=== PATIENT | female | born 1955 | race Caucasian/White ===

== ENCOUNTER 2023-02-12 10:58 | Outpatient (REF) | payer OTHER, SELFPAY ==
[2023-02-12 11:20] LABS: MANUAL DIFF FLAG NO
[2023-02-12 12:58] LABS: Basophils Percent Auto 0.7 % (0-2); Eosinophils Absolute Auto 0.4 X10*3/uL (0.0-0.4); Eosinophils Percent Auto 6.9 % (0-4); Hematocrit 36.2 % (37.0-47.0); Hemoglobin 11.6 g/dl (12.0-16.0); Imm Gran Abs Auto 0.02 X10*3/uL (0.00-0.03); Imm Gran Pct Auto 0.3 % (0.0-0.4); Lymphocytes Absolute Auto 1.9 X10*3/uL (1.2-4.9); Lymphocytes Percent Auto 31.1 % (20-40); Mean Corpuscular Hemoglobin 28.8 pg (27.0-33.0); Mean Corpuscular Volume 89.8 fL (80.0-98.0); Mean Platelet Volume 9.5 fL (9.4-12.3); Monocytes Absolute Auto 0.3 X10*3/uL (0.1-1.2); Monocytes Percent Auto 5.2 % (2-11); Neutrophils Absolute Auto 3.3 x10*3/uL (2.0-8.3); Neutrophils Percent Auto 55.8 % (45-73); Platelet Count 269 X10*3/uL (160-400); Red Blood Count 4.03 X10*6/uL (4.20-5.50); White Blood Count 5.9 X10*3/uL (4.8-10.8)
[2023-02-12 14:25] LABS: Alanine Aminotransferase 31 U/L (0-31); Albumin Level 4.2 g/dL (3.5-5.0); Alkaline Phosphatase 81 U/L (39-117); Anion Gap 17 (12-20); Aspartate Amino Transferase 31 U/L (5-31); Bilirubin Total 0.7 mg/dL (0.0-1.0); Blood Urea Nitrogen 32 mg/dL (9-16); Calcium 10.2 mg/dL (8.4-10.2); Carbon Dioxide 17 mmol/L (22-29); Chloride 111 mmol/L (96-108); Cholesterol 144 mg/dL; Estimated Glomerular Filt Rate 28; Glucose Fasting 138 mg/dL (60-99); HDL Cholesterol 39 mg/dL; LDL Cholesterol Calculated 79 mg/dl; Potassium 5.6 mmol/L (3.3-5.1); Sodium 139 mmol/L (135-145); Total Protein 7.5 g/dL (6.5-8.0); Triglycerides 130 mg/dL
[2023-02-12 14:34] LABS: Creatinine Urine 214.85 mg/dL; Microalbum/Creatinine Ratio Ur 45.1 ug/mg cr
[2023-02-12 14:40] LABS: TSH reflex Free T4 2.16 uIU/mL (0.32-4.0); Vitamin D 25-OH Total 72.1 ng/mL (>30)
[2023-02-12 14:53] LABS: Folate 16.1 ng/mL (> or = 4.0); Vitamin B12 1229 pg/mL (200-900)
== END 2023-02-12 10:59 | disposition home or self-care (01) ==
LOC: HO.LAB 10:58
PROVIDERS: Visit Provider Nurse Practitioner Family
DX: E03.9 Hypothyroidism, unspecified (principal); E78.5 Hyperlipidemia, unspecified; Z76.89 Persons encountering health services in other specified circumstances; I12.9 Hypertensive chronic kidney disease with stage 1 through stage 4 chronic kidney disease, or unspecified chronic kidney disease; E11.22 Type 2 diabetes mellitus with diabetic chronic kidney disease; N18.9 Chronic kidney disease, unspecified; E87.5 Hyperkalemia; M19.90 Unspecified osteoarthritis, unspecified site; F03.90 Unspecified dementia, unspecified severity, without behavioral disturbance, psychotic disturbance, mood disturbance, and anxiety
CPT/HCPCS: 36415; 80053; 80061; 82043; 82306; 82607; 82746; 84443; 85025

== ENCOUNTER 2023-02-13 13:55 | Outpatient (AMB) | payer OTHER, SELFPAY ==
--- NOTE | 2023-02-13 14:03 | MHC.PC.OV ---
Vital Signs 02/13/23 14:04 Height 5 ft 6.5 in Weight 192 lb BMI 30.5 BP 118/76 Blood Pressure Location Lt brachial Position Sitting Pulse 73 Pulse Source Pulse Oximeter Temp Source Skin Pulse Oximetry (%) 99 Oxygen Delivery Method Room Air Intake Visit Reasons: PE with labs Neurosurgical Nurse Required: No Allergies amoxicillin Allergy (Intermediate, Verified 02/13/23 14:23) Vomiting Medication List - Last Reconciled 02/13/23 by ELVIA Anaya amlodipine 5 mg PO DAILY atorvastatin 20 mg PO DAILY cholecalciferol (vitamin D3) 50 mcg PO DAILY coenzyme Q10 (CoQ-10) 200 mg PO DAILY duloxetine 60 mg PO DAILY lamotrigine 50 mg PO BID levothyroxine 50 mcg PO DAILY lisinopril 20 mg PO DAILY lorazepam 1 mg PO BEDTIME PRN metformin 500 mg PO BID methylphenidate HCl 20 mg PO BID omega-3 fatty acids 1,000 mg PO DAILY zolpidem mg PO Tobacco use date assessed: 12/13/22 Fall risk assessment: No Falls in past year Last assessed Fall Risk: 02/13/23 Dental Screening Dental Screen Date: 02/13/23 Did you have a dental visit in the last 12 months?: No Did you have a dental problem in the last 6 months where you did not have access to dental care?: No HPI PE with labs HPI Details Patient is a 68-year-old female who presents today for physical exam. Medical history significant for depression, anxiety, insomnia, ADHD, hypertension, diabetes, hyperlipidemia, hypothyroidism, arthritis in back.? Mental health conditions and medications are followed by Psychiatry Dr. Warner.? Today we discussed patient's need for tetanus vaccine. We also discussed patient's need for mammogram and bone density screening. Patient reports normal colonoscopy in 2019 which was done at [facility], will request records. Patient reports pneumonia vaccine after age 65. Recent blood work results reviewed with the patient. Potassium elevated at 5.6 02/12/2023, will treat with 1 dose lokelma today and repeat blood work tomorrow. Patient reports that about 1 month ago she was taking ibuprofen for couple weeks for back pain. Her kidney functions are elevated as well and will refer to Nephrology. Will avoid nephrotoxic medications. Patient denies shortness of breath or chest pain. She reports ongoing intermittent bilateral hip pain, she reports sensation like her hips are locking up, will obtain x-rays. ?Up-to-date with eye exam. [facility] Medical History (Updated 02/13/23 @ 14:40 by ELVIA Anaya) Encounter to establish care Surgical History (Updated 02/13/23 @ 17:36 by ELVIA Anaya) History of cholecystectomy History of colonoscopy History of gastric bypass History of placement of ear tubes Family History Other Mental health disorder Substance use disorder Social History Housing: House Alcohol intake: current Alcohol intake frequency: holidays/special occasions only Patient Tobacco Use Status: Former Tobacco user e-Cigarette/Vaping Use: Never Used Second Hand Smoke Exposure: No service: No Current occupational status: retired Cognitive needs: No Hearing needs: No Vision needs: Yes (glasses) Questionnaire PHQ-9 Over the last 2 weeks, how often have you been bothered by any of the following problems? 1. Little interest or pleasure in doing things: several days 2. Feeling down, depressed, or hopeless: several days (pt is receiving treatment for depression/anxiety ) 3. Trouble falling or staying asleep, or sleeping too much: not at all 4. Feeling tired or having little energy: not at all 5. Poor appetite or overeating: not at all 6. Feeling bad about yourself - or that you are a failure or have let yourself or your family down: not at all 7. Trouble concentrating on things, such as reading the newspaper or watching television: not at all 8. Moving or speaking so slowly that other people could have noticed. Or the opposite - being so fidgety or restless that you have been moving around a lot more than usual: not at all 9. Thoughts that you would be better off or of hurting yourself in some way: not at all Total score: 2 Depression Screening Interpretation: Negative 52913 - PHQ-9 Billing: Yes Source: Developed by Drs. Ko Babcock, Anny Javed, Larry Santizo and colleagues, with an educational ralph from [employer]. Thrive Questionnaire Date Thrive assessed: 12/13/22 AUDIT C Alcohol Use Questionnaire (AUDIT-C) 1. How often do you have a drink containing alcohol?: Never Total Score: 0 Score Reviewed/Action Taken: No KIMBERLEY-7 AMB Questionnaire KIMBERLEY-7 Date KIMBERLEY - 7 assessed: 02/13/23 (pt is receiving treatment for depression/anxiety ) Feeling nervous, anxious, or on edge: 1 = Several days Not being able to stop or control worryin = Several days Worrying too much about different things: 0 = Not at all Trouble relaxin = Not at all Being so restless that it is hard to sit still: 0 = Not at all Becoming easily annoyed or irritable: 0 = Not at all Feeling afraid as if something awful might happen: 0 = Not at all Total KIMBERLEY-7 score (0-4 normal; 5-9 mild; 10-14 moderate; 15-21 severe): 2 Source: Developed by Drs. Ko Babcock, Anny Javed, Larry Santizo and colleagues, with an educational ralph from [employer]. KIMBERLEY-7 Assessment Billing KIMBERLEY-7 Assessment Tool: KIMBERLEY-7 Assessment 88369 Review of Systems Const Denies body aches, Denies chills, Denies fever(s) and Denies headache(s) Eyes Denies change in vision ENT Denies dizziness, Denies otalgia, Denies headache(s), Denies nasal discharge, Denies sinus pain and Denies sore throat Card Denies chest pain, Denies edema, Denies lightheadedness and Denies dyspnea Resp Denies cough, Denies dyspnea and Denies wheezing GI Denies constipation, Denies diarrhea, Denies nausea and Denies vomiting Denies dysuria Musc Reports as per HPI, Denies myalgias and Reports arthralgias Skin/Breast Denies lesions and Denies rash Neuro Denies dizziness and Denies headache(s) Aller/Immun Denies wheezing Physical exam (Primary Care) Vital Signs: Last Vital Signs Pulse 73 02/13/23 14:04 BP 118/76 02/13/23 14:04 Pulse Ox 99 02/13/23 14:04 Oxygen Delivery Method Room Air 02/13/23 14:04 BMI result Body Mass Index 30.5 Tobacco/Smoking Status: Tobacco use Status Tobacco use date assessed 12/13/22 02/13/23 14:04 Patient Tobacco Use Status Former Tobacco user 02/13/23 14:04 e-Cigarette/Vaping Use Never Used 02/13/23 14:04 PHQ-9: PHQ-9 Score PHQ-9: Total score 2 02/13/23 14:34 Depression Screening Interpretation: Negative Thrive Assessment: Date of Thrive Assessment Date Thrive assessed 12/13/22 02/13/23 14:04 Const General: cooperative and no acute distress Orientation/consciousness: patient oriented x3 HENMT Head: Yes normocephalic and Yes atraumatic Ears: TM's normal bilaterally Face and sinus: Yes sinuses nontender Mouth: oropharynx normal and moist mucous membranes Throat: Yes posterior oropharynx normal Eyes General: appearance normal, both eyes and all related structures Pupils: Equal, round and reactive pupils present EOM: EOMs intact bilaterally Neck Neck: Yes normal visual inspection, Yes full ROM and Yes no lymphadenopathy Thyroid: Thyroid normal Resp Effort & Inspection: normal respiratory effort and able to speak in complete sentences Auscultation: clear to auscultation bilaterally, no crackles, no rales, no rhonchi and no wheezes Cardio Rate: regular rate Rhythm: regular rhythm Heart sounds: S1 normal heart sound present, S2 normal heart sound present and no murmurs GI Palpation (GI): Soft to palpation, not firm, nontender, no guarding, not rigid and no hepatosplenomegaly Auscultation: normal bowel sounds General: No CVA tenderness Back/Spine/Pelvis Back: No CVA tenderness Skin General skin exam: no rashes or lesions noted Neuro General: patient oriented x3 Cranial nerves: Yes Equal, round and reactive pupils present Gait exam (Neuro): Normal gait present Extrem General: Yes full ROM and No edema Immunizations tetanus-diphtheria toxoids-Td Performing Provider: ELVIA Anaya Administered by: STEPHANIE Padilla on 02/13/23 14:34 Dose Route Admin Location Lot Number Expiration Date NDC Ne[employer] Sign [employer]er 0.5 mL IM Left Deltoid [id number] 12/08/23 [address]-2 [employer] VIS Given Date VIS Provided VIS Publication Date 02/13/23 Single Vaccine 21 Eligibility Eligibility Date Funding Source Not VFC Eligible 02/13/23 [facility] Assessment and Plan Assessment & Plan (1) Hypothyroidism: Code(s): E03.9 - Hypothyroidism, unspecified Plan: Levothyroxine 50 mcg daily (2) Hyperlipidemia: Code(s): E78.5 - Hyperlipidemia, unspecified Plan: Atorvastatin 20 mg daily Low-cholesterol diet and weight loss (3) Diabetes mellitus: Code(s): E11.9 - Type 2 diabetes mellitus without complications Plan: A1c 6.6 12/2022 Continue metformin 500 mg b.i.d. Low-carbohydrate diet (4) Hypertension: Code(s): I10 - Essential (primary) hypertension Plan: Goal BP equal or less than 140/90 Continue amlodipine, decrease lisinopril to 10 mg daily due to hyperkalemia Low-sodium diet and weight loss (5) Depression: Code(s): F32.A - Depression, unspecified Qualifiers: Depression Type: other depression Qualified Code(s): F32.89 - Other specified depressive episodes Plan: Continue to follow-up with psychiatry Dr. Warner who manages and prescribes mental health medications (6) Bilateral hip pain: Code(s): M25.551 - Pain in right hip; M25.552 - Pain in left hip Plan: Will obtain bilateral hip x-ray Patient can try [id number] Tylenol 650 mg every 6 hours as needed for pain (7) CKD (chronic kidney disease) stage 4, GFR 15-29 ml/min: Code(s): N18.4 - Chronic kidney disease, stage 4 (severe) Plan: Creatinine 1.77, GFR 28, microalbumin 97 02/12/2023 Avoid nephrotoxic medications Increase fluid consumption Nephrology referral for an evaluation and treatment (8) Hyperkalemia: Code(s): E87.5 - Hyperkalemia Plan: Potassium 5.6 02/12/2023 Will treat with 1 dose Lokelma today and recheck blood work tomorrow (9) Screening for breast cancer: Code(s): Z12.39 - Encounter for other screening for malignant neoplasm of breast (10) Post-menopausal: Code(s): Z78.0 - Asymptomatic menopausal state (11) Adult general medical exam: Code(s): Z00.00 - Encounter for general adult medical examination without abnormal findings Plan Follow-up in 3 months or sooner as needed Orders: Orders XR DEXA axial skeleton Today Z78.0 - Asymptomatic menopausal state MM tomosynthesis screening BI Today Z12.31 - Encounter for screening mammogram for malignant neoplasm of breast, Z12.39 - Encounter for other screening for malignant neoplasm of breast Basic Metabolic Panel 02/14/23 E87.5 - Hyperkalemia XR hips BILL min 3V Today M25.551 - Pain in right hip, M25.552 - Pain in left hip Td State Immunization Today Z23 - Encounter for immunization Referrals Nephrology Referral N18.4 - Chronic kidney disease, stage 4 (severe) Medications: New lisinopril 10 mg PO DAILY 90 tabs 0RF I10 - Essential (primary) hypertension sodium zirconium cyclosilicate (Lokelma) 10 grams PO ONCE 1 ea 0RF E87.5 - Hyperkalemia Discontinued lisinopril Discontinued Reason: Doctor's Order 20 mg PO DAILY 90 tabs 0RF I10 - Essential (primary) hypertension Coding Level of Care Code Est Pt Prev Care >65y(08058) Diagnoses Hypothyroidism E03.9 Hyperlipidemia E78.5 Diabetes mellitus E11.9 Hypertension I10 Depression F32.89 Depression Type: other depression Bilateral hip pain M25.551; M25.552 CKD (chronic kidney disease) stage 4, GFR 15-29 ml/min N18.4 Hyperkalemia E87.5 Screening for breast cancer Z12.39 Post-menopausal Z78.0 Adult general medical exam Z00.00 Additional Codes KIMBERLEY-7 Assessment Billing - KIMBERLEY-7 Assessment Tool: KIMBERLEY-7 Assessment 89803 ([id number])
[2023-02-13 14:04] VITALS: BP 118/76; PULSE 73; O2SAT 99; BMI 30.5
== END 2023-02-13 14:54 | disposition home or self-care (01) ==
PROVIDERS: PCP Nurse Practitioner Family; Visit Provider Nurse Practitioner Family
DX: Z00.00 Encounter for general adult medical examination without abnormal findings (principal); E11.22 Type 2 diabetes mellitus with diabetic chronic kidney disease; N18.4 Chronic kidney disease, stage 4 (severe); E03.9 Hypothyroidism, unspecified; I12.9 Hypertensive chronic kidney disease with stage 1 through stage 4 chronic kidney disease, or unspecified chronic kidney disease; E78.5 Hyperlipidemia, unspecified; F32.89 Other specified depressive episodes; M25.551 Pain in right hip; M25.552 Pain in left hip; E87.5 Hyperkalemia; Z12.39 Encounter for other screening for malignant neoplasm of breast; Z78.0 Asymptomatic menopausal state
CPT/HCPCS: 90471; 90714; 99397

== ENCOUNTER 2023-02-14 11:54 | Outpatient (REF) | payer OTHER, SELFPAY ==
--- NOTE | ~2023-02-14 | XR_ITS ---
EXAMINATION: XR BILATERAL HIPS WITH AP PELVIS CLINICAL INFORMATION: Pain in right hip. COMPARISON: None available. TECHNIQUE: AP view of the pelvis and 2 views of each hip were obtained. FINDINGS: There is normal symmetry of bilateral hip joint space without bony erosive changes. There is minimal periarticular spurring. There are bony hypertrophic changes along the anterior and inferior iliac spine likely old injury. The SI joints are symmetrical and normal AP and frog-leg views both hips reveal no fracture, dislocation, lytic or sclerotic process. XR/XR hips BILL min 3V IMPRESSION: 1. Mild periarticular spurring bilateral hip joints. No visible acute fracture, dislocation or subluxation seen. 2. Bony hypertrophic changes along the anterior superior and inferior iliac spine likely old injury.
[2023-02-14 13:10] LABS: Anion Gap 12 (12-20); Blood Urea Nitrogen 23 mg/dL (9-16); Carbon Dioxide 21 mmol/L (22-29); Chloride 112 mmol/L (96-108); Estimated Glomerular Filt Rate 39; Glucose Random 125 mg/dL (60-115); Potassium 5.2 mmol/L (3.3-5.1); Sodium 140 mmol/L (135-145)
== END 2023-02-14 11:55 | disposition home or self-care (01) ==
LOC: HO.LAB 11:54
PROVIDERS: Visit Provider Nurse Practitioner Family
DX: M25.551 Pain in right hip (principal); M25.552 Pain in left hip; E87.5 Hyperkalemia
CPT/HCPCS: 36415; 73522; 80048

== ENCOUNTER 2023-03-18 14:07 | Outpatient (REF) | payer MEDICARE, SELFPAY ==
--- NOTE | ~2023-03-18 | MM_ITS ---
EXAMINATION: MM SCREENING DIGITAL BREAST TOMOSYNTHESIS, BILATERAL CLINICAL INFORMATION: Screening. Asymptomatic. COMPARISON: Mammography: This study is compared with prior exams dating back to 2016. TECHNIQUE: Digital breast tomosynthesis is performed in both the craniocaudal and mediolateral oblique views along with computer-aided detection (CAD). Synthesized 2D images are generated from the tomosynthesis. FINDINGS: There are scattered areas of fibroglandular density (ACR BI-RADS breast composition Category b). There are no significant masses, abnormal calcifications, or other abnormalities. MM/MM tomosynthesis screening BI IMPRESSION: No mammographic evidence of malignancy. ASSESSMENT: BI-RADS BI-RADS 1 - Negative RECOMMENDATION: Routine annual mammography screening. 1 year F/U This examination should not preclude the clinical evaluation of a suspicious palpable abnormality. This patient's information was entered into a reminder system with a target due date for their next mammogram.
--- NOTE | ~2023-03-18 | MM_ITS ---
EXAMINATION: BONE DENSITOMETRY CLINICAL INDICATION: Menopause. COMPARISON: This is the patient's baseline examination. TECHNIQUE: Using a Live Mobile DXA System (software version: 13.1) manufactured by [employer], dual-energy x-ray absorptiometry was performed of the lumbar spine and left hip. The images are of good technical quality. Summary results are attached. FINDINGS: LEFT FEMUR, NECK: BMD 0.748 g/cm2, Z-score -1.0, T-score -2.1, osteopenia. LEFT FEMUR, TOTAL: BMD 0.887 g/cm2, Z-score -0.2, T-score -1.0, normal. AP SPINE L1-L2 (excluding L3 and L4): The data of L1-L4 has been changed to exclude the L3 and L4 vertebral bodies, because degenerative sclerosis at these levels may cause overestimation of lumbar spine density. BMD 1.239 g/cm2, Z-score 1.3, T-score 0.6, normal. IDENTIFIED RISK FACTORS: Menopause, renal, secondary osteoporosis. HISTORY OF FRACTURE: None listed. MEDICATIONS: Vitamin D. MM/XR DEXA axial skeleton IMPRESSION: 1. DIAGNOSIS: Osteopenia based on the lowest T-score value of -2.1 in the femoral neck applying World Health Organization criteria. 2. 10-YEAR FRACTURE RISK PREDICTION, FRAX: Major osteoporotic fracture (clinical spine, forearm, hip or shoulder) 11.5%. Hip fracture 2.3%. 3. Treatment Recommendations: NOF guidelines recommend consideration for treatment in postmenopausal women and men age 50 and older presenting with the following: -A hip or vertebral (clinical or morphometric) fracture. -T-score less than or equal to -2.5 at the femoral neck or spine after appropriate evaluation to exclude secondary causes. -Low bone mass at the hip or spine and a 10-year fracture probability by FRAX of greater than or equal to 3% for hip fracture or greater than or equal to 20% for major osteoporotic fracture based on the [place] adapted WHO algorithm. 4. Other Recommendations: All treatment decisions require clinical judgment and consideration of individual patient factors, including patient preferences, comorbidities, previous drug use, risk factors not captured in the FRAX model (e.g. frailty, falls, vitamin D deficiency, increased bone turnover, interval significant decline in bone density) and possible under or overestimation of fracture risk by FRAX. Additional medical evaluation for secondary cause of low bone mineral density may be appropriate. FUTURE SCAN RECOMMENDATION: People with diagnosed cases of osteoporosis or at high risk for fracture should have regular bone mineral density tests. For patients eligible for Medicare, routine testing is allowed once every 2 years. The testing frequency can be increased to one year for patients who have rapidly progressing disease, those who are receiving or discontinuing medical therapy to restore bone mass, or have additional risk factors.
== END 2023-03-18 14:08 | disposition home or self-care (01) ==
LOC: HO.MAMMO 14:07
PROVIDERS: PCP Nurse Practitioner Family; Visit Provider Nurse Practitioner Family
DX: Z12.31 Encounter for screening mammogram for malignant neoplasm of breast (principal); Z13.820 Encounter for screening for osteoporosis; Z78.0 Asymptomatic menopausal state
CPT/HCPCS: 77063; 77067; 77080

== ENCOUNTER → 2023-03-18 14:30 | Outpatient (BNV) | payer MEDICARE, SELFPAY | PROVIDERS: PCP Nurse Practitioner Family; Visit Provider Radiology Diagnostic Radiology | DX: Z12.31 Encounter for screening mammogram for malignant neoplasm of breast (principal) | CPT/HCPCS: 77063; 77067; 77080 ==

== ENCOUNTER 2023-05-21 11:18 | Outpatient (REF) | payer MEDICARE, SELFPAY ==
[2023-05-21 12:42] LABS: Alanine Aminotransferase 26 U/L (0-31); Albumin Level 4.2 g/dL (3.5-5.0); Alkaline Phosphatase 72 U/L (39-117); Anion Gap 15 (12-20); Aspartate Amino Transferase 28 U/L (5-31); Bilirubin Total 0.6 mg/dL (0.0-1.0); Blood Urea Nitrogen 25 mg/dL (9-16); Calcium 9.5 mg/dL (8.4-10.2); Carbon Dioxide 20 mmol/L (22-29); Chloride 109 mmol/L (96-108); Cholesterol 145 mg/dL (<200); Estimated Glomerular Filt Rate 42; Glucose Fasting 119 mg/dL (60-99); HDL Cholesterol 44 mg/dL (>40); LDL Cholesterol Calculated 81 mg/dL (<100); Sodium 139 mmol/L (135-145); Total Protein 7.2 g/dL (6.5-8.0); Triglycerides 100 mg/dL (<150)
[2023-05-21 12:58] LABS: TSH reflex Free T4 0.94 uIU/mL (0.32-4.0)
== END 2023-05-21 11:19 | disposition home or self-care (01) ==
LOC: HO.LAB 11:18
PROVIDERS: PCP Nurse Practitioner Family; Visit Provider Nurse Practitioner Family
DX: E11.9 Type 2 diabetes mellitus without complications (principal); E03.9 Hypothyroidism, unspecified
CPT/HCPCS: 36415; 80053; 80061; 84443

== ENCOUNTER 2023-05-22 11:27 | Outpatient (AMB) | payer OTHER, SELFPAY ==
[2023-05-22 11:30] VITALS: BP 114/66; PULSE 72; O2SAT 99; BMI 29.6
--- NOTE | 2023-05-22 11:30 | A.OFFPC_ITS ---
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 Allergies amoxicillin Allergy (Intermediate, Verified 05/22/23 11:41) Vomiting Medication List - Last Reconciled 05/22/23 by ELVIA Anaya amlodipine 5 mg PO DAILY atorvastatin 20 mg PO DAILY calcium carbonate-vitamin D3 600 mg-10 mcg (400 unit) (Calcium 600 + D(3)) 1 tab PO BID coenzyme Q10 (CoQ-10) 200 mg PO DAILY duloxetine 60 mg PO DAILY lamotrigine 50 mg PO BID levothyroxine 50 mcg PO DAILY lisinopril 10 mg PO DAILY lorazepam 1 mg PO BEDTIME PRN metformin 500 mg PO BID methylphenidate HCl 20 mg PO BID omega-3 fatty acids 1,000 mg PO DAILY sodium zirconium cyclosilicate (Lokelma) 10 grams PO ONCE zolpidem mg PO Tobacco use date assessed: 05/22/23 Fall risk assessment: No Falls in past year Last assessed Fall Risk: 05/22/23 Dental Screening Dental Screen Date: 05/22/23 Did you have a dental visit in the last 12 months?: No Did you have a dental problem in the last 6 months where you did not have access to dental care?: No HPI F/U on DM, HTN, HLD HPI Details Patient is a 68-year-old female who presents today to follow-up on chronic conditions. Medical history significant for depression, anxiety, i nsomnia, ADHD, hypertension, diabetes, hyperlipidemia, hypothyroidism, arthritis in back, CKD - followed by nephrology, bilateral hip pain - would like to see physical therapy.? Mental health conditions and medications are followed by Psychiatry Dr. Warner.? Patient reports that she is compliant with medications and denies side effects. She reports fatigue for long time now, she reports fatigue when waking up in the morning even after sleeping for 10 hours. She also reports chest skin lesion which have been increasing in size for the past some time and would like to see Dermatology for skin check. In addition, patient reports upset stomach after she eats for the past some down she reports diarrhea this morning, not interested in treatment at this time. Patient is to notify office if symptoms are not resolving - interested in diabetes Education. Recent blood work results reviewed with the patient. 02/2023 XR/XR hips BILL min 3V IMPRESSION: 1. Mild periarticular spurring bilatera l hip joints. No visible acute fracture, dislocation or subluxation seen. 2. Bony hypertrophic changes along the anterior superior and inferior iliac spine likely old injury. [facility] Medical History Encounter to establish care Surgical History History of colonoscopy History of placement of ear tubes History of gastric bypass History of cholecystectomy Family History Other Mental health disorder Substance use disorder Social History Housing: House Alcohol intake: current Alcohol intake frequency: holidays/special occasions only Patient Tobacco Use Status: Former Tobacco user e-Cigarette/Vaping Use: Never Used Second Hand Smoke Exposure: No service: No Current occupational status: retired Cognitive needs: No Hearing needs: No Vision needs: Yes (glasses) Questionnaire Thrive Questionnaire Date Thrive assessed: 12/13/22 AUDIT C Alcohol Use Questionnaire (AUDIT-C) 1. How often do you have a drink containing alcohol?: Never Total Score: 0 Score Reviewed/Action Taken: No KIMBERLEY-7 AMB Questionnaire KIMBERLEY-7 Date KIMBERLEY - 7 assessed: 02/13/23 (pt is receiving treatment for depression/anxiety ) Source: Developed by Drs. Ko Babcock, Anny Javed, Larry Santizo and colleagues, with an educational ralph from [employer]. Review of Systems Const Denies body aches, Denies chills, Reports fatigue, Denies fever(s) and Denies headache(s) Eyes Denies change in vision ENT Denies dizziness, Denies otalgia, Denies headache(s), Denies nasal discharge, Denies sinus pain and Denies sore throat Card Denies chest pain, Denies edema, Denies lightheadedness and Denies dyspnea Resp Denies cough, Denies dyspnea and Denies wheezing GI Denies constipation, Reports diarrhea, Denies nausea and Denies vomiting Denies dysuria Musc Denies myalgias and Reports arthralgias Skin/Breast Reports as per HPI and Denies rash Neuro Denies dizziness and Denies headache(s) Endo Reports fatigue Aller/Immun Denies wheezing Physical exam (Primary Care) Vital Signs: Last Vital Signs Pulse 72 05/22/23 11:30 BP 114/66 05/22/23 11:30 Pulse Ox 99 05/22/23 11:30 Oxygen Delivery Method Room Air 05/22/23 11:30 BMI result Body Mass Index 29.6 Tobacco/Smoking Status: Tobacco use Status Tobacco use date assessed 05/22/23 05/22/23 11:33 Patient Tobacco Use Status Former Tobacco user 05/22/23 11:33 e-Cigarette/Vaping Use Never Used 05/22/23 11:33 Thrive Assessment: Date of Thrive Assessment Date Thrive assessed 12/13/22 05/22/23 11:33 Const General: cooperative and no acute distress Orientation/consciousness: patient oriented x3 HENMT Head: Yes normocephalic and Yes atraumatic Mouth: moist mucous membranes Throat: Yes posterior oropharynx normal Eyes General: appearance normal, both eyes and all related structures Neck Neck: Yes normal visual inspection, Yes full ROM and Yes no lymphadenopathy Thyroid: Thyroid normal Resp Effort & Inspection: normal respiratory effort and able to speak in complete sentences Auscultation: clear to auscultation bilaterally, no crackles, no rales, no rhonchi and no wheezes Cardio Rate: regular rate Rhythm: regular rhythm Heart sounds: S1 normal heart sound present, S2 normal heart sound present and no murmurs GI Palpation (GI): Soft to palpation, not firm, nontender, no guarding, not rigid and no hepatosplenomegaly Auscultation: normal bowel sounds Skin Other: Anterior chest with flat brown lesion about 7mm in diameter Neuro General: patient oriented x3 Gait exam (Neuro): Normal gait present Extrem General: Yes full ROM and No edema Results AMB Hemoglobin A1c AMB Hemoglobin A1c 5.9 % Last Edit by STEPHANIE Padilla on 05/22/23 11:48 Results Reviewed Results Reviewed: Laboratory Last Values Hgb A1c (Clinic) 5.9 % (4.0-6.0) 05/22/23 11:36 Assessment and Plan Assessment & Plan (1) Hypothyroidism: Code(s): E03.9 - Hypothyroidism, unspecified Plan: Stable with Levothyroxine 50 mcg daily (2) Hyperlipidemia: Code(s): E78.5 - Hyperlipidemia, unspecified Plan: LDL 81 05/2023 Atorvastatin 20 mg daily Low-cholesterol diet and weight loss (3) Diabetes mellitus: Code(s): E11.9 - Type 2 diabetes mellitus without complications Plan: A1c 5.9 today Continue metformin 500 mg b.i.d. Low-carbohydrate diet Patient reports diabetic eye exam 10/2022 which was normal with Dr. Turcios (4) Hypertension: Code(s): I10 - Essential (primary) hypertension Plan: Goal BP equal or less than 140/90 Continue amlodipine and lisinopril Low-sodium diet and weight loss (5) Depression: Code(s): F32.A - Depression, unspecified Qualifiers: Depression Type: other depression Qualified Code(s): F32.89 - Other specified depressive episodes Plan: Continue to follow-up with psychiatry Dr. Warner who manages and prescribes mental health medications (6) Bilateral hip pain: Code(s): M25.551 - Pain in right hip; M25.552 - Pain in left hip Plan: Physical therapy referral Patient can try [id number] Tylenol 650 mg every 6 hours as needed for pain (7) CKD (chronic kidney disease) stage 4, GFR 15-29 ml/min: Code(s): N18.4 - Chronic kidney disease, stage 4 (severe) Plan: Avoid nephrotoxic medications Increase fluid consumption Continue to follow-up with nephrology (8) Skin lesion: Code(s): L98.9 - Disorder of the skin and subcutaneous tissue, unspecified Plan: Dermatology referral for skin check (9) Hypersomnia: Code(s): G47.10 - Hypersomnia, unspecified Plan: Home sleep study ordered to rule out nocturnal hypoxemia/sleep apnea Plan Follow-up in 3 months or sooner as needed Orders: Orders TSH reflex Free T4 3 Months E03.9 - Hypothyroidism, unspecified Hemoglobin A1c 3 Months E11.9 - Type 2 diabetes mellitus without complications RT home sleep study Today G47.10 - Hypersomnia, unspecified PT Evaluation and Treatment Today M25.551 - Pain in right hip, M25.552 - Pain in left hip AMB Hemoglobin A1c Today E11.9 - Type 2 diabetes mellitus without complications Lipid Panel 3 Months E78.5 - Hyperlipidemia, unspecified Comprehensive [place]. Panel Fast 3 Months E11.9 - Type 2 diabetes mellitus without complications Referrals Dermatology Referral L98.9 - Disorder of the skin and subcutaneous tissue, unspecified Diabetes Education Referral E11.9 - Type 2 diabetes mellitus without complications Medications: Discontinued sodium zirconium cyclosilicate (Lokelma) Discontinued Reason: Doctor's Order 10 grams PO ONCE 1 ea 0RF E87.5 - Hyperkalemia Coding Level of Care Code Est Pt Level 4 (71260) Diagnoses Hypothyroidism E03.9 Hyperlipidemia E78.5 Diabetes mellitus E11.9 Hypertension I10 Other depression F32.89 Depression Type: other depression Bilateral hip pain M25.551; M25.552 CKD (chronic kidney disease) stage 4, GFR 15-29 ml/min N18.4 Skin lesion L98.9 Hypersomnia G47.10
== END 2023-05-22 12:05 | disposition home or self-care (01) ==
PROVIDERS: PCP Nurse Practitioner Family; Visit Provider Nurse Practitioner Family
DX: E11.22 Type 2 diabetes mellitus with diabetic chronic kidney disease (principal); N18.4 Chronic kidney disease, stage 4 (severe); E03.9 Hypothyroidism, unspecified; E78.5 Hyperlipidemia, unspecified; I12.9 Hypertensive chronic kidney disease with stage 1 through stage 4 chronic kidney disease, or unspecified chronic kidney disease; F32.89 Other specified depressive episodes; M25.551 Pain in right hip; M25.552 Pain in left hip; L98.9 Disorder of the skin and subcutaneous tissue, unspecified; G47.10 Hypersomnia, unspecified
CPT/HCPCS: 83036; 99214

== ENCOUNTER 2023-07-10 11:02 | Outpatient (AMB) | payer MEDICARE, SELFPAY ==
--- NOTE | 2023-07-10 11:05 | A.OFFVIS_ITS ---
Intake VS Expanded 07/10/23 11:06 07/10/23 11:28 Height 5 ft 6 in 5 ft 6 in Weight 186 lb 11.704 oz 187 lb BMI 30.1 30.2 Intake Visit Reasons: dm Allergies amoxicillin Allergy (Intermediate, Verified 05/22/23 11:41) Vomiting HPI Nutrition Presentation Details Pt presents for MNT for T2DM with CKD stage 4. Pt was referred by Sp, PCP. [id number].Jeor Equation Height 5 ft 6 in Weight 187 lb Resting Metabolic Rate 1389.72 Calculated Activity Level Mild Activity Calories Needed to Maintain Weight 1910.87 Diagnosis Nutrition problem #1 food nutri know defi As related to (etiology) #1 diagnosis As evidenced by (sign/symptom) #1 no prior educ - nutri rec Most Recent Diabetes Results: Microalb/Creat Ratio 45.1 ug/mg cr 02/12/23 Cholesterol 145 mg/dL (<200) 05/21/23 HDL Cholesterol 44 mg/dL (>40) 05/21/23 Triglycerides 100 mg/dL (<150) 05/21/23 Creatinine 1.26 mg/dL (0.5-1.4) 05/21/23 Blood Urea Nitrogen 25 mg/dL (9-16) H 05/21/23 Sodium 139 mmol/L (135-145) 05/21/23 Potassium 5.0 mmol/L (3.3-5.1) 05/21/23 Chloride 109 mmol/L (96-108) H 05/21/23 Carbon Dioxide 20 mmol/L (22-29) L 05/21/23 Calcium 9.5 mg/dL (8.4-10.2) 05/21/23 AST 28 U/L (5-31) 05/21/23 ALT 26 U/L (0-31) 05/21/23 Total Protein 7.2 g/dL (6.5-8.0) 05/21/23 Albumin 4.2 g/dL (3.5-5.0) 05/21/23 [facility] Medical History Encounter to establish care Surgical History History of colonoscopy History of placement of ear tubes History of gastric bypass History of cholecystectomy Family History Other Mental health disorder Substance use disorder Social History Housing: House Alcohol intake: current Alcohol intake frequency: holidays/special occasions only Patient Tobacco Use Status: Former Tobacco user e-Cigarette/Vaping Use: Never Used Second Hand Smoke Exposure: No service: No Current occupational status: retired Cognitive needs: No Hearing needs: No Vision needs: Yes (glasses) Assessment & Plan Assessment & Plan (1) Diabetes mellitus: Code(s): E11.9 - Type 2 diabetes mellitus without complications Plan: wt: 85 kg Est kcal needs as per MSJ: 1900 (40% carb, 30% protein/fat) Est fluid needs as per 25-30 ml/d: 2125- 2550 Est prot per day as per 0.8-1 g/kg bw: 68-85 Recommend fiber intake : 8-10 g per day and gradually increase to 25-28 g per day for women and 35-38 g for men or as tolerated Recommend sodium intake per day : less than 2000 mg Educated patient on: ( R = reviewed V = verbalizes understanding N/R = needs review N/A = not applicable * Food sources of carbohydrate, adequate serving sizes and its role in various health conditions: R * Differences between complex carbohydrates a simple carbohydrates, role of fiber in diet: R * Heart/Kidney healthy protein sources of foods : R * Differences between types of fats and role in diet (mono on saturated fat fa tty acids, saturated fatty acids, trans fats): R, basic * Food sources of sodium in salt and healthy modifications for heart health in kidney health: R basic * Healthy plate method concept: R * Physical activity: Benefits a precaution: R * Dietary prevention of Hyperglycemia: R Patient Instructions: Follow healthy plate method Choose low sodium food options: fruit in place of pastries , low sugar cereals/crackers Keep physically active as able choose low sugar beverages (water, lemonade, juices diluted with water ) Coding Level of Care Code Nutr Indiv Intake (94123) Diagnoses Diabetes mellitus E11.9 Time Spent (min) 30
[2023-07-10 11:06] VITALS: BMI 30.1
[2023-07-21 12:30] VITALS: BMI 30.2
== END 2023-07-10 11:42 | disposition home or self-care (01) ==
PROVIDERS: PCP Nurse Practitioner Family; Visit Provider Dietitian, Registered
DX: E11.9 Type 2 diabetes mellitus without complications (principal)

== ENCOUNTER → 2023-07-10 11:02 | Outpatient (BNVA) | payer MEDICARE, SELFPAY | PROVIDERS: PCP Nurse Practitioner Family; Visit Provider Dietitian, Registered | DX: E11.9 Type 2 diabetes mellitus without complications (principal) | CPT/HCPCS: 97802 ==

== ENCOUNTER 2023-11-06 15:02 | Outpatient (AMB) | payer MEDICARE, SELFPAY ==
[2023-11-06 15:16] VITALS: BP 100/54; PULSE 94; BMI 28.1
--- NOTE | 2023-11-06 15:16 | A.OFFPC_ITS ---
Vital Signs 11/06/23 15:16 11/06/23 15:49 Height 5 ft 6 in Weight 174 lb BMI 28.1 BP 100/54 L 102/50 L Blood Pressure Location Lt brachial Position Sitting Pulse 94 Pulse Source Pulse Oximeter Intake Visit Reasons: Kidney Mass, Mass General 11/13 Oracle Consultant Required: No Accompanied by: Self / Same As Patient Allergies amoxicillin Allergy (Intermediate, Verified 11/06/23 15:40) Vomiting Medication List - Last Reconciled 11/06/23 by Pato Adkins PA-C amlodipine 5 mg PO DAILY atorvastatin 20 mg PO DAILY calcium carbonate-vitamin D3 600 mg-10 mcg (400 unit) (Calcium 600 + D(3)) 1 tab PO BID coenzyme Q10 (CoQ-10) 200 mg PO DAILY duloxetine 60 mg PO DAILY lamotrigine 50 mg PO BID levothyroxine 50 mcg PO DAILY lisinopril 10 mg PO DAILY lorazepam 1 mg PO BEDTIME PRN metformin 500 mg PO BID methylphenidate HCl 20 mg PO BID omega-3 fatty acids 1,000 mg PO DAILY zolpidem mg PO Tobacco use date assessed: 11/06/23 Fall risk assessment: 1 Fall in past year Last assessed Fall Risk: 11/06/23 Dental Screening Dental Screen Date: 11/06/23 Did you have a dental visit in the last 12 months?: No Did you have a dental problem in the last 6 months where you did not have access to dental care?: No Was dental information given to patient?: Yes HPI Kidney Mass, Mass General 11/13 HPI Details Patient is a 68 year female here today for preop visit. THIS IS THE 1ST TIME I AM MEETING THIS 68-YEAR-OLD FEMALE with a past history significant for hypertension, hyperlipidemia, CKD stage 4, hypothyroidism, DMII. Recently found to have a large renal mass concerning for renal carcinoma. She is due for total nephrectomy .. Patient does not any past medical history of CVA, Congestive heart failure or NH. Reviewed most recent labs and EKG done at [facility] which were all within an acceptable range. Today's blood pressure on low side. She denies any acute dizziness, syncopal episodes,. She reports she has lost weight over the last few months which could be contributing. PLAN: She will hold her amlodipine dose for now. .. Type 2 diabetes: Has been well controlled with current dose of metformin. Most recent fasting blood sugar 115. [facility] Medical History Encounter to establish care Surgical History History of colonoscopy History of placement of ear tubes History of gastric bypass History of cholecystectomy Family History Other Mental health disorder Substance use disorder Social History Housing: House Alcohol intake: current Alcohol intake frequency: holidays/special occasions only Patient Tobacco Use Status: Former Tobacco user e-Cigarette/Vaping Use: Never Used Second Hand Smoke Exposure: No service: No Current occupational status: retired Cognitive needs: No Hearing needs: No Vision needs: Yes (glasses) Questionnaire PHQ-9 Over the last 2 weeks, how often have you been bothered by any of the following problems? 1. Little interest or pleasure in doing things: nearly every day 2. Feeling down, depressed, or hopeless: nearly every day 3. Trouble falling or staying asleep, or sleeping too much: nearly every day 4. Feeling tired or having little energy: nearly every day 5. Poor appetite or overeating: not at all 6. Feeling bad about yourself - or that you are a failure or have let yourself or your family down: several days 7. Trouble concentrating on things, such as reading the newspaper or watching television: more than half the days 8. Moving or speaking so slowly that other people could have noticed. Or the opposite - being so fidgety or restless that you have been moving around a lot more than usual: several days 9. Thoughts that you would be better off or of hurting yourself in some way: not at all Total score: 16 Depression Screening Interpretation: Positive Depression Screening Follow-up: Existing condition and In treatment Depression Screening Done: Yes 87144 - PHQ-9 Billing: Yes Source: Developed by Drs. Ko Babcock, Anny Javed, Larry Santizo and colleagues, with an educational ralph from [employer]. Thrive Questionnaire Date Thrive assessed: 11/06/23 I am a: Patient What is your living situation today?: I have a steady place to live Within the past 12 months, did the food you bought not last and you didn't have the money to get more?: Never true Within the past 12 months, did you worry whether your food would run out before you got money to buy more?: Never true Do you have trouble paying for medicines?: No Do you have trouble getting transportation to medical appointments?: No Do you have trouble paying your heating and electricity bill?: No Do you have trouble taking care of your child, family member or friend?: No Do you have trouble with day-to-day activities such as bathing, preparing meals, shopping, managing finances, etc.?: No Are you currently unemployed and looking for a job?: No Are you interested in more education?: No Please select the resources that you would like help with: None Currently or been in a relationship where the following occur: no concerns reported THRIVE Score: 0 KIMBERLEY-7 AMB Questionnaire KIMBERLEY-7 Date KIMBERLEY - 7 assessed: 02/13/23 (pt is receiving treatment for depression/anxiety ) Source: Developed by Drs. Ko Babcock, Anny Javed, Larry loredo nd colleagues, with an educational ralph from [employer]. Review of Systems Const Denies headache(s) Eyes Denies loss of vision ENT Denies vertigo, Denies dizziness, Denies headache(s) and Denies sore throat Card Denies chest pain, Denies leg edema and Denies lightheadedness Resp Denies cough, Denies hemoptysis and Denies wheezing GI Denies abdominal pain, Denies melena, Denies constipation, Denies diarrhea and Denies vomiting Denies urinary frequency, Denies dysuria and Denies urinary urgency Musc Denies arthralgias, Denies joint swelling, Denies numbness and Denies tingling Neuro Denies Abnormal speech present, Denies behavioral changes, Denies vertigo, Denies dizziness, Denies headache(s), Denies loss of vision, Denies memory loss, Denies numbness and Denies tingling Psych Denies anxiety, Denies behavioral changes, Denies depression, Denies memory loss and Denies panic attacks Ernesto/Lymph Denies easy bleeding and Denies easy bruising Aller/Immun Denies wheezing Physical exam (Primary Care) Vital Signs: Last Vital Signs Pulse 94 11/06/23 15:16 BP 102/50 L 11/06/23 15:49 BMI result Body Mass Index 28.1 Tobacco/Smoking Status: Tobacco use Status Tobacco use date assessed 11/06/23 11/06/23 15:26 Patient Tobacco Use Status Former Tobacco user 11/06/23 15:19 e-Cigarette/Vaping Use Never Used 11/06/23 15:19 PHQ-9: PHQ-9 Score PHQ-9: Total score 16 11/06/23 15:42 Depression Screening Interpretation: Positive Depression Screening Follow-up: Existing condition and In treatment Thrive Assessment: Date of Thrive Assessment Date Thrive assessed 11/06/23 11/06/23 15:26 Currently or been in a relationship where the following occur: no concerns reported Const General: healthy appearing, no acute distress, alert and awake Nutritional Appearance: well nourished Orientation/consciousness: oriented to person, oriented to place and oriented to time HENMT Ears: TM's normal bilaterally General nose exam: Normal nasal mucous membranes and turbinates present Eyes Conjunctivae: conjunctivae normal Sclerae: sclerae normal Pupils: Equal, round and reactive pupils present Neck Neck: Yes no lymphadenopathy and Yes no JVD Thyroid: Thyroid normal Carotids: no bruits Resp Effort & Inspection: normal respiratory effort and not tachypneic Auscultation: no crackles, no rales, no rhonchi and no wheezes Cardio Rate: regular rate Rhythm: regular rhythm Heart sounds: no murmurs and normal S1 and S2 GI Palpation (GI): Soft to palpation, nontender, no hepatomegaly and no splenomegaly Auscultation: normal bowel sounds Skin General skin exam: no rashes or lesions noted and dry skin Neuro General: oriented to person, oriented to place and oriented to time Cranial nerves: Yes Equal, round and reactive pupils present Speech: No Abnormal speech present Gait exam (Neuro): Normal gait present Motor exam (neuro): no tremor noted Extrem Right upper extremity: full ROM Left upper extremity: full ROM Right lower extremity: full ROM; no edema Left lower extremity: full ROM; no edema Psych Mental Status: mental status grossly normal Speech and movement: Normal speech and movement present Affect: normal affect Attitude: cooperative Thought process: Normal thought process present Assessment and Plan Assessment & Plan (1) Pre-op evaluation: Code(s): Z01.818 - Encounter for other preprocedural examination Plan: Patient is low CV risk for needed procedure. Most recent labs within normal range. Most recent EKG without any significant abnormality. Patient medically clear for needed total nephrectomy. (2) Right renal mass: Code(s): N28.89 - Other specified disorders of kidney and ureter Plan: As above (3) CKD (chronic kidney disease) stage 4, GFR 15-29 ml/min: Code(s): N18.4 - Chronic kidney disease, stage 4 (severe) Plan: Patient continues to follow Nephrology. (4) Hyperlipidemia: Code(s): E78.5 - Hyperlipidemia, unspecified Qualifiers: Hyperlipidemia type: mixed hyperlipidemia Qualified Code(s): E78.2 - Mixed hyperlipidemia Plan: Patient continues on statin therapy without side effect. Lipid panels have been stable. (5) Diabetes mellitus: Code(s): E11.9 - Type 2 diabetes mellitus without complications Qualifiers: Diabetes mellitus complication status: with hyperglycemia Diabetes mellitus retirement insulin use: without retirement use Diabetes mellitus type: type 2 Qualified Code(s): E11.65 - Type 2 diabetes mellitus with hyperglycemia Plan: Patient's type 2 diabetes well controlled with current dose of metformin 500 b.i.d.. Most recent fasting blood sugar 115. Goal A1c is to be below 7.0. (6) Hypertension: Code(s): I10 - Essential (primary) hypertension Qualifiers: Hypertension type: primary hypertension Qualified Code(s): I10 - Essential (primary) hypertension Plan: Patient's blood pressure on the low side today in office. Fortunately she is asymptomatic without any recent episodes of dizziness or syncopal episodes.. Will have her hold her amlodipine and continue monitoring blood pressure at home. Advised to increase fluids especially with electrolytes. (7) Hypothyroidism: Code(s): E03.9 - Hypothyroidism, unspecified Qualifiers: Hypothyroidism type: acquired Qualified Code(s): E03.9 - Hypothyroidism, unspecified Plan: Patient continues on levothyroxine 50 mcg. TSH have been chemically euthyroid. (8) Coronary artery calcification: Code(s): I25.10 - Atherosclerotic heart disease of knik coronary artery without angina pectoris; I25.84 - Coronary atherosclerosis due to calcified coronary lesion Plan: Was noted to have coronary artery calcification on most recent chest imaging. She otherwise denies any exertional shortness of breath or chest pains. (9) Hypotension: Code(s): I95.9 - Hypotension, unspecified Qualifiers: Hypotension type: hypotension due to drug Qualified Code(s): I95.2 - Hypotension due to drugs Plan: noted low blood pressures today in office . Will hold amlodipine and continue monitoring blood pressure at home with goal blood pressure to be above 100/60 in below 140/90. She will continue her current dose of lisinopril Orders: Orders Comprehensive [place]. Panel Fast Today I10 - Essential (primary) hypertension Complete Blood Count no Diff Today E11.65 - Type 2 diabetes mellitus with hyperglycemia Lipid Panel Today E78.2 - Mixed hyperlipidemia Hemoglobin A1c Today E11.65 - Type 2 diabetes mellitus with hyperglycemia Microalbumin, Random (w Creat) Today I10 - Essential (primary) hypertension Medications: New triamcinolone acetonide 0.5% 1 appl topical DAILY 30 days 15 grams 0RF L30.9 - Dermatitis, unspecified Coding Level of Care Code Est Pt Level 4 (00472) Diagnoses Pre-op evaluation Z01.818 Right renal mass N28.89 CKD (chronic kidney disease) stage 4, GFR 15-29 ml/min N18.4 Mixed hyperlipidemia E78.2 Hyperlipidemia type: mixed hyperlipidemia Type 2 diabetes mellitus with hyperglycemia, without long-term current use of insulin E11.65 Diabetes mellitus complication status: with hyperglycemia 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
[2023-11-06 15:49] VITALS: BP 102/50
== END 2023-11-06 15:59 | disposition home or self-care (01) ==
PROVIDERS: PCP Nurse Practitioner Family; Visit Provider Physician Assistant
DX: I12.9 Hypertensive chronic kidney disease with stage 1 through stage 4 chronic kidney disease, or unspecified chronic kidney disease (principal); N18.4 Chronic kidney disease, stage 4 (severe); E11.65 Type 2 diabetes mellitus with hyperglycemia; Z01.818 Encounter for other preprocedural examination; N28.89 Other specified disorders of kidney and ureter; E78.2 Mixed hyperlipidemia; E03.9 Hypothyroidism, unspecified; I25.10 Atherosclerotic heart disease of native coronary artery without angina pectoris; I25.84 Coronary atherosclerosis due to calcified coronary lesion; I95.2 Hypotension due to drugs
CPT/HCPCS: 99214

== ENCOUNTER 2024-02-23 11:34 | Outpatient (AMB) | payer MEDICARE, SELFPAY ==
--- NOTE | 2024-02-23 11:41 | A.OFFPC_ITS ---
Vital Signs 02/23/24 11:46 Height 5 ft 6 in Weight 155 lb 8 oz BMI 25.1 BP 126/68 Blood Pressure Location Lt brachial Position Sitting Pulse 94 Pulse Source Pulse Oximeter Pulse Oximetry (%) 98 Oxygen Delivery Method Room Air Intake Visit Reasons: Annual PE/ JONATHAN Carver S - see comments Intake Note: Patient is here today for a physical. Pricing Intern Required: No Accompanied by: Spouse Allergies amoxicillin Allergy (Intermediate, Verified 02/23/24 12:04) Vomiting Medication List - Last Reconciled 02/23/24 by Pato Adkins PA-C calcium carbonate-vitamin D3 600 mg-10 mcg (400 unit) (Calcium 600 + D(3)) 1 tab PO BID coenzyme Q10 (CoQ-10) 200 mg PO DAILY dextroamphetamine-amphetamine 20 mg 1.5 tabs PO BID duloxetine 60 mg PO DAILY lamotrigine 50 mg PO BID levothyroxine 50 mcg PO DAILY lisinopril 10 mg PO DAILY lorazepam 1 mg PO BEDTIME PRN metformin 500 mg PO BID omega-3 fatty acids 1,000 mg PO DAILY zolpidem mg PO Tobacco use date assessed: 11/06/23 Fall risk assessment: No Falls in past year Last assessed Fall Risk: 02/23/24 Dental Screening Dental Screen Date: 11/06/23 HPI Annual PE/ JONATHAN Carver S - see comments HPI Details Patient is a 69 year female here today for an annual physical.. THIS IS THE 2nd TIME I AM MEETING THIS 69-YEAR-OLD FEMALE with a past history significant for hypertension, hyperlipidemia, CKD stage 4, hypothyroidism, DMII. Recently found to have a large renal mass concerning for renal carcinoma. She is due for total nephrectomy. She is due for immunotherapy .. Chronic kidney disease: Patient is status post total nephrectomy, continues follow-up with Nephrology/Oncology. Most recent creatinine at 2.1. Hypertension: Blood pressure today in office acceptable. She is now off of amlodipine. She continues on lisinopril 10 mg with decent affect. .. Type 2 diabetes: Has been well controlled with current dose of metformin. Most recent A1c of 5.8 done in January 2024. Of note has lost significant amount of weight. PLAN: Will reduce her metformin dose to 500 daily. Colon cancer screening: Colonoscopy done in 2020 at [facility]. Normal results, repeat 10 years Mammogram: Done in March of 2023 Vaccines: Up-to-date with COVID vaccine, flu vaccine, shingles, tetanus, Need PCV PFSH Medical History Encounter to establish care Surgical History History of colonoscopy History of placement of ear tubes History of gastric bypass History of cholecystectomy Family History (Updated 02/23/24 @ 12:04 by Pato Adkins PA-C) Father Melanoma Brother Skin cancer Other Mental health disorder Substance use disorder Social History Housing: House Alcohol intake: current Alcohol intake frequency: holidays/special occasions only Patient Tobacco Use Status: Former Tobacco user e-Cigarette/Vaping Use: Never Used Second Hand Smoke Exposure: No service: No Current occupational status: retired Cognitive needs: No Hearing needs: No Vision needs: Yes (glasses) Questionnaire Thrive Questionnaire Date Thrive assessed: 11/06/23 KIMBERLEY-7 AMB Questionnaire KIMBERLEY-7 Date KIMBERLEY - 7 assessed: 02/13/23 (pt is receiving treatment for depression/anxiety ) Source: Developed by Drs. Ko Babcock, Anny Javed, Larry Santizo and colleagues, with an educational ralph from [employer]. Review of Systems Const Denies body aches, Denies chills, Denies excessive sweating, Denies fatigue, Denies fever(s) and Denies headache(s) Eyes Denies blurry vision ENT Denies dysphagia, Denies vertigo, Denies dizziness, Denies headache(s), Denies hearing loss and Denies tinnitus Card Denies chest pain, Denies chest pain with activity, Denies syncope, Denies irregular heart rhythm and Denies dyspnea Resp Denies chest congestion, Denies cough, Denies hemoptysis, Denies dyspnea and Denies wheezing GI Denies abdominal pain, Denies melena, Denies hematochezia, Denies coffee ground emesis, Denies dysphagia, Denies diarrhea, Denies nausea and Denies vomiting Denies urinary frequency, Denies dysuria, Denies urinary hesitancy and Denies urinary urgency Musc Denies arthralgias, Denies limited range of motion, Denies muscle cramps and Denies muscle weakness Skin/Breast Denies rash and Denies skin ulcer Neuro Denies Abnormal speech present, Denies confusion, Denies vertigo, Denies dizziness, Denies syncope, Denies headache(s), Denies memory loss and Denies seizure-like activity Psych Denies anxiety, Denies confusion, Denies depression, Denies memory loss, Denies panic attacks and Denies paranoia Endo Denies excessive sweating, Denies fatigue, Denies flushing, Denies polydipsia and Denies polyuria Aller/Immun Denies wheezing Physical exam (Primary Care) Vital Signs: Last Vital Signs Pulse 94 02/23/24 11:46 BP 126/68 02/23/24 11:46 Pulse Ox 98 02/23/24 11:46 Oxygen Delivery Method Room Air 02/23/24 11:46 BMI result Body Mass Index 25.1 Tobacco/Smoking Status: Tobacco use Status Tobacco use date assessed 11/06/23 02/23/24 11:42 Patient Tobacco Use Status Former Tobacco user 02/23/24 11:42 e-Cigarette/Vaping Use Never Used 02/23/24 11:42 Thrive Assessment: Date of Thrive Assessment Date Thrive assessed 11/06/23 02/23/24 11:42 Const General: cooperative, comfortable, no acute distress, alert and awake; No confusion Orientation/consciousness: oriented to person, oriented to place, patient oriented x3 and No confusion HENMT Head: Yes normocephalic Ears: external ears normal and TM's normal bilaterally Face and sinus: No sinus tenderness Mouth: Normal oral and palatal mucosa present and tongue normal Teeth and gingiva: dentition normal and gingiva normal Throat: Yes posterior oropharynx normal, Yes tonsils normal and Yes uvula midline Eyes Conjunctivae: conjunctivae normal Sclerae: sclerae normal Pupils: Equal, round and reactive pupils present EOM: EOMs intact bilaterally Direct Ophthalmoscopy: No no photophobia Neck Neck: Yes no lymphadenopathy, No tender and Yes no JVD Thyroid: Thyroid normal Carotids: no bruits Chest Chest palpation & inspection: no tenderness Resp Effort & Inspection: normal respiratory effort, no audible wheezes, not labored and no stridor Auscultation: no crackles, no rales, no rhonchi and no wheezes Cardio Jugular venous distension: no JVD Rate: regular rate, not bradycardic and not tachycardic Rhythm: regular rhythm Bruits: no carotid bruits Peripheral pulses: Peripheral pulses 2+ throughout GI Inspection: Yes normal to inspection, No abdominal wall ecchymosis and No visible herniation Palpation (GI): Soft to palpation, nontender, no guarding, not rigid and No hepatosplenomegaly present Auscultation: normoactive bowel sounds General: Yes no CVA tenderness Back/Spine/Pelvis Back: no CVA tenderness and No back tenderness Cervical Spine: cervical ROM normal Thoracic/Lumbar Spine: thoracic and lumbar spine normal to inspection, straight leg raise negative bilaterally, No thoraco-lumbar ROM limited and No lumbar spinal tenderness Skin Lesions: no lesions Rashes: no rashes Wounds: no wounds Neuro General: oriented to person, oriented to place, patient oriented x3, CN's II-XI intact bilaterally and No confusion Cranial nerves: Yes Equal, round and reactive pupils present and Yes Normal accommodation reflex present Cognition (Neuro): normal cognition Speech: No Abnormal speech present Gait exam (Neuro): Normal gait present Motor exam (neuro): 5/5 motor strength present throughout Extrem Right upper extremity: full ROM; no cyanosis Left upper extremity: full ROM; no cyanosis Right lower extremity: no edema Left lower extremity: no edema Psych Appearance: grossly normal Mental Status: mental status grossly normal Affect: normal affect Attitude: cooperative Thought process: Normal thought process present Immunizations pneumoc 20-jonn conj-dip cr(PF) 0.5 mL IM syringe Performing Provider: Pato Adkins PA-C Performing Location: [facility] Administered by: STEPHANIE Bolanos on 02/23/24 12:19 Dose Route Admin Location Dispensed Lot Number Expiration Date [employer]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 Continues follow-up with Nephrology and Oncology. She reports she is due for immunotherapy. (3) CKD (chronic kidney disease) stage 4, GFR 15-29 ml/min: Code(s): N18.4 - Chronic kidney disease, stage 4 (severe) Plan: Patient continues to follow Nephrology. Most recent creatinine 2.1. (4) Hyperlipidemia: Code(s): E78.5 - Hyperlipidemia, unspecified Qualifiers: Hyperlipidemia type: mixed hyperlipidemia Qualified Code(s): E78.2 - Mixed hyperlipidemia Plan: Has not been taking statin therapy due to renal dysfunction. Will recheck fasting lipid panel to assure appropriate total cholesterol and LDL. Goal LDL to be below 100. 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 most recent A1c of 5.8. Will reduce her dose of metformin down to 500 daily. Goal A1c is to be below 7.0. (6) Hypertension: Code(s): I10 - Essential (primary) hypertension Qualifiers: Hypertension type: primary hypertension Qualified Code(s): I10 - Essential (primary) hypertension Plan: Patient's blood pressure acceptable today in office. She will continue lisinopril. Advised to continue monitoring blood pressure at home with goal blood pressure to a PE below 140/90 and above 100/60 (7) Hypothyroidism: Code(s): E03.9 - Hypothyroidism, unspecified Qualifiers: Hypothyroidism type: acquired Qualified Code(s): E03.9 - Hypothyroidism, unspecified Plan: Patient continues on levothyroxine 50 mcg. TSH have been chemically euthyroid. Orders: Orders Pneumococcal 20 Immunization Today Z23 - Encounter for immunization Medications: Changed From levothyroxine 50 mcg PO DAILY E03.9 - Hypothyroidism, unspecified To levothyroxine 50 mcg PO DAILY 90 tabs 1RF 90 days E03.9 - Hypothyroidism, unspecified From metformin 500 mg PO BID 180 tabs 0RF E11.9 - Type 2 diabetes mellitus without complications To metformin 500 mg PO DAILY 90 tabs 1RF 90 days E11.9 - Type 2 diabetes mellitus without complications Patient Instructions: Goal: Blood pressure be below 140/90 Barriers: Adherence to physical activity and healthy eating habits Coding Level of Care Code Est Pt Prev Care >65y(43191) Diagnoses Annual physical exam Z00.00 Right renal mass N28.89 CKD (chronic kidney disease) stage 4, GFR 15-29 ml/min N18.4 Mixed hyperlipidemia E78.2 Hyperlipidemia type: mixed hyperlipidemia Type 2 diabetes mellitus with hyperglycemia, without long-term current use of insulin E11.65 Diabetes mellitus complication status: with hyperglycemia Diabetes mellitus assisted insulin use: without parts counterman use Diabetes mellitus type: type 2 Primary hypertension I10 Hypertension type: primary hypertension Acquired hypothyroidism E03.9 Hypothyroidism type: acquired
[2024-02-23 11:46] VITALS: BP 126/68; PULSE 94; O2SAT 98; BMI 25.1
== END 2024-02-23 12:24 | disposition home or self-care (01) ==
PROVIDERS: PCP Nurse Practitioner Family; Visit Provider Physician Assistant
DX: Z00.00 Encounter for general adult medical examination without abnormal findings (principal); N28.89 Other specified disorders of kidney and ureter; I12.9 Hypertensive chronic kidney disease with stage 1 through stage 4 chronic kidney disease, or unspecified chronic kidney disease; N18.4 Chronic kidney disease, stage 4 (severe); E78.2 Mixed hyperlipidemia; E11.65 Type 2 diabetes mellitus with hyperglycemia; E03.9 Hypothyroidism, unspecified; Z23 Encounter for immunization
CPT/HCPCS: 90471; 90677; 99397

== ENCOUNTER 2024-08-12 15:11 | Outpatient (AMB) | payer MEDICARE, SELFPAY ==
--- NOTE | 2024-08-12 15:16 | A.OFFPC_ITS ---
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: No Accompanied by: Spouse Allergies amoxicillin Allergy (Intermediate, Verified 08/12/24 15:33) Vomiting Medication List - Last Reconciled 08/12/24 by Pato Adkins PA-C calcium carbonate-vitamin D3 600 mg-10 mcg (400 unit) (Calcium 600 + D(3)) 1 tab PO BID coenzyme Q10 (CoQ-10) 200 mg PO DAILY dextroamphetamine-amphetamine 20 mg 1.5 tabs PO BID duloxetine 60 mg PO DAILY lamotrigine 50 mg PO BID levothyroxine 50 mcg PO DAILY 90 days lisinopril 10 mg PO DAILY lorazepam 1 mg PO BEDTIME PRN metformin 500 mg PO DAILY 90 days omega-3 fatty acids 1,000 mg PO DAILY zolpidem mg PO Tobacco use date assessed: 11/06/23 Dental Screening Dental Screen Date: 11/06/23 HPI 4 month f/ u HPI Details Patient is a 69 year female here today for a followup. PAtient has a past history significant for hypertension, hyperlipidemia, CKD stage 4, hypothyroidism, DMII. Concern--> she reports she has been having some difficulty with her balance. She has not had any falls though does at times feel like she is going to follow. She has not been using any cane or walker. She had an issue with her lower back and has done physical therapy which has significantly reduced her lower back and hip pain. .. Chronic kidney disease/renal mass: Patient is status post total nephrectomy, continues follow-up with Nephrology/Oncology. She has been under the care of Dr. Mcwilliams for her kidney-related issues. Her recent laboratory results indicate stable kidney function with a creatinine level of 2.1, though she reports dietary challenges over the holidays Does seem to have and anemia of chronic disease with Hgb at10.7. Hypertension: Blood pressure today in office acceptable. She is now off of amlodipine. She continues on lisinopril 10 mg with decent affect. .. Type 2 diabetes: Recent blood glucose levels read at 150 mg/dL, typically kept near 110 mg/dL when stable. Her hemoglobin A1c was estimated at 5.8 in January 2024, suggesting a stable management of her diabetes at that time .. Hypothyroid: She was diagnosed with hypothyroidism, and current labs show an elevated TSH level of 5, with prior adjustments made to her levothyroxine dosage. [facility] Medical History Right renal mass Osteopenia Post-menopausal Encounter to establish care Surgical History History of colonoscopy History of placement of ear tubes History of gastric bypass History of cholecystectomy Family History Father Melanoma Brother Skin cancer Other Mental health disorder Substance use disorder Social History Housing: House Alcohol intake: current Alcohol intake frequency: holidays/special occasions only Patient Tobacco Use Status: Former Tobacco user e-Cigarette/Vaping Use: Never Used Second Hand Smoke Exposure: No service: No Current occupational status: retired Cognitive needs: No Hearing needs: No Vision needs: Yes (glasses) Questionnaire PHQ-9 Over the last 2 weeks, how often have you been bothered by any of the following problems? 1. Little interest or pleasure in doing things: nearly every day 2. Feeling down, depressed, or hopeless: nearly every day 3. Trouble falling or staying asleep, or sleeping too much: nearly every day 4. Feeling tired or having little energy: nearly every day 5. Poor appetite or overeating: not at all 6. Feeling bad about yourself - or that you are a failure or have let yourself or your family down: several days 7. Trouble concentrating on things, such as reading the newspaper or watching television: more than half the days 8. Moving or speaking so slowly that other people could have noticed. Or the opposite - being so fidgety or restless that you have been moving around a lot more than usual: several days 9. Thoughts that you would be better off or of hurting yourself in some way: not at all Total score: 16 Depression Screening Interpretation: Positive Depression Screening Follow-up: Existing condition and In treatment Depression Screening Done: Yes 59026 - PHQ-9 Billing: Yes Source: Developed by Drs. Ko Babcock, Anny Javed, Larry Santizo and colleagues, with an educational ralph from [employer]. Thrive Questionnaire Date Thrive assessed: 08/12/24 I am a: Patient What is your living situation today?: I have a steady place to live Within the past 12 months, did the food you bought not last and you didn't have the money to get more?: Never true Within the past 12 months, did you worry whether your food would run out before you got money to buy more?: Never true Do you have trouble paying for medicines?: No Do you have trouble getting transportation to medical appointments?: No Do you have trouble paying your heating and electricity bill?: No Do you have trouble taking care of your child, family member or friend?: No Do you have trouble with day-to-day activities such as bathing, preparing meals, shopping, managing finances, etc.?: No Are you currently unemployed and looking for a job?: No Are you interested in more education?: No Please select the resources that you would like help with: None Currently or been in a relationship where the following occur: No concerns reported THRIVE Score: 0 AUDIT C Alcohol Use Questionnaire (AUDIT-C) 1. How often do you have a drink containing alcohol?: Never 3. How often do you have six or more drinks on one occasion?: Never Total Score: 0 Score Reviewed/Action Taken: No KIMBERLEY-7 AMB Questionnaire KIMBERLEY-7 Date KIMBERLEY - 7 assessed: 08/12/24 (pt is receiving treatment for depression/anxiety ) Feeling nervous, anxious, or on edge: 0 = Not at all Not being able to stop or control worryin = Not at all Worrying too much about different things: 0 = Not at all Trouble relaxin = Not at all Being so restless that it is hard to sit still: 0 = Not at all Becoming easily annoyed or irritable: 0 = Not at all Feeling afraid as if something awful might happen: 0 = Not at all Total KIMBERLEY-7 score (0-4 normal; 5-9 mild; 10-14 moderate; 15-21 severe): 0 Source: Developed by Anny Ordonez. Tello, Larry Santizo and colleagues, with an educational ralph from [employer]. KIMBERLEY-7 Assessment Billing KIMBERLEY-7 Assessment Tool: KIMBERLEY-7 Assessment 36665 Review of Systems Const Denies headache(s) Eyes Denies loss of vision ENT Denies vertigo, Denies dizziness, Denies headache(s) and Denies sore throat Card Denies chest pain, Denies leg edema and Denies lightheadedness Resp Denies cough, Denies hemoptysis and Denies wheezing GI Denies abdominal pain, Denies melena, Denies constipation, Denies diarrhea and Denies vomiting Denies urinary frequency, Denies dysuria and Denies urinary urgency Musc Denies arthralgias, Denies joint swelling, Denies numbness and Denies tingling Neuro Denies Abnormal speech present, Denies behavioral changes, Denies vertigo, Denies dizziness, Denies headache(s), Denies loss of vision, Denies memory loss, Denies numbness and Denies tingling Psych Denies anxiety, Denies behavioral changes, Denies depression, Denies memory loss and Denies panic attacks Ernesto/Lymph Denies easy bleeding and Denies easy bruising Aller/Immun Denies wheezing Physical exam (Primary Care) Vital Signs: Last Vital Signs Temp 97.7 F 08/12/24 15:25 Pulse 68 08/12/24 15:25 BP 142/70 H 08/12/24 15:25 Pulse Ox 98 08/12/24 15:25 BMI result Body Mass Index 23.8 Tobacco/Smoking Status: Tobacco use Status Tobacco use date assessed 11/06/23 08/12/24 15:16 Patient Tobacco Use Status Former Tobacco user 08/12/24 15:16 e-Cigarette/Vaping Use Never Used 08/12/24 15:16 PHQ-9: PHQ-9 Score PHQ-9: Total score 16 08/12/24 15:33 Depression Screening Interpretation: Positive Depression Screening Follow-up: Existing condition and In treatment Thrive Assessment: Date of Thrive Assessment Date Thrive assessed 08/12/24 08/12/24 15:33 Currently or been in a relationship where the following occur: No concerns reported Const General: healthy appearing, no acute distress, alert and awake Nutritional Appearance: well nourished Orientation/consciousness: oriented to person, oriented to place and oriented to time HENCT Ears: TM's normal bilaterally General nose exam: Normal nasal mucous membranes and turbinates present Eyes Conjunctivae: conjunctivae normal Sclerae: sclerae normal Pupils: Equal, round and reactive pupils present Neck Neck: Yes no lymphadenopathy and Yes no JVD Thyroid: Thyroid normal Carotids: no bruits Resp Effort & Inspection: normal respiratory effort and not tachypneic Auscultation: no crackles, no rales, no rhonchi and no wheezes Cardio Rate: regular rate Rhythm: regular rhythm Heart sounds: no murmurs and normal S1 and S2 GI Palpation (GI): Soft to palpation, nontender, no hepatomegaly and no splenomegaly Auscultation: normal bowel sounds Skin General skin exam: no rashes or lesions noted and dry skin Neuro General: oriented to person, oriented to place and oriented to time Cranial nerves: Yes Equal, round and reactive pupils present Speech: No Abnormal speech present Gait exam (Neuro): Normal gait present Motor exam (neuro): no tremor noted Extrem Right upper extremity: full ROM Left upper extremity: full ROM Right lower extremity: full ROM; no edema Left lower extremity: full ROM; no edema Psych Mental Status: mental status grossly normal Speech and movement: Normal speech and movement present Affect: normal affect Attitude: cooperative Thought process: Normal thought process present Coding Level of Care Code Est Pt Level 4 (10927) Diagnoses CKD (chronic kidney disease) stage 4, GFR 15-29 ml/min N18.4 Type 2 diabetes mellitus with hyperglycemia, without long-term current use of insulin E11.65 Diabetes mellitus complication status: with hyperglycemia Diabetes mellitus usp insulin use: without usp use Diabetes mellitus type: type 2 Mixed hyperlipidemia E78.2 Hyperlipidemia type: mixed hyperlipidemia Acquired hypothyroidism E03.9 Hypothyroidism type: acquired Impairment of balance R26.89 Additional Codes KIMBERLEY-7 Assessment Billing - KIMBERLEY-7 Assessment Tool: KIMBERLEY-7 Assessment 61317 ([id number]) PHQ-9 - 08209 - PHQ-9 Billing: Yes ([id number]) Assessment & Plan Assessment & Plan (1) CKD (chronic kidney disease) stage 4, GFR 15-29 ml/min: Code(s): N18.4 - Chronic kidney disease, stage 4 (severe) Category: Medical Plan: Patient's kidney function fairly stable. Followed by oncologist at [facility]. She is under going immunotherapy treatment due to her renal carcinoma status post radical nephrectomy. (2) Diabetes mellitus: Code(s): E11.9 - Type 2 diabetes mellitus without complications Category: Medical Qualifiers: Diabetes mellitus complication status: with hyperglycemia Diabetes mellitus usp insulin use: without usp use Diabetes mellitus type: type 2 Qualified Code(s): E11.65 - Type 2 diabetes mellitus with hyperglycemia Plan: Patient's type 2 diabetes well controlled with current dose of metformin. Goal A1c is to remain below 7.0 (3) Hyperlipidemia: Code(s): E78.5 - Hyperlipidemia, unspecified Category: Medical Qualifiers: Hyperlipidemia type: mixed hyperlipidemia Qualified Code(s): E78.2 - Mixed hyperlipidemia Plan: Most recent labs showing good control of her total cholesterol and LDL. Will continue to work on lifestyle and dietary modifications with goal LDL to remain below 100 (4) Hypothyroidism: Code(s): E03.9 - Hypothyroidism, unspecified Category: Medical Qualifiers: Hypothyroidism type: acquired Qualified Code(s): E03.9 - Hypothyroidism, unspecified Plan: Most recent TSH slightly elevated at 5.. Will increase her levothyroxine to 75 mcg The patient agreed with increasing her levothyroxine dose and additional monitoring of her kidney function during immunotherapy treatment. (5) Impairment of balance: Code(s): R26.89 - Other abnormalities of gait and mobility Category: Medical Plan: Patient does report having some impaired balance over the last several months. Has done physical therapy for lower back pain which has been helpful. She would likely benefit from particular balance training with physical therapy to help her balance. We did discuss perhaps using a cane for 3rd point of contact to help her balance as well. Orders: Orders Microalbumin, Random (w Creat) 08/12/24 I10 - Essential (primary) hypertension Lipid Panel 08/12/24 E78.2 - Mixed hyperlipidemia PT Evaluation and Treatment 08/12/24 R26.89 - Other abnormalities of gait and mobility AMB Hemoglobin A1c 08/12/24 E11.65 - Type 2 diabetes mellitus with hyperglycemia TSH reflex Free T4 08/12/24 E03.9 - Hypothyroidism, unspecified Medications: New levothyroxine 75 mcg PO DAILY 90 tabs 1RF 90 days E03.9 - Hypothyroidism, unspecified Refilled metformin 500 mg PO DAILY 90 tabs 1RF 90 days E11.9 - Type 2 diabetes mellitus without complications Discontinued levothyroxine Discontinued Reason: Doctor's Order 50 mcg PO DAILY 90 days 90 tabs 1RF E03.9 - Hypothyroidism, unspecified lisinopril Discontinued Reason: Doctor's Order 10 mg PO DAILY 90 tabs 0RF I10 - Essential (primary) hypertension
[2024-08-12 15:25] VITALS: BP 142/70; PULSE 68; TEMP 36.5; O2SAT 98; BMI 23.8
== END 2024-08-12 15:59 | disposition home or self-care (01) ==
PROVIDERS: PCP Physician Assistant; Visit Provider Physician Assistant
DX: N18.4 Chronic kidney disease, stage 4 (severe) (principal); E11.65 Type 2 diabetes mellitus with hyperglycemia; E78.2 Mixed hyperlipidemia; E03.9 Hypothyroidism, unspecified; R26.89 Other abnormalities of gait and mobility

== ENCOUNTER → 2024-08-12 15:11 | Outpatient (BNVA) | payer MEDICARE, SELFPAY | PROVIDERS: PCP Physician Assistant; Visit Provider Physician Assistant | DX: N18.4 Chronic kidney disease, stage 4 (severe) (principal); E11.65 Type 2 diabetes mellitus with hyperglycemia; E78.2 Mixed hyperlipidemia; E03.9 Hypothyroidism, unspecified; R26.89 Other abnormalities of gait and mobility | CPT/HCPCS: 96127; 99212 ==

== ENCOUNTER 2025-02-24 11:36 | Outpatient (AMB) | payer MEDICARE, SELFPAY ==
--- NOTE | 2025-02-24 12:00 | A.OFFPC_ITS ---
Vital Signs 02/24/25 12:03 Height 5 ft 6 in BP 140/76 H Blood Pressure Location Lt brachial Pulse 62 Pulse Source Pulse Oximeter Temp 97.1 F Temp Source Temporal Artery Scan Pulse Oximetry (%) 99 Oxygen Delivery Method Room Air Intake Visit Reasons: Annual Exam Leather Worker Required: No Accompanied by: Spouse Allergies amoxicillin Allergy (Intermediate, Verified 02/26/25 17:59) Vomiting Medication List - Last Reconciled 02/24/25 by Pato Adkins PA-C calcium carbonate-vitamin D3 600 mg-10 mcg (400 unit) (Calcium 600 + D(3)) 1 tab PO BID coenzyme Q10 (CoQ-10) 200 mg PO DAILY dextroamphetamine-amphetamine 20 mg 1.5 tabs PO BID duloxetine 60 mg PO DAILY lamotrigine 50 mg PO BID levothyroxine 75 mcg PO DAILY 90 days lorazepam 1 mg PO BEDTIME PRN metformin 500 mg PO DAILY 90 days omega-3 fatty acids 1,000 mg PO DAILY zolpidem mg PO Tobacco use date assessed: 11/06/23 Fall risk assessment: 1 Fall in past year Last assessed Fall Risk: 02/24/25 Dental Screening Dental Screen Date: 02/24/25 Did you have a dental visit in the last 12 months?: No Did you have a dental problem in the last 6 months where you did not have access to dental care?: No Was dental information given to patient?: No HPI Annual Exam HPI Details Patient is a 69 year female here today for annual physical. PAtient has a past history significant for hypertension, hyperlipidemia, CKD stage 4, hypothyroidism, DMII. Concern--> she reports she has been having some difficulty with her balance. She has not had any falls though does at times feel like she is going to follow. She has not been using any cane or walker. She had an issue with her lower back and has done physical therapy which has significantly reduced her lower back and hip pain. .. Chronic kidney disease stage III/renal mass: Patient is status post total nephrectomy, continues follow-up with Nephrology/Oncology. She has been under the care of Dr. Mcwilliams for her kidney-related issues. Her recent laboratory results indicate stable kidney function with a creatinine level of 2.1, though she reports dietary challenges over the holidays Does seem to have and anemia of chronic disease with Hgb at10.7. Hypertension: Blood pressure today in office acceptable. She is now off of amlodipine. She continues on lisinopril 10 mg with decent affect. .. Type 2 diabetes: Recent blood glucose levels read at 150 mg/dL, typically kept near 110 mg/dL when stable. Her hemoglobin A1c was estimated at 5.8 in January 2024, suggesting a stable management of her diabetes at that time .. Hypothyroid: She was diagnosed with hypothyroidism, and current labs show an elevated TSH level of 5, with prior adjustments made to her levothyroxine d [place]. Colon cancer screening: Colonoscopy done in 2020 at [facility]. Normal results, repeat 10 years Mammogram: Done in March of 2023 Vaccines: Up-to-date with COVID vaccine, flu vaccine, shingles, tetanus, Need PCV PFSH Medical History Right renal mass Osteopenia Post-menopausal Encounter to establish care Surgical History History of colonoscopy History of placement of ear tubes History of gastric bypass History of cholecystectomy Family History Father Melanoma Brother Skin cancer Other Mental health disorder Substance use disorder Social History Household Members: Spouse Housing: House Do you presently have visiting nurse or other home services: No Alcohol intake: current Alcohol intake frequency: holidays/special occasions only Comment: counts correct Patient Tobacco Use Status: Former Tobacco user e-Cigarette/Vaping Use: Never Used Second Hand Smoke Exposure: No service: No Current occupational status: retired Cognitive needs: No Hearing needs: No Vision needs: Yes (glasses) Questionnaire Thrive Questionnaire Date Thrive assessed: 02/24/25 I am a: Patient What is your living situation today?: I have a steady place to live Within the past 12 months, did the food you bought not last and you didn't have the money to get more?: Never true Within the past 12 months, did you worry whether your food would run out before you got money to buy more?: Never true Do you have trouble paying for medicines?: No Do you have trouble getting transportation to medical appointments?: No Do you have trouble paying your heating and electricity bill?: No Do you have trouble taking care of your child, family member or friend?: No Do you have trouble with day-to-day activities such as bathing, preparing meals, shopping, managing finances, etc.?: No Are you currently unemployed and looking for a job?: No Are you interested in more education?: Yes Please select the resources that you would like help with: Education Currently or been in a relationship where the following occur: No concerns reported THRIVE Score: 0 AUDIT C Alcohol Use Questionnaire (AUDIT-C) 1. How often do you have a drink containing alcohol?: Monthly or less 2. How many drinks containing alcohol do you have on a typical day when you are drinking?: 1 or 2 3. How often do you have six or more drinks on one occasion?: Never Total Score: 1 KIMBERLEY-7 AMB Questionnaire KIMBERLEY-7 Date KIMBERLEY - 7 assessed: 02/24/25 (pt is receiving treatment for depression/anxiety ) Feeling nervous, anxious, or on edge: 3 = Nearly every day Not being able to stop or control worryin = Several days Worrying too much about different things: 1 = Several days Trouble relaxin = Several days Being so restless that it is hard to sit still: 1 = Several days Becoming easily annoyed or irritable: 1 = Several days Feeling afraid as if something awful might happen: 1 = Several days Total KIMBERLEY-7 score (0-4 normal; 5-9 mild; 10-14 moderate; 15-21 severe): 9 Source: Developed by Drs. Ko Babcock, Anny Javed, Larry Santizo and colleagues, with an educational ralph from [employer]. KIMBERLEY-7 Assessment Billing KIMBERLEY-7 Assessment Tool: KIMBERLEY-7 Assessment 73726 Review of Systems Const Denies body aches, Denies chills, Denies excessive sweating, Denies fatigue, Denies fever(s) and Denies headache(s) Eyes Denies blurry vision ENT Denies dysphagia, Denies vertigo, Denies dizziness, Denies headache(s), Denies hearing loss and Denies tinnitus Card Denies chest pain, Denies chest pain with activity, Denies syncope, Denies irregular heart rhythm and Denies dyspnea Resp Denies chest congestion, Denies cough, Denies hemoptysis, Denies dyspnea and Denies wheezing GI Denies abdominal pain, Denies melena, Denies hematochezia, Denies coffee ground emesis, Denies dysphagia, Denies diarrhea, Denies nausea and Denies vomiting Denies urinary frequency, Denies dysuria, Denies urinary hesitancy and Denies urinary urgency Musc Denies arthralgias, Denies limited range of motion, Denies muscle cramps and Denies muscle weakness Skin/Breast Denies rash and Denies skin ulcer Neuro Denies Abnormal speech present, Denies confusion, Denies vertigo, Denies dizziness, Denies syncope, Denies headache(s), Denies memory loss and Denies seizure-like activity Psych Denies anxiety, Denies confusion, Denies depression, Denies memory loss, Denies panic attacks and Denies paranoia Endo Denies excessive sweating, Denies fatigue, Denies flushing, Denies polydipsia and Denies polyuria Aller/Immun Denies wheezing Physical exam (Primary Care) Vital Signs: Last Vital Signs Temp 97.1 F 02/24/25 12:03 Pulse 62 02/24/25 12:03 BP 140/76 H 02/24/25 12:03 Pulse Ox 99 02/24/25 12:03 Oxygen Delivery Method Room Air 02/24/25 12:03 Tobacco/Smoking Status: Tobacco use Status Tobacco use date assessed 11/06/23 02/24/25 12:06 Patient Tobacco Use Status Former Tobacco user 02/24/25 12:06 e-Cigarette/Vaping Use Never Used 02/24/25 12:06 Thrive Assessment: Date of Thrive Assessment Date Thrive assessed 02/24/25 02/24/25 12:06 Currently or been in a relationship where the following occur: No concerns reported Const General: cooperative, comfortable, no acute distress, alert and awake; No confusion Orientation/consciousness: oriented to person, oriented to place, patient oriented x3 and No confusion HENMT Head: Yes normocephalic Ears: external ears normal and TM's normal bilaterally Face and sinus: No sinus tenderness Mouth: Normal oral and palatal mucosa present and tongue normal Teeth and gingiva: dentition normal and gingiva normal Throat: Yes posterior oropharynx normal, Yes tonsils normal and Yes uvula midline Eyes Conjunctivae: conjunctivae normal Sclerae: sclerae normal Pupils: Equal, round and reactive pupils present EOM: EOMs intact bilaterally Direct Ophthalmoscopy: No no photophobia Neck Neck: Yes no lymphadenopathy, No tender and Yes no JVD Thyroid: Thyroid normal Carotids: no bruits Chest Chest palpation & inspection: no tenderness Resp Effort & Inspection: normal respiratory effort, no audible wheezes, not labored and no stridor Auscultation: no crackles, no rales, no rhonchi and no wheezes Cardio Jugular venous distension: no JVD Rate: regular rate, not bradycardic and not tachycardic Rhythm: regular rhythm Bruits: no carotid bruits Peripheral pulses: Peripheral pulses 2+ throughout GI Inspection: Yes normal to inspection, No abdominal wall ecchymosis and No visible herniation Palpation (GI): Soft to palpation, nontender, no guarding, not rigid and No hepatosplenomegaly present Auscultation: normoactive bowel sounds General: Yes no CVA tenderness Back/Spine/Pelvis Back: no CVA tenderness and No back tenderness Cervical Spine: cervical ROM normal Thoracic/Lumbar Spine: thoracic and lumbar spine normal to inspection, straight leg raise negative bilaterally, No thoraco-lumbar ROM limited and No lumbar spinal tenderness Skin Lesions: no lesions Rashes: no rashes Wounds: no wounds Neuro General: oriented to person, oriented to place, patient oriented x3, CN's II-XI intact bilaterally and No confusion Cranial nerves: Yes Equal, round and reactive pupils present and Yes Normal accommodation reflex present Cognition (Neuro): normal cognition Speech: No Abnormal speech present Gait exam (Neuro): Normal gait present Motor exam (neuro): 5/5 motor strength present throughout Extrem Right upper extremity: full ROM; no cyanosis Left upper extremity: full ROM; no cyanosis Right lower extremity: no edema Left lower extremity: no edema Psych Appearance: grossly normal Mental Status: mental status grossly normal Affect: normal affect Attitude: cooperative Thought process: Normal thought process present Coding Level of Care Code Est Pt Prev Care >65y(47244) Diagnoses Annual physical exam Z00.00 CKD (chronic kidney disease) stage 4, GFR 15-29 ml/min N18.4 Type 2 diabetes mellitus with hyperglycemia, without long-term current use of in sulin E11.65 Diabetes mellitus complication status: with hyperglycemia Diabetes mellitus terminal block assembler insulin use: without terminal block assembler use Diabetes mellitus type: type 2 Mixed hyperlipidemia E78.2 Hyperlipidemia type: mixed hyperlipidemia Acquired hypothyroidism E03.9 Hypothyroidism type: acquired Impairment of balance R26.89 Encounter for screening mammogram for malignant neoplasm of breast Z12.31 Breast cancer screening modality: mammogram Chronic idiopathic constipation K59.04 Constipation type: chronic idiopathic constipation Additional Codes KIMBERLEY-7 Assessment Billing - KIMBERLEY-7 Assessment Tool: KIMBERLEY-7 Assessment 47047 ([id number]) Assessment & Plan Assessment & Plan (1) Annual physical exam: Code(s): Z00.00 - Encounter for general adult medical examination without abnormal findings Category: Medical Plan: as per HPI (2) CKD (chronic kidney disease) stage 4, GFR 15-29 ml/min: Code(s): N18.4 - Chronic kidney disease, stage 4 (severe) Category: Medical Plan: Patient's kidney function fairly stable. Followed by oncologist at [facility]. She is under going immunotherapy treatment due to her renal carcinoma status post radical nephrectomy. (3) Diabetes mellitus: Code(s): E11.9 - Type 2 diabetes mellitus without complications Category: Medical Qualifiers: Diabetes mellitus complication status: with hyperglycemia Diabetes mellitus alf insulin use: without alf use Diabetes mellitus type: type 2 Qualified Code(s): E11.65 - Type 2 diabetes mellitus with hyperglycemia Plan: Patient's type 2 diabetes well controlled with current dose of metformin. Goal A1c is to remain below 7.0 (4) Hyperlipidemia: Code(s): E78.5 - Hyperlipidemia, unspecified Category: Medical Qualifiers: Hyperlipidemia type: mixed hyperlipidemia Qualified Code(s): E78.2 - Mixed hyperlipidemia Plan: Most recent labs showing good control of her total cholesterol and LDL. Will continue to work on lifestyle and dietary modifications with goal LDL to remain below 100 (5) Hypothyroidism: Code(s): E03.9 - Hypothyroidism, unspecified Category: Medical Qualifiers: Hypothyroidism type: acquired Qualified Code(s): E03.9 - Hypothyroidism, unspecified Plan: Most recent TSH slightly elevated at 5.. Will increase her levothyroxine to 75 mcg The patient agreed with increasing her levothyroxine dose and additional monitoring of her kidney function during immunotherapy treatment. (6) Impairment of balance: Code(s): R26.89 - Other abnormalities of gait and mobility Category: Medical Plan: Patient does report having some impaired balance over the last several months. Has done physical therapy for lower back pain which has been helpful. She would likely benefit from particular balance training with physical therapy to help her balance. We did discuss perhaps using a cane for 3rd point of contact to help her balance as well. (7) Breast cancer screening: Code(s): Z12.39 - Encounter for other screening for malignant neoplasm of breast Category: Medical Qualifiers: Breast cancer screening modality: mammogram Qualified Code(s): Z12.31 - Encounter for screening mammogram for malignant neoplasm of breast Plan: Is in need of a mammogram (8) Constipation: Code(s): K59.00 - Constipation, unspecified Category: Medical Qualifiers: Constipation type: chronic idiopathic constipation Qualified Code(s): K59.04 - Chronic idiopathic constipation Plan: The patient experiences constipation, requiring daily stool softeners. A stool bulking agent, such as Metamucil, was recommended to improve bowel regularity. Orders: Orders MM screening mammo BI 02/24/25 Z12.31 - Encounter for screening mammogram for malignant neoplasm of breast PT Evaluation and Treatment 02/24/25 R26.89 - Other abnormalities of gait and mobility Hemoglobin A1c 02/24/25 E11.65 - Type 2 diabetes mellitus with hyperglycemia Comprehensive [place]. Panel Fast 02/24/25 E11.65 - Type 2 diabetes mellitus with hyperglycemia Complete Blood Count no Diff 02/24/25 E11.65 - Type 2 diabetes mellitus with hyperglycemia Lipid Panel 02/24/25 E78.2 - Mixed hyperlipidemia Medications: Refilled metformin 500 mg PO DAILY 90 tabs 1RF 90 days E11.9 - Type 2 diabetes mellitus without complications levothyroxine 75 mcg PO DAILY 90 tabs 1RF 90 days E03.9 - Hypothyroidism, unspecified
[2025-02-24 12:03] VITALS: BP 140/76; PULSE 62; TEMP 36.2; O2SAT 99
--- OUTSIDE RECORDS SUMMARY | 2025-02-24 12:30 | XMS_ITS | Clinical Summary ---
Author Organization [facility], Address [address] [place] [address] Phone Care Team Providers Care Manager Consumer Name Role Phone Pato Adkins Primary Care Provider [phone] Allergies Active Allergy Reactions Criticality Noted Date Comments Amoxicillin 03/28/2023 Medications atorvastatin (LIPITOR) 20 MG tablet Take 1 tablet by mouth 3 Active methylphenidate (RITALIN) 20 MG tablet Take 30 mg by mouth in the morning and 30 mg before bedtime. 2 Active Cholecalciferol (Vitamin D3) 50 MCG (1999) tablet Take by mouth Active co-enzyme Q-10 30 MG capsule Take 200 mg by mouth 1 (one) time each day Active DULoxetine (CYMBALTA) [address] capsule Take 60 mg by mouth 1 (one) time each day Do not crush or chew. Active lamoTRIgine ER 50 MG tablet sustained-release 24 hour Take 50 mcg by mouth in the morning and 50 mcg before bedtime. Active levothyroxine sodium (TIROSINT) 50 MCG capsule Take 1.05 mcg by mouth 1 (one) time each day Active LORazepam (ATIVAN) 1 MG tablet Take 2 mg by mouth every night Active metFORMIN (GLUCOPHAGE) 500 MG tablet Take 500 mg by mouth in the morning and 500 mg in the evening. Take with meals. Active omega-3 acid ethyl esters (LOVAZA) 1 g capsule Take 2 g by mouth 1 (one) time each day Active zolpidem CR (AMBIEN CR) 6.25 MG CR tablet Take 5 mg by mouth at night if needed for sleep Do not crush, chew, or split. Active lisinopril-hydroC HLOROthiazide (PRINZIDE,ZESTORE TIC) 10-12.5 MG per tabletIndications :Chronic kidney disease stage 3B (HCC),Essential (primary) hypertension Take 1 tablet by mouth 1 (one) time each day 30 tablet 11 4 Active amLODIPine (NORVASC) 5 MG tablet Take 5 mg by mouth 1 (one) time each day Active ALPRAZolam (XANAX) 1 MG tablet TAKE 1 TO 2 TABLETS BY MOUTH 30 MINUTES BEFORE PROCEDURE 4 Active Calcium Carb-Cholecalcife rol 600-10 MG-MCG tablet Take 1 tablet by mouth in the morning and 1 tablet in the evening. Active amLODIPine (NORVASC) 5 MG tablet Take 1 tablet (5 mg total) by mouth every night 30 tablet 3 5 Active Active Problems Problem Noted Date Diagnosed Date Chronic kidney disease, stage 4 (severe) 024 History of nephrectomy 12/10/2023 Acute hyperkalemia 11/20/2023 Overview (06/17/2024): Last Assessment & Plan: Came to the ED for decreased urine output from [place]. Lab work showed hyperkalemia, note that patient had elevated potassium postop (did not receive any potassium lowering medications). Calcium gluconate administered in the ER, along with insulin and albuterol for severe hyperkalemia Patient with hospital and continued on [facility] Nephrology consulted As potassium 5.4 today held [facility] and ordered repeat BMP for this afternoon. Diet changed to low potassium, diuretic lisinopril discontinued Retention of urine 11/20/2023 Overview (06/17/2024): Last Assessment & Plan: Nephrectomy for RCC 11/13 and [facility]. Patient had a voiding trial postop but failed and Collins catheter replaced. Patient on way to [place] for voiding trial yesterday when she was called and told it was canceled. Due to decreased urine output and sensation that the Collins was falling as well as dark urine sent to the ED. Collins catheter repositioned with improvement Plan discontinue Collins catheter today for voiding trial. 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 03/28/2023 Depressive disorder 03/28/2023 03/28/2023 Hiatal hernia 03/28/2023 03/28/2023 Hypercholesterolemia 03/28/2023 03/28/2023 Diabetes mellitus 03/28/2023 03/28/2023 Hyperglycemia due to type 2 diabetes mellitus 03/28/2023 Essential (primary) hypertension 03/28/2023 03/28/2023 Hypothyroidism 03/28/2023 03/28/2023 Insomnia 03/28/2023 03/28/2023 Irritable bowel syndrome 03/28/2023 023 Encounters Date Type Department Care Team Description 12/15/2024 2:00 PM EDT Office Visit [facility], - An[address] Liang [address] [place] [address] Jt Lam MD Essential (primary) hypertension (Primary Dx); Chronic kidney disease, stage 4 (severe) (HCC); History of nephrectomy from Last 3 Months Immunizations Immunization Administration Dates Next Due Influenza Split High Dose Pr eservative Free IM 05/31/2024,06/05/2018 Influenza Vaccine, Quadrival ent, Adjuvanted 05/23/2023 Influenza, Unspecified 06/25/2019,2016,07/17/2016,07/14,07/17/2012 Pneumococcal Conjugate 13-Valent 03/31/2018 Pneumococcal Polysaccharide 06/25/2019 Shingrix 05/12/2021 Td 02/13/2023 Td, Unspecified 03/11/2005 Tdap 08/14/2015 Family History Medical History Relation Comments Cancer Father Hypertension Mother Relation Status Comments Father Mother Social History Tobacco Use Types Packs/Day Years Used Date Smoking Tobacco: Former Cigarettes Smokeless Tobacco: Never Tobacco Cessation:Counseling Given: Not Answered Alcohol Use Standard Drinks/Week Comments Not Currently 0 (1 standard drink = 0.6 oz pur e alcohol) Comments Unknown Sex and Gender Information Value Date Recorded Sex Assigned at Not on file Legal Sex Female 12:43 PM EDT Gender Identity Not on file Sexual Orientation Not on file Last Filed Vital Signs Vital Sign Reading Time Taken Comments Blood Pressure 120/70 10/06/2023 3:47 PM EST Pulse 76 10/06/2023 3:47 PM EST Temperature - - Respiratory Rate - - Oxygen Saturation 99% 07/22/2023 3:24 PM EST Inhaled Oxygen Concentration - - Weight 82.1 kg (181 lb) 10/06/2023 3:47 PM EST Height 170.2 cm (5' 7 ) 07/22/2023 3:24 PM EST Body Mass Index 28.35 07/22/2023 3:24 PM EST Plan of Treatment Upcoming Encounters Date Type Department Care Team (Late st Contact Info) Description 04/25/2025 1:45 PM EDT Office Visit [facility] [address] Liang [address] [phone] Jt Lam MD [address] [place] [address] [place] [phone] Health Maintenance Due Date Last Done Comments Breast Cancer Screening 1955 Colorectal Cancer Screening: Annual FOBT 2002 Colorectal Cancer Screening: Colonoscopy 2002 Colorectal Cancer Screening: Sigmoidoscopy 2002 Diabetes: Hemoglobin A1C 02/24/2023 Diabetes: Ophthalmology Exam 02/24/2023 Diabetes: Pedal Pulse Checked 02/24/2023 Diabetes: Sensory Foot Exam 02/24/2023 Diabetes: Visual Foot Exam 02/24/2023 Influenza Vaccine (#1) 2025 , 05/23/2023, 06/25/2019, Additional history exists Pneumococcal Vaccine: 50+ Years Completed 06/25/2019, 03/31/2018 Hepatitis B Vaccine Aged Out No longe r eligible based on patient's age to complete this topic Insurance [facility] Medicare [facility] Medicare Care Teams Manager Consumer Relationship Specialty Start Date End Date Pato Adkins PA [address] [place] [address], [address] [place], [place] [id number] PCP - General Physician [employer] 11/25/23
--- OUTSIDE RECORDS SUMMARY | 2025-02-24 12:30 | XMS_ITS | Encounter Summary ---
Author Organization [facility] Address [address] [address] [facility] ([place], [place]) [address] [place] [phone] Phone Care Team Providers Care Fire Fighter Name Role Phone Pato Adkins Primary Care Provider + Emerson Mcwilliams MD Unavailable [phone] Angy Spicer CNP Unavailable Encounter Details Date Type Department Care Team (Late st Contact Info) Description 11/20/2023 Transcribe Orders Virtual Department [address] [place] [address] Pato Adkins PA [address] [place], [place] [phone] Right shoulder pain, unspecified chronicity (Primary Dx) Social History Tobacco Use Types Packs/Day Years Used Date Smoking Tobacco: Former Cigarettes 0.5 30 0 08/13/1972 - 01/21/2002 Smokeless Tobacco: Never Comments:Mild for first 10yr s Alcohol Use Standard Drinks/Week Comments Not Currently 0 (1 standard drink = 0.6 oz pur e alcohol) Maybe 2 drinks a year Education Answer Date Recorded Are you interested in more education? Not on meryl e 11/29/2022 Are you concerned about learning? Not on file 11/29/2022 No 11/29/2022 No 11/29/2022 Digital Access Answer Date Recorded No 12/30/2022 No 12/30/2022 Reliable internet access at home? Not on file 12/30/2022 Device with a working camera? Not on file Intimate Partner Violence Answer Date R ecorded Are you denied basic needs s uch as food, clothing, or medical care? No 11/20/2023 In the past 12 months have y ou been in a relationship with a person who hurts, threatens, or tries to control you? No 11/20/2023 Are you denied basic needs s uch as food, clothing, or medical care? No 11/20/2023 In the past 12 months have y ou been in a relationship with a person who hurts, threatens, or tries to control you? No 11/20/2023 Comments No Sex and Gender Information Value Date Recorded Sex Assigned at Female 09/09/2023 10:56 PM EST Legal Sex Female 9:58 PM EDT Gender Identity Female 09/09/2023 10:56 PM EST Sexual Orientation Straight 09/09/2023 10 :56 PM EST documented as of this encounter Functional Status * Calculated C-SSRS Risk Score (Lifetime/Recent) Answer Date of Assessment Author No Risk Indicated 11/20/2023 4:24 PM EDT Norma Tristan RN * [place] Suicide Severity Rating Scale (Screener/Recent Self-Report) Question Answer Date of Assessment Author 1. Wish to be (Past 1 Month) No 11/20/2023 4:24 PM EDT Norma Tristan RN 2. Non-Specific Active Suici ilene Thoughts (Past 1 Month) No 11/20/2023 4:24 PM EDT Ari Tristan RN 6. Suicidal Behavior (Lifetime) No 4:24 PM EDT Norma Tristan RN documented as of this encounter Plan of Treatment Upcoming Encounters Date Type Department Care Team (Late st Contact Info) Description 12/15/2024 Procedure Pass [address] [address] 12/15/2024 Procedure Pass [address] [address] 03/09/2025 11:15 AM EDT Appointment [facility] [address] [place] [address] Mariella Child NP [address] [place] [address] [email or web address] 03/17/2025 3:40 PM EDT Office Visit [facility] [address] [place] [address] Emerson Mcwilliams MD [address] [place] [address] [email or web address] 08/03/2025 10:00 AM EST Office Visit [address] [address] Susan Knapp MD [address] [place] [address], [address] [place] [address] [email or web address] documented as of this encounter Results * XR SHOULDER 2 VIEWS (RIGHT) (11/20/2023 2:51 PM EDT) Anatomical Region Laterality Modality Shoulder Right Computed Radiogr aphy 11/22/2023 11:2 8 PM EDT Impressions 11/22/2023 11:30 PM EDT Severe acromioclavicular joint osteoarthritis. Mild glenohumeral arthritis. Partially visualized cervical spine degenerative change. Narrative 11/22/2023 11:30 PM EDT XR SHOULDER 2 OR MORE VIEWS (RIGHT) REQUESTED INDICATION: Outside Radiology Order; right shoulder pain COMPARISON: None FINDINGS: BONE: Bones demineralized. No acute fracture or dislocation. GLENOHUMERAL JOINT: Mild joint space narrowing. ACROMIOCLAVICULAR JOINT: Severe joint space narrowing with exuberant bony proliferative change. OTHER: Partially visualized cervical spine degenerative change. Procedure Note Erin Nguyen MD - 11/22/2023 XR SHOULDER 2 OR MORE VIEWS (RIGHT) REQUESTED INDICATION: Outside Radiology Order; right shoulder pain COMPARISON: None FINDINGS: BONE: Bones demineralized. No acute fracture or dislocation. GLENOHUMERAL JOINT: Mild joint space narrowing. ACROMIOCLAVICULAR JOINT: Severe joint space narrowing with exuberant bonyproliferative change. OTHER: Partially visualized cervical spine degenerative change. IMPRESSION: Severe acromioclavicular joint osteoarthritis. Mild glenohumeral arthritis. Partially visualized cervical spine degenerative change. Pato CHRISTIANSON IMG XR UPPER EXTREMITY F inal Result documented in this encounter Visit Diagnoses Diagnosis Right shoulder pain, unspecified chronicity- Primary Right shoulder pain, unspecified chronicity documented in this encounter Care Teams Fire Fighter Relationship Specialty Start Date End Date Pato Adkins PA [address] [place] [phone] PCP - General Physician Knit Goods Washer 10/08/23 Emerson Mcwilliams MD [address] [place] [phone] Primary Oncologist Medical Oncology 12/17/23 Angy Spicer CNP [address] [place] [phone] Nurse Practitioner Medical Oncology 03/15/24 documented as of this encounter Additional Source Comments The information contained in this document represents components of the legal health record. It is not the complete legal health record.[facility]
== END 2025-02-24 12:32 | disposition home or self-care (01) ==
LOC: HO.HMCH 11:36
PROVIDERS: PCP Physician Assistant; Visit Provider Physician Assistant
DX: Z00.00 Encounter for general adult medical examination without abnormal findings (principal); N18.4 Chronic kidney disease, stage 4 (severe); E11.65 Type 2 diabetes mellitus with hyperglycemia; E78.2 Mixed hyperlipidemia; E03.9 Hypothyroidism, unspecified; R26.89 Other abnormalities of gait and mobility; Z12.31 Encounter for screening mammogram for malignant neoplasm of breast; K59.04 Chronic idiopathic constipation

== ENCOUNTER → 2025-02-24 11:36 | Outpatient (BNVA) | payer MEDICARE, SELFPAY | PROVIDERS: PCP Physician Assistant; Visit Provider Physician Assistant | DX: Z00.00 Encounter for general adult medical examination without abnormal findings (principal); N18.4 Chronic kidney disease, stage 4 (severe); E11.65 Type 2 diabetes mellitus with hyperglycemia; E78.2 Mixed hyperlipidemia; E03.9 Hypothyroidism, unspecified; R26.89 Other abnormalities of gait and mobility; K59.04 Chronic idiopathic constipation | CPT/HCPCS: 96127; 99397 ==

== ENCOUNTER 2025-02-26 17:43 | Inpatient (IN) | payer MEDICARE, SELFPAY ==
--- NOTE | ~2025-02-26 | XR_ITS ---
CLINICAL HISTORY: Fall, left hip pain rule out fracture 5 view, pelvis and left hip Comparison: X-ray of the pelvis and both hips from 02/14/2023 Findings: New deformity of the imaged left femur is nonspecific and concerning for nondisplaced impacted fracture of the left femoral neck. 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 Deformities of the pelvis including the iliac wings appear old/chronic. Vascular calcifications noted. Portions of the pelvis obscured including sacrum and SI joints. Superficial opacities present. IMPRESSION: 1. Acute left femoral neck fracture. 2. 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 This document has been electronically signed by: Levi Narayanan MD on 02/26/2025 20:19:31
--- NOTE | ~2025-02-26 | XR_ITS ---
CLINICAL HISTORY: PAIN 1 view chest x-ray Comparison: None provided Findings: Mild atelectasis and/or scarring. Mild emphysematous changes noted. No lobar consolidation. No pneumothorax or pleural effusion. Mild cardiomegaly and tortuosity thoracic aorta accentuated by AP magnification. Degenerative changes include imaged shoulders and AC joints. IMPRESSION: Mild atelectasis without consolidation. This document has been electronically signed by: Levi Narayanan MD on 02/26/2025 20:17:30
--- NOTE | ~2025-02-26 | XR_ITS ---
CLINICAL HISTORY: s p left hip alex --- Additional Notes or Special Instructions: To be done after procedure - Radiographs of the pelvis, single view, 2 images Comparison: CR - XR HIP LT W PEL1V - 02/26/25 19:46 EDT CR/SR - XR HIP 2 OR MORE VIEWS BILATERAL - 02/14/23 12:30 EDT Findings: Interval left total hip arthroplasty. Intact hardware with anatomic alignment. No dislocation. The osseous structures are intact. Moderate degenerative change . Bone mineralization is decreased. Vascular calcifications. Soft tissue swelling and foci of air. Impression: Interval left total hip arthroplasty. Intact hardware. This document has been electronically signed by: Isabell De La Cruz MD on 02/27/2025 14:54:30
[2025-02-26 17:56] VITALS: BP 175/79; BP 180/80; PULSE 68; PULSE 72; RESP 20; TEMP 36.3; O2SAT 98; O2SAT 99; BMI 26.3
[2025-02-26 18:11] VITALS: BP 175/79; PULSE 68; RESP 20; TEMP 36.3; O2SAT 99
--- OUTSIDE RECORDS SUMMARY | 2025-02-26 18:27 | XMS_ITS | Clinical Summary ---
Author Organization [facility], Address [address] [place] [address] Phone Care Team Providers Care Pin Cleaner Name Role Phone Pato Adkins Primary Care Provider Allergies Active Allergy Reactions Criticality Noted Date [...] hyperkalemia Patient with hospital and continued on [facility] Nephrology consulted As potassium 5.[address] [facility] and ordered repeat BMP for this afternoon. Diet changed to low potassium, diuretic lisinopril discontinued Retention of urine 11/20/2023 Overview (06/17/2024): Last Assessment & Plan: Nephrectomy for RCC 11/13 and [facility]. Patient had a voiding trial postop but failed and Collins catheter replaced. Patient on way to [facility] for voiding trial yesterday when she was called and told it was canceled. Due to decreased urine output and sensation that the Collins was falling as well as dark urine sent to the ED. Collins catheter repositioned with improvement Plan discontinue Collins catheter today for voiding trial. (Started on gabapentin at [facility] for postop pain: Patient says pain is [...] Visit [facility] - [address] [place] [address] Jt Lam MD Essential (primary) [...] Visit [facility] [address] [phone] Jt Lam MD [address] [place] [address] [place] [phone] Health Maintenance Due Date Last Done Comments [...] patient's age to complete this topic Insurance [facility] Medicare [facility] Medicare Care Teams Pin Cleaner Relationship Specialty Start Date End Date Pato Adkins PA [address] [place] [address], [address] [place], [place] [phone] PCP - General Physician Press Operator Meat 11/25/23
--- NOTE | 2025-02-26 18:33 | ED.FALL ---
HPI - Fall General Chief Complaint: Fall Stated Complaint: Fall/Head inj Time Seen by Provider: 02/26/25 18:21 Source: patient and family () Mode of arrival: EMS Limitations: no limitations History of Present Illness ED Provider: Dr. Farhan Horton HPI Narrative: 70-year-old female with a history of hypertension, diabetes mellitus, hyperlipidemia, coronary artery calcification, chronic kidney disease, hyperkalemia, hypothyroidism, , osteopenia who presents emergency department for evaluation of left hip pain after fall. Patient states that her shoe caught on a paving stone in her garden causing her to trip and fall. She states she landed on her left hip. She did hit her head but had no loss of consciousness. She currently is complaining of greater than 10/10 pain in her left hip which is worse with movement. She denied headache, nausea, neck pain, numbness or weakness of her upper extremities. 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 She states that she has stage IV kidney disease in her left kidney Related Data Home Medications ?Medication ?Instructions ?Recorded ?Confirmed coenzyme Q10 100 mg capsule 200 mg PO DAILY 12/13/22 02/24/25 (CoQ-10) duloxetine 60 mg capsule,delayed 60 mg PO DAILY 12/13/22 02/24/25 release lamotrigine 25 mg tablet 50 mg PO BID 12/13/22 02/24/25 lorazepam 0.5 mg tablet 1 mg PO BEDTIME PRN 12/13/22 02/24/25 omega-3 fatty acids 1,000 mg 1,000 mg PO DAILY 12/13/22 02/24/25 capsule zolpidem 10 mg tablet mg PO 12/13/22 02/24/25 dextroamphetamine-amphetamine 20 1.5 tab PO BID 02/23/24 02/24/25 mg tablet Previous Rx's ?Medication ?Instructions ?Recorded calcium 600 mg (as 1 tab PO BID #180 tabs 01/06/25 carbonate)-vitamin D3 10 mcg (400 unit) tablet (Calcium 600 + D(3)) levothyroxine 75 mcg tablet 75 mcg PO DAILY 90 days #90 tabs 02/24/25 metformin 500 mg tablet 500 mg PO DAILY 90 days #90 tabs 02/24/25 Allergies Allergy/AdvReac Type Severity Reaction Status Date / Time amoxicillin Allergy Intermediate Vomiting Verified 02/26/25 17:59 Review of Systems Review of Systems: Yes all other systems are reviewed and are negative [facility] Past Medical History Medical History Right renal mass Osteopenia Post-menopausal Encounter to establish care Surgical History History of colonoscopy History of placement of ear tubes History of gastric bypass History of cholecystectomy Family History Family History Father Melanoma Brother Skin cancer Other Mental health disorder Substance use disorder Social History Social History Housing: House Alcohol intake: current Alcohol intake frequency: holidays/special occasions only Patient Tobacco Use Status: Former Tobacco user Smoked in Last 30 Days: No e-Cigarette/Vaping Use: Never Used Second Hand Smoke Exposure: No Use of substances other than those prescribed or required for medical reasons: No Advance Directives: No Advance Directives Information Provided: Yes service: No Current occupational status: retired Cognitive needs: No Hearing needs: No Vision needs: Yes (glasses) Physical Exam Vital Signs: Vital Signs: Last Vital Signs Temp 97.3 F 02/26/25 18:11 Pulse 72 02/26/25 20:00 Resp 14 02/26/25 20:13 BP 141/59 H 02/26/25 20:00 Pulse Ox 99 02/26/25 20:00 O2 Del Method Room Air 02/26/25 20:00 BMI result Body Mass Index 26.3 Vital signs revealed an elevated blood pressure of 175/79 otherwise unremarkable Exam: General: Awake, in moderate to severe distress secondary to her left hip pain Head: Normocephalic, atraumatic EENT: PERRL, Lids normal, sclera normal, conjunctiva normal, nose normal , ears normal, throat without erythema or exudates Neck: Supple, no adenopathy, no C-spine tenderness Lung: breath sounds symmetric, no wheezing, rales or rhonchi Chest: symmetric movement, nontender Heart: regular rate and rhythm, normal S1, S2 no murmurs or rubs Abdomen: soft, non-tender, nondistended, normal bowel sounds Back: no vertebral tenderness, no CVAT Extremities: Left hip is flexed, with minimal movement she has severe pain, her lower extremities are neurovascularly intact Neuro: Awake, alert, oriented, normal speech, cranial nerves intact, strength is symmetric in the upper extremities, the patient is unable to move her left leg secondary to pain but can move her right leg without difficulty Psych: Pleasant, cooperative Medications Administered Discontinued Medications Generic Name Dose Route Start Last Admin Trade Name Kenji PRN Reason Stop Dose Admin Hydromorphone HCl 1 mg 02/26/25 19:19 02/26/25 19:26 Hydromorphone Hcl 1 Mg/Ml Syringe IVPUSH 02/26/25 19:20 1 mg ONCE STA Administration Protocol Hydromorphone HCl 1 mg 02/26/25 20:09 02/26/25 20:13 Hydromorphone Hcl 1 Mg/Ml Syringe IVPUSH 02/26/25 20:10 1 mg ONCE STA Administration Protocol Sodium Chloride 1,000 mls @ 999 mls/hr 02/26/25 18:34 02/26/25 18:58 Ns IV 02/26/25 19:34 999 mls/hr .Q1H1M STA Administration Morphine Sulfate 4 mg 02/26/25 18:34 02/26/25 18:58 Morphine Sulfate 4 Mg/Ml Cartridge IVPUSH 02/26/25 18:35 4 mg ONCE STA Administration Protocol Medical Decision Making Medical Decision Making MDM Narrative: 70-year-old female with a history of hypertension, diabetes mellitus, hyperlipidemia, coronary artery calcification, chronic kidney disease, hyperkalemia, hypothyroidism, , osteopenia who presents emergency department for evaluation of left hip pain after fall. Patient states that her shoe caught on a paving stone in her garden causing her to trip and fall. She states she landed on her left hip. She did hit her head but had no loss of consciousness. She currently is complaining of greater than 10/10 pain in her left hip which is worse with movement. She denied headache, nausea, neck pain, numbness or weakness of her upper extremities. Vital signs revealed an elevated blood pressure otherwise unremarkable. Physical examination did reveal that the patient was in distress secondary to her pain. Patient did have significant pain with minimal movement of her left hip. Lower extremities are neurovascularly intact. 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 She states that she has stage IV kidney disease in her left kidney Differential diagnosis: ?Includes but is not limited to left hip fracture, left hip contusion, pelvic fracture, anemia, electrolyte abnormalities Course: 19:29 I ordered the following tests on this patient: CBC, CMP, lipase, PT/INR, PTT, urinalysis, one-view chest x-ray, hip x-ray with pelvic views, EKG, cardiac monitoring, O2 saturation monitoring, IV insert. Patient's pain was initially treated with morphine 4 mg IV with only minimal improvement of her pain. She was ordered to get Dilaudid 1 mg IV. I also ordered normal saline IV x1 L. 21:35 The patient required a 2nd dose of Dilaudid 1 mg IV for her pain.Hip x-ray revealed acute left femoral neck fracture. Chest x-ray was unremarkable. My independent interpretation patient's laboratory evaluation as follows: WBC normal 6800. Normocytic anemia with an H&H of 92 and 28.8. BUN and creatinine elevated 35 and 2.03. AST and ALT elevated 43 and 56. Admission/Observation Consideration of admission/observation: Escalation of care including admission/observation considered (Yes) Lab Data 02/26/25 19:30 02/26/25 19:30 Labs: Lab Results 02/26/25 Range/Units 19:30 WBC 6.8 (4.8-10.8) X10*3/uL RBC 3.37 L (4.20-5.50) X10*6/uL Hgb 9.2 L D (12.0-16.0) g/dl Hct 28.8 L D (37.0-47.0) % MCV 85.5 (80.0-98.0) fL MCH 27.3 (27.0-33.0) pg MCHC 31.9 (31.0-35.0) g/dl RDW 14.7 (11.0-16.0) % Plt Count 250 (160-400) X10*3/uL MPV 8.8 L (9.4-12.3) fL Immature Gran % (Auto) 0.4 (0.0-0.4) % Neut % (Auto) 62.4 (45-73) % Lymph % (Auto) 23.7 (20-40) % [place] % (Auto) 5.0 (2-11) % Eos % (Auto) 7.9 H (0-4) % Baso % (Auto) 0.6 (0-2) % Lymph # (Auto) 1.6 (1.2-4.9) X10*3/uL [place] # (Auto) 0.3 (0.1-1.2) X10*3/uL Eos # (Auto) 0.5 H (0.0-0.4) X10*3/uL Baso # (Auto) 0.0 (0.0-0.2) X10*3/uL Abs Immat Gran (auto) 0.03 (0.00-0.03) X10*3/uL Absolute Neuts (auto) 4.3 (2.0-8.3) x10*3/uL Absolute Nucleated RBC 0.000 (0.0-0.012) X10*3/uL Nucleated RBC % (auto) 0.0 (0.0-0.2) /100WBC PT 11.0 (10.9-12.4) SEC INR 1.0 (0.9-1.1) APTT 33.1 (26.0-36.8) SEC Sodium 140 (135-145) mmol/L Potassium 5.1 (3.3-5.1) mmol/L Chloride 112 H (96-108) mmol/L Carbon Dioxide 19 L (22-29) mmol/L Anion Gap 14 (12-20) BUN 35 H (9-16) mg/dL Creatinine 2.03 H (0.5-1.4) mg/dL Estim Creat Clear Calc 25.8 Estimated GFR 24 Random Glucose 105 (60-115) mg/dL Calcium 8.7 D (8.4-10.2) mg/dL Total Bilirubin 0.3 (0.0-1.0) mg/dL AST 43 H (5-31) U/L ALT 56 H (0-31) U/L Alkaline Phosphatase 91 (39-117) U/L Total Protein 6.5 (6.5-8.0) g/dL Albumin 3.9 (3.5-5.0) g/dL Lipase 30 (8-78) U/L Independent Interpretation I performed an independent interpretation of an: EKG Interpretation: My independent interpretation patient's 12 EKG done on 02/26/2025 at 20:23 hours is as follows: Normal sinus rhythm rate of 69, normal DE interval, QRS duration QTC interval, no ST segment elevation, no ST segment depression, no significant T-wave abnormalities, no PACs, no PVCs-this is a normal EKG. Radiology Impression Discussion of test interpretation with radiology: I have reviewed the radiologist's reading. Radiologist Impression: 5 view, pelvis and left hip Comparison: X-ray of the pelvis and both hips from 02/14/2023 Findings: New deformity of the imaged left femur is nonspecific and concerning for nondisplaced impacted fracture of the left femoral neck. 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 Deformities of the pelvis including the iliac wings appear old/chronic. Vascular calcifications noted. Portions of the pelvis obscured including sacrum and SI joints. Superficial opacities present. IMPRESSION: 1. Acute left femoral neck fracture. 2. 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 This document has been electronically signed by: Levi Narayanan MD on 02/26/2025 20:19:31 Critical Care Time Critical Care Time Critical Care Time: Yes Total Critical Care Time: 35 Attestation: Critical Care: The patient was critically ill with a high probability of imminent or life threatening deterioration. I spent greater than 30 minutes of discontinuous time evaluating the patient,delivering critical care at the bedside, discussing and evaluating pertinent data with consultants. Critical care time does not include time spent performing separately billable procedures or teaching. Total time spent performing critical care was 35 minutes. Discharge Plan Discharge Clinical Impression: Fall from standing, Closed fracture of neck of left femur Print Language: Cambodian
--- NOTE | 2025-02-26 18:35 | ECG_ITS ---
Test Reason : FALL Blood Pressure : */* mmHG Vent. Rate : 70 BPM Atrial Rate : 70 BPM P-R Int : 174 ms QRS Dur : 72 ms QT Int : 404 ms P-R-T Axes : 68 48 69 degrees QTcB Int : 436 ms Normal sinus rhythm Abnormal ECG No previous ECGs available Referred By: Farhan Horton Electronically Signed By: Aramis Dumont
[2025-02-26 18:58] VITALS: RESP 18
--- NOTE | 2025-02-26 19:32 | ECG_ITS ---
Test Reason : PRE OP Blood Pressure : */* mmHG Vent. Rate : 69 BPM Atrial Rate : 69 BPM P-R Int : 180 ms QRS Dur : 76 ms QT Int : 416 ms P-R-T Axes : 71 47 58 degrees QTcB Int : 445 ms Normal sinus rhythm Normal ECG When compared with ECG of 26-Feb-2025 18:48, No significant change was found Referred By: Farhan Horton Electronically Signed By: Aramis Dumont
[2025-02-26 19:35] LABS: MANUAL DIFF FLAG NO
[2025-02-26 19:37] LABS: Hematocrit 28.8 % (37.0-47.0); Hemoglobin 9.2 g/dl (12.0-16.0); Imm Gran Abs Auto 0.03 X10*3/uL (0.00-0.03); Imm Gran Pct Auto 0.4 % (0.0-0.4); Lymphocytes Absolute Auto 1.6 X10*3/uL (1.2-4.9); Mean Corpuscular HGB Conc 31.9 g/dl (31.0-35.0); Mean Corpuscular Hemoglobin 27.3 pg (27.0-33.0); Mean Corpuscular Volume 85.5 fL (80.0-98.0); NRBC Abs Auto 0.000 X10*3/uL (0.0-0.012); NRBC Pct Auto 0.0 /100WBC (0.0-0.2); Platelet Count 250 X10*3/uL (160-400); Red Blood Count 3.37 X10*6/uL (4.20-5.50); White Blood Count 6.8 X10*3/uL (4.8-10.8)
[2025-02-26 19:58] LABS: Alanine Aminotransferase 56 U/L (0-31); Albumin Level 3.9 g/dL (3.5-5.0); Alkaline Phosphatase 91 U/L (39-117); Anion Gap 14 (12-20); Aspartate Amino Transferase 43 U/L (5-31); Blood Urea Nitrogen 35 mg/dL (9-16); Calcium 8.7 mg/dL (8.4-10.2); Carbon Dioxide 19 mmol/L (22-29); Chloride 112 mmol/L (96-108); Creatinine Clr Calc Pharmacy 25.8; Estimated Glomerular Filt Rate 24; Lipase 30 U/L (8-78); Potassium 5.1 mmol/L (3.3-5.1); Sodium 140 mmol/L (135-145); Total Protein 6.5 g/dL (6.5-8.0)
[2025-02-26 20:00] VITALS: BP 141/59; PULSE 72; RESP 16; O2SAT 99
[2025-02-26 20:06] LABS: INTERNATIONAL NORM RATIO 1.0 (0.9-1.1); Prothrombin Time 11.0 SEC (10.9-12.4)
[2025-02-26 20:09] LABS: Partial Thromboplastin Time 33.1 SEC (26.0-36.8)
[2025-02-26 20:13] VITALS: RESP 14
--- NOTE | 2025-02-26 21:24 | PM.HPOR ---
History of Present Illness History of Present Illness Date of Service: 02/27/25 Chief complaint: Fall Narrative: Kailey Dorado is a 70 year old female with a past medical history significant for hypertension, diabetes mellitus, hyperlipidemia, coronary artery calcification, chronic kidney disease, hyperkalemia, hypothyroidism, osteopenia who presents emergency department for evaluation of left hip pain after fall. Patient states that her shoe caught on a paving stone in her garden causing her to fall landing on the left hip. She felt immediate pain and was unable to ambulate. X-rays obtained in the ED revealed a left hip femoral neck fracture. The patient was admitted to the medicine service with orthopedic consult for further evaluation and treatment. 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 She states that she has stage IV kidney disease in her left kidney. Review of Systems Review of Systems: Yes all other systems are reviewed and are negative PMFSH Past Medical History Medical History Right renal mass Osteopenia Post-menopausal Encounter to establish care Family History Family History Father Melanoma Brother Skin cancer Other Mental health disorder Substance use disorder Surgical History Surgical History History of colonoscopy History of placement of ear tubes History of gastric bypass History of cholecystectomy Social History Social History Housing: House Alcohol intake: current Alcohol intake frequency: holidays/special occasions only Patient Tobacco Use Status: Former Tobacco user Smoked in Last 30 Days: No e-Cigarette/Vaping Use: Never Used Second Hand Smoke Exposure: No Use of substances other than those prescribed or required for medical reasons: No Advance Directives: No Advance Directives Information Provided: Yes Nutrition Risks: No Nutritional Risk service: No Current occupational status: retired Cognitive needs: No Hearing needs: No Vision needs: Yes (glasses) Meds Allergies Allergy/AdvReac Type Severity Reaction Status Date / Time amoxicillin Allergy Intermediate Vomiting Verified 02/26/25 17:59 Active Medications: Current Medications Clindamycin Phosphate (Cleocin) 600 mg in 50 mls @ 100 mls/hr IV PREOP ONE Stop: 02/26/25 21:50 Home Medications ?Medication ?Instructions ?Recorded ?Confirmed ?Last Taken ?Type coenzyme Q10 100 mg capsule 200 mg PO DAILY 12/13/22 02/24/25 Unknown History (CoQ-10) duloxetine 60 mg capsule,delayed 60 mg PO DAILY 12/13/22 02/24/25 Unknown History release lamotrigine 25 mg tablet 50 mg PO BID 12/13/22 02/24/25 Unknown History lorazepam 0.5 mg tablet 1 mg PO BEDTIME PRN 12/13/22 02/24/25 Unknown History omega-3 fatty acids 1,000 mg 1,000 mg PO DAILY 12/13/22 02/24/25 Unknown History capsule zolpidem 10 mg tablet mg PO 12/13/22 02/24/25 Unknown History dextroamphetamine-amphetamine 20 1.5 tab PO BID 02/23/24 02/24/25 Unknown History mg tablet Physical Exam Vital Signs: Vital Signs: Last Vital Signs Temp 97.3 F 02/26/25 18:11 Pulse 72 02/26/25 20:00 Resp 14 02/26/25 20:13 BP 141/59 H 02/26/25 20:00 Pulse Ox 99 02/26/25 20:00 O2 Del Method Room Air 02/26/25 20:00 BMI result Body Mass Index 26.3 Const: General: cooperative, healthy appearing and no acute distress Resp: Effort & Inspection: normal respiratory effort and able to speak in complete sentences Cardio: Rate: regular rate Peripheral pulses: Peripheral pulses 2+ throughout GI: Palpation (GI): Soft to palpation Skin: Lesions: no lesions Rashes: no rashes Extrem: Other: Right lower extremity is shortened and externally rotated. Pain with log roll attempt. Able to dorsi/plantar felx. NVI Results Labs 02/27/25 05:56 02/27/25 05:56 Labs: Abnormal lab results 02/26/25 Range/Units 19:30 RBC 3.37 L (4.20-5.50) X10*6/uL Hgb 9.2 L D (12.0-16.0) g/dl Hct 28.8 L D (37.0-47.0) % MPV 8.8 L (9.4-12.3) fL Eos % (Auto) 7.9 H (0-4) % Eos # (Auto) 0.5 H (0.0-0.4) X10*3/uL Chloride 112 H (96-108) mmol/L Carbon Dioxide 19 L (22-29) mmol/L BUN 35 H (9-16) mg/dL Creatinine 2.03 H (0.5-1.4) mg/dL AST 43 H (5-31) U/L ALT 56 H (0-31) U/L H & H 02/26/25 Range/Units 19:30 Hgb 9.2 L D (12.0-16.0) g/dl Hct 28.8 L D (37.0-47.0) % Coagulation 02/26/25 Range/Units 19:30 INR 1.0 (0.9-1.1) All other labs normal. Assessment and Plan (1) Closed fracture of neck of left femur: Qualifiers: Encounter type: initial encounter Qualified Code(s): S72.002A - Fracture of unspecified part of neck of left femur, initial encounter for closed fracture Status: Acute I discussed the case with Dr. Baron and explained the extent of the injury to the patient and options available which include surgical intervention. I explained the procedure in detail along with the length of recovery and rehab course. I explained the risk, benefits and alternatives. Risk including, but not limited to infection, blood clots, bleeding, non union or malunion and nerve/tissue damage to surrounding areas. I answered all their questions and with their understanding they have consented to move forward with Operative Fixation of the left hip. The patient will be T&S, medicine to see the patient and provide clearance/risk stratification, and the patient will be NPO after midnight. Quality Stroke Does the patient have a stroke diagnosis?: No VTE Prior VTE?: No VTE Risk Level:: Medical - moderate - high VTE Device Contraindication: N/A - Device Ordered VTE Drug Contraindication: N/A - Med Ordered Procedures Date of Service Date of Service: 02/27/25
--- NOTE | 2025-02-26 21:41 | PM.IMHP ---
History of Present Illness Date of Service: 02/26/25 Chief Complaint: fall This has a 70-year-old female with pertinent history of hypothyroidism, mood disorder, mjk-dgqtaqv-mydbsjxhb diabetes mellitus, chronic kidney disease stage 4, osteopenia, RCC status post right nephrectomy who presents to the emergency department for evaluation after a fall. Patient was out in her garden when her shoe was caught on a pavement stone and she tripped and fell on her left side. She did not lose consciousness prior to the fall. No dizziness or lightheadedness prior to the fall. No chest pain or palpitations. No rhythmic jerking movement of extremities. Patient landed on her left hip and has difficulty moving her left lower extremity since the fall. No fever, chills, shortness of breath, abdominal pain, changes in urinary or bowel habits. In the emergency department, imaging with acute left femoral fracture. Orthopedic surgery was consulted who requested admission to medicine team. Review of Systems Constitutional: Constitutional: Reports no additional constitutional complaints Cardiovascular: Cardiovascular: Reports no additional cardiovascular complaints Respiratory: Respiratory: Reports no additional respiratory complaints Gastrointestinal: Gastrointestinal: Reports no additional gastrointestinal complaints Genitourinary: Genitourinary: Reports no additional female genitourinary complaints Musculoskeletal: Musculoskeletal: Reports arthralgias [facility] Medical History Right renal mass Osteopenia Post-menopausal Encounter to establish care Family History Father Melanoma Brother Skin cancer Other Mental health disorder Substance use disorder Surgical History History of colonoscopy History of placement of ear tubes History of gastric bypass History of cholecystectomy Social History Housing: House Alcohol intake: current Alcohol intake frequency: holidays/special occasions only Patient Tobacco Use Status: Former Tobacco user Smoked in Last 30 Days: No e-Cigarette/Vaping Use: Never Used Second Hand Smoke Exposure: No Use of substances other than those prescribed or required for medical reasons: No Advance Directives: No Advance Directives Information Provided: Yes service: No Current occupational status: retired Cognitive needs: No Hearing needs: No Vision needs: Yes (glasses) Meds Allergies Allergy/AdvReac Type Severity Reaction Status Date / Time amoxicillin Allergy Intermediate Vomiting Verified 02/26/25 17:59 Active Medications: Current Medications Clindamycin Phosphate (Cleocin) 600 mg in 50 mls @ 100 mls/hr IV PREOP ONE Stop: 02/26/25 21:50 Home Medications ?Medication ?Instructions ?Recorded ?Confirmed ?Last Taken ?Type coenzyme Q10 100 mg capsule 200 mg PO DAILY 12/13/22 02/24/25 Unknown History (CoQ-10) duloxetine 60 mg capsule,delayed 60 mg PO DAILY 12/13/22 02/24/25 Unknown History release lamotrigine 25 mg tablet 50 mg PO BID 12/13/22 02/24/25 Unknown History lorazepam 0.5 mg tablet 1 mg PO BEDTIME PRN 12/13/22 02/24/25 Unknown History omega-3 fatty acids 1,000 mg 1,000 mg PO DAILY 12/13/22 02/24/25 Unknown History capsule zolpidem 10 mg tablet mg PO 12/13/22 02/24/25 Unknown History dextroamphetamine-amphetamine 20 1.5 tab PO BID 02/23/24 02/24/25 Unknown History mg tablet Physical Exam Vital Signs and Narrative: Vital Signs: Last Vital Signs Temp 97.3 F 02/26/25 18:11 Pulse 72 02/26/25 20:00 Resp 14 02/26/25 20:13 BP 141/59 H 02/26/25 20:00 Pulse Ox 99 02/26/25 20:00 O2 Del Method Room Air 02/26/25 20:00 BMI result Body Mass Index 26.3 Elderly female lying in bed in no distress Neck supple, no JVD Regular rate and rhythm, S1-S2 heard Regular breath sounds bilaterally, no wheezing or crackles appreciated Abdomen soft nontender, no guarding, no rigidity Patient is awake, alert and oriented to self, place, time and person ; no focal motor deficit Psych: Normal mood Limited range of motion of left lower extremity due to fall Results Labs 02/26/25 19:30 02/26/25 19:30 Labs: Laboratory Results - last 24 hr 02/26/25 19:30 MCV 85.5 MCH 27.3 MCHC 31.9 RDW 14.7 Plt Count 250 MPV 8.8 L Immature Gran % (Auto) 0.4 Neut % (Auto) 62.4 Lymph % (Auto) 23.7 [place] % (Auto) 5.0 Eos % (Auto) 7.9 H Baso % (Auto) 0.6 Lymph # (Auto) 1.6 [place] # (Auto) 0.3 Eos # (Auto) 0.5 H Baso # (Auto) 0.0 Abs Immat Gran (auto) 0.03 Absolute Neuts (auto) 4.3 Absolute Nucleated RBC 0.000 Nucleated RBC % (auto) 0.0 PT 11.0 INR 1.0 APTT 33.1 Anion Gap 14 Estim Creat Clear Calc 25.8 Estimated GFR 24 Random Glucose 105 Calcium 8.7 D Total Bilirubin 0.3 AST 43 H ALT 56 H Alkaline Phosphatase 91 Total Creatine Kinase 124 Total Protein 6.5 Albumin 3.9 Lipase 30 Assessment and Plan (1) Closed fracture of neck of left femur: Qualifiers: Encounter type: initial encounter Qualified Code(s): S72.002A - Fracture of unspecified part of neck of left femur, initial encounter for closed fracture Status: Acute Plan This has a 70-year-old female with pertinent history of hypothyroidism, mood disorder, hij-nppnuzq-xhwnnugex diabetes mellitus, chronic kidney disease stage 4, osteopenia, RCC status post right nephrectomy who presents to the emergency department for evaluation after a fall. #. Acute left femoral neck fracture due to mechanical fall: Will admit patient with IV opiates p.r.n. for analgesia. Orthopedic surgery consulted from the ER, appreciate assistance. Will keep patient NPO after midnight #. Preoperative risk: RCRI score 1. Ordered BNP in a.m.. Okay to proceed with surgical intervention with acceptable risk. #. Normocytic anemia: Hemoglobin above transfusion threshold #. Elevated creatinine: SARA on CKD stage 4 versus progression of CKD. Monitor with crystalloid resuscitation #. Hypothyroidism: On Synthroid Med rec pending DVT prophylaxis: Defer Lovenox for possible surgical intervention Full code. Discussed with patient at bedside Admit as inpatient and will require two night minimum hospital stay for possible surgical management of acute femoral neck fracture (as above), which is not possible in a lesser acute setting. Quality Stroke Does the patient have a stroke diagnosis?: No VTE Prior VTE?: No VTE Risk Level:: Medical - moderate - high VTE Device Contraindication: Treatment Not Indicated VTE Drug Contraindication: Treatment Not Indicated
[2025-02-26] MEDS: Lactated Ringers 1,000 ML 80 ML IVCONT (23:06)
[2025-02-26 23:21] VITALS: BP 148/70; PULSE 73; RESP 22; TEMP 36.8; O2SAT 100
[2025-02-26 23:54] LABS: Glucose, Whole Blood 134 mg/dL (60-115)
[2025-02-27] VITALS (32 sets, daily range): BP systolic 123–188; BP diastolic 53–83; PULSE 60–79; RESP 10–18; TEMP 36.2–37.1; O2SAT 94–99
[2025-02-27] MEDS: diazePAM 10 MG/2 ML CARTRIDGE 5 MG IVPUSH (02:18)
[2025-02-27 06:11] LABS: MANUAL DIFF FLAG NO
[2025-02-27 06:13] LABS: Glucose, Whole Blood 109 mg/dL (60-115)
[2025-02-27 06:15] LABS: Hematocrit 27.9 % (37.0-47.0); Hemoglobin 8.7 g/dl (12.0-16.0); Imm Gran Abs Auto 0.01 X10*3/uL (0.00-0.03); Imm Gran Pct Auto 0.2 % (0.0-0.4); Lymphocytes Absolute Auto 1.3 X10*3/uL (1.2-4.9); Mean Corpuscular HGB Conc 31.2 g/dl (31.0-35.0); Mean Corpuscular Hemoglobin 27.3 pg (27.0-33.0); Mean Corpuscular Volume 87.5 fL (80.0-98.0); NRBC Abs Auto 0.000 X10*3/uL (0.0-0.012); NRBC Pct Auto 0.0 /100WBC (0.0-0.2); Platelet Count 210 X10*3/uL (160-400); Red Blood Count 3.19 X10*6/uL (4.20-5.50); White Blood Count 4.4 X10*3/uL (4.8-10.8)
[2025-02-27 06:33] LABS: Anion Gap 13 (12-20); Blood Urea Nitrogen 32 mg/dL (9-16); Calcium 8.4 mg/dL (8.4-10.2); Carbon Dioxide 20 mmol/L (22-29); Chloride 111 mmol/L (96-108); Creatinine Clr Calc Pharmacy 30.8; Estimated Glomerular Filt Rate 30; Potassium 4.9 mmol/L (3.3-5.1); Sodium 139 mmol/L (135-145)
[2025-02-27 06:38] LABS: B Type Natriuretic Peptide 118 pg/mL (<100)
[2025-02-27 08:33] LABS: Appearance Urine Clear; Glucose Urine UA Negative (Negative); PH 6.0 (5.0-9.0); Specific Gravity - Urine 1.015 (1.005-1.025)
--- NOTE | 2025-02-27 11:23 | P.PNIM_ITS ---
Subjective Subjective Date of Service: 02/27/25 Interval History: c/o L hip pain Review of Systems Review of Systems: Yes all other systems are reviewed and are negative Physical Exam 2 Vital Signs: Vital Signs: Last Vital Signs Temp 98.8 F 02/27/25 11:16 Pulse 65 02/27/25 11:16 Resp 18 02/27/25 11:16 BP 167/74 H 02/27/25 11:16 Pulse Ox 97 02/27/25 08:12 O2 Del Method Room Air 02/27/25 08:12 BMI result Body Mass Index 26.3 Gen: in no acute distress HEENT: sclera anicteric, moist mucus membranes Neck: supple Lungs: clear to auscultation bilaterally Heart: regular rate and rhythm, no murmurs Abd: soft, non-tender, non-distended Ext: no edema, RLE shortened/rotated externally Skin: warm/well-perfused Neuro: alert and oriented x3, no focal findings Psych: appropriate affect Objective Data Active Medications Acetaminophen (Acetaminophen 325 Mg Tablet) 650 mg PO Q6H PRN PRN Reason: Pain, Mild 1-3,fever,headache Calcium Carbonate (Calcium Carbonate 750 Mg Tab.Chew) 750 mg PO Q4H PRN PRN Reason: Heartburn Dextrose (Dextrose 50 % 25 Gm/50 Ml Syringe) 25 gm IVPUSH Q15M PRN; Protocol PRN Reason: per Hypoglycemia Standing Ord. Glucose (Glucose Gel 15 Gm Gel..Gram.) 15 gm PO Q15M PRN; Protocol PRN Reason: per Hypoglycemia Standing Ord. Hydromorphone HCl (Hydromorphone Hcl 1 Mg/Ml Syringe) 1 mg IVPUSH Q4H PRN; Protocol PRN Reason: Pain, Severe (Pain Scale 7-10) Last Admin: 02/27/25 09:19 Dose: 1 mg Documented By: SILVA Insulin Human Lispro (Insulin Lispro 100 Unit/Ml 3 Ml Vial) 0 unit SUBCUT Q6H [facility]; Protocol Last Admin: 02/27/25 06:18 Dose: Not Given Documented By: STEPHENIE Non-Admin Reason: No Insulin Coverage Magnesium Hydroxide (Milk Of Magnesia 30 Ml Oral.Susp) 30 ml PO DAILY PRN PRN Reason: Constipation Melatonin (Melatonin 3 Mg Tablet) 6 mg PO BEDTIME PRN PRN Reason: Insomnia Ondansetron HCl (Ondansetron Hcl 4 Mg/2 Ml Vial) 4 mg IVPUSH Q8H PRN PRN Reason: Nausea and Vomiting Sodium Chloride (0.9 % Sodium Chloride Flush 3 Ml Syringe) 3 ml IVFLUSH QSHIFT FELA Last Admin: 02/27/25 07:47 Dose: Not Given Documented By: SILVA Non-Admin Reason: IV Running Labs 02/27/25 05:56 02/27/25 05:56 Labs: Laboratory Results - last 24 hr 02/26/25 02/26/25 02/27/25 19:30 23:51 00:00 MCV 85.5 MCH 27.3 MCHC 31.9 RDW 14.7 Plt Count 250 MPV 8.8 L Immature Gran % (Auto) 0.4 Neut % (Auto) 62.4 Lymph % (Auto) 23.7 [place] % (Auto) 5.0 Eos % (Auto) 7.9 H Baso % (Auto) 0.6 Lymph # (Auto) 1.6 [place] # (Auto) 0.3 Eos # (Auto) 0.5 H Baso # (Auto) 0.0 Abs Immat Gran (auto) 0.03 Absolute Neuts (auto) 4.3 Absolute Nucleated RBC 0.000 Nucleated RBC % (auto) 0.0 PT 11.0 INR 1.0 APTT 33.1 Anion Gap 14 Estim Creat Clear Calc 25.8 Estimated GFR 24 POC Glucose 134 H Random Glucose 105 Calcium 8.7 D Total Bilirubin 0.3 AST 43 H ALT 56 H Alkaline Phosphatase 91 Total Creatine Kinase 124 B-Natriuretic Peptide Total Protein 6.5 Albumin 3.9 Lipase 30 Urine Color Urine Appearance Urine pH Ur Specific [place] Urine Protein Urine Glucose (UA) Urine Ketones Urine Blood Urine Nitrite Ur Leukocyte Esterase Blood Type A Positive Antibody Screen NEGATIVE Crossmatch See Detail 02/27/25 02/27/25 02/27/25 05:56 06:09 08:11 MCV 87.5 MCH 27.3 MCHC 31.2 RDW 14.7 Plt Count 210 MPV 9.1 L Immature Gran % (Auto) 0.2 Neut % (Auto) 56.0 Lymph % (Auto) 30.4 [place] % (Auto) 5.9 Eos % (Auto) 7.0 H Baso % (Auto) 0.5 Lymph # (Auto) 1.3 [place] # (Auto) 0.3 Eos # (Auto) 0.3 Baso # (Auto) 0.0 Abs Immat Gran (auto) 0.01 Absolute Neuts (auto) 2.5 Absolute Nucleated RBC 0.000 Nucleated RBC % (auto) 0.0 PT INR APTT Anion Gap 13 Estim Creat Clear Calc 30.8 Estimated GFR 30 POC Glucose 109 Random Glucose 118 H Calcium 8.4 Total Bilirubin AST ALT Alkaline Phosphatase Total Creatine Kinase B-Natriuretic Peptide 118 H Total Protein Albumin Lipase Urine Color Yellow Urine Appearance Clear Urine pH 6.0 Ur Specific [place] 1.015 Urine Protein Trace Urine Glucose (UA) Negative Urine Ketones Negative Urine Blood Negative Urine Nitrite Negative Ur Leukocyte Esterase Negative Blood Type Antibody Screen Crossmatch Assessment and Plan (1) Closed fracture of neck of left femur: Status: Acute Plan d2 for 70yo F with CKD4/solitary kidney s/p nephrectomy for RCC, hypothyroidism, and DM2 presenting after tripping and sustaining a L femoral neck fracture L femoral neck fracture - Ortho consult, NPO for operative fixation today acute blood loss anemia due to fracture - transfuse 1u PRBCs, recheck H+H tomorrow SARA/CKD4 solitary kidney - IV hydration, recheck BMP tomorrow hypothyroidism - continue LT4 ADHD - Adderall DM2 - nehemias-dose lispro VTE ppx - enoxaparin postop dispo - STR In my clinical judgment, the patient requires continued inpatient hospitalization for the following reasons: operative fixation Total time managing care of this patient today: 35 minutes. Quality Stroke Does the patient have a stroke diagnosis?: No VTE Prior VTE?: No VTE Risk Level:: Medical - moderate - high VTE Device Contraindication: N/A - Device Ordered VTE Drug Contraindication: N/A - Med Ordered
--- NOTE | 2025-02-27 11:29 | PHA.MEDREC ---
Pharmacy Consult ? Medication Reconciliation Pharmacy has completed the medication reconciliation. Spoke to patient to confirm med list. Per patient, she is still taking amlodipine 5 mg daily even though last fill was on 12/31/24 for 30 day supply. Last dose of medications was yesterday 02/26/25 AM.
--- NOTE | 2025-02-27 11:52 | MHC.SHP ---
Pre-Procedural Eval Section A - 24 Hr Update-Section A only Date of Service: 02/27/25 The patient is an INPATIENT: Yes Changes since office visit: No Cold of Flu in the past 2 weeks, No New Medical Problems, No Changes in Medication and No Patient answered all questions The patient has been examined within 24 hours of the surgical procedure. The History & Physical has been completed within 30 days and I have reviewed it.: Yes Section B - Complete if H&P > 30 days Chief Complaint: Fall Allergies: Allergies Allergy/AdvReac Type Severity Reaction Status Date / Time amoxicillin Allergy Intermediate Vomiting Verified 02/26/25 17:59 Plan I have reviewed the history and physical and performed a pertinent physical examination on my patient. No changes have occurred unless specified. Time Spent With Patient Time: Total time managing care of this patient today ____ minutes.
--- NOTE | 2025-02-27 12:19 | PC.NURSE ---
Per Dr. Baron, pt brought to OR by this RN and flight readiness technician. 1 ux blood transfusing throught #20 in RAC. Bedside report given to pre op RN.
--- NOTE | 2025-02-27 13:58 | PM.OP ---
Brief Operative Note Date of Service: 02/27/25 Pre-op diagnosis: Left femoral neck fracture Post-op diagnosis: same Procedure: Left hip alex Implants: [place] AccoladeC #[phone] with + bipolar Surgeon: Crow Baron MD Anesthesia: GETA Was an Fashion Consultant [employer] used for this Procedure?: Yes Fashion Consultant [employer]: Viviana Noyola Estimated blood loss (mL): 200 IV fluids (mL): 750 Pathology: other Condition: stable Disposition: PACU
--- NOTE | 2025-02-27 14:50 | PC.NURSE ---
blood completed on arrival to pacu by anesthesia
--- NOTE | 2025-02-27 15:10 | MHC.CM.PN ---
CM ATTEMPTED TO MEET WITH PT WHO WAS OFF UNIT CM TO RETURN
[2025-02-27 16:54] LABS: Glucose, Whole Blood 139 mg/dL (60-115)
[2025-02-27] MEDS: 0.9 % Sodium Chloride Flush 3 ML SYRINGE IVFLUSH ×2 (16:59→20:02)
[2025-02-27 19:59] LABS: Glucose, Whole Blood 169 mg/dL (60-115)
[2025-02-27] MEDS: oxyCODONE HCl Immed Release 5 MG TABLET PO ×2 (19:59→23:59)
[2025-02-28] VITALS (12 sets, daily range): BP systolic 140–169; BP diastolic 63–79; PULSE 67–79; RESP 17–18; TEMP 35.9–37.6; O2SAT 95–97
[2025-02-28 05:51] LABS: Hematocrit 25.7 % (37.0-47.0); Hemoglobin 8.1 g/dl (12.0-16.0); Mean Corpuscular HGB Conc 31.5 g/dl (31.0-35.0); Mean Corpuscular Hemoglobin 27.7 pg (27.0-33.0); Mean Corpuscular Volume 88.0 fL (80.0-98.0); NRBC Abs Auto 0.000 X10*3/uL (0.0-0.012); NRBC Pct Auto 0.0 /100WBC (0.0-0.2); Platelet Count 224 X10*3/uL (160-400); Red Blood Count 2.92 X10*6/uL (4.20-5.50); White Blood Count 6.7 X10*3/uL (4.8-10.8)
[2025-02-28 06:13] LABS: Anion Gap 12 (12-20); Blood Urea Nitrogen 34 mg/dL (9-16); Calcium 8.0 mg/dL (8.4-10.2); Carbon Dioxide 21 mmol/L (22-29); Chloride 107 mmol/L (96-108); Creatinine Clr Calc Pharmacy 25.8; Estimated Glomerular Filt Rate 24; Potassium 5.9 mmol/L (3.3-5.1); Sodium 134 mmol/L (135-145)
[2025-02-28] MEDS: Amphetamine Mixed Salts 10 MG TABLET 30 MG PO ×2 (06:55→13:50)
[2025-02-28] MEDS: oxyCODONE HCl Immed Release 5 MG TABLET PO (06:55)
[2025-02-28] MEDS: 0.9 % Sodium Chloride Flush 3 ML SYRINGE IVFLUSH (06:55)
--- NOTE | 2025-02-28 07:43 | PM.PNORT ---
Subjective Subjective Date of Service: 02/28/25 Interval history: POD1 s/p left hip alex Patient is resting in bed No overnight events Pain is reportedly not managed No additional complaints Physical Exam Vital Signs: Vital Signs: Last Vital Signs Temp 99.6 F 02/28/25 07:35 Pulse 79 02/28/25 07:35 Resp 17 02/28/25 07:35 BP 156/76 H 02/28/25 07:35 Pulse Ox 96 02/28/25 07:35 O2 Del Method Room Air 02/28/25 07:35 O2 Flow Rate 1 02/28/25 04:00 BMI result Body Mass Index 26.3 Const: General: cooperative, healthy appearing and no acute distress Resp: Effort & Inspection: normal respiratory effort and able to speak in complete sentences Extrem: Other: left hip dressing is c/d/i. Able to dorsi/plantar flex. Calf is supple and nontender. Sensation intact. Pedal pulse intact. Procedures Date of Service Date of Service: 02/28/25 Progress Note: A&P Assessment and plan (1) Status post hemiarthroplasty of left hip: Status: Acute Plan Continue pain mgmnt - med adjustment increases made Begin Lovenox for dvt ppx begin PT/OT for lt hip alex - WBAT Dispo planning-Pending PT eval, pain mgmnt Time Spent With Patient Time: Total time managing care of this patient today ____ minutes. Quality Stroke Does the patient have a stroke diagnosis?: No VTE Prior VTE?: No VTE Risk Level:: Medical - moderate - high VTE Device Contraindication: N/A - Device Ordered VTE Drug Contraindication: N/A - Med Ordered
[2025-02-28 07:59] LABS: Glucose, Whole Blood 150 mg/dL (60-115)
--- NOTE | 2025-02-28 08:11 | HO.POSTANES ---
Post Anesthesia Evaluation Post Anesthesia Evaluation Date of Service: 02/28/25 Vital Signs: Vital Signs Temp Pulse Resp BP Pulse Ox O2 Del Method O2 Flow Rate 02/28/25 07:35 99.6 F 79 17 156/76 H 96 Room Air 02/28/25 04:00 97.8 F 69 18 149/65 H 95 Nasal Cannula 1 02/27/25 23:26 97.8 F 69 18 123/61 97 Room Air Anesthesia: General Mental Status: Awake Pain Control: Satisfactory (see comments below) Nausea/Vomiting: None Hydration: Adequate Anesthesia-Related Issues: No Anes. Related Issues Comments: pain is not under control at post op visit but surgeon has increased pain med doses
[2025-02-28] MEDS: Lactated Ringers 1,000 ML 100 ML IVCONT ×2 (09:53→15:23)
--- NOTE | 2025-02-28 10:26 | MHC.CM.PN ---
Addendum entered by Madeleine Toure 02/28/25 13:19: PT'S FIRST CHOICE, [facility], HAS OFFERED A BED PENDING AUTH, PT ACCEPTS BED OFFER. CM WILL CONTINUE TO FOLLOW. Original Note: [facility] DELIVERED PT LIVES WITH SPOUSE AND IS FUNCTIONALLY INDEP. PT USES CANE PRN WHEN KNEE IS SORE. NO SERVICES. + HCP PCP JELLY TIPTON DP: PT IS ANTICIPATED TO NEED STR, PT HAS NO PREFERENCES, REFERRALS SENT TO CONTRACTED CENTERS, AWAITING BED OFFERS. PT WILL NEED BLS TRANSPORT. CM WILL CONTINUE TO FOLLOW FOR ANY CHANGE TO DC PLAN/NEEDS.
[2025-02-28] MEDS: oxyCODONE HCl Immed Release 5 MG TABLET 10 MG PO ×2 (10:27→14:27)
[2025-02-28 11:48] LABS: Glucose, Whole Blood 199 mg/dL (60-115)
--- NOTE | 2025-02-28 12:11 | P.PNIM_ITS ---
Subjective Subjective Date of Service: 02/28/25 Interval History: L hip pain no N/V Review of Systems Review of Systems: Yes all other systems are reviewed and are negative Physical Exam 2 Vital Signs: Vital Signs: Last Vital Signs Temp 99.6 F 02/28/25 07:35 Pulse 79 02/28/25 07:35 Resp 17 02/28/25 07:35 BP 156/76 H 02/28/25 07:35 Pulse Ox 96 02/28/25 07:35 O2 Del Method Room Air 02/28/25 07:35 O2 Flow Rate 1 02/28/25 04:00 BMI result Body Mass Index 26.3 Gen: in no acute distress HEENT: sclera anicteric, moist mucus membranes Neck: supple Lungs: clear to auscultation bilaterally Heart: regular rate and rhythm, no murmurs Abd: soft, non-tender, non-distended Ext: no edema, L hip incision with dry dressing Skin: warm/well-perfused Neuro: alert and oriented x3, no focal findings Psych: appropriate affect Objective Data Active Medications Acetaminophen (Acetaminophen 325 Mg Tablet) 650 mg PO Q6H PRN PRN Reason: Pain, Mild 1-3,fever,headache Last Admin: 02/28/25 10:27 Dose: 650 mg Documented By: ALAINA Amlodipine Besylate (Amlodipine Besylate 5 Mg Tablet) 5 mg PO DAILY [facility]; Protocol Last Admin: 02/28/25 06:54 Dose: 5 mg Documented By: ALAINA Amphetamine/Dextroamphetamine (Amphetamine Mixed Salts 10 Mg Tablet) 30 mg PO BID@0900,1400 [facility] Last Admin: 02/28/25 06:55 Dose: 30 mg Documented By: ALAINA Calcium Carbonate (Calcium Carbonate 750 Mg Tab.Chew) 750 mg PO Q4H PRN PRN Reason: Heartburn Dextrose (Dextrose 50 % 25 Gm/50 Ml Syringe) 25 gm IVPUSH Q15M PRN; Protocol PRN Reason: per Hypoglycemia Standing Ord. Duloxetine HCl (Duloxetine Hcl 60 Mg Capsule.Dr) 60 mg PO DAILY [facility] Last Admin: 02/28/25 06:55 Dose: 60 mg Documented By: ALAINA Enoxaparin Sodium (Enoxaparin Sodium 30 Mg/0.3 Ml Syringe) 30 mg SUBCUT Q24H [facility] Glucose (Glucose Gel 15 Gm Gel..Gram.) 15 gm PO Q15M PRN; Protocol PRN Reason: per Hypoglycemia Standing Ord. Hydromorphone HCl (Hydromorphone Hcl 0.5 Mg/0.5 Ml Syringe) 0.5 mg IVPUSH Q4H PRN; Protocol PRN Reason: Pain, Severe (Pain Scale 7-10) Last Admin: 02/28/25 08:12 Dose: 0.5 mg Documented By: DIRK Lactated Ringer's (Lr) 1,000 mls @ 100 mls/hr IVCONT .Q10H [facility] Last Admin: 02/28/25 09:53 Dose: 100 mls/hr Documented By: DIRK Insulin Human Lispro (Insulin Lispro 100 Unit/Ml 3 Ml Vial) 0 unit SUBCUT QIDACHS [facility]; Protocol Last Admin: 02/28/25 08:16 Dose: 2 unit Documented By: DIRK Lamotrigine (Lamotrigine 25 Mg Tablet) 50 mg PO BID [facility] Last Admin: 02/28/25 06:55 Dose: 50 mg Documented By: ALAINA Levothyroxine Sodium (Levothyroxine Sodium 75 Mcg Tablet) 75 mcg PO DAILY@0600 [facility] Last Admin: 02/28/25 05:41 Dose: 75 mcg Documented By: KAELYN Lorazepam (Lorazepam 1 Mg Tablet) 1 mg PO BEDTIME PRN PRN Reason: Anxiety Last Admin: 02/27/25 21:40 Dose: 1 mg Documented By: KAELYN Magnesium Hydroxide (Milk Of Magnesia 30 Ml Oral.Susp) 30 ml PO DAILY PRN PRN Reason: Constipation Melatonin (Melatonin 3 Mg Tablet) 6 mg PO BEDTIME PRN PRN Reason: Insomnia Naloxone HCl (Naloxone Hcl 0.4 Mg/Ml Vial) 0.04 mg IVPUSH Q5M PRN PRN Reason: Excessive sedation or RR < 8 Ondansetron HCl (Ondansetron Hcl 4 Mg/2 Ml Vial) 4 mg IVPUSH Q8H PRN PRN Reason: Nausea and Vomiting Oxycodone HCl (Oxycodone Hcl Immed Release 5 Mg Tablet) 10 mg PO Q4H PRN PRN Reason: Pain, Moderate(Pain Scale 4-6) Last Admin: 02/28/25 10:27 Dose: 10 mg Documented By: ALAINA Sodium Chloride (0.9 % Sodium Chloride Flush 3 Ml Syringe) [facility] Last Admin: 02/28/25 06:55 Dose: 3 ml Documented By: ALAINA Labs 02/28/25 05:11 02/28/25 05:11 Labs: Laboratory Results - last 24 hr 02/27/25 02/27/25 02/27/25 00:00 16:50 19:48 MCV MCH MCHC RDW Plt Count MPV Absolute Nucleated RBC Nucleated RBC % (auto) Anion Gap Estim Creat Clear Calc Estimated GFR POC Glucose 139 H 169 H Random Glucose Calcium Crossmatch See Detail 02/28/25 02/28/25 02/28/25 05:11 07:47 11:25 MCV 88.0 MCH 27.7 MCHC 31.5 RDW 14.8 Plt Count 224 MPV 9.2 L Absolute Nucleated RBC 0.000 Nucleated RBC % (auto) 0.0 Anion Gap 12 Estim Creat Clear Calc 25.8 Estimated GFR 24 POC Glucose 150 H 199 H Random Glucose 130 H Calcium 8.0 L Crossmatch Assessment and Plan (1) Closed fracture of neck of left femur: Status: Acute Plan d3 for 70yo F with CKD4/solitary kidney s/p nephrectomy for RCC, hypothyroidism, and DM2 presenting after tripping and sustaining a L femoral neck fracture L femoral neck fracture - s/p L hip hemiarthroplasty 02/26, PT, start enoxaparin acute blood loss anemia due to fracture - transfused 1u pRBCs preop, monitor H+H SARA/CKD4 solitary kidney - IV hydration, recheck BMP tomorrow hypothyroidism - continue LT4 HTN - amlodipine ADHD - Adderall mood disorder - lamotrigine DM2 - nehemias-dose lispro VTE ppx - enoxaparin x30d postop dispo - STR In my clinical judgment, the patient requires continued inpatient hospitalization for the following reasons: postop care, SARA/CKD Total time managing care of this patient today: 35 minutes. Quality Stroke Does the patient have a stroke diagnosis?: No VTE Prior VTE?: No VTE Risk Level:: Medical - moderate - high VTE Device Contraindication: N/A - Device Ordered VTE Drug Contraindication: N/A - Med Ordered
[2025-02-28 14:27] LABS: Anion Gap 10 (12-20); Blood Urea Nitrogen 35 mg/dL (9-16); Calcium 7.9 mg/dL (8.4-10.2); Carbon Dioxide 19 mmol/L (22-29); Chloride 107 mmol/L (96-108); Creatinine Clr Calc Pharmacy 25.5; Estimated Glomerular Filt Rate 24; Potassium 5.0 mmol/L (3.3-5.1); Sodium 131 mmol/L (135-145)
[2025-02-28 14:51] LABS: Glucose, Whole Blood 163 mg/dL (60-115)
--- NOTE | 2025-02-28 14:54 | P.EN_ITS ---
Event Note Date of Service: 02/28/25 Event Note: STEM FRAZER called for near-syncope pt awake but pale, reporting hip pain, just got 10 mg oxycodone, BP 102/54, hip dressing dry, lungs clear, heart RRR IV wide open, BP 152/67 afterwards likely vasovagal response will check H+H, give IV APAP for pain control Time Spent With Patient Time: Total time managing care of this patient today ____ minutes.
--- NOTE | 2025-02-28 15:16 | PC.NURSE ---
1454- Rapid called for syncope while transferring from the chair to bed with PT. Patient was safely transferred back to chair. Patient pale with BP 102/54. IVF bolused per MD verbal order. POC 164. Patient regained awareness quickly. Patient received 10 mg po Oxycodone recently. MD will order CBC and IV Tylenol. Report given to next RN
[2025-02-28 15:30] LABS: Mean Corpuscular HGB Conc 32.8 g/dl (31.0-35.0); Mean Corpuscular Hemoglobin 28.4 pg (27.0-33.0); Mean Corpuscular Volume 86.4 fL (80.0-98.0); NRBC Abs Auto 0.000 X10*3/uL (0.0-0.012); NRBC Pct Auto 0.0 /100WBC (0.0-0.2); Platelet Count 181 X10*3/uL (160-400); Red Blood Count 2.36 X10*6/uL (4.20-5.50); White Blood Count 6.3 X10*3/uL (4.8-10.8)
[2025-02-28 15:37] LABS: Hemoglobin 6.7 g/dl (12.0-16.0)
[2025-02-28 15:38] LABS: Hematocrit 20.4 % (37.0-47.0)
[2025-02-28 16:14] LABS: Glucose, Whole Blood 168 mg/dL (60-115)
[2025-02-28 19:53] LABS: Glucose, Whole Blood 147 mg/dL (60-115)
[2025-03-01] VITALS (8 sets, daily range): BP systolic 138–176; BP diastolic 61–87; PULSE 65–78; RESP 16–18; TEMP 36.6–37.3; O2SAT 93–98
[2025-03-01] MEDS: oxyCODONE HCl Immed Release 5 MG TABLET 10 MG PO ×3 (02:14→16:47)
[2025-03-01 06:14] LABS: Hematocrit 26.9 % (37.0-47.0); Hemoglobin 9.4 g/dl (12.0-16.0); Mean Corpuscular HGB Conc 34.9 g/dl (31.0-35.0); Mean Corpuscular Hemoglobin 29.7 pg (27.0-33.0); Mean Corpuscular Volume 84.9 fL (80.0-98.0); NRBC Abs Auto 0.000 X10*3/uL (0.0-0.012); NRBC Pct Auto 0.0 /100WBC (0.0-0.2); Platelet Count 168 X10*3/uL (160-400); Red Blood Count 3.17 X10*6/uL (4.20-5.50); White Blood Count 6.3 X10*3/uL (4.8-10.8)
[2025-03-01] MEDS: Lactated Ringers 1,000 ML 100 ML IVCONT (06:34)
[2025-03-01 06:41] LABS: Anion Gap 12 (12-20); Blood Urea Nitrogen 32 mg/dL (9-16); Calcium 8.0 mg/dL (8.4-10.2); Carbon Dioxide 21 mmol/L (22-29); Chloride 109 mmol/L (96-108); Creatinine Clr Calc Pharmacy 26.4; Estimated Glomerular Filt Rate 25; Potassium 5.0 mmol/L (3.3-5.1); Sodium 137 mmol/L (135-145)
[2025-03-01 07:31] LABS: Glucose, Whole Blood 130 mg/dL (60-115)
[2025-03-01] MEDS: Amphetamine Mixed Salts 10 MG TABLET 30 MG PO (08:03)
--- NOTE | 2025-03-01 09:53 | HO.PM.IMPN ---
Subjective Subjective Date of Service: 03/01/25 Interval History: failed voiding trial Physical Exam Exam: Exam: General: AO X 3, no acute distress Resp: CTA bilateral, no accessory muscles used CVS: S1,S2,RRR GI: soft, non tender, non distended Neuro: motor grossly intact, alert Psych: appropriate affect, appropriate insight Vital Signs: Vital Signs: Last Vital Signs Temp 98.5 F 03/01/25 07:49 Pulse 71 03/01/25 07:49 Resp 17 03/01/25 07:49 BP 153/87 H 03/01/25 08:56 Pulse Ox 93 03/01/25 07:49 O2 Del Method Room Air 03/01/25 07:49 O2 Flow Rate 1 02/28/25 04:00 BMI result Body Mass Index 26.3 Objective Data Active Medications Acetaminophen (Acetaminophen 325 Mg Tablet) 650 mg PO Q6H PRN PRN Reason: Pain, Mild 1-3,fever,headache Last Admin: 02/28/25 10:27 Dose: 650 mg Documented By: ALAINA Amlodipine Besylate (Amlodipine Besylate 5 Mg Tablet) 5 mg PO DAILY [facility]; Protocol Last Admin: 03/01/25 08:07 Dose: 5 mg Documented By: MICHAEL Amphetamine/Dextroamphetamine (Amphetamine Mixed Salts 10 Mg Tablet) 30 mg PO BID@0900,1400 [facility] Last Admin: 03/01/25 08:03 Dose: 30 mg Documented By: MICHAEL Calcium Carbonate (Calcium Carbonate 750 Mg Tab.Chew) 750 mg PO Q4H PRN PRN Reason: Heartburn Dextrose (Dextrose 50 % 25 Gm/50 Ml Syringe) 25 gm IVPUSH Q15M PRN; Protocol PRN Reason: per Hypoglycemia Standing Ord. Duloxetine HCl (Duloxetine Hcl 60 Mg Capsule.Dr) 60 mg PO DAILY [facility] Last Admin: 03/01/25 08:03 Dose: 60 mg Documented By: MICHAEL Enoxaparin Sodium (Enoxaparin Sodium 30 Mg/0.3 Ml Syringe) 30 mg SUBCUT Q24H [facility] Last Admin: 02/28/25 12:14 Dose: 30 mg Documented By: DIRK Glucose (Glucose Gel 15 Gm Gel..Gram.) 15 gm PO Q15M PRN; Protocol PRN Reason: per Hypoglycemia Standing Ord. Hydromorphone HCl (Hydromorphone Hcl 0.5 Mg/0.5 Ml Syringe) 0.5 mg IVPUSH Q4H PRN; Protocol PRN Reason: Pain, Severe (Pain Scale 7-10) Last Admin: 02/28/25 08:12 Dose: 0.5 mg Documented By: DIRK Lactated Ringer's (Lr) 1,000 mls @ 100 mls/hr IVCONT .Q10H [facility] Last Admin: 03/01/25 06:34 Dose: 100 mls/hr Documented By: KAELYN Insulin Human Lispro (Insulin Lispro 100 Unit/Ml 3 Ml Vial) 0 unit SUBCUT QIDACHS [facility]; Protocol Last Admin: 03/01/25 07:37 Dose: Not Given Documented By: MICHAEL Non-Admin Reason: No Insulin Coverage Lamotrigine (Lamotrigine 25 Mg Tablet) 50 mg PO BID [facility] Last Admin: 03/01/25 08:04 Dose: 50 mg Documented By: MICHAEL Levothyroxine Sodium (Levothyroxine Sodium 75 Mcg Tablet) 75 mcg PO DAILY@0600 [facility] Last Admin: 03/01/25 05:21 Dose: 75 mcg Documented By: KAELYN Lorazepam (Lorazepam 1 Mg Tablet) 1 mg PO BEDTIME PRN PRN Reason: Anxiety Last Admin: 03/01/25 02:58 Dose: 1 mg Documented By: KAELYN Magnesium Hydroxide (Milk Of Magnesia 30 Ml Oral.Susp) 30 ml PO DAILY PRN PRN Reason: Constipation Melatonin (Melatonin 3 Mg Tablet) 6 mg PO BEDTIME PRN PRN Reason: Insomnia Naloxone HCl (Naloxone Hcl 0.4 Mg/Ml Vial) 0.04 mg IVPUSH Q5M PRN PRN Reason: Excessive sedation or RR < 8 Ondansetron HCl (Ondansetron Hcl 4 Mg/2 Ml Vial) 4 mg IVPUSH Q8H PRN PRN Reason: Nausea and Vomiting Oxycodone HCl (Oxycodone Hcl Immed Release 5 Mg Tablet) 10 mg PO Q4H PRN PRN Reason: Pain, Moderate(Pain Scale 4-6) Last Admin: 03/01/25 02:14 Dose: 10 mg Documented By: KAELYN Sodium Chloride (0.9 % Sodium Chloride Flush 3 Ml Syringe) 3 ml IVFLUSH QSHIFT [facility] Last Admin: 03/01/25 08:10 Dose: Not Given Documented By: MICHAEL Non-Admin Reason: IV Running Labs 03/01/25 05:56 03/01/25 05:56 Labs: Laboratory Results - last 24 hr 02/27/25 02/28/25 02/28/25 00:00 11:25 13:20 MCV MCH MCHC RDW Plt Count MPV Absolute Nucleated RBC Nucleated RBC % (auto) Anion Gap 10 L Estim Creat Clear Calc 25.5 Estimated GFR 24 POC Glucose 199 H Random Glucose 204 H Calcium 7.9 L Blood Type A Positive Antibody Screen NEGATIVE Crossmatch See Detail 02/28/25 02/28/25 02/28/25 14:48 15:25 16:11 MCV 86.4 MCH 28.4 MCHC 32.8 RDW 14.9 Plt Count 181 MPV 8.9 L Absolute Nucleated RBC 0.000 Nucleated RBC % (auto) 0.0 Anion Gap Estim Creat Clear Calc Estimated GFR POC Glucose 163 H 168 H Random Glucose Calcium Blood Type Antibody Screen Crossmatch 02/28/25 03/01/25 03/01/25 19:48 05:56 07:19 MCV 84.9 MCH 29.7 MCHC 34.9 RDW 14.3 Plt Count 168 MPV 9.1 L Absolute Nucleated RBC 0.000 Nucleated RBC % (auto) 0.0 Anion Gap 12 Estim Creat Clear Calc 26.4 Estimated GFR 25 POC Glucose 147 H 130 H Random Glucose 131 H Calcium 8.0 L Blood Type Antibody Screen Crossmatch Assessment and Plan (1) Diabetes mellitus: Status: Acute Plan 70F PMH CKD IV, solitary kidney s/p nephrectomy for RCC, hypothryoid, DM, presente with fall, Left femoral neck fracture Left femoral neck fracture due to mechanical fall Status post left hip hemiarthroplasty 02/26/25, continue Lovenox for DVT prophylaxis, plan for short-term rehab Acute blood loss anemia due to fracture Transfused and hemoglobin improved appropriately Acute kidney injury on CKD 4 Creatinine now stable around 2 Urinary retention Failed voiding trial, Collins replaced, repeat voiding trial when more ambulatory Vasovagal Resolved Hypothyroid Levothyroxine Hypertension Amlodipine Hyperkalemia Resolved Mood disorder Lamotrigine ADHD Adderall Diabetes Insulin sliding scale DVT prophylaxis-Lovenox Full Code reason for continued hospitalization: Dispo planning Quality Stroke Does the patient have a stroke diagnosis?: No VTE Prior VTE?: No VTE Risk Level:: Medical - moderate - high VTE Device Contraindication: N/A - Device Ordered VTE Drug Contraindication: N/A - Med Ordered
[2025-03-01 11:09] LABS: Glucose, Whole Blood 186 mg/dL (60-115)
--- NOTE | 2025-03-01 11:12 | P.DS_ITS ---
DS: Providers Provider Date of Service: 03/01/25 Date of admission: 02/26/25 21:03 Date of discharge: 03/01/25 Primary care physician: Pato Adkins PA-C DS: Diagnosis Discharge Diagnosis (1) Diabetes mellitus: Status: Acute DS: Summary Hospital Course Hospital Course: from initial hpi: 70-year-old female with pertinent history of hypothyroidism, mood disorder, [id number] diabetes mellitus, chronic kidney disease stage 4, osteo penia, RCC status post right nephrectomy who presents to the emergency department for evaluation after a fall. Patient was out in her garden when her shoe was caught on a pavement stone and she tripped and fell on her left side. She did not lose consciousness prior to the fall. No dizziness or lightheadedness prior to the fall. No chest pain or palpitations. No rhythmic jerking movement of extremities. Patient landed on her left hip and has difficulty moving her left lower extremity since the fall. No fever, chills, shortness of breath, abdominal pain, changes in urinary or bowel habits. In the emergency department, imaging with acute left femoral fracture. Orthopedic surgery was consulted who requested admission to medicine team. hospital course: Patient was admitted for left femoral neck fracture due to mechanical fall. Underwent left hip hemiarthroplasty on 02/26/2025. Was seen by physical therapy recommended short-term rehab to which patient will be discharged she is expected require less than 30 days. She will continue Lovenox for DVT prophylaxis for 30 days. Course complicated by acute blood loss anemia due to fracture was transfused and hemoglobin improved appropriately. For acute kidney injury on CKD 4 creatinine now stable around 2. Course was complicated by syncopal episode due to vasovagal. Did not recur after. For hypothyroid was continue with levothyroxine. For hypertension was continued on amlodipine. For hyperkalemia received Lokelma and resolved. For mood disorder was continued on lamotrigine. For ADHD continued on Adderall. For diabetes treated with insulin sliding scale. Time Attestation Discharge Coordination Time (in mins): 33 Quality: Safe Use of Opioids Does Pt have an Active Cancer Diagnosis on the Problem List?: No Quality: Stroke Does the patient have a stroke diagnosis?: No Physical Exam Exam: Exam: General: AO X 3, no acute distress Resp: CTA bilateral, no accessory muscles used CVS: S1,S2,RRR GI: soft, non tender, non distended Neuro: motor grossly intact, alert Psych: appropriate affect, appropriate insight Vital Signs: Vital Signs: Last Vital Signs Temp 98.5 F 03/01/25 07:49 Pulse 71 03/01/25 07:49 Resp 17 03/01/25 07:49 BP 153/87 H 03/01/25 08:56 Pulse Ox 93 03/01/25 07:49 O2 Del Method Room Air 03/01/25 07:49 O2 Flow Rate 1 02/28/25 04:00 BMI result Body Mass Index 26.3 DS: Data Data Completed and Pending Pending studies at discharge: Pending at discharge 02/27/25 14:40 Surgical [PTH] Routine Labs on day of discharge: Laboratory Results - last 24 hr 02/27/25 02/28/25 02/28/25 00:00 11:25 13:20 WBC RBC Hgb Hct MCV MCH MCHC RDW Plt Count MPV Absolute Nucleated RBC Nucleated RBC % (auto) Sodium 131 L Potassium 5.0 Chloride 107 Carbon Dioxide 19 L Anion Gap 10 L BUN 35 H Creatinine 2.05 H Estim Creat Clear Calc 25.5 Estimated GFR 24 POC Glucose 199 H Random Glucose 204 H Calcium 7.9 L Blood Type A Positive Antibody Screen NEGATIVE Crossmatch See Detail 02/28/25 02/28/25 02/28/25 14:48 15:25 16:11 WBC 6.3 RBC 2.36 L Hgb 6.7 L* Hct 20.4 L* D MCV 86.4 MCH 28.4 MCHC 32.8 RDW 14.9 Plt Count 181 MPV 8.9 L Absolute Nucleated RBC 0.000 Nucleated RBC % (auto) 0.0 Sodium Potassium Chloride Carbon Dioxide Anion Gap BUN Creatinine Estim Creat Clear Calc Estimated GFR POC Glucose 163 H 168 H Random Glucose Calcium Blood Type Antibody Screen Crossmatch 02/28/25 03/01/25 03/01/25 19:48 05:56 07:19 WBC 6.3 RBC 3.17 L D Hgb 9.4 L D Hct 26.9 L D MCV 84.9 MCH 29.7 MCHC 34.9 RDW 14.3 Plt Count 168 MPV 9.1 L Absolute Nucleated RBC 0.000 Nucleated RBC % (auto) 0.0 Sodium 137 Potassium 5.0 Chloride 109 H Carbon Dioxide 21 L Anion Gap 12 BUN 32 H Creatinine 1.98 H Estim Creat Clear Calc 26.4 Estimated GFR 25 POC Glucose 147 H 130 H Random Glucose 131 H Calcium 8.0 L Blood Type Antibody Screen Crossmatch 03/01/25 11:06 WBC RBC Hgb Hct MCV MCH MCHC RDW Plt Count MPV Absolute Nucleated RBC Nucleated RBC % (auto) Sodium Potassium Chloride Carbon Dioxide Anion Gap BUN Creatinine Estim Creat Clear Calc Estimated GFR POC Glucose 186 H Random Glucose Calcium Blood Type Antibody Screen Crossmatch Discharge Plan Discharge Anticipated Discharge Date/Time: 03/01/25 11:08 Patient Disposition: Xfer SNF Discharge Diagnosis: hip fracture Referrals: Pato Adkins PA-C [Primary Care Provider, Internal Medicine] - 1 Week Corinne Castillo PA-C [Physician Ip Counsel, Orthopedics] - 1 Week Referral Note: 03/16/25 10:00 [facility] [place] [facility] Corinne Castillo PA-C Discharge Medications: New oxycodone 5 mg Tablet 10 mg PO Q4H PRN (Reason: Pain, Moderate(Pain Scale 4-6)) Qty: 10 0RF Rx Instructions: Partial Fill upon patient request. enoxaparin 30 mg/0.3 mL Syringe 30 mg subcut Q24H 30 Days Qty: 9 0RF Continued calcium carbonate-vitamin D3 [Calcium 600 + D(3)] 600 mg-10 mcg (400 unit) tablet 1 tab PO BID Qty: 180 2RF acetaminophen 325 mg Tablet 650 mg PO DAILY PRN (Reason: Pain) amlodipine 5 mg tablet 5 mg PO DAILY lorazepam 0.5 mg tablet 1 mg PO BEDTIME PRN (Reason: Anxiety) Qty: 10 0RF zolpidem 10 mg tablet 10 mg PO BEDTIME Qty: 10 0RF dextroamphetamine-amphetamine 20 mg tablet 1.5 tab PO BID lamotrigine 25 mg tablet 50 mg PO BID duloxetine 60 mg capsule,delayed release(DR/EC) 60 mg PO DAILY coenzyme Q10 [CoQ-10] 100 mg capsule 200 mg PO DAILY omega-3 fatty acids 1,000 mg capsule 1,000 mg PO DAILY metformin 500 mg tablet 500 mg PO DAILY 90 Days Qty: 90 1RF levothyroxine 75 mcg tablet 75 mcg PO DAILY 90 Days Qty: 90 1RF Discharge Orders: Discharge Order (Routine); Ordered 03/01/25 Ordered By: Ralf Rascon Diet: Advance to usual diet Activity on Discharge: As tolerated Stand Alone Forms: Patient Portal Discharge page Print Language: Vietnamese Care Plan Goals: recovery Health Concerns: hip fracture Plan of Treatment: rehab * Physical Therapy forpartial hip arthroplasty: wbat, posterior precautions, gait training, ROM, strength * Limit stair climbing * No showering, no tub bath-keep dressing clean, dry and intact * No driving x6 weeks * Continue lovenox once a day x 6 weeks * [place] up [place] [facility] [place]: Assessment: see above
--- NOTE | 2025-03-01 13:54 | PM.PNORT ---
Subjective Subjective Date of Service: 03/01/25 Interval history: POD12s/p left hip alex Patient is resting in bed No overnight events No additional complaints Physical Exam Vital Signs: Vital Signs: Last Vital Signs Temp 98 F 03/01/25 11:58 Pulse 65 03/01/25 11:58 Resp 17 03/01/25 11:58 BP 157/72 H 03/01/25 11:58 Pulse Ox 98 03/01/25 11:58 O2 Del Method Room Air 03/01/25 11:58 O2 Flow Rate 1 02/28/25 04:00 BMI result Body Mass Index 26.3 Const: General: cooperative, healthy appearing and no acute distress Resp: Effort & Inspection: normal respiratory effort and able to speak in complete sentences Extrem: Other: left hip dressing is c/d/i. Able to dorsi/plantar flex. Calf is supple and nontender. Sensation intact. Pedal pulse intact. Procedures Date of Service Date of Service: 03/01/25 Progress Note: A&P Assessment and plan (1) Status post hemiarthroplasty of left hip: Status: Acute Plan Continue pain mgmnt - med adjustment increases made Begin Lovenox for dvt ppx begin PT/OT for lt hip alex - WBAT Dispo planning-STR- f/u with ortho in 2 weeks Time Spent With Patient Time: Total time managing care of this patient today ____ minutes. Quality Stroke Does the patient have a stroke diagnosis?: No VTE Prior VTE?: No VTE Risk Level:: Medical - moderate - high VTE Device Contraindication: N/A - Device Ordered VTE Drug Contraindication: N/A - Med Ordered
--- NOTE | 2025-03-01 15:33 | MHC.CM.PN ---
IMM 02/28/25 Patient s/p fall femur fx and surgical intervention is discharged today. PT recommendation is STR[facility] accepted the patient. The initiated the insurance authorization process this am. Auth for STR has been received. Patient is DTV by 4:30pm. Transportation is booked for 5pm lease picker. She will transport via [facility]. Nurse 2 Nurse report has been called to the SNF.
[2025-03-01 16:03] LABS: Glucose, Whole Blood 120 mg/dL (60-115)
--- NOTE | 2025-03-03 07:01 | W.PM.OPN ---
Operative Note Operative Note Date of Service: 03/03/25 Narrative: Date of Service: 02/27/25 Pre-op diagnosis: Left femoral neck fracture Post-op diagnosis: same Procedure: Left hip alex Implants: Lorado AccoladeC #[id number] with +4 bipolar Surgeon: Crow Baron MD Anesthesia: GETA Was an Principal Architect used for this Procedure?: Yes Principal Architect: Viviana Noyola Estimated blood loss (mL): 200 IV fluids (mL): 750 Pathology: other Condition: stable Disposition: PACU Patient was brought into the operating room and placed in the right lateral decubitus position. All bony prominences were well padded and the limb was prepped and draped in standard sterile fashion. A time-out was called to identify proper site procedure proper surgeon IV antibiotics. I began by making a curvilinear incision over the posterolateral aspect of the greater trochanter. Dissection was taken down to the tensor fascia which was incised in line with the incision and a Charnley retractor was placed. Cautery was used to maintain hemostasis. The hip was internally rotated and the external rotators were identified. The vessels were cauterized and a full-thickness capsular/external rotator layer was developed starting just proximal to the piriformis. This layer was tagged and a dull Hohmann retractor was placed underneath the neck in the hip was dislocated. A neck cut was made 1 cm proximal to the lesser trochanter and the head and neck were removed and measured 49mm on the back table. The bone quality was poor and there was fracturing and fragmentation of the head and neck down to the level of the calcar. I cleaned up the neck cut and removed all excess bone. I identified the piriformis insertion and used this as a starting point for my cookie cutter. The medius tendon was protected with a Hibs retractor. A Charnley awl was inserted in the canal and a curved curette used to remove the lateral bone. I irrigated copiously. I then sequentially broached in the patient's natural version to a size 4 and placed my trial implants. I used a #4/127 based on my pre-operative template. I removed all instrumentation and copiously irrigated. 2 bags of Simplex on the back table using 3rd gen technique. A centralizer and distal plug were placed and the canal irrigated and then dried. A cement gun was used to fill the canal and then the #4 Accolade C stem was placed maintaining anatomic version. Once the cement was dry and all excess cement was removed I re-trialed with a +0 and a +4 bipolar with a 49. I was satisfied with the +4/49 bipolar. I was satisfied with the stability and tension. My final bipolar components were then placed. I closed the capsular layer with FiberWire and then copiously irrigated. I performed a layered closure with oswald on skin. The patient was placed in sterile dressing extubated brought to recovery room in stable condition there were no known complications.
== END 2025-03-01 05:10 | disposition skilled nursing facility (03) | DRG 522 ==
LOC: HO.ED 18:26 → HO.EDOVER 21:06 → HO.S3 02-27 14:08
PROVIDERS: Family Medicine; Orthopaedic Surgery; Admitting Provider Student in an Organized Health Care Education/Training Program; Emergency Provider Emergency Medicine Emergency Medical Services; PCP Physician Assistant; Visit Provider Internal Medicine
PROC: 0SRS0J9 Replacement of Left Hip Joint, Femoral Surface with Synthetic Substitute, Cemented, Open Approach (ICD-10-PCS; principal; 2025-02-27 12:00)
DX: S72.002A Fracture of unspecified part of neck of left femur, initial encounter for closed fracture (principal); N18.4 Chronic kidney disease, stage 4 (severe); D62 Acute posthemorrhagic anemia; N17.9 Acute kidney failure, unspecified; I12.9 Hypertensive chronic kidney disease with stage 1 through stage 4 chronic kidney disease, or unspecified chronic kidney disease; E03.9 Hypothyroidism, unspecified; E11.22 Type 2 diabetes mellitus with diabetic chronic kidney disease; F90.9 Attention-deficit hyperactivity disorder, unspecified type; R55 Syncope and collapse; D63.1 Anemia in chronic kidney disease; Z98.84 Bariatric surgery status; E87.5 Hyperkalemia; W19.XXXA Unspecified fall, initial encounter; Z87.891 Personal history of nicotine dependence; R33.9 Retention of urine, unspecified; Z90.5 Acquired absence of kidney; Z85.528 Personal history of other malignant neoplasm of kidney; Z79.84 Long term (current) use of oral hypoglycemic drugs; Z79.890 Hormone replacement therapy; Z79.899 Other long term (current) drug therapy
CPT/HCPCS: 36415; 71045; 72170; 73502; 80048; 80053; 81003; 82550; 82947; 83690; 83880; 85025; 85027; 85610; 85730; 86850; 86900; 86901; 86923; 88305; 88311; 93005; 97110; 97162; 97165; 97530; 97535; 99285; C1713; C1776; J0131; J0690; J1100; J1171; J1650; J2003; J2250; J2270; J2405; J2704; J2795; J3010; J3360; J7120; P9016

== ENCOUNTER → 2025-02-26 18:34 | Outpatient (BNV) | payer MEDICARE, SELFPAY | PROVIDERS: Emergency Provider Emergency Medicine Emergency Medical Services; PCP Physician Assistant; Visit Provider Radiology Neuroradiology | DX: S72.002A Fracture of unspecified part of neck of left femur, initial encounter for closed fracture (principal); J98.11 Atelectasis | CPT/HCPCS: 71045; 73502 ==

== ENCOUNTER → 2025-02-26 18:35 | Outpatient (BNV) | payer MEDICARE, SELFPAY | PROVIDERS: Admitting Provider Student in an Organized Health Care Education/Training Program; Emergency Provider Emergency Medicine Emergency Medical Services; PCP Physician Assistant; Visit Provider Internal Medicine Cardiovascular Disease | DX: R94.31 Abnormal electrocardiogram [ECG] [EKG] (principal); W19.XXXA Unspecified fall, initial encounter; Z13.6 Encounter for screening for cardiovascular disorders | CPT/HCPCS: 93010 ==

== ENCOUNTER 2025-02-26 21:03 | Outpatient (BNV) | payer MEDICARE, SELFPAY | END 2025-02-27 13:14 | PROVIDERS: Admitting Provider Student in an Organized Health Care Education/Training Program; Emergency Provider Emergency Medicine Emergency Medical Services; PCP Physician Assistant; Visit Provider Radiology Diagnostic Radiology | DX: M16.12 Unilateral primary osteoarthritis, left hip (principal) | CPT/HCPCS: 72170 ==

== ENCOUNTER → 2025-02-26 21:03 | Outpatient (BNV) | payer MEDICARE, SELFPAY | PROVIDERS: Admitting Provider Student in an Organized Health Care Education/Training Program; Emergency Provider Emergency Medicine Emergency Medical Services; PCP Physician Assistant; Visit Provider Physician Assistant | DX: Z96.642 Presence of left artificial hip joint (principal) | CPT/HCPCS: 27236; 99024; 99222; J2003 ==

== ENCOUNTER → 2025-02-26 21:03 | Outpatient (BNV) | payer MEDICARE, SELFPAY | PROVIDERS: Admitting Provider Student in an Organized Health Care Education/Training Program; Emergency Provider Emergency Medicine Emergency Medical Services; PCP Physician Assistant; Visit Provider Student in an Organized Health Care Education/Training Program | DX: E11.65 Type 2 diabetes mellitus with hyperglycemia (principal) | CPT/HCPCS: 99222; 99232; 99239; 99499 ==

== ENCOUNTER 2025-03-02 | Outpatient (REF) | payer MEDICARE, SELFPAY ==
[2025-03-02 11:15] LABS: MANUAL DIFF FLAG NO
[2025-03-02 11:22] LABS: Hematocrit 26.9 % (37.0-47.0); Hemoglobin 8.7 g/dl (12.0-16.0); Imm Gran Abs Auto 0.03 X10*3/uL (0.00-0.03); Imm Gran Pct Auto 0.5 % (0.0-0.4); Lymphocytes Absolute Auto 1.2 X10*3/uL (1.2-4.9); Mean Corpuscular HGB Conc 32.3 g/dl (31.0-35.0); Mean Corpuscular Hemoglobin 28.8 pg (27.0-33.0); Mean Corpuscular Volume 89.1 fL (80.0-98.0); NRBC Abs Auto 0.000 X10*3/uL (0.0-0.012); NRBC Pct Auto 0.0 /100WBC (0.0-0.2); Platelet Count 203 X10*3/uL (160-400); Red Blood Count 3.02 X10*6/uL (4.20-5.50); White Blood Count 6.4 X10*3/uL (4.8-10.8)
[2025-03-02 11:37] LABS: Anion Gap 11 (12-20); Blood Urea Nitrogen 30 mg/dL (9-16); Calcium 8.3 mg/dL (8.4-10.2); Carbon Dioxide 25 mmol/L (22-29); Chloride 106 mmol/L (96-108); Estimated Glomerular Filt Rate 27; Potassium 4.9 mmol/L (3.3-5.1); Sodium 137 mmol/L (135-145)
--- OUTSIDE RECORDS SUMMARY | 2025-04-06 15:00 | XMS_ITS | Encounter Summary ---
Author Organization [facility], Address [address] [place] [address] Phone Care Team Providers Care Land Checker Name Role Phone Pato Adkins Primary Care Provider [phone] Encounter Details Date Type Department Care Team (Late st Contact Info) Description 02/03/2024 Documentation Only [facility] [address] [place] [address] Bettye Del Castillo [address] [place] [phone] Social History Tobacco Use Types Packs/Day Years Used Date Smoking Tobacco: Former Cigarettes Smokeless Tobacco: Never Alcohol Use Standard Drinks/Week Comments Not Currently 0 (1 standard drink = 0.6 oz pur e alcohol) Comments Unknown Sex and Gender Information Value Date Recorded Sex Assigned at Not on file Legal Sex Female 12:43 PM EDT Gender Identity Not on file Sexual Orientation Not on file documented as of this encounter Plan of Treatment Upcoming Encounters Date Type Department Care Team (Late st Contact Info) Description 04/25/2025 1:45 PM EDT Office Visit [facility] Robyn [address] [place] [phone] Jt Lam MD [address] [place] [address] [place] [address] documented as of this encounter Visit Diagnoses Not on filedocumented in this encounter Care Teams Land Checker Relationship Specialty Start Date End Date Pato Adkins PA [address] [place] [address], [address] [place] [address] PCP - General Physician Director Sanitation Bureau 11/25/23 documented as of this encounter
--- OUTSIDE RECORDS SUMMARY | 2025-04-06 15:00 | XMS_ITS | Encounter Summary ---
Author Organization [facility] [place], Address [address] [place] [address] Phone Care Team Providers Care Synthetic Gem Press Operator Name Role Phone Pato Adkins Primary Care Provider [phone] Encounter Details Date Type Department Care Team (Late st Contact Info) Description 02/03/2024 Documentation Only [facility] [address] [place] [address] Bettye Del Castillo [address] [place] [phone] Social History Tobacco Use Types Packs/Day [...] Visit [facility] Robyn BRANHAM [address] [place] [phone] Jt Lam MD [address] [place] [address] [place] [address] documented as of this encounter Visit Diagnoses Not on filedocumented in this encounter Care Teams Synthetic Gem Press Operator Relationship Specialty Start Date End Date Pato Adkins PA [address] [place] [address], [address] [place] [address] PCP - General Physician Estate Planner 11/25/23 documented as of this encounter
--- OUTSIDE RECORDS SUMMARY | 2025-04-06 15:00 | XMS_ITS | Encounter Summary ---
Author Organization [facility] [place], Address [address] [place] [address] Phone Care Team Providers Care Comb Winder Name Role Phone Pato Adkins Primary Care Provider [phone] Encounter Details Date Type Department Care Team (Late st Contact Info) Description 02/03/2024 Documentation Only [facility] [address] [place] [address] Bettye Del Castillo [address] [place] [phone] Social History Tobacco Use Types Packs/Day [...] Visit [facility] Robyn BRANHAM [address] [place] [phone] Jt Lam MD [address] [place] [address] [place] [address] documented as of this encounter Visit Diagnoses Not on filedocumented in this encounter Care Teams Comb Winder Relationship Specialty Start Date End Date Pato Adkins PA [address] [place] [address], [address] [place] [address] PCP - General Physician Freezer Operator 11/25/23 documented as of this encounter
--- OUTSIDE RECORDS SUMMARY | 2025-04-06 15:00 | XMS_ITS | Encounter Summary ---
Author Organization [facility] [place], Address [address] [place] [address] Phone Care Team Providers Care Commercial Specialist Name Role Phone Pato Adkins Primary Care Provider [phone] Encounter Details Date Type Department Care Team (Late st Contact Info) Description 06/17/2024 Documentation Only [facility] [place] Robyn [address] [place] [address] Bettye Del Castillo [address] [place] [address] Social History Tobacco Use Types Packs/Day [...] Visit [facility] [address] [place] [address] Jt Lam MD [address] [facility] [place] [phone] documented as of this encounter Visit Diagnoses Not on filedocumented in this encounter Care Teams Commercial Specialist Relationship Specialty Start Date End Date Pato Adkins PA [address] [place] [address], [address] [place] [address] PCP - General Physician Train Inspector 11/25/23 documented as of this encounter
--- OUTSIDE RECORDS SUMMARY | 2025-04-06 15:00 | XMS_ITS | Encounter Summary ---
Author Organization [facility] [place], Address [address] [place] [address] Phone Care Team Providers Care Costumed Character Name Role Phone Pato Adkins Primary Care Provider [phone] Encounter Details Date Type Department Care Team (Late st Contact Info) Description 02/03/2024 Documentation Only [facility] [address] [place] [place] [address] Bettye Del Castillo [address] [place] [phone] Social History Tobacco Use Types Packs/Day [...] Visit [facility] Robyn BRANHAM [address] [place] [phone] Jt Lam MD [address] [place] [address] [place] [address] documented as of this encounter Visit Diagnoses Not on filedocumented in this encounter Care Teams Costumed Character Relationship Specialty Start Date End Date Pato Adkins PA [address] [place] [address], [address] [place] [address] PCP - General Physician Supervisor Stave Cutting 11/25/23 documented as of this encounter
--- OUTSIDE RECORDS SUMMARY | 2025-04-06 15:00 | XMS_ITS | Encounter Summary ---
Author Organization [facility] [place], Address [address] [place] [address] Phone Care Team Providers Care Human Services Instructor Name Role Phone Pato Adkins Primary Care Provider [phone] Encounter Details Date Type Department Care Team (Late st Contact Info) Description 01/30/2024 Orders Only [facility] Robyn [address] [place] [address] Jt Lam MD [address] [facility] [place] [address] Chronic kidney disease, stage 4 (severe) (HCC); History of nephrectomy Social History Tobacco Use Types Packs/Day Years [...] Visit [facility] Robyn [address] [place] [address] Jt Lam MD [address] [facility] [place] [address] documented as of this encounter Visit Diagnoses Diagnosis Chronic kidney disease, stage 4 (severe) (HCC) History of nephrectomy documented in this encounter Care Teams Human Services Instructor Relationship Specialty Start Date End Date Pato Adkins PA [address] [place] [address], [address] [place], [place] [phone] PCP - General Physician Salesperson Men'S Hats 11/25/23 documented as of this encounter
--- OUTSIDE RECORDS SUMMARY | 2025-04-06 15:00 | XMS_ITS | Encounter Summary ---
Author Organization [facility] [place], Address [address] [place] [address] Phone Care Team Providers Care Division Leader Name Role Phone Pato Adkins Primary Care Provider [phone] Encounter Details Date Type Department Care Team (Late st Contact Info) Description 02/03/2024 Documentation Only [facility] [address] [place] [address] Bettye Del Castillo [address] [place] [phone] Social History Tobacco Use Types Packs/Day [...] Visit [facility] Robyn BRANHAM [address] [place] [phone] Jt Lam MD [address] [place] [address] [place] [address] documented as of this encounter Visit Diagnoses Not on filedocumented in this encounter Care Teams Division Leader Relationship Specialty Start Date End Date Pato Adkins PA [address] [place] [address], [address] [place] [address] PCP - General Physician Tool And Die Manager 11/25/23 documented as of this encounter
--- OUTSIDE RECORDS SUMMARY | 2025-04-06 15:00 | XMS_ITS | Encounter Summary ---
Author Organization [facility] [place], Address [address] [place] [address] Phone Care Team Providers Care Rn Field Case Manager Name Role Phone Pato Adkins Primary Care Provider [phone] Encounter Details Date Type Department Care Team (Late st Contact Info) Description 02/13/2024 Orders Only [facility] Robyn [address] [place] [address] Jt Lam MD [address] [facility] [place] [address] Chronic kidney disease, stage 4 [...] Visit [facility] Robyn BRAN[address] [place] [address] Jt Lam MD [address] [facility] [place] [address] documented as of this encounter Visit Diagnoses Diagnosis Chronic kidney disease, stage 4 (severe) (HCC) History of nephrectomy documented in this encounter Care Teams Rn Field Case Manager Relationship Specialty Start Date End Date Pato Adkins PA [address] [place] [address], [address] [place], [place] [phone] PCP - General Physician It Professional 11/25/23 documented as of this encounter
--- OUTSIDE RECORDS SUMMARY | 2025-04-06 15:00 | XMS_ITS | Clinical Summary ---
Author Organization [facility], Address [address] [place] [address] Phone Care Team Providers Care Radio Operator Ground Name Role Phone Pato Adkins Primary Care Provider [phone] Allergies Active Allergy Reactions Criticality Noted Date [...] hospital and continued on [facility] Nephrology consulted As potassium 5.4 today held [facility] and ordered repeat BMP for this afternoon. Diet changed to low potassium, diuretic lisinopril discontinued Retention of urine 11/20/2023 Overview (06/17/2024): Last Assessment & Plan: Nephrectomy for RCC 11/13 and [facility] Patient had a voiding trial postop but failed and Collins catheter replaced. Patient on way to [facility] for voiding trial yesterday when she was called and told it was canceled. Due to decreased urine output and sensation that the Collins was falling as well as dark urine sent to the ED. Collins catheter repositioned with improvement Plan discontinue Collins catheter today for voiding trial. (Started on gabapentin at [facility] for postop pain: Patient says pain is [...] 03/28/2023 03/28/2023 Irritable bowel syndrome 03/28/2023 023 Immunizations Immunization Administration Dates Next Due Influenza [...] Visit [facility] [place], - Anjelica Liang [address] [place] [phone] Jt Lam MD [address] [facility] [place] [phone] Health Maintenance Due Date Last Done Comments Breast Cancer Screening 1955 Colorectal Cancer Screening: Annual FOBT 2002 Colorectal Cancer Screening: Colonoscopy 2002 Colorectal Cancer Screening: Sigmoidoscopy 2002 Diabetes: Hemoglobin A1C 02/24/2023 Diabetes: Ophthalmology Exam 02/24/2023 Diabetes: Pedal Pulse Checked 02/24/2023 Diabetes: Sensory Foot Exam 02/24/2023 Diabetes: Visual Foot Exam 02/24/2023 Influenza Vaccine (#1) 2025 4, 05/23/2023, 06/25/2019, Additional history exists Pneumococcal Vaccine: 50+ Years Completed 06/25/2019, 03/31/2018 Hepatitis B Vaccine Aged Out No longe r eligible based on patient's age to complete this topic Insurance [facility] Medicare [facility] Medicare Care Teams Radio Operator Ground Relationship Specialty Start Date End Date Pato Adkins PA [address] [facility], [address] [place] [address] PCP - General Physician Golf Cart Maker 11/25/23
--- OUTSIDE RECORDS SUMMARY | 2025-04-06 15:00 | XMS_ITS | Encounter Summary ---
Author Organization [facility] Address [address] [place] [address] Phone Care Team Providers Care Sandblaster Glass Name Role Phone Pato Adkins Primary Care Provider + Emerson Mcwilliams MD Unavailable [phone] Angy Spiecr CNP Unavailable Encounter Details Date Type Department Care Team (Late st Contact Info) Description 11/14/2023 Procedure Pass [facility] PERIOPERATIVE DEPT [address] [place] [address] Social History Tobacco Use Types Packs/Day Years [...] with a working camera? Not on file Comments Unknown Sex and Gender Information Value Date Recorded Sex Assigned at Female 09/09/2023 10:56 PM EST Legal Sex Female 9:58 PM EDT Gender Identity Female 09/09/2023 10:56 PM EST Sexual Orientation Straight 09/09/2023 10 :56 PM EST documented as of this encounter Functional Status * Calculated C-SSRS Risk Score (Lifetime/Recent) Answer Date of Assessment Author No Risk Indicated 11/15/2023 4:00 PM EDT Sandra Claudio, CALEB * [place] Suicide Severity Rating Scale (Screener/Recent Self-Report) Question Answer Date of Assessment Author 1. Wish to be (Past 1 Month) No 11/15/2023 4:00 PM EDT Sandra Claudio RN 2. Non-Specific Active Suici ilene Thoughts (Past 1 Month) No 11/15/2023 4:00 PM EDT Sandra Claudio, CALEB 6. Suicidal Behavior (Lifetime) No 4:00 PM EDT Sandra Claudio, CALEB documented as of this encounter Plan of Treatment Upcoming Encounters Date Type Department Care Team (Late st Contact Info) Description 04/19/2025 8:00 AM EDT Office Visit [facility] [address] [place] [address] Emerson Mcwilliams MD [address] [place] [address] [email or web address] 08/03/2025 10:00 AM EST Office Visit [facility] Medicine [address] [place] [address] Susan Knapp MD [address] [facility], [address] [place] [address] [email or web address] documented as of this encounter Visit Diagnoses Not on filedocumented in this encounter Care Teams Sandblaster Glass Relationship Specialty Start Date End Date Pato Adkins PA [facility] [place] [address] PCP - General Physician [employer]. Revenue Officer 10/08/23 Emerson Mcwilliams MD [address] [place] [address] [email or web address] Primary Oncologist Medical Oncology 12/17/23 Angy Spicer CNP [address] [place] [address] [email or web address] Nurse Practitioner Medical Oncology 03/15/24 documented as of this encounter Additional Source Comments The information contained in this document represents components of the legal health record. It is not the complete legal health record.[facility]
--- OUTSIDE RECORDS SUMMARY | 2025-04-06 15:00 | XMS_ITS | Encounter Summary ---
Author Organization [facility] Address [address] [facility] [address] [place] [address] Phone Care Team Providers Care Superintendent Drivers Name Role Phone Pato Adkins Primary Care Provider + Emerson Mcwilliams MD Unavailable [phone] Angy Spicer CNP Unavailable Encounter Details Date Type Department Care Team (Latest Contact Info) Description 01/30/2024 Transcribe Orders [facility] Laboratory [address] [place] [address] tJ Lam MD [address] [facility] [address] [place] [address] Stage 3b chronic kidney disease (Primary Dx) Social History Tobacco Use Types [...] PM EST documented as of this encounter Plan of Treatment Upcoming Encounters Date Type Department Care Team (Late st Contact Info) Description 04/19/2025 8:00 AM EDT Office Visit [facility] at [facility] [address] [place] [address] Emerson Mcwilliams MD [address] [place] [address] 08/03/2025 10:00 AM EST Office Visit [facility] Medical [address] [address] Susan Knapp MD [address] [facility], [address] [place] [address] [email or web address] documented as of this encounter Procedures Procedure Name Priority Date/Time Associated Diagnosis Comments TOTAL PROTEIN CREATININE RATIO, RANDOM URINE Routine 01/30/2024 11:49 AM EDT Stage 3b chronic kidney disease RENAL PANEL Routine 01/30/2024 11:49 AM EDT Stage 3b chronic kidney disease IRON AND IRON BINDING CAPACITY Routine 01/30/2024 11:49 AM EDT Stage 3b chronic kidney disease CBC Routine 01/30/2024 11:49 AM EDT Stage 3b chronic kidney disease URIC ACID Routine 01/30/2024 11:49 AM EDT Stage 3b chronic kidney disease PARATHYROID HORMONE (PTH) Routine 01/30/2024 11:49 AM EDT Stage 3b chronic kidney disease HEMOGLOBIN A1C Routine 01/30/2024 11:49 AM EDT Stage 3b chronic kidney disease FERRITIN Routine 01/30/2024 11:49 AM EDT Stage 3b chronic kidney disease documented in this encounter Results * Uric acid (01/30/2024 11:49 AM EDT) URIC ACID 6.0 2.4 - 7.0 mg/dL [facility] Blood 01/30/2024 11:4 9 AM EDT 01/30/2024 11:54 AM EDT us Jt Lam MD LAB BLOOD ORDERABLES Final Resul t [address] [address] * (ABNORMAL) CBC (01/30/2024 11:49 AM EDT) WBC 5.15 4.00 - 11.00 K/uL [facility] RBC 4.02 3.72 - 5.30 M/uL [facility] HGB 11.5 11.4 - 15.9 g/dL [facility] HCT 36.3 34.2 - 46.8 % [facility] PLT 358 140 - 430 K/uL [facility] MCV 90.3 78.0 - 97.0 fL [facility] MCH 28.6 25.0 - 33.0 pg [facility] MCHC 31.7(L) 32.0 - 36.0 g/dL [facility] RDW 14.0 11.0 - 16.0 % [facility] MPV 9.5 8.4 - 12.8 fl [facility] Blood 01/30/2024 11:4 9 AM EDT 01/30/2024 11:54 AM EDT us Jt Lam MD LAB BLOOD ORDERABLES Final Resul t Performing Organization Address City/[facility] [address]/ZIP Co de Phone Number [address] [address] * Ferritin (01/30/2024 11:49 AM EDT) FERRITIN 39 13 - 150 ug/L [facility] Blood 01/30/2024 11:4 9 AM EDT 01/30/2024 11:54 AM EDT us Jt Lam MD LAB BLOOD ORDERABLES Final Resul t Performing Organization Address [facility] [address]/ZIP Co de Phone Number [address] [address] * Iron and iron binding capacity (01/30/2024 11:49 AM EDT) IRON 92 30 - 160 ug/dL [facility] IRON BINDING CAPACITY 332 228 - 428 ug/dL [facility] TRANSFERRIN SATURAT. 28 15 - 50 % [facility] Blood 01/30/2024 11:4 9 AM EDT 01/30/2024 11:54 AM EDT us Jt Lam MD LAB BLOOD ORDERABLES Final Resul t Performing Organization Address City/[facility] [address]/ZIP Co de Phone Number [address] [address] * (ABNORMAL) Parathyroid hormone (PTH) (01/30/2024 11:49 AM EDT) PARATHYROID HORMONE 71(H) 15 - 65 pg/mL [facility] Blood 01/30/2024 11:4 9 AM EDT 01/30/2024 11:54 AM EDT us Jt Lam MD LAB BLOOD ORDERABLES Final Resul t Performing Organization Address City/[facility] [address]/ZIP Co de Phone Number [address] [address] * Hemoglobin A1c (01/30/2024 11:49 AM EDT) HEMOGLOBIN A1C 5.8 4.3 - 5.8 % [facility] Blood 01/30/2024 11:4 9 AM EDT 01/30/2024 11:55 AM EDT us Jt Lam MD LAB BLOOD ORDERABLES Final Resul t Performing Organization Address [facility] [address]/[facility] Co de Phone Number [address] [address] * Total protein creatinine ratio, random urine (01/30/2024 11:49 AM EDT) Pathologist [facility] URINE TOTAL PROTEIN 25.0 mg/dL [facility] URINE CREATININE 138 mg/dL [facility] URINE TP CRE RATIO 0.18 0 - 0.19 [facility] Urine (Urine) 01/30/2024 11: 49 AM EDT 01/30/2024 11:55 AM EDT us Jt Lam MD URINE ORDERABLES Final Result Performing Organization Address City/[facility] [address]/[facility] Co de Phone Number [address] [address] * (ABNORMAL) Renal panel (01/30/2024 11:49 AM EDT) SODIUM 139 133 - 146 mmol/L [facility] POTASSIUM 5.2(H) 3.3 - 5.1 mmol/L [facility] CHLORIDE 106 96 - 108 mmol/L [facility] CO2 19(L) 21 - 35 mmol/L [facility] GLUCOSE 141(H) 70 - 99 mg/dL [facility] BUN 46(H) 6 - 19 mg/dL [facility] CREATININE 2.60(H) 0.5 - 1.5 mg/dL [facility] CALCIUM 9.8 8.4 - 10.3 mg/dL [facility] PHOSPHORUS 4.7(H) 2.7 - 4.5 mg/dL [facility] ALBUMIN 4.4 3.9 - 4.8 g/dL [facility] EGFR 19(L) >59 mL/min/1.7 3m2 [facility] Comment:Estimated glomerular filtration rate calculated using the CKD-EPI refit equation. ANION GAP 19 10 - 20 mmol/L [facility] Blood 01/30/2024 11:4 9 AM EDT 01/30/2024 11:54 AM EDT us Jt Lam MD LAB BLOOD ORDERABLES Final Resul t [address] [address] documented in this encounter Visit Diagnoses Diagnosis Stage 3b chronic kidney disease- Primary documented in this encounter Care Teams Superintendent Drivers Relationship Specialty Start Date End Date Pato Adkins PA [address] [place] [address] PCP - General Physician Marketing Communications Associate 10/08/23 Emerson Mcwilliams MD [address] [place] [address] Primary Oncologist Medical Oncology 12/17/23 Angy Spicer CNP [address] [place] [address] Nurse Practitioner Medical Oncology 03/15/24 documented as of this encounter Additional Source Comments The information contained in this document represents components of the legal health record. It is not the complete legal health record.[facility]
--- OUTSIDE RECORDS SUMMARY | 2025-04-06 15:00 | XMS_ITS | Encounter Summary ---
Author Organization [facility] [place], Address [address] [place] [address] Phone Care Team Providers Care City Dispatch Supervisor Name Role Phone Pato Adkins Primary Care Provider [phone] Encounter Details Date Type Department Care Team (Late st Contact Info) Description 02/03/2024 Documentation Only [facility] [address] [place] [address] Bettye Del Castillo [address] [place] [phone] Social History Tobacco Use Types Packs/Day [...] Visit [facility] Robyn BRANHAM [address] [place] [phone] Jt Lam MD [address] [place] [address] [place] [address] documented as of this encounter Visit Diagnoses Not on filedocumented in this encounter Care Teams City Dispatch Supervisor Relationship Specialty Start Date End Date Pato Adkins PA [address] [place] [address], [address] [place] [address] PCP - General Physician Hall Worker 11/25/23 documented as of this encounter
--- OUTSIDE RECORDS SUMMARY | 2025-04-06 15:01 | XMS_ITS | Encounter Summary ---
Author Organization [facility], Address [address] [place] [address] Phone Care Team Providers Care Golf Ball Cover Treater Name Role Phone Pato Adkins Primary Care Provider [phone] Encounter Details Date Type Department Care Team (Late st Contact Info) Description 08/31/2024 Office Communication [facility] - [address] [place] [phone] Jt Lam MD [address] [facility] [place] [phone] Social History Tobacco Use Types Packs/Day Years [...] on file documented as of this encounter Miscellaneous Notes * Telephone Encounter - Selina Velasquez - 09/17/2024 1:50 PM EST Lab results scanned to chart. * Telephone Encounter - Jt Lam MD - 09/09/2024 1:08 PM EST Sent kayaxalate to her pharmacy to take 30 grams daily X 3 days check labs on Friday hopefully insurance covers kayaxalate powder * Telephone Encounter - Jt Lam MD - 09/09/2024 1:06 PM EST I told her friday * Telephone Encounter - Selina Velasquez - 09/09/2024 1:[address] Lam, Patient stated she is not able to afford the Lokelma medication, it is about $700 for a thirty day supply. Can we try Kayexalate with her. She said the Lokelma is still $700 with coupons from [employer] How long after starting the Kayexalate would you like her to do repeat labs? * Telephone Encounter - Selina Velasquez - 08/31/2024 1:50 PM EST Order faxed to [phone]. documented in this encounter Plan of Treatment Upcoming Encounters Date Type Department Care Team (Late st Contact Info) Description 04/25/2025 1:45 PM EDT Office Visit [facility], [facility] - [address] [facility] [address] [place] [phone] Jt Lam MD [address] [place] [address] [address] [address] [place] [address] documented as of this encounter Visit Diagnoses Not on filedocumented in this encounter Care Teams Golf Ball Cover Treater Relationship Specialty Start Date End Date Pato Adkins PA [address] [place] [address], [address] [place], [place] [phone] PCP - General Physician Lead Worker Of Housekeeping And Laundry 11/25/23 documented as of this encounter
--- OUTSIDE RECORDS SUMMARY | 2025-04-06 15:01 | XMS_ITS | Encounter Summary ---
Author Organization [facility], Address [address] [place] [address] Phone Care Team Providers Care Pattern Fitter Name Role Phone Pato Adkins Primary Care Provider [phone] Encounter Details Date Type Department Care Team (Late st Contact Info) Description 09/09/2024 Documentation Only [facility] [address] [place] [address] Selina Velasquez [address] [place] [phone] Social History Tobacco Use Types Packs/Day [...] Visit [facility] Robyn BRANHAM [address] [place] [phone] Jt Lam MD [address] [place] [address] [place] [address] documented as of this encounter Visit Diagnoses Not on filedocumented in this encounter Care Teams Pattern Fitter Relationship Specialty Start Date End Date Pato Adkins PA [address] [place] [address], [address] [place] [address] PCP - General Physician Hogshead Press Operator 11/25/23 documented as of this encounter
--- OUTSIDE RECORDS SUMMARY | 2025-04-06 15:01 | XMS_ITS | Encounter Summary ---
Author Organization [facility] Address [address] [place] [address] Phone Care Team Providers Care Guest Service Manager Name Role Phone Lacey Shafer MD Primary Care Provider Pato Adkins Primary Care Provider + Emerson Mcwilliams MD Unavailable [phone] Angy Spicer CNP Unavailable Encounter Details Date Type Department Care Team (Late st Contact Info) Description 09/01/2023 Procedure Pass [address] [place] [address] Social History Tobacco Use Types Packs/Day Years Used Date Smoking Tobacco: Never Assessed Education Answer Date Recorded Are you interested [...] Description 04/19/2025 8:00 AM EDT Office Visit [facility] [address] [place] [address] Emerson Mcwilliams MD [address] [place] [address] 08/03/2025 10:00 AM EST Office Visit [facility] [address] [place] [address] Susan Knapp MD [address] [facility] 7 [place] [address] [email or web address] documented as of this encounter Visit Diagnoses Not on filedocumented in this encounter Care Teams Guest Service Manager Relationship Specialty Start Date End Date Lacey Shafer MD [address] [place] [address] PCP - General 05/01/20 10/07/23 Pato Adkins PA [address] [place] [address] PCP - General Physician Cms Expert 10/08/23 Emerson Mcwilliams MD [address] [place] [address] Primary Oncologist Medical Oncology 12/17/23 Angy Spicer CNP [address] [place] [address] Nurse Practitioner Medical Oncology 8/12/24 documented as of this encounter Additional Source Comments The information contained in this document represents components of the legal health record. It is not the complete legal health record.[facility]
--- OUTSIDE RECORDS SUMMARY | 2025-04-06 15:01 | XMS_ITS | Encounter Summary ---
Author Organization [facility], Address [address] [place] [address] Phone Care Team Providers Care Palm And Back Forger Name Role Phone Pato Adkins Primary Care Provider [phone] Encounter Details Date Type Department Care Team (Late st Contact Info) Description 08/31/2024 Documentation Only [facility] [address] [place] [address] Selina Velasquez [address] [place] [phone] Social History Tobacco Use Types Packs/Day [...] Visit [facility] Robyn BRANHAM [address] [place] [phone] Jt Lam MD [address] [place] [address] [place] [address] documented as of this encounter Visit Diagnoses Not on filedocumented in this encounter Care Teams Palm And Back Forger Relationship Specialty Start Date End Date Pato Adkins PA [address] [place] [address], [address] [place] [address] PCP - General Physician Switcher 11/25/23 documented as of this encounter
--- OUTSIDE RECORDS SUMMARY | 2025-04-06 15:01 | XMS_ITS | Encounter Summary ---
Author Organization [facility], Address [address] [place] [address] Phone Care Team Providers Care Sales Representative Graphic Art Name Role Phone Pato Adkins Primary Care Provider [phone] Encounter Details Date Type Department Care Team (Late st Contact Info) Description 01/02/2024 Orders Only [facility] Robyn [address] [place] [address] Jt Lam MD [address] [facility] [place] [address] Chronic kidney disease, stage 4 [...] Visit [facility] [address]yn [address] [place] [address] Jt Lam MD [address] [facility] [place] [address] documented as of this encounter Visit Diagnoses Diagnosis Chronic kidney disease, stage 4 (severe) (HCC) History of nephrectomy documented in this encounter Care Teams Sales Representative Graphic Art Relationship Specialty Start Date End Date Pato Adkins PA [address] [place] [address], [address] [place], [place] [phone] PCP - General Physician Cut Out Press Operator 11/25/23 documented as of this encounter
--- OUTSIDE RECORDS SUMMARY | 2025-04-06 15:01 | XMS_ITS | Encounter Summary ---
Author Organization [facility] Address [address] [place] [address] Phone Care Team Providers Care Family Nurse Name Role Phone Lacey Shafer MD Primary Care Provider Pato Adkins Primary Care Provider + Emerson Mcwilliams MD Unavailable [phone] Angy Spicer CNP Unavailable Encounter Details Date Type Department Care Team (Late st Contact Info) Description 08/28/2023 Procedure Pass [facility], Ct Scan - [address] [phone] Social History Tobacco Use Types Packs/Day Years [...] Description 04/19/2025 8:00 AM EDT Office Visit [facility] [address] [place] [address] Emerson Mcwilliams MD [address] [place] [address] 08/03/2025 10:00 AM EST Office Visit [facility] [address] [place] [address] Susan Knapp MD [address] [facility], [facility] 7 [place] [address] [email or web address] documented as of this encounter Visit Diagnoses Not on filedocumented in this encounter Care Teams Family Nurse Relationship Specialty Start Date End Date Lacey Shafer MD [address] [place] [address] PCP - General 05/01/20 10/07/23 Pato Adkins PA [address] [place] [address] PCP - General Physician Camera Control Operator 10/08/23 Emerson Mcwilliams MD [address] [place] [address] Primary Oncologist Medical Oncology 12/17/23 Angy Spicer CNP [address] [place] [address] [email or web address] Nurse Practitioner Medical Oncology 03/15/24 documented as of this encounter Additional Source Comments The information contained in this document represents components of the legal health record. It is not the complete legal health record.[facility]
--- OUTSIDE RECORDS SUMMARY | 2025-04-06 15:01 | XMS_ITS | Clinical Summary ---
Author Organization [facility] Address [address] [facility] [address] [place] [phone] Phone Care Team Providers Care Aerospace Physiological Technician Name Role Phone Pato Adkins Primary Care Provider + Emerson Mcwilliams MD Unavailable [phone] Angy Spicer CNP Unavailable Allergies Active Allergy Reactions Criticality Noted Date Comments Amoxicillin Nausea and/or Vomiting 03/28/2023 Medications DULoxetine (CYMBALTA) 60 MG capsule Take 60 mg by mouth nightly at bedtime. Active lamoTRIgine (LAMICTAL) 25 MG IMMEDIATE release tablet Take 2 tablets by mouth 2 (two) times a day. 4 Active levothyroxine (SYNTHROID, LEVOTHROID) 50 MCG tablet Take 0.75 mcg by mouth daily. Active metFORMIN (GLUCOPHAGE) 500 MG tablet Take 500 mg by mouth daily. Active zolpidem (AMBIEN) 10 mg tablet Take 10 mg by mouth nightly at bedtime as needed. at bedtime. 4 Active calcium carbonate-vitam in D3 1500 mg (600 mg elemental)-400 units per tablet Take 1 tablet by mouth 2 (two) times a day. 4 Active coenzyme Q10 30 mg capsule Take 200 mg by mouth. Active dextroamphetami ne-amphetamine (ADDERALL) 20 mg Tab tablet Take 1.5 tablets by mouth 2 (two) times a day. 4 Active LORazepam (ATIVAN) 0.5 MG tablet Take 0.5 mg by mouth every 8 (eight) hours as needed. 4 Active omega-3 acid ethyl esters (LOVAZA) 1 gram capsule Take 2 g by mouth daily. Active mv-mn/iron/FA/b iotin/herb 346 (OQKB-OBGW-LHGZ S,FA-HERB CMPLX, ORAL) Take 1 tablet by mouth daily. Active bisacodyl (DULCOLAX) 5 mg EC tablet Take 5 mg by mouth daily. Active clindamycin (CLEOCIN T) 1 % lotion Apply topically 2 (two) times a day. 60 mL 5 Active Active Problems Patient Care Coordination No te Formatting of this note migh t be different from the original. Height 168.2cm no shoes taken by OC 03/16/2024 Problem Noted Date Diagnosed Date senior living (current) use of immunosuppressive bio logic 12/15/2024 Hyperkalemia 11/20/2023 Assessment & Plan (11/21/2023 2:41 PM EDT): Came to the ED for decreased urine output from Collins. Lab work showed hyperkalemia, note that patient had elevated potassium postop (did not receive any potassium lowering medications). Calcium gluconate administered in the ER, along with insulin and albuterol for severe hyperkalemia Patient with hospital and continued on [facility] Nephrology consulted As potassium 5.4 today held [facility] and ordered repeat BMP for this afternoon. Diet changed to low potassium, diuretic lisinopril discontinued Urinary retention 11/20/2023 Assessment & Plan (11/21/2023 2:42 PM EDT): Nephrectomy for RCC 11/13 and [facility]. Patient had a voiding trial postop but failed and Collins catheter replaced. Patient on way to [place] for voiding trial yesterday when she was called and told it was canceled. Due to decreased urine output and sensation that the Collins was falling as well as dark urine sent to the ED. Collins catheter repositioned with improvement Plan discontinue Collins catheter today for voiding trial. (Started on gabapentin at [facility] for postop pain: Patient says pain is mild using Tylenol as needed, does not want opioids.) Acute kidney injury superimposed on chronic kidn ey disease 11/20/2023 Assessment & Plan (11/21/2023 2:32 PM EDT): Creatinine presentation 2.4. Nephrology consulted reviewed their note. They think her creatinine level is probably her new baseline. Received IV fluid in the ER Repeat creatinine levels last night and today 2.2. Acute hyperkalemia 11/20/2023 Renal cancer, right 10/24/2023 Cancer Staging:Clinical:Stage III(cT3a, cN0, cM0) - Signed by Alexia Nayak MD, PhD on 12/09/2023 Assessment & Plan (04/06/2024 7:17 PM EDT): IMPRESSION: This is a 69-year-old woman with history of RCC stage III (T3a N0 M0) renal cell carcinoma status post right nephrectomy November 14, 2023. Started on adjuvant pembrolizumab on 01/30/2024. DISCUSSION: I discussed all impression and further management in this regard. She has been tolerating current therapy without any side effects or complications and will continue as planned. RECOMMENDATIONS: C4 of adjuvant pembrolizumab immunotherapy tomorrow Return for follow-up in 3 weeks -already scheduled Thank you very much for allowing to participate in this patient's care Stage 3b chronic kidney disease 04/01/2023 Attention deficit hyperactiv ity disorder (ADHD), predominantly inattentive type 03/28/2023 Assessment & Plan (11/21/2023 2:43 PM EDT): Adderall ordered Hiatal hernia 03/28/2023 Hypercholesterolemia 03/28/2023 Diabetes mellitus 03/28/2023 Hyperglycemia due to type 2 diabetes mellitus Assessment & Plan (11/21/2023 2:43 PM EDT): Metformin held plan scale insulin ordered Essential (primary) hypertension 03/28/2023 Assessment & Plan (11/21/2023 2:44 PM EDT): Holding diuretic, lisinopril due to hyperkalemia and Hypothyroidism 03/28/2023 Irritable bowel syndrome 03/28/2023 Insomnia 03/28/2023 Resolved Problems Problem Noted Date Diagnosed Date Resolved Date Renal mass 11/16/2023 10/12/2024 Right renal mass 11/14/2023 10/12/2024 Encounters Date Type Department Care Team Description 04/05/2025 Orders Only [facility] at [address] [address] Mariella Child NP Renal cancer, right (Primary Dx); Abnormal chest x-ray with multiple lung nodules 03/30/2025 3:16 PM EDT - 03/30/2025 11:59 PM EDT Hospital Encounter [address] [address] Mariella Child NP Discharge Disposition: Home or Self Care 03/14/[address] [facility] at [address] [address] Steffany Dillard 03/14/[address] [facility] at [address] [address] Steffany Dillard 01/05/2025 9:[address] [facility] at [address] [address] Emerson Mcwilliams MD Romero Losada, Martha Katherine, drawing in machine tender helper cancer, right (Primary Dx) 01/04/2025 3:40 PM EDT Office Visit [facility] at [address] [address] Emerson Mcwilliams MD Renal cancer, right (Primary Dx) 01/04/2025 2:30 PM EDT - 01/04/2025 11:59 PM EDT Hospital Encounter [facility] Laboratory [address] [place] [address] Emerson Mcwilliams MD Discharge Disposition: Home or Self Care 12/15/2024 Procedure [facility], Ct Scan - Main [address] [address] 12/15/2024 Procedure [facility], Ct Scan - [address] [address] from Last 3 Months Immunizations Immunization Administration Dates Next Due Influenza High-Dose Quadriva lent Preservative Free IM 04/10/2022,05/12/2021 Influenza High-Dose Trivalen t Preservative Free IM 05/31/2024,06/05/2018 Influenza Quadrivalent Adjuv anted Preservative Free IM 05/23/2023 Influenza, Unspecified Formulation 06/25,06/25/2019,05/13/2017,05/13,07/17/2016,07/17/2016,07/14/2015 ,07/14/2015,07/17/2012,07/17/2012 Pneumococcal conjugate PCV20 02/23/2024 Pneumococcal conjugate, unsp ecified formulation 03/31/2018 Pneumococcal polysaccharide PPSV23 06/25/2019 RSV Vaccine (bivalent) 08/18/2023 Td (adult),2 Lf Tetanus Toxo id, PF, Adsorbed 02/13/2023 Td, unspecified formulation 03/11/2005 Tdap 08/14/2015 Zoster recombinant 05/12/2021 Social History Tobacco Use Types Packs/Day Years Used Date Smoking Tobacco: Former Cigarettes 0.5 30 0 08/13/1972 - 01/21/2002 Smokeless Tobacco: Never Tobacco Cessation:Counseling Given: Not Answered Comments:Mild for first 10yrs Alcohol Use Standard Drinks/Week Comments Not Currently [...] as food, clothing, or medical care? No 09/08/2024 In the past 12 months have y ou been in a relationship with a person who hurts, threatens, or tries to control you? No 09/08/2024 Are you denied basic needs s uch as food, clothing, or medical care? No 09/08/2024 In the past 12 months have y ou been in a relationship with a person who hurts, threatens, or tries to control you? No 09/08/2024 Comments No Sex and Gender Information Value Date Recorded Sex Assigned at Female 09/09/2023 10:56 PM EST Legal Sex Female 9:58 PM EDT Gender Identity Female 09/09/2023 10:56 PM EST Sexual Orientation Straight 09/09/2023 10 :56 PM EST Last Filed Vital Signs Vital Sign Reading Time Taken Comments Blood Pressure 150/80 01/05/2025 9:39 AM EDT Pulse 73 01/05/2025 9:39 AM EDT Temperature 37.2 C (98.9 F) 01/05/2025 9:39 AM EDT Respiratory Rate 18 01/05/2025 9:39 AM EDT Oxygen Saturation 100% 01/05/2025 9:39 AM EDT Inhaled Oxygen Concentration - - Weight 70.5 kg (155 lb 6.4 oz) 01/04/2025 3:12 P M EDT Height 167.6 cm (5' 5.98 ) 01/04/2025 3:12 PM ED T Body Mass Index 25.09 01/04/2025 3:12 PM EDT Plan of Treatment Upcoming Encounters Date Type Department Care Team (Late st Contact Info) Description 04/19/2025 8:00 AM EDT Office Visit [facility] at [facility] [address] [place] [address] Emerson Mcwilliams MD [address] [place] [address] [email or web address] 08/03/2025 10:00 AM EST Office Visit [facility] [address] [place] [address] Susan Knapp MD [address] [facility], [address] [place] [address] [email or web address] Maintenance Due Date Last Done Comments DEPRESSION SCREENING 1965 HEPATITIS C SCREENING 1971 MAMMOGRAM 1993 COLOGUARD 1998 COLONOSCOPY 1998 COLORECTAL CANCER SCREENING 1998 FIT TEST 1998 FOBT 1998 SIGMOIDOSCOPY 1998 VIRTUAL COLONOSCOPY 1998 OSTEOPOROSIS SCREENING INITIAL (ONE-TIME) 2018 ZOSTER VACCINES (2 of 2) 07/07/2021 05/12/2021 DIABETIC EYE EXAM 10/27/2023 HEMOGLOBIN A1C 07/31/2024 01/30/2024 INFLUENZA VACCINE (#1) 2025 , 05/23/2023, 04/10/2022, Additional history exists COVID-19 VACCINE ( season) 2025 05/31/2024, 05/23/2023, 07/25/2022, Additional history exists BLOOD PRESSURE 07/07/2025 01/05/2025 LIPID PANEL 09/08/2025 09/08/2024 CREATININE LEVEL 01/04/2026 01/04/2025, , 11/22/2024, Additional history exists TSH LEVEL 01/04/2026 01/04/2025, 12/02, 11/22/2024, Additional history exists Adult Td,Tdap Booster 02/13/2033 02/13/2023 , 08/14/2015, 03/11/2005 RSV VACCINE Completed 08/18/2023 PNEUMOCOCCAL VACCINES (50+ years) Completed 02/23/2024, 06/25/2019 SMOKING STATUS SCREENING (Once After 26 Yrs) Completed 01/04/2025 HEPATITIS A VACCINES Aged Out No long er eligible based on patient's age to complete this topic HIB VACCINES Aged Out No longer eligi ble based on patient's age to complete this topic MENINGOCOCCAL VACCINES (ACWY) Aged Out No longer eligible based on patient's age to complete this topic MENINGOCOCCAL VACCINES (B) Aged Out N o longer eligible based on patient's age to complete this topic Medical Devices Not on file Procedures Procedure Name Priority Date/Time Associated Diagnosis Comments CT CHEST WITHOUT CONTRAST Routine 03/30/2025 3:30 PM EDT Renal cancer, right rat exterminator (current) use of immunosuppressive biologic CT ABDOMEN/PELVIS WITHOUT CONTRAST Routine 03/30/2025 3:30 PM EDT Renal cancer, right rat exterminator (current) use of immunosuppressive biologic TSH Routine 01/04/2025 2:47 PM EDT Renal cancer, right COMPREHENSIVE METABOLIC PANEL Routine 01/04/2025 2:47 PM EDT Renal cancer, right CBC AND DIFFERENTIAL Routine 01/04/2025 2:47 PM EDT Renal cancer, right LIPID PANEL Routine 09/08/2024 3:56 PM EST Hyperlipidemia, unspecified hyperlipidemia type Chronic kidney disease, stage IV (severe) HEMOGLOBIN A1C Routine 01/30/2024 11:49 AM EDT Stage 3b chronic kidney disease from Last 3 Months or Most Recently Relevant to Health Maintenance Results * CT CHEST WITHOUT CONTRAST (03/30/2025 3:30 PM EDT) MGB IMG RECOMMENDATION COMMENT pulmonary nodules [facility] Anatomical Region Laterality Modality Chest Computed Tomogra phy 04/04/2025 7:22 PM EDT Impressions 04/05/2025 1:55 PM EDT 1. A 2 mm right upper lobe pulmonary nodule is new from July 2024. This may be a small mucus plug. However, noting the history of kidney cancer, short-term follow-up chest CT is recommended. 2. A new nodular density at the right lower lobe costophrenic sulcus is probably subsegmental atelectasis. However, noting the history of kidney cancer, short- term follow-up chest CT is recommended. RECOMMEND follow-up chest CT in 3-4 months. Narrative 04/05/2025 1:[address] CHEST WITHOUT CONTRAST Referring clinician's provided indication for this examination in [facility]: * Kidney cancer, follow up TECHNIQUE: Multidetector CT of the chest was performed without intravenous contrast using tailored dose modulation. COMPARISON: CT from October [address] from July 2024. FINDINGS: Devices/Tubes/Lines: None. Lungs: A 2 mm right upper lobe pulmonary nodule is new from July 2024. This may be a small mucus plug (4:90). A new 10 mm nodular density at the right lower lobe costophrenic sulcus is probably subsegmental atelectasis (4:250. Pleura: No effusion. No mass. Mediastinum: No new abnormality. Coronary artery calcifications. Small hiatal hernia. Further decrease in size of a low-density nodule adjacent to the distal esophagus and descending thoracic aorta (2:51). Lymph Nodes: No new or enlarging thoracic lymph nodes. Upper Abdomen: Gastric bypass. Small hiatal hernia. Chest Wall: No new abnormality. Bones: No suspicious lesion. No acute abnormality. Procedure Note Dhaval Briscoe MD - 04/05/2025 CT CHEST WITHOUT CONTRAST Referring clinician's provided indication for this examination in [facility]: *Kidney cancer, follow up TECHNIQUE: Multidetector CT of the chest was performed without intravenouscontrast using tailored dose modulation. COMPARISON: CT from October [address] from July 2024. FINDINGS: Devices/Tubes/Lines: None. Lungs: A 2 mm right upper lobe pulmonary nodule is new from July 2024. Thismay be a small mucus plug (4:90). A new 10 mm nodular density at the right lower lobe costophrenic sulcus isprobably subsegmental atelectasis (4:250. Pleura: No effusion. No mass. Mediastinum: No new abnormality. Coronary artery calcifications. Smallhiatal hernia. Further decrease in size of a low-density nodule adjacentto the distal esophagus and descending thoracic aorta (2:51). Lymph Nodes: No new or enlarging thoracic lymph nodes. Upper Abdomen: Gastric bypass. Small hiatal hernia. Chest Wall: No new abnormality. Bones: No suspicious lesion. No acute abnormality. IMPRESSION: 1. A 2 mm right upper lobe pulmonary nodule is new from July 2024.This may be a small mucus plug. However, noting the history of kidneycancer, short-term follow-up chest CT is recommended. 2. A new nodular density at the right lower lobe costophrenic sulcus isprobably subsegmental atelectasis. However, noting the history of kidneycancer, short- term follow-up chest CT is recommended. RECOMMEND follow-up chest CT in 3-4 months. Mariella Child STOPPING BUILDER IMG CT CHEST Final Re sult * CT ABDOMEN/PELVIS WITHOUT CONTRAST (03/30/2025 3:30 PM EDT) Anatomical Region Laterality Modality Abdomen, Pelvis Computed Tomogra phy 04/04/2025 7:09 PM EDT Impressions 04/05/2025 1:55 PM EDT 1. No significant new abnormality. Narrative 04/05/2025 1:[address] ABDOMEN/PELVIS WITHOUT CONTRAST Referring clinician's provided indication for this examination in Epic: * Kidney cancer, follow up TECHNIQUE: Multidetector-row CT of the abdomen and pelvis was performed without intravenous contrast using tailored dose modulation techniques. Images were reconstructed in the axial, coronal, and sagittal planes. COMPARISON: CT abdomen and pelvis from July 2024. ABSENCE OF INTRAVENOUS CONTRAST DECREASES SENSITIVITY FOR DETECTION OF FOCAL LESIONS AND VASCULAR PATHOLOGY. FINDINGS: Lower Chest: CT chest from the same day is reported separately. Liver: Unremarkable. Biliary: Cholecystectomy. Spleen: No splenomegaly. Pancreas: Unremarkable. Adrenal Glands: No nodule. Kidneys/Ureters: Right nephrectomy. No new abnormality in the surgical bed. Left kidney has no new or enlarging contour deforming lesion. No stones. No hydronephrosis. No new perinephric stranding. Bowel: Gastric bypass. Small hiatal hernia. No obstruction. Peritoneum/Retroperitoneum: No masses, pneumoperitoneum, or fluid. Lymph Nodes: No adenopathy. Pelvic Organs/Bladder: No mass. Vessels: Atherosclerotic calcifications. No AAA. Bones/Soft Tissues: Left hip prosthesis. No new focal lesion. Skeletal degenerative findings. Procedure Note Dhaval Briscoe MD - 04/05/2025 CT ABDOMEN/PELVIS WITHOUT CONTRAST Referring clinician's provided indication for this examination in Epic: *Kidney cancer, follow up TECHNIQUE: Multidetector-row CT of the abdomen and pelvis was performedwithout intravenous contrast using tailored dose modulation techniques.Images were reconstructed in the axial, coronal, and sagittal planes. COMPARISON: CT abdomen and pelvis from July 2024. ABSENCE OF INTRAVENOUS CONTRAST DECREASES SENSITIVITY FOR DETECTION OFFOCAL LESIONS AND VASCULAR PATHOLOGY. FINDINGS: Lower Chest: CT chest from the same day is reported separately. Liver: Unremarkable. Biliary: Cholecystectomy. Spleen: No splenomegaly. Pancreas: Unremarkable. Adrenal Glands: No nodule. Kidneys/Ureters: Right nephrectomy. No new abnormality in the surgicalbed. Left kidney has no new or enlarging contour deforming lesion. Nostones. No hydronephrosis. No new perinephric stranding. Bowel: Gastric bypass. Small hiatal hernia. No obstruction. Peritoneum/Retroperitoneum: No masses, pneumoperitoneum, or fluid. Lymph Nodes: No adenopathy. Pelvic Organs/Bladder: No mass. Vessels: Atherosclerotic calcifications. No AAA. Bones/Soft Tissues: Left hip prosthesis. No new focal lesion. Skeletaldegenerative findings. IMPRESSION: 1. No significant new abnormality. Mariella Child NP IMG CT ABD/PELVIS Final Result * (ABNORMAL) Comprehensive metabolic panel (01/04/2025 2:47 PM EDT) SODIUM 138 133 - 146 mmol/L [facility] POTASSIUM 5.3(H) 3.3 - 5.1 mmol/L [facility] CHLORIDE 104 96 - 108 mmol/L [facility] CO2 22 21 - 35 mmol/L [facility] BUN 39(H) 6 - 19 mg/dL [facility] CREATININE 1.80(H) 0.5 - 1.5 mg/dL [facility] GLUCOSE 143(H) 70 - 99 mg/dL [facility] ALBUMIN 4.2 3.9 - 4.8 g/dL [facility] TOTAL PROTEIN 7.6 6.5 - 8.0 g/dL [facility] CALCIUM 9.7 8.4 - 10.3 mg/dL [facility] ALKALINE PHOSPHATASE 115 39 - 117 U/L [facility] TOTAL BILIRUBIN <0.2 0.0 - 1.2 mg/dL [facility] AST 45(H) 0 - 37 U/L [facility] ALT 51(H) 0 - 40 U/L [facility] GLOBULIN 3.4 1 - 4.8 g/dL [facility] EGFR 30(L) >59 mL/min/1.7 3m2 [facility] Comment:Estimated glomerular filtration rate calculated using the CKD-EPI refit equation. ANION GAP 17 10 - 20 mmol/L [facility] Blood 01/04/2025 2:47 PM EDT 01/04/2025 2:56 PM EDT us Emerson Mcwilliams MD LAB BLOOD ORDERABLES Final Res ult [address] [address] * (ABNORMAL) CBC and differential (01/04/2025 2:47 PM EDT) WBC 5.94 4.00 - 11.00 K/uL [facility] RBC 3.85(L) 4.00 - 5.20 M/uL [facility] HGB 10.5(L) 12.0 - 16.0 g/dL [facility] HCT 33.2(L) 36.0 - 46.0 % [facility] PLT 299 150 - 450 K/uL [facility] MCV 86.2 80.0 - 100.0 fL [facility] MCH 27.3 27.0 - 31.0 pg [facility] MCHC 31.6(L) 32.0 - 36.0 g/dL [facility] RDW 15.3(H) 11.5 - 14.5 % [facility] MPV 8.6 8.4 - 12.0 fL [facility] NRBC 0.00 0.00 /100 WBCs [facility] ABSOLUTE NRBC 0.00 0.00 K/uL [facility] DIFF METHOD Auto [facility] NEUTS 49.6 48.0 - 76.0 % [facility] LYMPHS 31.1 18.0 - 41.0 % [facility] MONOS 6.2 4.0 - 11.0 % [facility] EOS 11.8(H) 0.0 - 5.0 % [facility] BASOS 1.0 0.0 - 1.5 % [facility] Granulocytes, immature (%) 0.3 0.0 - 0.9 % [facility] ABSOLUTE NEUTS 2.94 1.92 - 7.60 K/uL [facility] ABSOLUTE LYMPHS 1.85 0.72 - 4.10 K/uL [facility] ABSOLUTE MONOS 0.37 0.16 - 1.10 K/uL [facility] ABSOLUTE EOS 0.70(H) 0.00 - 0.50 K/uL [facility] ABSOLUTE BASOS 0.06 0.00 - 0.15 K/uL [facility] Granulocytes, immature 0.02 0.00 - 0.09 K/uL [facility] Blood 01/04/2025 2:47 PM EDT 01/04/2025 2:56 PM EDT us Emerson Mcwilliams MD LAB BLOOD ORDERABLES Final Res ult [address] [address] * TSH (01/04/2025 2:47 PM EDT) TSH 0.64 0.27 - 4.20 uIU/mL [facility] Blood 01/04/2025 2:47 PM EDT 01/04/2025 2:56 PM EDT us Emerson Mcwilliams MD LAB BLOOD ORDERABLES Final Res ult Performing Organization Address [facility]/ZIP Co de Phone Number [address] [address] * (ABNORMAL) Lipid panel (09/08/2024 3:56 PM EST) HDL 69 mg/dL [facility] Comment: Interpretation <40 mg/dL: Low HDL cholesterol (major risk factor for CHD) Greater than or equal to 60 mg/dL: High HDL cholesterol ( negative risk factor for CHD) HDL - cholesterol is affected by a number of factors, e.g. smoking, excerise, hormones, sex and age. CHOLESTEROL 219 0 - 240 mg/dL [facility] TRIGLYCERIDES 75 30 - 160 mg/dL [facility] LDL 135(H) 50 - 129 mg/dL [facility] Comment: LDL levels in terms of risk for coronary heart disease: <100 mg/dL: Optimal 100-129 mg/dL: Near or above optimal 130-159 mg/dL: Borderline high 160-189 mg/dL: High >190 mg/dL: Very High CARDIAC RISK RATIO 3.2(L) 3.3 - 4.4 C [facility] Blood 09/08/2024 3:56 PM EST 09/08/2024 3:58 PM EST us Pato CHRISTIANSON LAB BLOOD ORDERABLES Fin al Result Performing Organization Address [facility]/ZIP Co de Phone Number [address] [address] * Hemoglobin A1c (01/30/2024 11:49 AM EDT) HEMOGLOBIN A1C 5.8 4.3 - 5.8 % [facility] Blood 01/30/2024 11:4 9 AM EDT 01/30/2024 11:55 AM EDT us Jt Lam MD LAB BLOOD ORDERABLES Final Resul t Performing Organization Address [facility] Co de Phone Number [address] [address] from Last 3 Months or Most Recently Relevant to Health Maintenance Insurance MEDICARE PART A & B Member Subscriber Plan / Payer (Ef fective 2018-Present) Name:Kailey Dorado Member ID:[id number] Relation to Subscriber:Self Name:Kailey Dorado Subscriber ID:[id number] Payer ID:[id number] Group ID:Not on file Type:Medicare Address: [facility] [employer] [address] MEDICARE REPLACEMENT MEDICARE PART A & B MEDICARE REPLACEMENT MEDICARE PART A & B [id number] [place] [address] MEDICARE REPLACEMENT MEDICARE PART A & B [facility] MEDICARE REPLACEMENT MEDICARE PART A & B MEDICARE REPLACEMENT MEDICARE PART A & B [employer] MEDICARE REPLACEMENT Advance Directives For more information, please contact: [phone] (9AM - 5PM [facility], Friday-Friday) Documents on File Type Date Recorded Patient Hvac Project Manager Expl anation Healthcare Proxy 11/24/2023 2:11 PM * Full Code (Latest Code Status on File) Date Activated Date Inactivated Comments 11/20/2023 9:04 PM Question Answer Comments Code Status Confirmed With: Patient Code Status Communicated To: Inpatient Attending * Full Code Date Activated Date Inactivated Comments 11/14/2023 10:32 AM 11/20/2023 9:04 PM Question Answer Comments Code Status Confirmed With: Patient Code Status Communicated To: Inpatient Attending Care Teams Aerospace Physiological Technician Relationship Specialty Start Date End Date Pato Adkins PA [address] [place] [address] PCP - General Physician Learning Support Services Director 10/08/23 Emerson Mcwilliams MD [address] [place] [address] [email or web address] Primary Oncologist Medical Oncology 12/17/23 Angy Spicer CNP [address] [place] [address] [email or web address] Nurse Practitioner Medical Oncology 03/15/24 Additional Source Comments The information contained in this document represents components of the legal health record. It is not the complete legal health record.[facility]
--- OUTSIDE RECORDS SUMMARY | 2025-04-06 15:01 | XMS_ITS | Encounter Summary ---
Author Organization [facility], Address [address] [place] [address] Phone Care Team Providers Care Youth Court Judge Name Role Phone Pato Adkins Primary Care Provider [phone] Encounter Details Date Type Department Care Team (Late st Contact Info) Description 01/16/2024 Orders Only [facility] Robyn BRANHAM [address] [place] [address] Jt Lam MD [address] [facility] [place] [address] Chronic kidney disease, stage 4 [...] Visit [facility] Robyn BRANHAM [address] [place] [address] Jt Lam MD [address] [facility] [place] [address] documented as of this encounter Visit Diagnoses Diagnosis Chronic kidney disease, stage 4 (severe) (HCC) History of nephrectomy documented in this encounter Care Teams Youth Court Judge Relationship Specialty Start Date End Date Pato Adkins PA [address] [place] [address], [address] [place], [place] [phone] PCP - General Physician Sound Engineer 11/25/23 documented as of this encounter
--- OUTSIDE RECORDS SUMMARY | 2025-04-06 15:01 | XMS_ITS | Encounter Summary ---
Author Organization [facility] Address [address] [place] [address] Phone Care Team Providers Care Intranet Specialist Name Role Phone Pato Adkins Primary Care Provider + Emerson Mcwilliams MD Unavailable [phone] Angy Spicer CNP Unavailable Encounter Details Date Type Department Care Team (Late st Contact Info) Description 06/28/2024 Procedure Pass [facility], Ct Scan - [address] [address] Social History Tobacco Use Types Packs/Day Years [...] Description 04/19/2025 8:00 AM EDT Office Visit [facility] at [facility] 30 [place] [address] Emerson Mcwilliams MD 30 [place] [address] 08/03/2025 10:00 AM EST Office Visit [facility] [address] [place] [address] Susan Knapp MD 234 [facility], [address] [place] [address] [email or web address] documented as of this encounter Visit Diagnoses Not on filedocumented in this encounter Care Teams Intranet Specialist Relationship Specialty Start Date End Date Pato Adkins PA [address] [place] [address] PCP - General Physician Coordinator Integrated Marketing 10/08/23 Emerson Mcwilliams MD [address] [place] [address] [email or web address] Primary Oncologist Medical Oncology 12/17/23 Angy Spicer CNP [address] [place] [address] [email or web address] Nurse Practitioner Medical Oncology 03/15/24 documented as of this encounter Additional Source Comments The information contained in this document represents components of the legal health record. It is not the complete legal health record.[facility]
--- OUTSIDE RECORDS SUMMARY | 2025-04-06 15:01 | XMS_ITS | Encounter Summary ---
Author Organization [facility] Address [address] [place] [address] Phone Care Team Providers Care Administrative Operations Coordinator Name Role Phone Lacey Shafer MD Primary Care Provider Pato Adkins Primary Care Provider + Emerson Mcwilliams MD Unavailable [phone] Angy Spicer CNP Unavailable Encounter Details Date Type Department Care Team (Late st Contact Info) Description 09/01/2023 Procedure Pass [address] [place] [address] Social History Tobacco Use Types Packs/Day Years [...] Description 04/19/2025 8:00 AM EDT Office Visit [facility] 30 [place] [address] Emerson Mcwilliams MD 30 [place] [address] 08/03/2025 10:00 AM EST Office Visit [facility] 234 [place] [address] Susan Knapp MD 234 [facility] 7 [place] [address] [email or web address] documented as of this encounter Visit Diagnoses Not on filedocumented in this encounter Care Teams Administrative Operations Coordinator Relationship Specialty Start Date End Date Lacey Shafer MD [address] [place] [address] PCP - General 05/01/20 10/07/23 Pato Adkins PA [address] [place] [address] PCP - General Physician Front Desk Team Member 10/08/23 Emerson Mcwilliams MD [address] [place] [address] Primary Oncologist Medical Oncology 12/17/23 Angy Spicer CNP [address] [place] [address] Nurse Practitioner Medical Oncology 8/12/24 documented as of this encounter Additional Source Comments The information contained in this document represents components of the legal health record. It is not the complete legal health record.[facility]
--- OUTSIDE RECORDS SUMMARY | 2025-04-06 15:01 | XMS_ITS | Encounter Summary ---
Author Organization [facility] [place], Address [address] [place] [address] Phone Care Team Providers Care Clinical Care Coordinator Name Role Phone Pato Adkins Primary Care Provider [phone] Encounter Details Date Type Department Care Team (Late st Contact Info) Description 12/09/2023 Documentation Only [facility] [address] [place] [address] Bettye Del Castillo [address] [place] [phone] Social History Tobacco Use Types Packs/Day [...] Visit [facility] Robyn BRANHAM [address] [place] [phone] Jt Lam MD [address] [place] [address] [place] [address] documented as of this encounter Visit Diagnoses Not on filedocumented in this encounter Care Teams Clinical Care Coordinator Relationship Specialty Start Date End Date Pato Adkins PA [address] [place] [address], [address] [place] [address] PCP - General Physician Warehouse Handler 11/25/23 documented as of this encounter
--- OUTSIDE RECORDS SUMMARY | 2025-04-06 15:01 | XMS_ITS | Encounter Summary ---
Author Organization [facility] Address [address] [facility] [address] [place] [address] Phone Care Team Providers Care Supervisor Securities Vault Name Role Phone Pato Adkins Primary Care Provider + Emerson Mcwilliams MD Unavailable [phone] Angy Spicer CNP Unavailable Encounter Details Date Type Department Care Team (Late st Contact Info) Description 11/20/2023 Transcribe Orders Virtual Department 30 [place] [address] Pato Adkins PA [address] [place], [place] [phone] Right shoulder pain, unspecified chronicity (Primary Dx) [...] 4:24 PM EDT Norma Tristan RN * [place] Suicide Severity Rating Scale (Screener/Recent Self-Report) Question [...] Description 04/19/2025 8:00 AM EDT Office Visit [facility] 30 [place] [address] Emerson Mcwilliams MD 30 [place] [address] 08/03/2025 10:00 AM EST Office Visit [facility] 234 [place] [address] Susan Knapp MD 234 [facility], [address] [place] [address] [email or web address] documented as of this encounter Results [...] chronicity documented in this encounter Care Teams Supervisor Securities Vault Relationship Specialty Start Date End Date Pato Adkins PA [address] [place] [address] PCP - General Physician Classroom Monitor 10/08/23 Emerson Mcwilliams MD [address] [place] [address] Primary Oncologist Medical Oncology 12/17/23 Angy Spicer CNP [address] [place] [address] Nurse Practitioner Medical Oncology 03/15/24 documented as of this encounter Additional Source Comments The information contained in this document represents components of the legal health record. It is not the complete legal health record.[facility]
--- OUTSIDE RECORDS SUMMARY | 2025-04-06 15:01 | XMS_ITS | Encounter Summary ---
Author Organization [facility], Address [address] [place] [address] Phone Care Team Providers Care Plastics Fabricator Or Welder Name Role Phone Pato Adkins Primary Care Provider [phone] Encounter Details Date Type Department Care Team (Late st Contact Info) Description 11/27/2023 Documentation Only [facility] Robyn BRANHAM [address] [place] [address] Bettye Del Castillo [address] [place] [address] Social History Tobacco Use Types [...] Visit [facility] [address] [place] [address] Jt Lam MD [address] [facility] [place] [phone] documented as of this encounter Visit Diagnoses Not on filedocumented in this encounter Care Teams Plastics Fabricator Or Welder Relationship Specialty Start Date End Date Pato Adkins PA [address] [place] [address], [address] [place] [address] PCP - General Physician Collection Team Lead 11/25/23 documented as of this encounter
--- OUTSIDE RECORDS SUMMARY | 2025-04-06 15:01 | XMS_ITS ---
Author Organization [facility] Address [address] [facility] [address] [place] [address] Phone Care Team Providers Care Drilling Supervisor Name Role Phone Pato Adkins Primary Care Provider + Emerson Mcwilliams MD Unavailable [phone] Angy Spicer CNP Unavailable Active Problems Patient Care Coordination No te Formatting of this note migh t be different from the original. Height 168.2cm no shoes taken by OC 03/16/2024 Problem Noted Date Diagnosed Date nursing home (current) use of immunosuppressive bio logic 12/15/2024 [...] hyperkalemia Patient with hospital and continued on [facility]ph[facility] consulted As potassium 5.4 today held Lokelma and ordered repeat BMP for this afternoon. Diet changed to low potassium, diuretic lisinopril discontinued Urinary retention 11/20/2023 Assessment & Plan (11/21/2023 2:42 PM EDT): Nephrectomy for RCC 11/13 and [facility]. Patient had a voiding trial postop but failed and Collins catheter replaced. Patient on way to [place] for voiding trial yesterday when she was called and told it was canceled. Due to decreased urine output and sensation that the Collins was falling as well as dark urine sent to the ED. Collins catheter repositioned with improvement Plan discontinue Collins catheter today for voiding trial. (Started on gabapentin at [facility] for postop pain: Patient says pain is [...] 03/28/2023 Irritable bowel syndrome 03/28/2023 Insomnia 03/28/2023 Current Treatment and Therapy Plans Pembrolizumab 200 mg every 3 weeks* Plan Start Date:01/30/2024 Plan Provider:Emerson Mcwilliams MD Linked Problems Renal cancer, right Treatment Medications pembrolizumab (KEYTRUDA) IVPB Bag Past Treatment and Therapy Plans No past plan information found. Resolved Problems Problem Noted Date Diagnosed Date Resolved Date Renal mass 11/16/2023 10/12/2024 Right renal mass 11/14/2023 10/12/2024
--- OUTSIDE RECORDS SUMMARY | 2025-04-06 15:01 | XMS_ITS | Encounter Summary ---
Author Organization [facility], Address [address] [place] [address] Phone Care Team Providers Care Buying Intern Name Role Phone Pato Adkins Primary Care Provider [phone] Encounter Details Date Type Department Care Team (Late st Contact Info) Description 12/19/2023 Orders Only [facility] Robyn BRANHAM [address] [place] [address] Jt Lam MD [address] [facility] [place] [address] Chronic kidney disease, stage 4 [...] Visit [facility] Robyn BRANHAM [address] [place] [address] Jt Lam MD [address] [facility] [place] [address] documented as of this encounter Visit Diagnoses Diagnosis Chronic kidney disease, stage 4 (severe) (HCC) History of nephrectomy documented in this encounter Care Teams Buying Intern Relationship Specialty Start Date End Date Pato Adkins PA [address] [place] [address], [address] [place], [place] [phone] PCP - General Physician Chin Strap Maker 11/25/23 documented as of this encounter
--- OUTSIDE RECORDS SUMMARY | 2025-04-06 15:01 | XMS_ITS | Encounter Summary ---
Author Organization [facility] Address [address] [place] [address] Phone Care Team Providers Care Sheet Metal Smith Name Role Phone Pato Adkins Primary Care Provider + Emerson Mcwilliams MD Unavailable [phone] Angy Spicer CNP Unavailable Encounter Details Date Type Department Care Team (Late st Contact Info) Description 12/15/2024 Procedure Pass [facility], Ct Scan - [address] [address] Social History Tobacco Use Types Packs/Day Years [...] Description 04/19/2025 8:00 AM EDT Office Visit [facility] 30 [place] [address] Emerson Mcwilliams MD 30 [place] [address] 08/03/2025 10:00 AM EST Office Visit [facility] 234 [place] [address] Susan Knapp MD 234 [facility], [address] [place] [address] [email or web address] documented as of this encounter Visit Diagnoses Not on filedocumented in this encounter Care Teams Sheet Metal Smith Relationship Specialty Start Date End Date Pato Adkins PA [address] [place] [address] PCP - General Physician Skimmer Reverberatory 10/08/23 Emerson Mcwilliams MD [address] [place] [address] [email or web address] Primary Oncologist Medical Oncology 12/17/23 Angy Spicer CNP [address] [place] [address] [email or web address] Nurse Practitioner Medical Oncology 03/15/24 documented as of this encounter Additional Source Comments The information contained in this document represents components of the legal health record. It is not the complete legal health record.[facility]
--- OUTSIDE RECORDS SUMMARY | 2025-04-06 15:01 | XMS_ITS | Encounter Summary ---
Author Organization [facility] Address [address] [place] [address] Phone Care Team Providers Care Primary Care Nurse Practitioner Name Role Phone Pato Adkins Primary Care Provider + Emerson Mcwilliams MD Unavailable [phone] Angy Spicer CNP Unavailable Encounter Details Date Type Department Care Team (Late st Contact Info) Description 06/28/2024 Procedure Pass [facility], Ct Scan - [address] [address] Social History Tobacco Use Types Packs/Day Years [...] Description 04/19/2025 8:00 AM EDT Office Visit [facility] at [facility] 30 [place] [address] Emerson Mcwilliams MD 30 [place] [address] 08/03/2025 10:00 AM EST Office Visit [facility] [address] [place] [address] Susan Knapp MD 234 [facility], [address] [place] [address] [email or web address] documented as of this encounter Visit Diagnoses Not on filedocumented in this encounter Care Teams Primary Care Nurse Practitioner Relationship Specialty Start Date End Date Pato Adkins PA [address] [place] [address] PCP - General Physician Material Control Supervisor 10/08/23 Emerson Mcwilliams MD [address] [place] [address] [email or web address] Primary Oncologist Medical Oncology 12/17/23 Angy Spicer CNP [address] [place] [address] [email or web address] Nurse Practitioner Medical Oncology 03/15/24 documented as of this encounter Additional Source Comments The information contained in this document represents components of the legal health record. It is not the complete legal health record.[facility]
--- OUTSIDE RECORDS SUMMARY | 2025-04-06 15:01 | XMS_ITS | Encounter Summary ---
Author Organization [facility] Address [address] [place] [address] Phone Care Team Providers Care Subassemblies Wirer Name Role Phone Pato Adkins Primary Care Provider + Emerson Mcwilliams MD Unavailable Angy Spicer CNP Unavailable Encounter Details Date Type Department Care Team (Late st Contact Info) Description 12/15/2024 Procedure Pass [facility], Ct Scan - [address] [address] Social History Tobacco Use Types Packs/Day Years [...] Description 04/19/2025 8:00 AM EDT Office Visit [facility] 30 [place] [address] Emerson Mcwilliams MD 30 [place] [address] 08/03/2025 10:00 AM EST Office Visit [facility] 234 [place] [address] Susan Knapp MD 234 [facility], [address] [place] [address] [email or web address] documented as of this encounter Visit Diagnoses Not on filedocumented in this encounter Care Teams Subassemblies Wirer Relationship Specialty Start Date End Date Pato Adkins PA [address] [place] [address] PCP - General Physician Sewer Head 10/08/23 Emerson Mcwilliams MD [address] [place] [address] [email or web address] Primary Oncologist Medical Oncology 12/17/23 Angy Spicer CNP [address] [place] [address] [email or web address] Nurse Practitioner Medical Oncology 03/15/24 documented as of this encounter Additional Source Comments The information contained in this document represents components of the legal health record. It is not the complete legal health record.[facility]
--- OUTSIDE RECORDS SUMMARY | 2025-04-06 15:01 | XMS_ITS | Encounter Summary ---
Author Organization [facility] Address [address] [facility] [address] [place] [address] Phone Care Team Providers Care Athletic Training Internship Name Role Phone Pato Adkins Primary Care Provider + Emerson Mcwilliams MD Unavailable [phone] Angy Spicer CNP Unavailable Encounter Details Date Type Department Care Team (Late st Contact Info) Description 09/20/2024 Procedure Pass [address] [place] [address] Social History Tobacco Use Types Packs/Day Years [...] PM EST documented as of this encounter Last Filed Vital Signs Vital Sign Reading Time Taken Comments Blood Pressure - - Pulse - - Temperature - - Respiratory Rate - - Oxygen Saturation - - Inhaled Oxygen Concentration - - Weight 68 kg (150 lb) 09/21/2024 4:10 PM EST Height 167.6 cm (5' 6 ) 09/21/2024 4:10 PM EST Body Mass Index 24.21 09/21/2024 4:10 PM EST documented in this encounter Plan of Treatment Upcoming Encounters Date Type Department Care Team (Late st Contact Info) Description 04/19/2025 8:00 AM EDT Office Visit [facility] at [facility] 30 [place] [address] Emerson Mcwilliams MD 30 [place] [address] [email or web address] 08/03/2025 10:00 AM EST Office Visit [facility] 234 [place] [address] Susan Knapp MD 234 [facility], [address] [place] [address] [email or web address] documented as of this encounter Visit Diagnoses Not on filedocumented in this encounter Care Teams Athletic Training Internship Relationship Specialty Start Date End Date [place], Pato Yvan, PA [address] [place] [address] PCP - General Physician Ski Guide 10/08/23 Emerson Mcwilliams MD [address] [place] [address] [email or web address] Primary Oncologist Medical Oncology 12/17/23 Angy Spicer CNP [address] [place] [address] [email or web address] Nurse Practitioner Medical Oncology 03/15/24 documented as of this encounter Additional Source Comments The information contained in this document represents components of the legal health record. It is not the complete legal health record.[facility]
--- OUTSIDE RECORDS SUMMARY | 2025-04-06 15:01 | XMS_ITS | Encounter Summary ---
Author Organization [facility] Address [address] [facility] [address] [place] [address] Phone Care Team Providers Care Video Editor Name Role Phone Lacey Shafer MD Primary Care Provider Pato Adkins Primary Care Provider + Emerson Mcwilliams MD Unavailable [phone] Angy Spicer CNP Unavailable Reason for Referral * MRI/CAT Scan - Closed Specialty Diagnoses / Procedures Referred By Contac t Referred To Contact Radiology Diagnoses Renal mass Procedures MRI Abdomen Edmundo Sinha MD [address] [place] [address] Phone: tel: fax: Referral ID Status Reason Start Date Expiration Date Visits Re quested Visits Authorized [id number] Closed 09/01/2023 1 1 * MRI/CAT Scan - Closed Specialty Diagnoses / Procedures Referred By Contac t Referred To Contact Radiology Diagnoses Renal mass Procedures MRI Pelvis (GI/) Edmundo Sinha MD [email or web address] [place] [address] Phone: tel: fax: Referral ID Status Reason Start Date Expiration Date Visits Re quested Visits Authorized [id number] Closed 09/01/2023 1 1 * MRI/CAT Scan - Closed Specialty Diagnoses / Procedures Referred By Jhonny neal Referred To Contact Radiology Diagnoses Renal mass Procedures CT Chest Edmundo Sinha MD [address] [place] [address] Phone: tel: fax: Referral ID Status Reason Start Date Expiration Date Visits Re quested Visits Authorized [id number] Closed 08/28/2023 1 1 Encounter Details Date Type Department Care Team (Latest Contact Info) Description 08/28/2023 Transcribe Orders Virtual Department [address] [place] [id number] Edmundo Sinha MD [address] [place] [address] Renal mass (Primary Dx) Social History Tobacco Use Types [...] Description 04/19/2025 8:00 AM EDT Office Visit [facility] [address] [place] [address] Emerson Mcwilliams MD [address] [place] [address] 08/03/2025 10:00 AM EST Office Visit [facility] [address] [place] [address] Susan Knapp MD [address] [facility], [address] [place] [address] [email or web address] documented as of this encounter Results * CT CHEST WITH CONTRAST (10/03/2023 8:55 AM EST) Anatomical Region Laterality Modality Chest Computed Tomogra phy 10/03/2023 4:03 PM EST Impressions 10/03/2023 4:05 PM EST No evidence of metastatic disease in the chest Known right renal mass is not imaged on this exam. Narrative 10/03/2023 4:[address] CHEST WITH CONTRAST TECHNIQUE: Multidetector CT of the chest was performed with intravenous contrast using tailored dose modulation techniques. COMPARISON: None FINDINGS: Devices/Tubes/Lines: None. Lungs: No pulmonary nodules or consolidation. The airways are clear. Pleura: No pleural effusion or pneumothorax. Mediastinum: Heavy coronary artery calcifications. No central pulmonary embolism. Small hiatal hernia. Lymph Nodes: No enlarged supraclavicular, axillary, mediastinal, or hilar lymph nodes. Upper Abdomen: Postsurgical changes in the stomach. Known right renal mass is not imaged on this exam. Chest Wall: No chest wall mass. Bones: No suspicious lytic or blastic lesions. Procedure Note Santana Faustin MD, BRIAN - 10/03/2023 CT CHEST WITH CONTRAST TECHNIQUE: Multidetector CT of the chest was performed with intravenouscontrast using tailored dose modulation techniques. COMPARISON: None FINDINGS: Devices/Tubes/Lines: None. Lungs: No pulmonary nodules or consolidation. The airways are clear. Pleura: No pleural effusion or pneumothorax. Mediastinum: Heavy coronary artery calcifications. No central pulmonaryembolism. Small hiatal hernia. Lymph Nodes: No enlarged supraclavicular, axillary, mediastinal, or hilarlymph nodes. Upper Abdomen: Postsurgical changes in the stomach. Known right renal massis not imaged on this exam. Chest Wall: No chest wall mass. Bones: No suspicious lytic or blastic lesions. IMPRESSION: No evidence of metastatic disease in the chest Known right renal mass is not imaged on this exam. 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 Linear tumoral extension into the lower pole renal sinus, but no definite extension into a renal vein branch outside the renal parenchyma. No evidence of abdominopelvic metastasis. Narrative 09/24/2023 8:05 PM EST MRI ABDOMEN (KIDNEYS) WITH AND WITHOUT CONTRAST, MRI PELVIS WITH AND WITHOUT CONTRAST Referring clinician's provided indication for this examination in Epic: Outside Radiology Order; RENAL MASS TECHNIQUE: Multiplanar MR imaging of the abdomen and pelvis was performed using T1, T2, fat saturated, and diffusion weighted techniques. Dynamic multiphase imaging was also performed after administration of an intravenous gadolinium contrast agent. COMPARISON: None FINDINGS: Lower Chest: Normal. No consolidation or pleural effusions. Liver: No suspicious focal liver lesion. Biliary: No biliary ductal dilatation. Prior cholecystectomy. Spleen: Normal. No splenomegaly or focal lesions. Pancreas: 10 mm cystic pancreatic body lesion on 13:11, and additional likely 9 mm cystic pancreatic neck lesion on 14:4. No main duct dilation. Adrenal Glands: Normal. No nodules. Kidneys/Ureters: No solid renal mass or hydronephrosis. Heterogeneous, avidly enhancing 8.9 x 7.7 cm right lower pole renal mass; there is linear extension into the right lower pole renal sinus on 11:43, but no definite extension into a renal vein branch outside the renal parenchyma. Punctate benign left renal cysts. Bowel: No bowel obstruction or wall thickening. Prior Dewey-en-Y gastric bypass. Peritoneum/Retroperitoneum: Normal. No masses, pneumoperitoneum, or fluid. Lymph Nodes: Normal. No lymphadenopathy. Pelvic Organs/Bladder: Normal. No mass. Vessels: No abdominal aortic aneurysm. Bones/Soft Tissues: No suspicious focal osseous lesion. Severe spinal canal stenosis at L4-L5. Procedure Note Jose Rodgers MD - 09/24/2023 MRI ABDOMEN (KIDNEYS) WITH AND WITHOUT CONTRAST, MRI PELVIS WITH ANDWITHOUT CONTRAST Referring clinician's provided indication for this examination in Epic:Outside Radiology Order; RENAL MASS TECHNIQUE: Multiplanar MR imaging of the abdomen and pelvis was performedusing T1, T2, fat saturated, and diffusion weighted techniques. Dynamicmultiphase imaging was also performed after administration of anintravenous gadolinium contrast agent. COMPARISON: None FINDINGS: Lower Chest: Normal. No consolidation or pleural effusions. Liver: No suspicious focal liver lesion. Biliary: No biliary ductal dilatation. Prior cholecystectomy. Spleen: Normal. No splenomegaly or focal lesions. Pancreas: 10 mm cystic pancreatic body lesion on 13:11, and additionallikely 9 mm cystic pancreatic neck lesion on 14:4. No main ductdilation. Adrenal Glands: Normal. No nodules. Kidneys/Ureters: No solid renal mass or hydronephrosis. Heterogeneous,avidly enhancing 8.9 x 7.7 cm right lower pole renal mass; there is linearextension into the right lower pole renal sinus on 11:43, but no definiteextension into a renal vein branch outside the renal parenchyma. Punctatebenign left renal cysts. Bowel: No bowel obstruction or wall thickening. Prior Dewey-en-Y gastricbypass. Peritoneum/Retroperitoneum: Normal. No masses, pneumoperitoneum, orfluid. Lymph Nodes: Normal. No lymphadenopathy. Pelvic Organs/Bladder: Normal. No mass. Vessels: No abdominal aortic aneurysm. Bones/Soft Tissues: No suspicious focal osseous lesion. Severe spinalcanal stenosis at L4-L5. 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 Lineartumoral extension into the lower pole renal sinus, but no definiteextension into a renal vein branch outside the renal parenchyma. No evidence of abdominopelvic metastasis. 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 Linear tumoral extension into the lower pole renal sinus, but no definite extension into a renal vein branch outside the renal parenchyma. No evidence of abdominopelvic metastasis. Narrative 09/24/2023 8:05 PM EST MRI ABDOMEN (KIDNEYS) WITH AND WITHOUT CONTRAST, MRI PELVIS WITH AND WITHOUT CONTRAST Referring clinician's provided indication for this examination in Epic: Outside Radiology Order; RENAL MASS TECHNIQUE: Multiplanar MR imaging of the abdomen and pelvis was performed using T1, T2, fat saturated, and diffusion weighted techniques. Dynamic multiphase imaging was also performed after administration of an intravenous gadolinium contrast agent. COMPARISON: None FINDINGS: Lower Chest: Normal. No consolidation or pleural effusions. Liver: No suspicious focal liver lesion. Biliary: No biliary ductal dilatation. Prior cholecystectomy. Spleen: Normal. No splenomegaly or focal lesions. Pancreas: 10 mm cystic pancreatic body lesion on 13:11, and additional likely 9 mm cystic pancreatic neck lesion on 14:4. No main duct dilation. Adrenal Glands: Normal. No nodules. Kidneys/Ureters: No solid renal mass or hydronephrosis. Heterogeneous, avidly enhancing 8.9 x 7.7 cm right lower pole renal mass; there is linear extension into the right lower pole renal sinus on 11:43, but no definite extension into a renal vein branch outside the renal parenchyma. Punctate benign left renal cysts. Bowel: No bowel obstruction or wall thickening. Prior Dewey-en-Y gastric bypass. Peritoneum/Retroperitoneum: Normal. No masses, pneumoperitoneum, or fluid. Lymph Nodes: Normal. No lymphadenopathy. Pelvic Organs/Bladder: Normal. No mass. Vessels: No abdominal aortic aneurysm. Bones/Soft Tissues: No suspicious focal osseous lesion. Severe spinal canal stenosis at L4-L5. Procedure Note Jose Rodgers MD - 09/24/2023 MRI ABDOMEN (KIDNEYS) WITH AND WITHOUT CONTRAST, MRI PELVIS WITH ANDWITHOUT CONTRAST Referring clinician's provided indication for this examination in Epic:Outside Radiology Order; RENAL MASS TECHNIQUE: Multiplanar MR imaging of the abdomen and pelvis was performedusing T1, T2, fat saturated, and diffusion weighted techniques. Dynamicmultiphase imaging was also performed after administration of anintravenous gadolinium contrast agent. COMPARISON: None FINDINGS: Lower Chest: Normal. No consolidation or pleural effusions. Liver: No suspicious focal liver lesion. Biliary: No biliary ductal dilatation. Prior cholecystectomy. Spleen: Normal. No splenomegaly or focal lesions. Pancreas: 10 mm cystic pancreatic body lesion on 13:11, and additionallikely 9 mm cystic pancreatic neck lesion on 14:4. No main ductdilation. Adrenal Glands: Normal. No nodules. Kidneys/Ureters: No solid renal mass or hydronephrosis. Heterogeneous,avidly enhancing 8.9 x 7.7 cm right lower pole renal mass; there is linearextension into the right lower pole renal sinus on 11:43, but no definiteextension into a renal vein branch outside the renal parenchyma. Punctatebenign left renal cysts. Bowel: No bowel obstruction or wall thickening. Prior Dewey-en-Y gastricbypass. Peritoneum/Retroperitoneum: Normal. No masses, pneumoperitoneum, orfluid. Lymph Nodes: Normal. No lymphadenopathy. Pelvic Organs/Bladder: Normal. No mass. Vessels: No abdominal aortic aneurysm. Bones/Soft Tissues: No suspicious focal osseous lesion. Severe spinalcanal stenosis at L4-L5. 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 Lineartumoral extension into the lower pole renal sinus, but no definiteextension into a renal vein branch outside the renal parenchyma. No evidence of abdominopelvic metastasis. Edmundo Sinha MD IMG MR PELVIS Final Res ult documented in this encounter Visit Diagnoses Diagnosis Renal mass- Primary Unspecified disorder of kidney and ureter Renal mass Unspecified disorder of kidney and ureter Renal mass Unspecified disorder of kidney and ureter documented in this encounter Care Teams Video Editor Relationship Specialty Start Date End Date Lacey Shafer MD [address] [place] [id number] PCP - General 05/01/20 10/07/23 Pato Adkins PA [address] [place] [address] PCP - General Physician Typing Pool Supervisor 10/08/23 Emreson Mcwilliams MD [address] [place] [address] Primary Oncologist Medical Oncology 12/17/23 Angy Spicer CNP [address] [place] [address] Nurse Practitioner Medical Oncology 03/15/24 documented as of this encounter Additional Source Comments The information contained in this document represents components of the legal health record. It is not the complete legal health record.[facility]
--- OUTSIDE RECORDS SUMMARY | 2025-04-06 15:01 | XMS_ITS | Encounter Summary ---
Author Organization [facility], Address [address] [place] [address] Phone Care Team Providers Care Receptionist Scheduler Name Role Phone Pato Adkins Primary Care Provider [phone] Encounter Details Date Type Department Care Team (Late st Contact Info) Description 12/15/2023 Documentation Only [facility] [address] [place] [address] Marj Fischer [address] [place] [address] Social History Tobacco Use Types [...] Visit [facility] Robyn BRANHAM [address] [place] [phone] Jt Lam MD [address] [place] [address] [place] [address] documented as of this encounter Visit Diagnoses Not on filedocumented in this encounter Care Teams Receptionist Scheduler Relationship Specialty Start Date End Date Pato Adkins PA [address] [place] [address], [address] [place] [address] PCP - General Physician Mail Messenger 11/25/23 documented as of this encounter
--- OUTSIDE RECORDS SUMMARY | 2025-04-06 15:01 | XMS_ITS | Encounter Summary ---
Author Organization [facility] Address [address] [place] [address] Phone Care Team Providers Care Director Skills Name Role Phone Pato Adkins Primary Care Provider + Emerson Mcwilliams MD Unavailable [phone] Angy Spicer CNP Unavailable Encounter Details Date Type Department Care Team (Late st Contact Info) Description 08/31/2024 Procedure Pass [facility], Ct Scan - [address] [address] Social History Tobacco Use Types Packs/Day Years [...] Description 04/19/2025 8:00 AM EDT Office Visit [facility] [address] [place] [address] Emerson Mcwilliams MD [address] [place] [address] 08/03/2025 10:00 AM EST Office Visit [facility] [address] [place] [address] Susan Knapp MD [address] [facility], [address] [place] [address] [email or web address] documented as of this encounter Visit Diagnoses Not on filedocumented in this encounter Care Teams Director Skills Relationship Specialty Start Date End Date Pato Adkins PA [address] [place] [phone] PCP - General Physician Compliance Field Technician 10/08/23 Emerson Mcwilliams MD [address] [place] [phone] [email or web address] Primary Oncologist Medical Oncology 12/17/23 Angy Spicer CNP [address] [place] [phone] [email or web address] Nurse Practitioner Medical Oncology 03/15/24 documented as of this encounter Additional Source Comments The information contained in this document represents components of the legal health record. It is not the complete legal health record.[facility]
--- OUTSIDE RECORDS SUMMARY | 2025-04-06 15:01 | XMS_ITS | Encounter Summary ---
Author Organization [facility], Address [address] [place] [address] Phone Care Team Providers Care Atm Technician Name Role Phone Pato Adkins Primary Care Provider [phone] Encounter Details Date Type Department Care Team (Late st Contact Info) Description 09/17/2024 Documentation Only [facility] [address] [place] [address] Selina Velasquez [address] [place] [phone] Social History Tobacco Use Types Packs/Day [...] Visit [facility] Robyn BRANHAM [address] [place] [phone] Jt Lam MD [address] [place] [address] [place] [address] documented as of this encounter Visit Diagnoses Not on filedocumented in this encounter Care Teams Atm Technician Relationship Specialty Start Date End Date Pato Adkins PA [address] [place] [address], [address] [place] [address] PCP - General Physician Prescription Clerk 11/25/23 documented as of this encounter
--- OUTSIDE RECORDS SUMMARY | 2025-04-06 15:01 | XMS_ITS | Encounter Summary ---
Author Organization [facility], Address [address] [place] [address] Phone Care Team Providers Care Assembly Repairer Name Role Phone Pato Adkins Primary Care Provider [phone] Encounter Details Date Type Department Care Team (Late st Contact Info) Description 12/15/2023 Documentation Only [facility] [address] [place] [address] Marj Fischer [address] [place] [address] Social History Tobacco Use Types [...] Visit [facility] Robyn BRANHAM [address] [place] [phone] Jt Lam MD [address] [place] [address] [place] [address] documented as of this encounter Visit Diagnoses Not on filedocumented in this encounter Care Teams Assembly Repairer Relationship Specialty Start Date End Date Pato Adkins PA [address] [place] [address], [address] [place] [address] PCP - General Physician General Road Production Manager 11/25/23 documented as of this encounter
--- OUTSIDE RECORDS SUMMARY | 2025-04-06 15:02 | XMS_ITS | Encounter Summary ---
Author Organization [facility] Address [address] [facility] [address] [place] [address] Phone Care Team Providers Care Inspector Fibrous Wallboard Name Role Phone Lacey Shafer MD Primary Care Provider Pato Adkins Primary Care Provider + Emerson Mcwilliams MD Unavailable [phone] Angy Spicer CNP Unavailable Encounter Details Date Type Department Care Team (Latest Contact Info) Description 08/11/2023 Transcribe Orders Virtual Department [address] [place] [address] System, Provider Not In, [facility] [address] [address] Stage 3b chronic kidney disease (CKD) (Primary Dx); Enteric hyperoxaluria Social History Tobacco Use Types Packs/Day Years [...] Description 04/19/2025 8:00 AM EDT Office Visit [facility] [address] [place] [address] Emerson Mcwilliams MD [address] [place] [address] [email or web address] 08/03/2025 10:00 AM EST Office Visit [address] [address] Susan Knapp MD [address] [facility] [address] [place] [address] [email or web address] documented as of this encounter Results * US Kidneys (08/20/2023 10:31 AM EST) Anatomical Region Laterality Modality Abdomen, Kidney Ultrasound 08/20/2023 1:59 PM EST Impressions 08/20/2023 2:12 PM EST 1. 8 cm right renal mass with solid characteristics suspicious for malignancy. Urology consultation recommended. 2. No significant abnormalities of the left kidney. Finding of suspicious right renal mass given by telephone to Janee at 2:10 PM 08/20/2023 authorized to take messages for the ordering physician. Report also faxed to the office shortly after the time of dictation. Narrative 08/20/2023 2:12 PM EST US KIDNEYS Referring clinician's provided indication for this examination in Epic: Outside Radiology Order; STAGE 3B CKD TECHNIQUE: Kidney Ultrasound. COMPARISON: No prior imaging for comparison. FINDINGS: Right Kidney: Size: 10.8 cm in the long axis. Large heterogeneous exophytic mass containing internal blood flow involving the mid to lower aspect of the kidney. Mass measures approximately 8.3 cm x 7.1 cm x 6.4 cm. Much of the mass is similar in echogenicity to renal cortex. Difficult to confirm whether there could is the extension to the collecting system. No significant pelvocaliectasis. Left Kidney: Size: 9.8 cm in the long axis. No suspicious masses. No pelvocaliectasis. 6 mm x 5 mm x 4 mm cyst with benign characteristics within the interpolar region. No visible calculi. Bladder: The bladder is undistended and poorly evaluated.. Procedure Note Dhaval Escoto MD - 08/20/2023 US KIDNEYS Referring clinician's provided indication for this examination in Epic:Outside Radiology Order; STAGE 3B CKD TECHNIQUE: Kidney Ultrasound. COMPARISON: No prior imaging for comparison. FINDINGS: Right Kidney: Size: 10.8 cm in the long axis. Large heterogeneous exophytic mass containing internal blood flowinvolving the mid to lower aspect of the kidney. Mass measuresapproximately 8.3 cm x 7.1 cm x 6.4 cm. Much of the mass is similar inechogenicity to renal cortex. Difficult to confirm whether there could isthe extension to the collecting system. No significant pelvocaliectasis. Left Kidney: Size: 9.8 cm in the long axis. No suspicious masses. No pelvocaliectasis. 6 mm x 5 mm x 4 mm cyst withbenign characteristics within the interpolar region. No visible calculi. Bladder: The bladder is undistended and poorly evaluated.. IMPRESSION: 1. 8 cm right renal mass with solid characteristics suspicious formalignancy. Urology consultation recommended. 2. No significant abnormalities of the left kidney. Finding of suspicious right renal mass given by telephone to Janee at 2:10PM 08/20/2023 authorized to take messages for the ordering physician.Report also faxed to the office shortly after the time of dictation. us Provider Not In System PhD IMG US RENAL Final Result documented in this encounter Visit Diagnoses Diagnosis Stage 3b chronic kidney disease (CKD)- Primary Enteric hyperoxaluria Other specified disorders of carbohydrate transport and metabolism Stage 3b chronic kidney disease (CKD) Enteric hyperoxaluria Other specified disorders of carbohydrate transport and metabolism documented in this encounter Care Teams Inspector Fibrous Wallboard Relationship Specialty Start Date End Date Lacey Shafer MD [address] [place] [phone] PCP - General 05/01/20 10/07/23 Pato Adkins PA [address] [place] [address] PCP - General Physician Fiber Artist 10/08/23 Emerson Mcwilliams MD [address] [place] [address] Primary Oncologist Medical Oncology 12/17/23 Angy Spicer CNP [address] [place] [phone] [email or web address] Nurse Practitioner Medical Oncology 03/15/24 documented as of this encounter Additional Source Comments The information contained in this document represents components of the legal health record. It is not the complete legal health record.[facility]
--- OUTSIDE RECORDS SUMMARY | 2025-04-06 15:02 | XMS_ITS | Encounter Summary ---
Author Organization [facility] Address [address] [place] [address] Phone Care Team Providers Care Metal Furrer Name Role Phone Pato Adkins Primary Care Provider + Emerson Mcwilliams MD Unavailable [phone] Angy Spicer CNP Unavailable Reason for Referral * MRI/CAT Scan - Authorized Specialty Diagnoses / Procedures Referred By Contkwame t Referred To Contact Radiology Diagnoses Renal cancer, right Abnormal chest x-ray with multiple lung nodules Procedures CT Chest CT Chest Mariella Child NP [address] [place] [address] Phone: tel: fax: mailto:[email or web address] Referral ID Status Reason Start Date Expiration Date V isits Requested Visits Authorized [id number] Authorized 04/05/2025 04/05/2026 1 1 Encounter Details Date Type Department Care Team (Late st Contact Info) Description 04/05/2025 Orders Only [facility] at [facility] [address] [place] [address] Mariella Child NP [address] [place] [address] [email or web address] Renal cancer, right (Primary Dx); Abnormal chest x-ray with multiple lung nodules Social History Tobacco Use Types Packs/Day Years [...] Description 04/19/2025 8:00 AM EDT Office Visit [facility] at [address] [address] Emerson Mcwilliams MD [address] [place] [address] 08/03/2025 10:00 AM EST Office Visit [facility] [address] [place] [address] Susan Knapp MD 234 [facility], [address] [place] [address] [email or web address] Scheduled Orders Name Type Priority Associated Diagnoses Orde r Schedule CT Chest Imaging Routine Renal cancer, right Abnormal chest x-ray with multiple lung nodules Expected: 07/05/2025, Expires: 01/03/2026 documented as of this encounter Visit Diagnoses Diagnosis Renal cancer, right- Primary Abnormal chest x-ray with multiple lung nodules documented in this encounter Care Teams Metal Furrer Relationship Specialty [place] [address] [place] [address] PCP - General Physician Calender Inspector 10/08/23 Emerson Mcwilliams MD [address] [place] [address] Primary Oncologist Medical Oncology 12/17/23 Angy Spicer CNP [address] [place] [address] Nurse Practitioner Medical Oncology 03/15/24 documented as of this encounter Additional Source Comments The information contained in this document represents components of the legal health record. It is not the complete legal health record.[facility]
--- OUTSIDE RECORDS SUMMARY | 2025-04-06 15:02 | XMS_ITS | Encounter Summary ---
Author Organization [facility] Address [address] [place] [address] Phone Care Team Providers Care Forensic Computer Examiner Name Role Phone Pato Adkins Primary Care Provider + Emerson Mcwilliams MD Unavailable [phone] Angy Spicer CNP Unavailable Encounter Details Date Type Department Care Team (Late st Contact Info) Description 03/14/2025 Telephone [facility] at [facility] [address] [place] [address] Steffany Dillard [address] [place] [address] [email or web address] Social History Tobacco Use Types Packs/Day Years [...] PM EST documented as of this encounter Progress Notes * Deidra Lomeli - 03/15/2025 3:21 PM EDT Pt called to r/s the CT and f/u appts stating she is out of rehab now. Per discussion, pt agreed to be transferred to and is aware we will r/s the f/u after the new CT. * Steffany Dillard - 03/14/2025 1:43 PM EDT I Called CT Dept Regarding Kailey's CT not Being Done for her Appointment. Marry From CT stated that the Note from there Scheduling Team stated that Kailey Had Broken her Hip and is In Rehab and couldn't keep her CT appointment and hasn't rescheduled. are you wanting to Reschedule Kailey's upcoming Appointment with you? documented in this encounter Plan of Treatment Upcoming Encounters Date Type Department Care Team (Late st Contact Info) Description 04/19/2025 8:00 AM EDT Office Visit [facility] [address] [place] [address] Emerson Mcwilliams MD [address] [place] [address] 08/03/2025 10:00 AM EST Office Visit [facility] [address] [place] [address] Susan Knapp MD 234 [facility], [address] [place] [address] [email or web address] documented as of this encounter Visit Diagnoses Not on filedocumented in this encounter Care Teams Forensic Computer Examiner Relationship Specialty Start Date End Date Pato Adkins PA [address] [place] [address] PCP - General Physician Filter Plant Supervisor 10/08/23 Emerson Mcwilliams MD [address] [place] [address] Primary Oncologist Medical Oncology 12/17/23 Anyg Spicer CNP [address] [place] [address] [email or web address] Nurse Practitioner Medical Oncology 03/15/24 documented as of this encounter Additional Source Comments The information contained in this document represents components of the legal health record. It is not the complete legal health record.[facility]
--- OUTSIDE RECORDS SUMMARY | 2025-04-06 15:02 | XMS_ITS | Encounter Summary ---
Author Organization [facility] Address [address] [place] [address] Phone Care Team Providers Care Instrument Lens Generator Name Role Phone Pato Adkins Primary Care Provider + Emerson Mcwilliams MD Unavailable [phone] Angy Spicer CNP Unavailable Encounter Details Date Type Department Care Team (Late st Contact Info) Description 03/14/2025 Telephone [facility] at [facility] [address] [place] [address] Steffany Dillard [address] [place] [address] [email or web address] Social History Tobacco Use Types Packs/Day Years [...] Description 04/19/2025 8:00 AM EDT Office Visit [facility] [address] [place] [address] Emerson Mcwilliams MD [address] [place] [address] 08/03/2025 10:00 AM EST Office Visit [facility] [address] [place] [address] Susan Knapp MD 234 [facility], [address] [place] [address] [email or web address] documented as of this encounter Visit Diagnoses Not on filedocumented in this encounter Care Teams Instrument Lens Generator Relationship Specialty Start Date End Date Pato Adkins PA [address] [place] [address] PCP - General Physician Range Feeder 10/08/23 Emerson Mcwilliams MD [address] [place] [address] [email or web address] Primary Oncologist Medical Oncology 12/17/23 Angy Spicer CNP [address] [place] [address] [email or web address] Nurse Practitioner Medical Oncology 03/15/24 documented as of this encounter Additional Source Comments The information contained in this document represents components of the legal health record. It is not the complete legal health record.[facility]
== END 2025-03-02 00:01 | disposition home or self-care (01) ==
LOC: HO.MMNH1L
PROVIDERS: Visit Provider Nurse Practitioner Family
DX: Z13.89 Encounter for screening for other disorder (principal)
CPT/HCPCS: 36415; 80048; 85025

== ENCOUNTER 2025-03-04 07:27 | Outpatient (REF) | payer MEDICARE, SELFPAY ==
[2025-03-04 07:30] LABS: MANUAL DIFF FLAG NO
--- OUTSIDE RECORDS SUMMARY | 2025-03-04 07:30 | XMS_ITS | Encounter Summary ---
Author Organization [facility] Address [email or web address] [facility] [address] [place] [address] Phone Care Team Providers Care Engineering Technical Analyst Name Role Phone Pato Adkins Primary Care Provider + Emerson Mcwilliams MD Unavailable [phone] Angy Spicre CNP Unavailable Encounter Details Date Type Department Care Team (Late st Contact Info) Description 11/20/2023 Transcribe Orders Virtual Department [address] [place] [address] Pato Adkins PA [address] [place], [place] [phone] Right shoulder pain, unspecified chronicity (Primary Dx) [...] 4:24 PM EDT Norma Tristan RN * [place] Suicide Severity Rating Scale (Screener/Recent Self-Report) Question [...] Care Team (Late st Contact Info) Description 03/17/2025 3:40 PM EDT Office Visit [facility] [address] [place] [address] Emerson Mcwilliams MD [address] [place] [address] 08/03/2025 10:00 AM EST Office Visit [facility] [address] [place] [address] Susan Knapp MD [address] [facility], [address] [place] [address] [email or web address] documented as of this encounter Results [...] Partially visualized cervical spine degenerative change. Pato Yvan Jed PA IMG XR UPPER EXTREMITY F inal Result documented in this encounter Visit Diagnoses Diagnosis Right shoulder pain, unspecified chronicity- Primary Right shoulder pain, unspecified chronicity documented in this encounter Care Teams Engineering Technical Analyst Relationship Specialty Start Date End Date Pato Adkins PA [address] [place] [address] PCP - General Physician Tool Rental Technician 10/08/23 Emerson Mcwilliams MD [address] [place] [address] Primary Oncologist Medical Oncology 12/17/23 Angy Spicer CNP [address] [place] [address] Nurse Practitioner Medical Oncology 03/15/24 documented as of this encounter Additional Source Comments The information contained in this document represents components of the legal health record. It is not the complete legal health record.[facility]
--- OUTSIDE RECORDS SUMMARY | 2025-03-04 07:30 | XMS_ITS | Clinical Summary ---
Author Organization [facility], Address [address] [place] [address] Phone Care Team Providers Care Technical Business Analyst Name Role Phone Pato Adkins Primary Care Provider [phone] Allergies Active Allergy Reactions Criticality Noted Date [...] hyperkalemia Patient with hospital and continued on [facility] Nephrology consulted As potassium 5.4 today held [facility] and ordered repeat BMP for this afternoon. Diet changed to low potassium, diuretic lisinopril discontinued Retention of urine 11/20/2023 Overview (06/17/2024): Last Assessment & Plan: Nephrectomy for [place] 11/13 and [facility]. Patient had a voiding trial postop but failed and Collins catheter replaced. Patient on way to [place] for voiding trial yesterday when she was called and told it was canceled. Due to decreased urine output and sensation that the Collins was falling as well as dark urine sent to the ED. Collins catheter repositioned with improvement Plan discontinue Collins catheter today for voiding trial. (Started on gabapentin at [facility] for postop pain: Patient says pain is [...] Visit [facility], - [address] [place] [address] Jt Lam MD Essential (primary) [...] Visit [facility] Anjel[address] Li[address] [phone] Jt Lam MD [address] [place] [address] [place] [phone] Health Maintenance Due Date Last Done Comments [...] patient's age to complete this topic Insurance [facility] Medicare [facility] Medicare Care Teams Technical Business Analyst Relationship Specialty Start Date End Date Pato Adkins PA [address] [place] [address], [address] [place], [place] [phone] PCP - General Physician President & Ceo [employer] 11/25/23
[2025-03-04 07:50] LABS: Hematocrit 25.2 % (37.0-47.0); Hemoglobin 8.3 g/dl (12.0-16.0); Imm Gran Abs Auto 0.05 X10*3/uL (0.00-0.03); Imm Gran Pct Auto 1.0 % (0.0-0.4); Lymphocytes Absolute Auto 1.4 X10*3/uL (1.2-4.9); Mean Corpuscular HGB Conc 32.9 g/dl (31.0-35.0); Mean Corpuscular Hemoglobin 29.2 pg (27.0-33.0); Mean Corpuscular Volume 88.7 fL (80.0-98.0); NRBC Abs Auto 0.000 X10*3/uL (0.0-0.012); NRBC Pct Auto 0.0 /100WBC (0.0-0.2); Platelet Count 221 X10*3/uL (160-400); Red Blood Count 2.84 X10*6/uL (4.20-5.50); White Blood Count 5.1 X10*3/uL (4.8-10.8)
[2025-03-04 08:05] LABS: Alanine Aminotransferase 52 U/L (0-31); Albumin Level 3.0 g/dL (3.5-5.0); Alkaline Phosphatase 84 U/L (39-117); Anion Gap 13 (12-20); Aspartate Amino Transferase 48 U/L (5-31); Blood Urea Nitrogen 33 mg/dL (9-16); Calcium 8.2 mg/dL (8.4-10.2); Carbon Dioxide 21 mmol/L (22-29); Chloride 107 mmol/L (96-108); Estimated Glomerular Filt Rate 27; Potassium 5.0 mmol/L (3.3-5.1); Sodium 136 mmol/L (135-145); Total Protein 5.7 g/dL (6.5-8.0)
== END 2025-03-04 07:28 | disposition home or self-care (01) ==
LOC: HO.MMNH1L 07:27
PROVIDERS: Visit Provider Nurse Practitioner Family
DX: Z13.89 Encounter for screening for other disorder (principal)
CPT/HCPCS: 36415; 80053; 85025

== ENCOUNTER 2025-03-07 06:48 | Outpatient (REF) | payer MEDICARE, SELFPAY ==
[2025-03-07 06:13] LABS: MANUAL DIFF FLAG NO
--- OUTSIDE RECORDS SUMMARY | 2025-03-07 06:51 | XMS_ITS | Clinical Summary ---
Author Organization [facility], Address [address] [place] [address] Phone Care Team Providers Care Expansion Joint Finisher Name Role Phone Pato Adkins Primary Care Provider [phone] Allergies Active Allergy Reactions Criticality Noted Date [...] hyperkalemia Patient with hospital and continued on [facility] Nephrology consulted As potassium 5.4 today held [facility] and ordered repeat BMP for this afternoon. Diet changed to low potassium, diuretic lisinopril discontinued Retention of urine 11/20/2023 Overview (06/17/2024): Last Assessment & Plan: Nephrectomy for RCC 11/13 and [facility]. Patient had a voiding trial postop but failed and Collins catheter replaced. Patient on way to [place] for voiding trial yesterday when she was called and told it was canceled. Due to decreased urine output and sensation that the Collins was falling as well as dark urine sent to the ED. Collins catheter repositioned with improvement Plan discontinue Collins catheter today for voiding trial. (Started on gabapentin at [facility] for postop pain: Patient says pain is [...] Visit [facility] - Anjelica Liang [address] [place] [address] Jt Lam MD Essential (primary) [...] Visit [facility] [address]jelica Liang [address] [phone] Jt Lam MD [address] [place] [address] [place] [phone] Health Maintenance Due Date Last Done Comments [...] patient's age to complete this topic Insurance [facility] Medicare [facility] Medicare Care Teams Expansion Joint Finisher Relationship Specialty Start Date End Date Pato Adkins PA [address] [place] [address], [address] [place], [place] [phone] PCP - General Physician Stamping Operator 11/25/23
--- OUTSIDE RECORDS SUMMARY | 2025-03-07 06:51 | XMS_ITS | Encounter Summary ---
Author Organization [facility] Address [address] [facility] [address] [place] [address] Phone Care Team Providers Care Electronics Research Engineer Name Role Phone Pato Adkins Primary Care Provider + Emerson Mcwilliams MD Unavailable [phone] Angy Spicer CNP Unavailable Encounter Details Date Type Department Care Team (Late st Contact Info) Description 11/20/2023 Transcribe Orders Virtual Department [address] [place] [address] Pato Adkins PA [address] [place], [place] [phone] Right shoulder pain, unspecified chronicity (Primary Dx) [...] 4:24 PM EDT Norma Tristan RN * [place] Suicide Severity Rating Scale (Screener/Recent Self-Report) Question [...] Description 03/17/2025 3:40 PM EDT Office Visit [facility] [address] [place] [address] Emerson Mcwilliams MD [address] [place] [address] 08/03/2025 10:00 AM EST Office Visit [facility] [address] [place] [address] Susan Knapp MD [address] [facility], [address] [place] [address] [email or web address] documented as of this encounter Results * [...] chronicity documented in this encounter Care Teams Electronics Research Engineer Relationship Specialty Start Date End Date Pato Adkins PA [address] [place] [address] PCP - General Physician Manager Specialty 10/08/23 Emerson Mwcilliams MD [address] [place] [address] Primary Oncologist Medical Oncology 12/17/23 Angy Spicer CNP [address] [place] [address] Nurse Practitioner Medical Oncology 03/15/24 documented as of this encounter Additional Source Comments The information contained in this document represents components of the legal health record. It is not the complete legal health record.[facility]
[2025-03-07 07:16] LABS: Anion Gap 13 (12-20); Blood Urea Nitrogen 36 mg/dL (9-16); Calcium 8.5 mg/dL (8.4-10.2); Carbon Dioxide 21 mmol/L (22-29); Chloride 109 mmol/L (96-108); Estimated Glomerular Filt Rate 27; Hematocrit 26.6 % (37.0-47.0); Hemoglobin 8.4 g/dl (12.0-16.0); Imm Gran Abs Auto 0.08 X10*3/uL (0.00-0.03); Imm Gran Pct Auto 1.6 % (0.0-0.4); Lymphocytes Absolute Auto 1.4 X10*3/uL (1.2-4.9); Mean Corpuscular HGB Conc 31.6 g/dl (31.0-35.0); Mean Corpuscular Hemoglobin 28.6 pg (27.0-33.0); Mean Corpuscular Volume 90.5 fL (80.0-98.0); NRBC Abs Auto 0.000 X10*3/uL (0.0-0.012); NRBC Pct Auto 0.0 /100WBC (0.0-0.2); Platelet Count 315 X10*3/uL (160-400); Potassium 4.6 mmol/L (3.3-5.1); Red Blood Count 2.94 X10*6/uL (4.20-5.50); Sodium 138 mmol/L (135-145); White Blood Count 4.9 X10*3/uL (4.8-10.8)
== END 2025-03-07 06:49 | disposition home or self-care (01) ==
LOC: HO.MMNH1L 06:48
PROVIDERS: Visit Provider Nurse Practitioner Family
DX: Z13.89 Encounter for screening for other disorder (principal)
CPT/HCPCS: 36415; 80048; 85025

== ENCOUNTER 2025-03-09 05:36 | Outpatient (REF) | payer MEDICARE, SELFPAY ==
[2025-03-09 05:38] LABS: MANUAL DIFF FLAG NO
--- OUTSIDE RECORDS SUMMARY | 2025-03-09 05:40 | XMS_ITS | Clinical Summary ---
Author Organization [facility], Address [address] [place] [address] Phone Care Team Providers Care Purchase Order Checker Name Role Phone Pato Adkins Primary Care Provider [phone] Allergies Active Allergy Reactions Criticality Noted Date [...] hyperkalemia Patient with hospital and continued on [facility] Nephrology consulted As potassium 5.4 today held [facility] and ordered repeat BMP for this afternoon. Diet changed to low potassium, diuretic lisinopril discontinued Retention of urine 11/20/2023 Overview (06/17/2024): Last Assessment & Plan: Nephrectomy for RCC 11/13 and [facility]. Patient had a voiding trial postop but failed and Collins catheter replaced. Patient on way to [place] for voiding trial yesterday when she was called and told it was canceled. Due to decreased urine output and sensation that the Collins was falling as well as dark urine sent to the ED. Collins catheter repositioned with improvement Plan discontinue Collins catheter today for voiding trial. (Started on gabapentin at [facility] for postop pain: Patient says pain is [...] Visit [facility], - Anjelica Liang [address] [place] [address] Jt Lam MD Essential (primary) [...] Visit [facility] [address]jelica Liang [address] [phone] Jt Lam MD [address] [place] [address] [place] [phone] Health Maintenance Due Date Last Done Comments [...] patient's age to complete this topic Insurance [facility] Medicare [facility] Medicare Care Teams Purchase Order Checker Relationship Specialty Start Date End Date Pato Adkins PA [address] [place] [address], [address] [place], [place] [phone] PCP - General Physician Gm 11/25/23
[2025-03-09 05:58] LABS: Hematocrit 28.1 % (37.0-47.0); Hemoglobin 9.2 g/dl (12.0-16.0); Imm Gran Abs Auto 0.08 X10*3/uL (0.00-0.03); Imm Gran Pct Auto 1.4 % (0.0-0.4); Lymphocytes Absolute Auto 1.5 X10*3/uL (1.2-4.9); Mean Corpuscular HGB Conc 32.7 g/dl (31.0-35.0); Mean Corpuscular Hemoglobin 29.6 pg (27.0-33.0); Mean Corpuscular Volume 90.4 fL (80.0-98.0); NRBC Abs Auto 0.000 X10*3/uL (0.0-0.012); NRBC Pct Auto 0.0 /100WBC (0.0-0.2); Platelet Count 389 X10*3/uL (160-400); Red Blood Count 3.11 X10*6/uL (4.20-5.50); White Blood Count 5.7 X10*3/uL (4.8-10.8)
[2025-03-09 06:03] LABS: Anion Gap 14 (12-20); Blood Urea Nitrogen 35 mg/dL (9-16); Calcium 9.1 mg/dL (8.4-10.2); Carbon Dioxide 21 mmol/L (22-29); Chloride 108 mmol/L (96-108); Estimated Glomerular Filt Rate 29; Potassium 4.8 mmol/L (3.3-5.1); Sodium 138 mmol/L (135-145)
== END 2025-03-09 05:37 | disposition home or self-care (01) ==
LOC: HO.MMNH1L 05:36
PROVIDERS: Visit Provider Family Medicine
DX: E87.5 Hyperkalemia (principal); N18.9 Chronic kidney disease, unspecified
CPT/HCPCS: 36415; 80048; 85025

== ENCOUNTER 2025-03-16 08:51 | Outpatient (REF) | payer MEDICARE, SELFPAY ==
--- NOTE | ~2025-03-16 | XR_ITS ---
EXAMINATION: XR HIP 2 OR MORE VIEWS LEFT HISTORY: M25.552 - Pain in left hip COMPARISON: Comparison is made with the prior examination dated 02/27/2025. FINDINGS: A single AP view of the pelvis and two views of the left hip are submitted. The patient is again noted to be status post total hip arthroplasty. There is slight clockwise rotation of the acetabular cup when compared to the prior study. There is no fracture or dislocation. There are vascular calcifications. XR/XR hip LT min 2V IMPRESSION: Status post left total hip arthroplasty. Slight clockwise rotation of the acetabular cup when compared to the prior study. Electronically signed by: Ko Menchaca MD 03/16/2025 10:29 AM EDT
--- OUTSIDE RECORDS SUMMARY | 2025-03-17 09:13 | XMS_ITS | Clinical Summary ---
Author Organization [facility], Address [address] [place] [address] Phone Care Team Providers Care Wireless Sales Representative Name Role Phone Pato Adkins Primary Care Provider [phone] Allergies Active Allergy Reactions Criticality Noted Date [...] hyperkalemia Patient with hospital and continued on [facility] Nephrology consulted As potassium 5.4 today held [facility] and ordered repeat BMP for this afternoon. Diet changed to low potassium, diuretic lisinopril discontinued Retention of urine 11/20/2023 Overview (06/17/2024): Last Assessment & Plan: [place] for [place] 11[place]13 [place] [facility] [place] Patient had a voiding trial postop but failed and Collins catheter replaced. Patient on way to [place] for voiding trial yesterday when she was called and told it was canceled. Due to decreased urine output and sensation that the Collins was falling as well as dark urine sent to the ED. Collins catheter repositioned with improvement Plan discontinue Collins catheter today for voiding trial. (Started on gabapentin at [facility] for postop pain: Patient says pain is [...] Visit [facility], - [address]jelica Liang [address] [place] [address] Jt Lam MD Essential (primary) [...] Visit [facility] [address] [phone] Jt Lam MD [address] [place] [address] [place] [phone] Health Maintenance Due Date Last Done Comments [...] to complete this topic Insurance [facility] Medicare [facility] Medicare Care Teams Wireless Sales Representative Relationship Specialty Start Date End Date Pato Adkins PA [address] [place] [address], [address] [place], [place] [phone] PCP - General Physician Hand Fur Cleaner 11/25/23
--- OUTSIDE RECORDS SUMMARY | 2025-03-17 09:13 | XMS_ITS | Encounter Summary ---
Author Organization [facility] Address [address] [facility] [address] [place] [address] Phone Care Team Providers Care Head Cashier Name Role Phone Pato Adkins Primary Care Provider + Emerson Mcwilliams MD Unavailable [phone] Angy Spicer CNP Unavailable Encounter Details Date Type Department Care Team (Late st Contact Info) Description 11/20/2023 Transcribe Orders Virtual Department [address] [place] [address] Pato Adkins PA [address] [place], [place] [phone] Right shoulder pain, unspecified chronicity (Primary Dx) [...] 4:24 PM EDT Norma Tristan RN * [place] Suicide Severity Rating Scale (Screener/Recent Self-Report) Question [...] st Contact Info) Description 12/15/2024 Procedure Pass [address] [address] 12/15/2024 Procedure Pass [address] [address] 03/30/2025 3:30 PM EDT Appointment [facility] [address] [place] [address] Mariella Child NP [address] [place] [address] [email or web address] 04/19/2025 8:00 AM EDT Office Visit [facility] [address] [place] [address] Emerson Mcwilliams MD [address] [place] [address] [email or web address] 08/03/2025 10:00 AM EST Office Visit [address] [address] Susan Knapp MD [address] [place] [address], [address] [place] [address] [email or web address] documented as of this encounter [...] chronicity documented in this encounter Care Teams Head Cashier Relationship Specialty Start Date End Date Pato Adkins PA [address] [place] [address] PCP - General Physician Sales Program Coordinator 10/08/23 Emerson Mcwilliams MD [address] [place] [address] Primary Oncologist Medical Oncology 12/17/23 Angy Spicer CNP [address] [place] [address] Nurse Practitioner Medical Oncology 03/15/24 documented as of this encounter Additional Source Comments The information contained in this document represents components of the legal health record. It is not the complete legal health record.[facility]
== END 2025-03-16 08:52 | disposition home or self-care (01) ==
LOC: HO.HOSX 08:51
PROVIDERS: Visit Provider Physician Assistant
DX: Z96.642 Presence of left artificial hip joint (principal); M25.552 Pain in left hip; Z79.899 Other long term (current) drug therapy; Z79.84 Long term (current) use of oral hypoglycemic drugs
CPT/HCPCS: 73502; 99212

== ENCOUNTER 2025-03-16 10:02 | Outpatient (AMB) | payer MEDICARE, SELFPAY ==
--- NOTE | 2025-03-16 10:17 | MHC.OFFVIS ---
Intake Visit Reasons: 2wk post op-LT hi alex NE Intake Note: Kailey is a 70 year old female who presents today post operatively after undergoing a left hip alex, DOS 02/27/25. Patient reports she believes she is doing well, states soreness at the end of day and with getting in and out of the car. Allergies amoxicillin Allergy (Intermediate, Verified 03/16/25 10:33) Vomiting Medication List - Last Reconciled 03/16/25 by Corinne Castillo PA-C acetaminophen 650 mg PO DAILY PRN amlodipine 5 mg PO DAILY calcium carbonate-vitamin D3 600 mg-10 mcg (400 unit) (Calcium 600 + D(3)) 1 tab PO BID coenzyme Q10 (CoQ-10) 200 mg PO DAILY dextroamphetamine-amphetamine 20 mg 1.5 tabs PO BID duloxetine 60 mg PO DAILY enoxaparin 30 mg (0.3 mL) subcut Q24H 30 days lamotrigine 50 mg PO BID levothyroxine 75 mcg PO DAILY 90 days lorazepam 1 mg (2 x 0.5 mg) PO BEDTIME PRN metformin 500 mg PO DAILY 90 days omega-3 fatty acids 1,000 mg PO DAILY oxycodone 10 mg (2 x 5 mg) PO Q4H PRN zolpidem 10 mg PO BEDTIME HPI HPI 2wk post op-LT hi alex NE: Details: 70 yo female presents to the office today sp 2wk post op lt hip alex NE 02/27/25. She states she is home from [facility] and working with PT. She is ambulating with a walker. No concerns today. [facility] Medical History (Updated 03/04/25 @ 00:02 by Julian Crook) Right renal mass Osteopenia Post-menopausal Encounter to establish care Surgical History History of nephrectomy History of colonoscopy History of placement of ear tubes History of gastric bypass History of cholecystectomy Family History Father Melanoma Brother Skin cancer Other Mental health disorder Substance use disorder Social History Household Members: Spouse Housing: House Do you presently have visiting nurse or other home services: No Alcohol intake: current Alcohol intake frequency: holidays/special occasions only Comment: counts correct Patient Tobacco Use Status: Former Tobacco user e-Cigarette/Vaping Use: Never Used Second Hand Smoke Exposure: No service: No Current occupational status: retired Cognitive needs: No Hearing needs: No Vision needs: Yes (glasses) Review of Systems Const All systems reviewed & are unremarkable except as noted in HPI and below Physical Exam Extrem Other: Lt hip incision c/d/i. Full ROM with out pain. Mild discomfort with hip flexion. NVI. Results Reviewed Results Reviewed: Xrays were obtained in the office today and personally reviewed by me of the left hip show intact prosthesis. Assessment & Plan Assessment & Plan (1) Status post hemiarthroplasty of left hip: Code(s): Z96.642 - Presence of left artificial hip joint Category: Surgical Plan: Maria Del Rosario removed today Steri-Strips applied. Patient will continue to work with physical therapy for gait training and strengthening exercises. She will continue to increase activities as tolerated and she will see us back in 4 weeks with x-rays, sooner if needed. Orders: Orders XR hip LT min 2V Today M25.552 - Pain in left hip Coding Level of Care Code Global (98919) Diagnoses Status post hemiarthroplasty of left hip Z96.642
--- OUTSIDE RECORDS SUMMARY | 2025-03-16 10:41 | XMS_ITS | Encounter Summary ---
Author Organization [facility] Address [address] [employer] [facility] [address] [place] [address] Phone Care Team Providers Care Grain Picker Name Role Phone Pato Adkins Primary Care Provider + Emerson Mcwilliams MD Unavailable [phone] Angy Spicer CNP Unavailable Encounter Details Date Type Department Care Team (Late st Contact Info) Description 11/20/2023 Transcribe Orders Virtual Department [address] [place] [address] Pato Adkins PA [address] [place], [place] [phone] Right shoulder pain, unspecified chronicity (Primary Dx) [...] 4:24 PM EDT Norma Tristan RN * [place] Suicide Severity Rating Scale (Screener/Recent Self-Report) Question [...] st Contact Info) Description 12/15/2024 Procedure Pass [address] [address] 12/15/2024 Procedure Pass [address] [address] 03/30/2025 3:30 PM EDT Appointment [facility] [address] [place] [address] Mariella Child NP [address] [place] [address] [email or web address] 04/19/2025 8:00 AM EDT Office Visit [facility] [address] [place] [address] Emerson Mcwilliams MD [address] [place] [address] [email or web address] 08/03/2025 10:00 AM EST Office Visit [address] [address] Susan Knapp MD [address] [place] [address], [address] [place] [address] [email or web address] documented as of this encounter Results [...] chronicity documented in this encounter Care Teams Grain Picker Relationship Specialty Start Date End Date Pato Adkins PA [address] [place] [address] PCP - General Physician Forging Operator 10/08/23 Emerson Mcwilliams MD [address] [place] [address] Primary Oncologist Medical Oncology 12/17/23 Angy Spicer CNP [address] [place] [address] Nurse Practitioner Medical Oncology 03/15/24 documented as of this encounter Additional Source Comments The information contained in this document represents components of the legal health record. It is not the complete legal health record.[facility]
--- OUTSIDE RECORDS SUMMARY | 2025-03-16 10:42 | XMS_ITS ---
Author Organization [facility] Care Team Providers Care Dumper Name Role Phone Pina Almonte Unavailable Unavailable Michael Stein Unavailable Unavailable Lee Nagel Unavailable Unavailable Allergies and adverse reactions Code CodeSystem Substance Reaction Severity StartDate Concern Status 723 RXNORM Amoxicillin Unknown 03/01/2025 active Care Team Name Role Address Phone Organization Dates Lee Nagel PCP [address] [place] [address], [facility] (Office): : [facility] 03/01/2025 - 03/13/2025 Pina Almonte [address] [address], [facility] (Office): : [facility] 03/01/2025 - 03/13/2025 Michael Stein [address] [place] [address], [facility] (Office): : [facility] 03/01/2025 - 03/13/2025 Goals Section Goals Description Status Target Date I plan to discharge to: Spec ofelia- To community alone, To Community with Family, [facility], LTC Placement, Other- Undecided at current time. Pending outcome of therapy sessions, clinical medical stability progress reviewed weekly. Active 06/05/2025 I will attend/participate in activities of choice 1-2 times weekly by next review date. Active 06/05/2025 I will be at reduced risk fo r adverse drug reactions through the review date. Active 06/05/2025 I will be at reduced risk fo r complications of self care performance deficit and impaired mobility daily through the review date. Active 06/05/2025 I will be at reduced risk fo r skin breakdown daily through the review date. Active 06/05/2025 I will be free from discomfo rt and adverse effects of pain medication through the review date. Active 06/05/2025 I will be free from discomfo rt or adverse side effects of anticoagulant therapy through the review date. Active 025 I will be free from discomfo rt or adverse side effects related to anti-anxiety therapy through the review date. Active 06/05/20 25 I will be free from discomfo rt or adverse side effects related to anti-depressant therapy through the review date. Active 06/05 I will be free from discomfo rt or adverse side effects related to hypnotic therapy through the review date. Active 06/05/2025 I will be free from s/sx of dehydration through next review date. Active 06/05/2025 I will be free of fall relat ed injury through the next review date. Active 06/05/2025 I will have improved mood state through the revi ew date. Active 06/05/2025 I will maintain adequate nut ritional status as evidenced by maintaining weight within +/-5% of CBW, no s/sx of malnutrition, and consuming >51% of all meals daily through review date. Active 06/05/2025 I will maintain or improve m y independence and mobility through review date. Active 06/05/2025 I will not experience compli cations of oral/dental health problems through the review date. Active 06/05/2025 I will show effectiveness of medication use as evidenced by a reduction in convulsionsymptoms by the review date. Active I will verbalize adequate re lief of pain or ability to cope with incompletely relieved pain through the review date. Active My risk for respiratory comp lications and infections will be mitigated through the review date. Active 06/05/2025 My risk for respiratory comp lications related to my shortness of breath will be mitigated through the review date. Active 09/2024 My skin integrity will be im proved or maintained by next review date. Active 06/05/2025 The resident's advance direc tives are in effect and their wishes will be carried out through the next review. Active Functional Status Code Name Recorded Time Value Entered By Eating 03/13/2025 Independent [email or web address] Lying to sitting on side of bed 03/13/2025 Independe nt mguzman0 Oral hygiene 03/13/2025 Independent mguzman0 Personal hygiene 03/13/2025 Independent mguzman0 Shower/bathe self 03/13/2025 Independent mguzman0 Sit to lying 03/13/2025 Independent mguzman0 Toilet transfer 03/13/2025 Independent mguzman0 Toileting hygiene 03/13/2025 Independent mguzman0 Immunizations Immunization Status Vaccine Details Vaccine Code CodeSystem Date Notes (Shingles) Vaccine completed zoster vaccine recombinant lotNumber: [id number] Mfg: Construct Given 0.5 intramuscularly 187 CVX created date: 03/08/2025 administer ed date: 05/12/2021 doseUOMN oncoded: mL PPSV23 (Previous Pneumococcal Polysaccharide)V accine completed pneumococcal polysaccharide vaccine, 23 valent lotNumber: [id number] Given 0.5 33 CVX created date: 03/08/2025 administer ed date: 06/25/2019 doseUOMN oncoded: mL (PCV20)Pneumococ dann Conjugate vaccine 20-valent completed Pneumococcal conjugate vaccine 20-valent (PCV20), polysaccharide [id number] conjugate, adjuvant, preservative free lotNumber: [id number] Mfg: Assignment Editor Given 0.5 intramuscularly 216 CVX created date: 03/08/2025 administer ed date: 02/23/2024 doseUOMN oncoded: mL TD Diphtheria/Tetan completed tetanus and diphtheria toxoids, adsorbed, preservative free, for adult use (2 Lf of tetanus toxoid and 2 Lf of diphtheria toxoid) lotNumber: [id number] [facility]: Cyber-Rain Given 0.5 intramuscularly 09 CVX created date: 03/08/2025 administer ed date: 02/13/2023 doseUOMN oncoded: mL Influenza (high dose) completed Influenza, high-dose, split virus, trivalent, injectable, preservative free lotNumber: [id number] Mfg: Sanofi Pasteur Given 0.5 intramuscularly 135 CVX created date: 03/08/2025 administer ed date: 05/31/2024 doseUOMN oncoded: mL (RSV) ABRYSVOTM (Respiratory Syncytial Virus) completed Respiratory syncytial virus (RSV), vaccine, bivalent, protein subunit RSV prefusion F, diluent reconstituted, 0.5 mL, preservative free lotNumber: [id number] Mfg: Pfizer Given 1.0 intramuscularly 305 CVX created date: 03/08/2025 administer ed date: 08/18/2023 doseUOMN oncoded: mL (COVID-19) Updated Assignment Editor Vaccine completed SARS-COV-2 (COVID-19) vaccine, mRNA, spike protein, LNP, preservative free, micheal-sucrose, 30 mcg/0.3 mL dose 309 CVX created date: 03/08/2025 administer ed date: 05/31/2024 Medications Section Medication Name Status Code CodeSystem Dose Route Frequency Admin Type Sig Text Start Date End Date DULoxetine HCl Oral Capsule Delayed Release Sprinkle 60 MG active 002105 RXNORM 1 capsul e Oral one time a day Routine Give 1 capsul e by mouth one time a day for anxiet y 2024 - lamoTRIgine Oral Tablet 25 MG active 063631 RXNORM 2 tablet Oral two times a day Routine Give 2 tablet by mouth two times a day for ANTICO NVULSA NTS 2024 - Levothyroxine Sodium Oral Tablet 75 MCG active 223245 RXNORM 1 tablet Oral in the morning Routine Give 1 tablet by mouth in the mornin g for hypoth yroidi sm 2024 - LORazepam Oral Tablet 0.5 MG aborted RXNORM 2 tablet Oral as needed PRN Give 2 tablet by mouth as needed for anxiet y Bedtim e as needed 03/03 metFORMIN HCl Oral Tablet 500 MG active 713348 RXNORM 1 tablet Oral in the morning Routine Give 1 tablet by mouth in the mornin g for Diabet es Mellit us 2024 - oxyCODONE HCl Oral Tablet 5 MG aborted 681767 1 RXNORM 2 tablet Oral as needed PRN Give 2 tablet by mouth every 4 hours as needed for pain pain, modera te (pain scale 4-6) 03/02 Zolpidem Tartrate Oral Tablet 10 MG active 416783 RXNORM 10 mg Oral at bedtime Routine Give 10 mg by mouth at bedtim e for sleep aid 2024 - Enoxaparin Sodium Injection Solution Prefilled Syringe 30 MG/0.3ML aborted 104468 RXNORM 30 mg Subcuta neous one time a day Routine Inject 30 mg subcut aneous ly one time a day for antico agulen t 03/11 [place] 3 Oral Capsule 1000 MG active 1 capsul e Oral in the morning Routine Give 1 capsul e by mouth in the mornin g for Supple ment 2024 - Dextroampheta mine Sulfate Oral Tablet 20 MG active 507541 4 RXNORM 1.5 tablet Oral two times a day Routine Give 1.5 tablet by mouth two times a day for ADHD 2024 - Calcium + Vitamin D3 Oral Tablet 600-10 MG-MCG active 1 tablet Oral two times a day Routine Give 1 tablet by mouth two times a day for Supple ment 2024 - amLODIPine Besylate Oral Tablet 5 MG active 512810 RXNORM 1 tablet Oral one time a day Routine Give 1 tablet by mouth one time a day for HTN 2024 - Coenzyme Q10 Oral Tablet active 200 mg Oral one time a day Routine Give 200 mg by mouth one time a day for Supple ment 2024 - Acetaminophen Oral Tablet 325 MG active 830706 RXNORM 2 tablet Oral as needed PRN Give 2 tablet by mouth every 6 hours as needed for Pain Total Dose 650mg * *DO NOT EXCEED 3 grams in 24 hours* * AND Give 2 tablet by mouth every 6 hours as needed for Temper ature greate r than 101.F Total Dose 650mg * *DO NOT EXCEED 3 grams in 24 hours* * 2024 - 982749 RXNORM 2 tablet Oral as needed PRN Give 2 tablet by mouth every 6 hours as needed for Pain Total Dose 650mg * *DO NOT EXCEED 3 grams in 24 hours* * AND Give 2 tablet by mouth every 6 hours as needed for Temper ature greate r than 101.F Total Dose 650mg * *DO NOT EXCEED 3 grams in 24 hours* * 2024 - Milk of Magnesia Oral Suspension 400 MG/5ML active 475547 RXNORM 30 ml Oral as needed PRN Give 30 ml by mouth every 24 hours as needed for Consti pation Give 30ml by mouth if no bowel moveme nt in 3 days (9 Shifts ). 2024 - Bisacodyl Rectal Suppository 10 MG active 734410 RXNORM 1 suppos itory Rectal as needed PRN Insert 1 suppos itory rectal ly every 24 hours as needed for Consti pation Give 1 Suppos itory (10mg) via rectum if no result s from Milk of Magnes ia after 24 hours. 2024 - Fleet Enema Rectal Enema 7-19 GM/118ML active 582577 RXNORM 1 applic ator Rectal as needed PRN Insert 1 applic ator rectal ly as needed for Consti pation Give 1 applic ator full (118 ml)if no result s from Bisaco dyl suppos itory. 2024 - Glucose Gel 40 % active 314616 RXNORM 1 applic ation Oral as needed PRN Give 1 applic ation by mouth as needed for Blood Sugars less than 60 and consci ous, rechec k blood sugar in 15-min if blood sugar is less than 60 may repeat x1 and call 2024 - Glucagon Emergency Kit 1 MG active 131462 RXNORM 1 ml Intramu scular as needed PRN Inject 1 ml intram uscula rly as needed for Blood Sugars less than 60 and uncons cious or unresp onsive , and call . 2024 - oxyCODONE HCl Oral Tablet 5 MG active 000721 1 RXNORM 1 tablet Oral as needed PRN Give 1 tablet by mouth every 4 hours as needed for modera te (4-6) pain AND Give 2 tablet by mouth every 4 hours as needed for severe (7-10) pain total dose = 10 mg 2024 - 078080 1 RXNORM 2 tablet Oral as needed PRN Give 1 tablet by mouth every 4 hours as needed for modera te (4-6) pain AND Give 2 tablet by mouth every 4 hours as needed for severe (7-10) pain total dose = 10 mg 2024 - Tylenol Oral Tablet 325 MG aborted 20930310 RXNORM 2 tablet Oral every 6 hours Routine Give 2 tablet by mouth every 6 hours for pain for 7 Days 03/02 Tylenol Oral Tablet 325 MG complete d 20930310 RXNORM 2 tablet Oral every 6 hours Routine Give 2 tablet by mouth every 6 hours for pain for 7 Days Total Dose 650mg * DO NOT EXCEED 3 GRAMS per 24 HOURS* 03/09 LORazepam Oral Tablet 0.5 MG active RXNORM 2 tablet Oral as needed PRN Give 2 tablet by mouth as needed for anxiet y for 14 Days Bedtim e as needed 03/17 Tubersol Solution 5 UNIT/0.1ML complete d 597790 RXNORM 0.1 ml Intrade rmal one time only One Time Only Inject 0.1 ml intrad ermall y one time only for screen ing until 2024 23:59 record indura tion in millim eters; Read PPD in 48 hours, notify physic amanda if positi ve and discon tinue 2-step . CXR if refuse d 03/11 Enoxaparin Sodium Injection Solution Prefilled Syringe 30 MG/0.3ML active 638448 RXNORM 30 mg Subcuta neous one time a day Routine Inject 30 mg subcut aneous ly one time a day for DVT PROPHY LAXIS until 2024 23:59 04/01 Mental Status Section Date Assessment Total Score Description 03/07/2025 BIMS 15 cognitively int act CAM 0 No delirium ind icated PHQ-9 21 severe depressi on Problems Problem # Description Date of onset Resolved Date Code CodeSystem Concern Status 1 ANXIETY DISORDER, UNSPECIFIED 03/01/[address] active 2 ATHEROSCLEROTIC HEART DISEASE OF [place] CORONARY ARTERY WITHOUT ANGINA PECTORIS 03/01/[address] active 3 CHRONIC KIDNEY DISEASE, UNSPECIFIED 03/01/[address] active 4 ESSENTIAL (PRIMARY) HYPERTENSION 03/01/[address] active 5 FRACTURE OF UNSPECIFIED PART OF NECK OF LEFT FEMUR, SUBSEQUENT ENCOUNTER FOR CLOSED FRACTURE WITH ROUTINE HEALING 03/01/[address] active 6 HYPERKALEMIA 03/01/[address] active 7 HYPOTHYROIDISM, UNSPECIFIED 03/01/[address] active 8 INSOMNIA, UNSPECIFIED 03/01/[address] active 9 OTHER SPECIFIED DISORDERS OF BONE DENSITY AND STRUCTURE, UNSPECIFIED SITE 03/01/[address] active 10 SPINAL STENOSIS, SITE UNSPECIFIED 03/01/[address] active 11 TYPE 2 DIABETES MELLITUS WITHOUT COMPLICATIONS 03/01/[address] active Reason for Referral No Reasons for Referral Entered Social History Social History Observation Description Start Date End Date Code Code System Current Smoking Status Tobacco smoking consumption unknown 848019626 SNOMED CT Sex Assigned At Female 1955 28908-1 [facility] Gender Identity Vital Signs Code Code System Vitals Name Values and Units Timing Information 48289-7 [facility] Pain Level Value=0.0 03/13/2025 9279-1 [facility] Respiratory Rate Value=18.0 Units=/m in 03/12/2025 8462-4 [facility] Blood Pressure-Diastolic Value=69 Un its=mmHg 03/12/2025 8480-6 [facility] Blood Pressure-Systolic Phmgr=087 Un its=mmHg 03/12/2025 8310-5 [facility] Body Temperature Value=97.8 Units= F 03/12/2025 8867-4 [facility] Heart rate Value=67.0 Units=/min 04/2025 22240-3 [facility] O2 % BldC Oximetry Value=97.0 Units= % 03/12/2025 2339-0 [facility] Blood Sugar Tmhqo=784.0 Units=mg/dL 03/09/2025 65625-5 [facility] Weight Fhnky=519.0 Units=Lbs 12/2024 8302-2 [facility] Height Value=65.0 Units=Inches 03/03/2025
--- OUTSIDE RECORDS SUMMARY | 2025-03-16 10:42 | XMS_ITS | Clinical Summary ---
Author Organization [facility], Address [address] [place] [address] Phone Care Team Providers Care Greenhouse Florist Name Role Phone Pato Adkins Primary Care Provider [phone] Allergies Active Allergy Reactions Criticality Noted Date [...] hyperkalemia Patient with hospital and continued on [facility] Nephrology consulted As potassium 5.4 today held [facility] and ordered repeat BMP for this afternoon. Diet changed to low potassium, diuretic lisinopril discontinued Retention of urine 11/20/2023 Overview (06/17/2024): Last Assessment & Plan[place]13 [place] [facility] [place] Patient had a voiding trial postop but failed and Collins catheter replaced. Patient on way to [place] for voiding trial yesterday when she was called and told it was canceled. Due to decreased urine output and sensation that the Collins was falling as well as dark urine sent to the ED. Collins catheter repositioned with improvement Plan discontinue Collins catheter today for voiding trial. (Started on [place]abap[place] [facility] [place]: Patient [...] Visit [facility], - [address] [place] [address] Jt Lam MD Essential (primary) [...] Visit [facility] [address] [phone] Jt Lam MD [address] [place] [address] [place] [phone] Health Maintenance Due Date Last Done Comments [...] patient's age to complete this topic Insurance [facility] Medicare [facility] Medicare Care Teams Greenhouse Florist Relationship Specialty Start Date End Date Pato Adkins PA [address] [place] [address], [address] [place], [place] [phone] PCP - General Physician Spinner Hydraulic 11/25/23
== END 2025-03-16 10:56 | disposition home or self-care (01) ==
LOC: HO.HOS 10:03
PROVIDERS: PCP Physician Assistant; Visit Provider Physician Assistant
DX: Z96.642 Presence of left artificial hip joint (principal)
CPT/HCPCS: 99024

== ENCOUNTER → 2025-03-16 10:08 | Outpatient (BNV) | payer MEDICARE, SELFPAY | PROVIDERS: Visit Provider Radiology Diagnostic Radiology | DX: M25.552 Pain in left hip (principal); Z96.642 Presence of left artificial hip joint | CPT/HCPCS: 73502 ==

== ENCOUNTER 2025-04-18 10:49 | Outpatient (AMB) | payer MEDICARE, SELFPAY ==
--- NOTE | 2025-04-18 10:53 | MHC.OFFVIS ---
Intake Visit Reasons: post op-LT hi alex NE Intake Note: Kailey is a 70 year old female who presents today for a post operative appointment about 2 months s/p left hip alex 02/27/25. Patinet reports that she is doing well with some continued groin pain. This pain is a mild pain that can worsen at night. Occasionally she will take an Oxycodone at night but explains that this is only once a week, if that. Allergies amoxicillin Allergy (Intermediate, Verified 03/16/25 10:33) Vomiting HPI HPI post op-LT hi alex NE: Details: Kailey is a 70 year old female who presents today for a post operative appointment about 2 months s/p left hip alex 02/27/25. Patient reports that she is doing well with some continued groin pain. This pain is a mild pain that can worsen at night. Occasionally she will take an Oxycodone at night but explains that this is only once a week, if that. [facility] Medical History (Updated 03/04/25 @ 00:02 by Julian Crook) Right renal mass Osteopenia Post-menopausal Encounter to establish care Surgical History History of nephrectomy History of colonoscopy History of placement of ear tubes History of gastric bypass History of cholecystectomy Family History Father Melanoma Brother Skin cancer Other Mental health disorder Substance use disorder Social History Household Members: Spouse Housing: House Do you presently have visiting nurse or other home services: No Alcohol intake: current Alcohol intake frequency: holidays/special occasions only Comment: counts correct Patient Tobacco Use Status: Former Tobacco user e-Cigarette/Vaping Use: Never Used Second Hand Smoke Exposure: No service: No Current occupational status: retired Cognitive needs: No Hearing needs: No Vision needs: Yes (glasses) Physical Exam Extrem Other: Mild gait antalgia. Mild groin pain with internal rotation improved from prior. Assessment & Plan Assessment & Plan (1) Status post hemiarthroplasty of left hip: Code(s): Z96.642 - Presence of left artificial hip joint Category: Surgical Plan: Six weeks status post left hemiarthroplasty doing very well. Continue ambulation as tolerated. I recommend she continue using cane given gait imbalance (2) Impairment of balance: Code(s): R26.89 - Other abnormalities of gait and mobility Category: Medical Plan: A referral was made to neurology Orders: Orders PT Evaluation and Treatment Today Z96.642 - Presence of left artificial hip joint Referrals Neurology Referral R26.89 - Other abnormalities of gait and mobility Coding Level of Care Code Global (58158) Diagnoses Status post hemiarthroplasty of left hip Z96.642 Impairment of balance R26.89
--- OUTSIDE RECORDS SUMMARY | 2025-04-18 13:34 | XMS_ITS | Encounter Summary ---
Author Organization [facility] Address [address] [place] [address] Phone Care Team Providers Care Photographer Scientific Name Role Phone Pato Adkins Primary Care Provider + Emerson Mcwilliams MD Unavailable [phone] Angy Spicer CNP Unavailable Encounter Details Date Type Department Care Team (Late st Contact Info) Description 04/18/2025 1:34 PM EDT Hospital Encounter [facility] [address] [place] [address] Emerson Mcwilliams MD [address] [place] [address] [email or web address] Arrived Social History Tobacco Use Types Packs/Day Years [...] Description 04/19/2025 8:00 AM EDT Office Visit [facility] at [facility] [address] [place] [address] Emerson Mcwilliams MD [address] [place] [address] 08/03/2025 10:00 AM EST Office Visit [facility] [address] [place] [address] Susan Knapp MD 234 [facility], [address] [place] [address] [email or web address] Pending Results Name Type Priority Associated Diagnoses Date /Time CBC and differential Lab Routine Renal cancer, right 04/18/2025 2:03 PM EDT Comprehensive metabolic panel Lab Routine Renal cancer, right 04/18/2025 2:03 PM EDT TSH Lab Routine Renal cancer, right 04/18/2025 2:03 PM EDT Scheduled Orders Name Type Priority Associated Diagnoses Orde r Schedule CBC and differential Lab Routine Renal cancer, right As Needed for 1 Occurrences starting 04/18/2025 until 04/18/2025 Comprehensive metabolic panel Lab Routine Renal cancer, right As Needed for 1 Occurrences starting 04/18/2025 until 04/18/2025 TSH Lab Routine Renal cancer, right As Needed for 1 Occurrences starting 04/18/2025 until 04/18/2025 documented as of this encounter Visit Diagnoses Diagnosis Renal cancer, right documented in this encounter Care Teams Photographer Scientific Relationship Specialty Start Date End Date Pato Adkins PA [address] [place] [address] PCP - General Physician Warehouse Delivery Driver 10/08/23 Emerson Mcwilliams MD [address] [place] [address] Primary Oncologist Medical Oncology 12/17/23 Angy Spicer CNP [address] [place] [address] Nurse Practitioner Medical Oncology 03/15/24 documented as of this encounter Additional Source Comments The information contained in this document represents components of the legal health record. It is not the complete legal health record.[facility]
--- OUTSIDE RECORDS SUMMARY | 2025-04-18 14:15 | XMS_ITS | Encounter Summary ---
Author Organization [facility] Address [address] [facility] [address] [place] [address] Phone Care Team Providers Care Welder Shielded Metal Arc Name Role Phone Lacey Shafer MD Primary Care Provider Pato Adkins Primary Care Provider + Emerson Mcwilliams MD Unavailable [phone] Angy Spicer CNP Unavailable Encounter Details Date Type Department Care Team (Latest Contact Info) Description 08/11/2023 Transcribe Orders Virtual Department [address] [place] [address] System, Provider Not In, [facility] [address] [address] Stage 3b chronic kidney disease (CKD) (Primary [...] Description 04/19/2025 8:00 AM EDT Office Visit [facility] at [facility] [address] [place] [address] Emerson Mcwilliams MD [address] [place] [address] [email or web address] 08/03/2025 10:00 AM EST Office Visit [address] [address] Susan Knapp MD 234 [facility] 7 [place] [address] [email or web address] documented as of this encounter Results [...] metabolism documented in this encounter Care Teams Welder Shielded Metal Arc Relationship Specialty Start Date End Date Lacey Shafer MD [address] [place] [address] PCP - General 05/01/20 10/07/23 Pato Adkins PA [address] [place] [address] PCP - General Physician Technology Infusion Specialist 10/08/23 Emerson Mcwilliams MD [address] [place] [address] Primary Oncologist Medical Oncology 12/17/23 Angy Spicer CNP [address] [place] [address] [email or web address] Nurse Practitioner Medical Oncology 03/15/24 documented as of this encounter Additional Source Comments The information contained in this document represents components of the legal health record. It is not the complete legal health record.[facility]
--- OUTSIDE RECORDS SUMMARY | 2025-04-18 14:15 | XMS_ITS | Encounter Summary ---
Author Organization [facility] Address [address] [place] [address] Phone Care Team Providers Care Acute Specialist Name Role Phone Lacey Shafer MD Primary Care Provider Pato Adkins Primary Care Provider + Emerson Mcwilliams MD Unavailable Angy Spicer CNP Unavailable Encounter Details Date Type Department Care Team (Late st Contact Info) Description 09/01/2023 Procedure Pass [address] [place] [address] Social History Tobacco Use Types Packs/Day Years [...] 04/19/2025 8:00 AM EDT Office Visit [facility] 30 [place] [address] Emerson Mcwilliams MD 30 [place] [address] 08/03/2025 10:00 AM EST Office Visit [facility] [address] [place] [address] Susan Knapp MD 234 [facility] 7 [place] [address] [email or web address] documented as of this encounter Visit Diagnoses Not on filedocumented in this encounter Care Teams Acute Specialist Relationship Specialty Start Date End Date Lacey Shafer MD [address] [place] [address] PCP - General 05/01/20 10/07/23 Pato Adkins PA [address] [place] [address] PCP - General Physician Fitness Professional 10/08/23 Emerson Mcwilliams MD [address] [place] [address] Primary Oncologist Medical Oncology 12/17/23 Angy Spicer CNP [address] [place] [address] Nurse Practitioner Medical Oncology 8/12/24 documented as of this encounter Additional Source Comments The information contained in this document represents components of the legal health record. It is not the complete legal health record.[facility]
--- OUTSIDE RECORDS SUMMARY | 2025-04-18 14:15 | XMS_ITS | Encounter Summary ---
Author Organization [facility] Address [address] [facility] [address] [place] [address] Phone Care Team Providers Care Putaway Driver Name Role Phone Lacey Shafer MD Primary Care Provider Pato Adkins Primary Care Provider + Emerson Mcwilliams MD Unavailable [phone] Angy Spicer CNP Unavailable Reason for Referral * MRI/CAT Scan - Closed Specialty Diagnoses / Procedures Referred By Contac t Referred To Contact Radiology Diagnoses Renal mass Procedures MRI Abdomen Edmundo Sinha MD [address] [place] [address] Phone: tel: fax: Referral ID Status Reason Start Date Expiration Date Visits Re quested Visits Authorized [id number] Closed 09/01/2023 1 1 * MRI/CAT Scan - Closed Specialty Diagnoses / Procedures Referred By Contac t Referred To Contact Radiology Diagnoses Renal mass Procedures MRI Pelvis (GI/) Edmundo Sinha MD [address] [place] [address] Phone: tel: fax: Referral ID Status Reason Start Date Expiration Date Visits Re quested Visits Authorized [id number] Closed 09/01/2023 1 1 * MRI/CAT Scan - Closed Specialty Diagnoses / Procedures Referred By Jhonny neal Referred To Contact Radiology Diagnoses Renal mass Procedures CT Chest Edmundo Sinha MD [address] [place] [address] Phone: tel: fax: Referral ID Status Reason Start Date Expiration Date Visits Re quested Visits Authorized [id number] Closed 08/28/2023 1 1 Encounter Details Date Type Department Care Team (Latest Contact Info) Description 08/28/2023 Transcribe Orders Virtual Department [address] [place] [address] Edmundo Sinha MD [address] [place] [address] Renal mass (Primary Dx) Social History Tobacco [...] Description 04/19/2025 8:00 AM EDT [facility] 30 [place] [address] Emerson Mcwilliams MD 30 [place] [address] 08/03/2025 10:00 AM EST Office Visit [facility] [address] [place] [address] Susan Knapp MD 234 [facility], [address] [place] [address] [email or web address] documented as of this encounter Results * [...] ureter documented in this encounter Care Teams Putaway Driver Relationship Specialty Start Date End Date Lacey Shafer MD [address] [place] [address] PCP - General 05/01/20 10/07/23 Pato Adkins PA [address] [place] [address] PCP - General Physician Sports Marketer 10/08/23 Emerson Mcwilliams MD [address] [place] [address] Primary Oncologist Medical Oncology 12/17/23 Angy Spicer CNP [address] [place] [address] Nurse Practitioner Medical Oncology 03/15/24 documented as of this encounter Additional Source Comments The information contained in this document represents components of the legal health record. It is not the complete legal health record.[facility]
--- OUTSIDE RECORDS SUMMARY | 2025-04-18 14:17 | XMS_ITS | Encounter Summary ---
Author Organization [facility] Address [address] [facility] [address] [place] [address] Phone Care Team Providers Care Put In Beat Adjuster Name Role Phone Pato Adkins Primary Care Provider + Emerson Mcwilliams MD Unavailable [phone] Angy Spicer CNP Unavailable Encounter Details Date Type Department Care Team (Latest Contact Info) Description 01/30/2024 Transcribe Orders [facility] Laboratory [address] [place] [address] Jt Lam MD [address] [facility] [address] [place] [address] Stage 3b chronic kidney disease (Primary Dx) [...] Description 04/19/2025 8:00 AM EDT Office Visit [facility] 30 [place] [address] Emerson Mcwilliams MD 30 [place] [address] 08/03/2025 10:00 AM EST Office Visit [facility] [address] [address] Susan Knapp MD [address] [facility], [address] [place] [address] [email or web address] documented as of this encounter [...] URIC ACID 6.0 2.4 - 7.0 mg/dL [facility] Blood 01/30/2024 11:4 9 AM EDT 01/30/2024 11:54 AM EDT us Jt Lam MD LAB BLOOD ORDERABLES Final Resul t [address] [address] * (ABNORMAL) CBC (01/30/2024 11:49 AM EDT) WBC 5.15 4.00 - 11.00 K/uL [facility] RBC 4.02 3.72 - 5.30 M/uL [facility] HGB 11.5 11.4 - 15.9 g/dL [facility] HCT 36.3 34.2 - 46.8 % [facility] PLT 358 140 - 430 K/uL [facility] MCV 90.3 78.0 - 97.0 fL [facility] MCH 28.6 25.0 - 33.0 pg [facility] MCHC 31.7(L) 32.0 - 36.0 g/dL [facility] RDW 14.0 11.0 - 16.0 % [facility] MPV 9.5 8.4 - 12.8 fl [facility] Blood 01/30/2024 11:4 9 AM EDT 01/30/2024 11:54 AM EDT us Jt Lam MD LAB BLOOD ORDERABLES Final Resul t Performing Organization Address City/[facility]/ZIP Co de Phone Number [address] [address] * Ferritin (01/30/2024 11:49 AM EDT) FERRITIN 39 13 - 150 ug/L [facility] Blood 01/30/2024 11:4 9 AM EDT 01/30/2024 11:54 AM EDT us Jt Lam MD LAB BLOOD ORDERABLES Final Resul t Performing Organization Address [facility]/ZIP Co de Phone Number [address] [address] * Iron and iron binding capacity (01/30/2024 11:49 AM EDT) IRON 92 30 - 160 ug/dL [facility] IRON BINDING CAPACITY 332 228 - 428 ug/dL [facility] TRANSFERRIN SATURAT. 28 15 - 50 % [facility] Blood 01/30/2024 11:4 9 AM EDT 01/30/2024 11:54 AM EDT us Jt Lam MD LAB BLOOD ORDERABLES Final Resul t Performing Organization Address City/[facility]/ZIP Co de Phone Number [address] [address] * (ABNORMAL) Parathyroid hormone (PTH) (01/30/2024 11:49 AM EDT) PARATHYROID HORMONE 71(H) 15 - 65 pg/mL [facility] Blood 01/30/2024 11:4 9 AM EDT 01/30/2024 11:54 AM EDT us Jt Lam MD LAB BLOOD ORDERABLES Final Resul t Performing Organization Address City/[facility]/ZIP Co de Phone Number [address] [address] * Hemoglobin A1c (01/30/2024 11:49 AM EDT) HEMOGLOBIN A1C 5.8 4.3 - 5.8 % [facility] Blood 01/30/2024 11:4 9 AM EDT 01/30/2024 11:55 AM EDT us Jt Lam MD LAB BLOOD ORDERABLES Final Resul t Performing Organization Address [facility] Co de Phone Number [address] [address] * Total protein creatinine ratio, random urine (01/30/2024 11:49 AM EDT) Pathologist [facility] URINE TOTAL PROTEIN 25.0 mg/dL [facility] URINE CREATININE 138 mg/dL [facility] URINE TP CRE RATIO 0.18 0 - 0.19 [facility] Urine (Urine) 01/30/2024 11: 49 AM EDT 01/30/2024 11:55 AM EDT us Jt Lam MD URINE ORDERABLES Final Result Performing Organization Address City/[facility] Co de Phone Number [address] [address] * (ABNORMAL) Renal panel (01/30/2024 11:49 AM EDT) SODIUM 139 133 - 146 mmol/L [facility] POTASSIUM 5.2(H) 3.3 - 5.1 mmol/L [facility] CHLORIDE 106 96 - 108 mmol/L [facility] CO2 19(L) 21 - 35 mmol/L [facility] GLUCOSE 141(H) 70 - 99 mg/dL [facility] BUN 46(H) 6 - 19 mg/dL [facility] CREATININE 2.60(H) 0.5 - 1.5 mg/dL [facility] CALCIUM 9.8 8.4 - 10.3 mg/dL [facility] PHOSPHORUS 4.7(H) 2.7 - 4.5 mg/dL [facility] ALBUMIN 4.4 3.9 - 4.8 g/dL [facility] EGFR 19(L) >59 mL/min/1.7 3m2 [facility] Comment:Estimated glomerular filtration rate calculated using the CKD-EPI refit equation. ANION GAP 19 10 - 20 mmol/L [facility] Blood 01/30/2024 11:4 9 AM EDT 01/30/2024 11:54 AM EDT us Jt Lam MD LAB BLOOD ORDERABLES Final Resul t [address] [address] documented in this encounter Visit Diagnoses Diagnosis Stage 3b chronic kidney disease- Primary documented in this encounter Care Teams Put In Beat Adjuster Relationship Specialty Start Date End Date Pato Adkins PA [address] [place] [address] PCP - General Physician Wharf Tender 10/08/23 Emerson Mcwilliams MD [address] [place] [address] Primary Oncologist Medical Oncology 12/17/23 Angy Spicer CNP [address] [place] [address] Nurse Practitioner Medical Oncology 03/15/24 documented as of this encounter Additional Source Comments The information contained in this document represents components of the legal health record. It is not the complete legal health record.[facility]
--- OUTSIDE RECORDS SUMMARY | 2025-04-18 14:19 | XMS_ITS | Encounter Summary ---
Author Organization [facility] Address [address] [place] [address] Phone Care Team Providers Care Pit Supervisor Name Role Phone Pato Adkins Primary Care Provider + Emerson Mcwilliams MD Unavailable [phone] Angy Spicer CNP Unavailable Encounter Details Date Type Department Care Team (Late st Contact Info) Description 06/28/2024 Procedure Pass [facility], Ct Scan - [address] [address] Social History Tobacco Use Types Packs/Day Years [...] Description 04/19/2025 8:00 AM EDT Office Visit [facility] at [facility] 30 [place] [address] Emerson Mcwilliams MD 30 [place] [address] 08/03/2025 10:00 AM EST Office Visit [facility] [address] [place] [address] Susan Knapp MD [address] [facility], [address] [place] [address] [email or web address] documented as of this encounter Visit Diagnoses Not on filedocumented in this encounter Care Teams Pit Supervisor Relationship Specialty Start Date End Date Pato Adkins PA [address] [place] [address] PCP - General Physician Railroad Cook 10/08/23 Emerson Mcwilliams MD [address] [place] [address] [email or web address] Primary Oncologist Medical Oncology 12/17/23 Angy Spicer CNP [address] [place] [address] [email or web address] Nurse Practitioner Medical Oncology 03/15/24 documented as of this encounter Additional Source Comments The information contained in this document represents components of the legal health record. It is not the complete legal health record.[facility]
--- OUTSIDE RECORDS SUMMARY | 2025-04-18 14:19 | XMS_ITS | Encounter Summary ---
Author Organization [facility] Address [address] [place] [address] Phone Care Team Providers Care Cutting Machine Offbearer Name Role Phone Lacey Shafer MD Primary Care Provider Pato Adkins Primary Care Provider + Emerson Mcwilliams MD Unavailable [phone] Angy Spicer CNP Unavailable Encounter Details Date Type Department Care Team (Late st Contact Info) Description 08/28/2023 Procedure Pass [facility], Ct Scan - [address] [id number] Social History Tobacco Use Types Packs/Day Years [...] Description 04/19/2025 8:00 AM EDT Office Visit [facility] at [facility] 30 [place] [address] Emerson Mcwilliams MD [address] [place] [address] 08/03/2025 10:00 AM EST Office Visit [facility] [address] [place] [address] Susan Knapp MD 234 [facility], [facility] 7 [place] [address] [email or web address] documented as of this encounter Visit Diagnoses Not on filedocumented in this encounter Care Teams Cutting Machine Offbearer Relationship Specialty Start Date End Date Lacey Shafer MD [address] [place] [address] PCP - General 05/01/20 10/07/23 Pato Adkins PA [address] [place] [address] PCP - General Physician Recreation Facility Manager 10/08/23 Emerson Mcwilliams MD [address] [place] [address] Primary Oncologist Medical Oncology 12/17/23 Angy Spicer CNP [address] [place] [address] [email or web address] Nurse Practitioner Medical Oncology 03/15/24 documented as of this encounter Additional Source Comments The information contained in this document represents components of the legal health record. It is not the complete legal health record.[facility]
--- OUTSIDE RECORDS SUMMARY | 2025-04-18 14:19 | XMS_ITS | Encounter Summary ---
Author Organization [facility], Address [address] [place] [address] Phone Care Team Providers Care Agricultural Extension Agent Name Role Phone Pato Adkins Primary Care Provider [phone] Encounter Details Date Type Department Care Team (Late st Contact Info) Description 02/03/2024 Documentation Only [facility] [address] [place] [address] Bettye Del Castillo [address] [place] [phone] Social History Tobacco Use Types Packs/Day [...] Visit [facility] Robyn BRANHAM [address] [place] [phone] Jt Lam MD [address] [place] [address] [place] [address] documented as of this encounter Visit Diagnoses Not on filedocumented in this encounter Care Teams Agricultural Extension Agent Relationship Specialty Start Date End Date Pato Adkins PA [address] [place] [address], [address] [place] [address] PCP - General Physician Carton Counter Feeder 11/25/23 documented as of this encounter
--- OUTSIDE RECORDS SUMMARY | 2025-04-18 14:19 | XMS_ITS | Encounter Summary ---
Author Organization [facility] [place], Address [address] [place] [address] Phone Care Team Providers Care Education Diagnostician Name Role Phone Pato Adkins Primary Care Provider [phone] Encounter Details Date Type Department Care Team (Late st Contact Info) Description 02/03/2024 Documentation Only [facility] [address] [place] [address] Bettye Del Castillo [address] [place] [phone] Social History Tobacco Use Types Packs/Day [...] Visit [facility] Robyn BRANHAM [address] [place] [phone] Jt Lam MD [address] [place] [address] [place] [address] documented as of this encounter Visit Diagnoses Not on filedocumented in this encounter Care Teams Education Diagnostician Relationship Specialty Start Date End Date Pato Adkins PA [address] [place] [address], [address] [place] [address] PCP - General Physician Medical Tech 11/25/23 documented as of this encounter
--- OUTSIDE RECORDS SUMMARY | 2025-04-18 14:19 | XMS_ITS | Encounter Summary ---
Author Organization [facility] [place], Address [address] [place] [address] Phone Care Team Providers Care Meat Department Manager Name Role Phone Pato Adkins Primary Care Provider [phone] Encounter Details Date Type Department Care Team (Late st Contact Info) Description 02/13/2024 Orders Only [facility] Robyn [address] [place] [address] Jt Lam MD [address] [facility] [place] [address] Chronic kidney disease, stage 4 [...] Visit [facility] [address]yn [address] Simone [address] [place] [address] Jt Lam MD [address] [facility] [place] [address] documented as of this encounter Visit Diagnoses Diagnosis Chronic kidney disease, stage 4 (severe) (HCC) History of nephrectomy documented in this encounter Care Teams Meat Department Manager Relationship Specialty Start Date End Date Pato Adkins PA [address] [place] [address], [address] [place], [place] [phone] PCP - General Physician Histologic Aide 11/25/23 documented as of this encounter
--- OUTSIDE RECORDS SUMMARY | 2025-04-18 14:19 | XMS_ITS | Encounter Summary ---
Author Organization [facility] [place], Address [address] [place] [address] Phone Care Team Providers Care Sergeant Of Corrections Name Role Phone Pato Adkins Primary Care Provider [phone] Encounter Details Date Type Department Care Team (Late st Contact Info) Description 02/03/2024 Documentation Only [facility] [address] [place] [address] Bettye Del Castillo [address] [place] [phone] Social History Tobacco Use Types Packs/Day [...] Visit [facility] Robyn BRANHAM [address] [place] [phone] Jt Lam MD [address] [place] [address] [place] [address] documented as of this encounter Visit Diagnoses Not on filedocumented in this encounter Care Teams Sergeant Of Corrections Relationship Specialty Start Date End Date Pato Adkins PA [address] [place] [address], [address] [place] [address] PCP - General Physician Bag Making Machine Operator 11/25/23 documented as of this encounter
--- OUTSIDE RECORDS SUMMARY | 2025-04-18 14:19 | XMS_ITS | Encounter Summary ---
Author Organization [facility] [place], Address [address] [place] [address] Phone Care Team Providers Care Unhairer Name Role Phone Pato Adkins Primary Care Provider [phone] Encounter Details Date Type Department Care Team (Late st Contact Info) Description 09/17/2024 Documentation Only [facility] [address] [place] [address] Selina Velasquez [address] [place] [phone] Social History Tobacco Use Types Packs/Day [...] Visit [facility] Robyn BRANHAM [address] [place] [phone] Jt Lam MD [address] [place] [address] [place] [address] documented as of this encounter Visit Diagnoses Not on filedocumented in this encounter Care Teams Unhairer Relationship Specialty Start Date End Date Pato Adkins PA [address] [place] [address], [address] [place] [address] PCP - General Physician Can Repairer 11/25/23 documented as of this encounter
--- OUTSIDE RECORDS SUMMARY | 2025-04-18 14:19 | XMS_ITS | Encounter Summary ---
Author Organization [facility] [place], Address [address] [place] [address] Phone Care Team Providers Care Senior Network Administrator Name Role Phone Pato Adkins Primary Care Provider [phone] Encounter Details Date Type Department Care Team (Late st Contact Info) Description 08/31/2024 Documentation Only [facility] [address] [place] [address] Selina Velasquez [address] [place] [phone] Social History Tobacco Use Types Packs/Day [...] Visit [facility] Robyn BRANHAM [address] [place] [phone] Jt Lam MD [address] [place] [address] [place] [address] documented as of this encounter Visit Diagnoses Not on filedocumented in this encounter Care Teams Senior Network Administrator Relationship Specialty Start Date End Date Pato Adkins PA [address] [place] [address], [address] [place] [address] PCP - General Physician Dust Puller 11/25/23 documented as of this encounter
--- OUTSIDE RECORDS SUMMARY | 2025-04-18 14:19 | XMS_ITS | Clinical Summary ---
Author Organization [facility], Address [address] [place] [address] Phone Care Team Providers Care Passenger Car Conductor Name Role Phone Pato Adkins Primary Care Provider [phone] Allergies Active Allergy Reactions Criticality Noted Date [...] Patient with hospital and continued on [facility] Nephrology consulted As potassium 5.4 today held [facility] and ordered repeat BMP for this afternoon. Diet changed to low potassium, diuretic lisinopril discontinued Retention of urine 11/20/2023 Overview (06/17/2024): Last Assessment & Plan: Nephrectomy for RCC 11/13 and [facility]. Patient had a voiding trial postop but failed and Collins catheter replaced. Patient on way to [place] for voiding trial yesterday when she was called and told it was canceled. Due to decreased urine output and sensation that the Collins was falling as well as dark urine sent to the ED. Collins catheter repositioned with improvement Plan discontinue Collins catheter today for voiding trial. (Started on gabapentin at [facility] for postop pain: Patient [...] Visit [facility] [place], - Anjelica Liang [address] [place] [phone] Jt Lam MD [address] [facility] [place] [phone] Health Maintenance Due Date Last Done Comments [...] patient's age to complete this topic Insurance [facility] Medicare [facility] Medicare Care Teams Passenger Car Conductor Relationship Specialty Start Date End Date Pato Adkins PA [address] [facility], [address] [place] [address] PCP - General Physician Recreation Worker 11/25/23
--- OUTSIDE RECORDS SUMMARY | 2025-04-18 14:19 | XMS_ITS | Encounter Summary ---
Author Organization [facility] Address [address] [place] [address] Phone Care Team Providers Care Surgical Services Tech Name Role Phone Pato Adkins Primary Care Provider + Emerson Mcwilliams MD Unavailable [phone] Angy Spicer CNP Unavailable Encounter Details Date Type Department Care Team (Late st Contact Info) Description 06/28/2024 Procedure Pass [facility], Ct Scan - [address] [address] Social History Tobacco Use Types Packs/Day Years [...] Description 04/19/2025 8:00 AM EDT Office Visit [facility] [address] [place] [address] Emerson Mcwilliams MD 30 [place] [address] 08/03/2025 10:00 AM EST Office Visit [facility] [address] [place] [address] Susan Knapp MD 234 [facility], [address] [place] [address] [email or web address] documented as of this encounter Visit Diagnoses Not on filedocumented in this encounter Care Teams Surgical Services Tech Relationship Specialty Start Date End Date Pato Adkins PA [address] [place] [address] PCP - General Physician Design Drafter Chief 10/08/23 Emerson Mcwilliams MD [address] [place] [address] [email or web address] Primary Oncologist Medical Oncology 12/17/23 Angy Spicer CNP [address] [place] [address] [email or web address] Nurse Practitioner Medical Oncology 03/15/24 documented as of this encounter Additional Source Comments The information contained in this document represents components of the legal health record. It is not the complete legal health record.[facility]
--- OUTSIDE RECORDS SUMMARY | 2025-04-18 14:19 | XMS_ITS | Encounter Summary ---
Author Organization [facility] Address [address] [employer] [facility] [address] [place] [address] Phone Care Team Providers Care Chemistry Research Assistant Name Role Phone Pato Adkins Primary Care Provider + Emerson Mcwilliams MD Unavailable [phone] Angy Spicer CNP Unavailable Encounter Details Date Type Department Care Team (Late st Contact Info) Description 11/20/2023 Transcribe Orders Virtual Department [address] [place] [address] Pato Adkins PA [address] [place], [place] [phone] Right shoulder pain, unspecified chronicity (Primary Dx) [...] 4:24 PM EDT Norma Tristan RN * Bacon Suicide Severity Rating Scale (Screener/Recent Self-Report) Question [...] [facility] [address] [place] [address] Emerson Mcwilliams MD 30 [place] [address] 08/03/2025 10:00 AM EST Office Visit [facility] [address] [place] [address] Susan Knapp MD [address] [facility], [address] [place] [address] [email or web address] documented as of this [...] chronicity documented in this encounter Care Teams Chemistry Research Assistant Relationship Specialty Start Date End Date Pato Adkins PA [address] [place] [address] PCP - General Physician Forming Acid Dumper 10/08/23 Emerson Mcwilliams MD [address] [place] [address] Primary Oncologist Medical Oncology 12/17/23 Angy Spicer CNP [address] [place] [address] Nurse Practitioner Medical Oncology 03/15/24 documented as of this encounter Additional Source Comments The information contained in this document represents components of the legal health record. It is not the complete legal health record.[facility]
--- OUTSIDE RECORDS SUMMARY | 2025-04-18 14:19 | XMS_ITS | Encounter Summary ---
Author Organization [facility] [place], Address [address] [place] [address] Phone Care Team Providers Care Hot Press Operator Name Role Phone Pato Adkins Primary Care Provider [phone] Encounter Details Date Type Department Care Team (Late st Contact Info) Description 06/17/2024 Documentation Only [facility] [place] Robyn [address] [place] [address] Bettye Del Castillo [address] [place] [address] Social History Tobacco Use Types [...] Visit [facility] [address] [place] [address] Jt Lam MD [address] [facility] [place] [phone] documented as of this encounter Visit Diagnoses Not on filedocumented in this encounter Care Teams Hot Press Operator Relationship Specialty Start Date End Date Pato Adkins PA [address] [place] [address], [address] [place] [address] PCP - General Physician Obedience Trainer 11/25/23 documented as of this encounter
--- OUTSIDE RECORDS SUMMARY | 2025-04-18 14:19 | XMS_ITS | Encounter Summary ---
Author Organization [facility], Address [address] [place] [address] Phone Care Team Providers Care Electroplating Technician Name Role Phone Pato Adkins Primary Care Provider [phone] Encounter Details Date Type Department Care Team (Late st Contact Info) Description 08/31/2024 Office Communication [facility] [place] [address] [place] [phone] Jt Lam MD [address] [facility] [place] [phone] Social History Tobacco Use Types Packs/Day Years [...] Lokelma is still $700 with coupons from [employer] How long after starting the Kayexalate would you like her to do repeat labs? * Telephone Encounter - Selina Velasquez - 08/31/2024 1:50 PM EST Order faxed to [phone]. documented in this encounter Plan of Treatment Upcoming Encounters Date Type Department Care Team (Late st Contact Info) Description 04/25/2025 1:45 PM EDT Office Visit [facility] [place], [place] - Anjelica NOL[address]CO [address] [facility] [address] [place] [phone] Jt Lam MD [address] [place] [address] [place] [address] [place] [address] documented as of this encounter Visit Diagnoses Not on filedocumented in this encounter Care Teams Electroplating Technician Relationship Specialty Start Date End Date Pato Adkins PA [address] [place] [address], [address] [place], [place] [phone] PCP - General Physician Rehabilitation Nurse 11/25/23 documented as of this encounter
--- OUTSIDE RECORDS SUMMARY | 2025-04-18 14:19 | XMS_ITS | Encounter Summary ---
Author Organization [facility], Address [address] [place] [address] Phone Care Team Providers Care Manager Heart Name Role Phone Pato Adkins Primary Care Provider [phone] Encounter Details Date Type Department Care Team (Late st Contact Info) Description 09/09/2024 Documentation Only [facility] [address] [place] [address] Selina Velasquez [address] [place] [phone] Social History Tobacco Use Types Packs/Day [...] [facility] Robyn BRANHAM [address] [place] [phone] Jt Lam MD [address] [place] [address] [place] [address] documented as of this encounter Visit Diagnoses Not on filedocumented in this encounter Care Teams Manager Heart Relationship Specialty Start Date End Date Pato Adkins PA [address] [place] [address], [address] [place] [address] PCP - General Physician Medical Nurse 11/25/23 documented as of this encounter
--- OUTSIDE RECORDS SUMMARY | 2025-04-18 14:19 | XMS_ITS | Encounter Summary ---
Author Organization [facility] Address [address] [facility] [address] [place] [address] Phone Care Team Providers Care Registration Specialist Name Role Phone Pato Adkins Primary Care Provider + Emerson Mcwilliams MD Unavailable [phone] Angy Spicer CNP Unavailable Encounter Details Date Type Department Care Team (Late st Contact Info) Description 09/20/2024 Procedure Pass [address] [place] [address] Social History Tobacco Use Types Packs/Day Years [...] Description 04/19/2025 8:00 AM EDT Office Visit [facility] [address] [place] [address] Emerson Mcwilliams MD 30 [place] [address] [email or web address] 08/03/2025 10:00 AM EST Office Visit [facility] [address] [place] [address] Susan Knapp MD [address] [facility], [address] [place] [address] [email or web address] documented as of this encounter Visit Diagnoses Not on filedocumented in this encounter Care Teams Registration Specialist Relationship Specialty Start Date End Date Jed, Pato Yvan, PA [address] [place] [address] PCP - General Physician Disintegrator Feeder 10/08/23 Emerson Mcwilliams MD [address] [place] [address] [email or web address] Primary Oncologist Medical Oncology 12/17/23 Angy Spicer CNP [address] [place] [address] [email or web address] Nurse Practitioner Medical Oncology 03/15/24 documented as of this encounter Additional Source Comments The information contained in this document represents components of the legal health record. It is not the complete legal health record.[facility]
--- OUTSIDE RECORDS SUMMARY | 2025-04-18 14:19 | XMS_ITS ---
Author Organization [facility] Address [address] [facility] [address] [place] [address] Phone Care Team Providers Care Coal Trammer Name Role Phone Pato Adkins Primary Care Provider + Emerson Mcwilliams MD Unavailable [phone] Angy Spicer CNP Unavailable Active Problems Patient Care Coordination No te Formatting of this note migh t be different from the original. Height 168.2cm no shoes taken by OC 03/16/2024 Problem Noted Date Diagnosed Date custodial (current) use of immunosuppressive bio logic 12/15/2024 [...] hyperkalemia Patient with hospital and continued on [facility] Nephrology consulted As potassium 5.4 today held Lokelma and ordered repeat BMP for this afternoon. Diet changed to low potassium, diuretic lisinopril discontinued Urinary retention 11/20/2023 Assessment & Plan (11/21/2023 2:42 PM EDT): Nephrectomy for RCC 11/13 and [facility]. Patient had a voiding trial postop but failed and Collins catheter replaced. Patient on way to [place] for voiding trial yesterday when she was called and told it was canceled. Due to decreased urine output and sensation that the Collins was falling as well as dark urine sent to the ED. Collins catheter repositioned with improvement Plan discontinue Collins catheter today for voiding trial. (Started on gabapentin at [facility] for postop pain: Patient says pain is [...]
--- OUTSIDE RECORDS SUMMARY | 2025-04-18 14:20 | XMS_ITS | Encounter Summary ---
Author Organization [facility] [place], Address [address] [place] [address] Phone Care Team Providers Care Denial Resolution Specialist Name Role Phone Pato Adkins Primary Care Provider [phone] Encounter Details Date Type Department Care Team (Late st Contact Info) Description 02/03/2024 Documentation Only [facility] [address] [place] [address] Bettye Del Castillo [address] [place] [phone] Social History Tobacco Use Types Packs/Day [...] Visit [facility] Robyn BRANHAM [address] [place] [phone] Jt Lam MD [address] [place] [address] [place] [address] documented as of this encounter Visit Diagnoses Not on filedocumented in this encounter Care Teams Denial Resolution Specialist Relationship Specialty Start Date End Date Pato Adkins PA [address] [place] [address], [address] [place] [address] PCP - General Physician Unarmed Security Guard 11/25/23 documented as of this encounter
--- OUTSIDE RECORDS SUMMARY | 2025-04-18 14:20 | XMS_ITS | Encounter Summary ---
Author Organization [facility] [place], Address [address] [place] [address] Phone Care Team Providers Care Seasonal Retail Merchandiser Name Role Phone Pato Adkins Primary Care Provider [phone] Encounter Details Date Type Department Care Team (Late st Contact Info) Description 12/19/2023 Orders Only [facility] Robyn BRANHAM [address] [place] [address] Jt Lam MD [address] [facility] [place] [address] Chronic kidney disease, stage 4 [...] [facility] Robyn [address] Simone [address] [place] [address] Jt Lam MD [address] [facility] [place] [address] documented as of this encounter Visit Diagnoses Diagnosis Chronic kidney disease, stage 4 (severe) (HCC) History of nephrectomy documented in this encounter Care Teams Seasonal Retail Merchandiser Relationship Specialty Start Date End Date Pato Adkins PA [address] [place] [address], [address] [place], [place] [phone] PCP - General Physician Bottler 11/25/23 documented as of this encounter
--- OUTSIDE RECORDS SUMMARY | 2025-04-18 14:20 | XMS_ITS | Encounter Summary ---
Author Organization [facility] [place], Address [address] [place] [address] Phone Care Team Providers Care Nutrition Club Ambassador Name Role Phone Pato Adkins Primary Care Provider [phone] Encounter Details Date Type Department Care Team (Late st Contact Info) Description 02/03/2024 Documentation Only [facility] [address] [place] [address] Bettye Del Castillo [address] [place] [phone] Social History Tobacco Use Types Packs/Day [...] [facility] Robyn BRANHAM [address] [place] [phone] Jt Lam MD [address] [place] [address] [place] [address] documented as of this encounter Visit Diagnoses Not on filedocumented in this encounter Care Teams Nutrition Club Ambassador Relationship Specialty Start Date End Date Pato Adkins PA [address] [place] [address], [address] [place] [address] PCP - General Physician Kerrick Kleaner Operator 11/25/23 documented as of this encounter
--- OUTSIDE RECORDS SUMMARY | 2025-04-18 14:20 | XMS_ITS | Encounter Summary ---
Author Organization [facility] [place], Address [address] [place] [address] Phone Care Team Providers Care Journeyman Powerhouse Operator Name Role Phone Pato Adkins Primary Care Provider [phone] Encounter Details Date Type Department Care Team (Late st Contact Info) Description 02/03/2024 Documentation Only [facility] [address] [place] [address] Bettye Del Castillo [address] [place] [phone] Social History Tobacco Use Types Packs/Day [...] Visit [facility] Robyn BRANHAM [address] [place] [phone] Jt Lam MD [address] [place] [address] [place] [address] documented as of this encounter Visit Diagnoses Not on filedocumented in this encounter Care Teams Journeyman Powerhouse Operator Relationship Specialty Start Date End Date Pato Adkins PA [address] [place] [address], [address] [place] [address] PCP - General Physician Livestock Yard Supervisor 11/25/23 documented as of this encounter
--- OUTSIDE RECORDS SUMMARY | 2025-04-18 14:20 | XMS_ITS | Encounter Summary ---
Author Organization [facility], Address [address] [place] [address] Phone Care Team Providers Care Tail Edger Name Role Phone Pato Adkins Primary Care Provider Encounter Details Date Type Department Care Team (Late st Contact Info) Description 01/30/2024 Orders Only [facility] Robyn BRANHAM [address] [place] [address] Jt Lam MD [address] [facility] [place] [address] Chronic kidney disease, stage 4 [...] Visit [facility] Robyn [address] Simone [address] [place] [address] Jt Lam MD [address] [facility] [place] [address] documented as of this encounter Visit Diagnoses Diagnosis Chronic kidney disease, stage 4 (severe) (HCC) History of nephrectomy documented in this encounter Care Teams Tail Edger Relationship Specialty Start Date End Date Pato Adkins PA [address] [place] [address], [address] [place], [place] [phone] PCP - General Physician Manager Personal 11/25/23 documented as of this encounter
--- OUTSIDE RECORDS SUMMARY | 2025-04-18 14:20 | XMS_ITS | Encounter Summary ---
Author Organization [facility] Address [address] [place] [address] Phone Care Team Providers Care Ror Engineer Name Role Phone Pato Adkins Primary Care Provider + Emerson Mcwilliams MD Unavailable [phone] Angy Spicer CNP Unavailable Encounter Details Date Type Department Care Team (Late st Contact Info) Description 12/15/2024 Procedure Pass [facility], Ct Scan - [address] [address] Social History Tobacco Use Types Packs/Day Years [...] 04/19/2025 8:00 AM EDT Office Visit [facility] [address] [place] [address] Emerson Mcwilliams MD [address] [place] [address] 08/03/2025 10:00 AM EST Office Visit [facility] [address] [place] [address] Susan Knapp MD [address] [facility], [address] [place] [address] [email or web address] documented as of this encounter Visit Diagnoses Not on filedocumented in this encounter Care Teams Ror Engineer Relationship Specialty Start Date End Date Pato Adkins PA [address] [place] [address] PCP - General Physician Learning And Development Manager 10/08/23 Emerson Mcwilliams MD [address] [place] [address] [email or web address] Primary Oncologist Medical Oncology 12/17/23 Angy Spicer CNP [address] [place] [address] [email or web address] Nurse Practitioner Medical Oncology 03/15/24 documented as of this encounter Additional Source Comments The information contained in this document represents components of the legal health record. It is not the complete legal health record.[facility]
--- OUTSIDE RECORDS SUMMARY | 2025-04-18 14:20 | XMS_ITS | Encounter Summary ---
Author Organization [facility] Address [address] [place] [address] Phone Care Team Providers Care Inpatient Care Manager Rn Name Role Phone Pato Adkins Primary Care Provider + Emerson Mcwilliams MD Unavailable [phone] Angy Spicer CNP Unavailable Encounter Details Date Type Department Care Team (Late st Contact Info) Description 12/15/2024 Procedure Pass [facility], Ct Scan - [address] [address] Social History Tobacco Use Types Packs/Day Years [...] Description 04/19/2025 8:00 AM EDT Office Visit [facility] [address] [place] [address] Emerson Mcwilliams MD [address] [place] [address] 08/03/2025 10:00 AM EST Office Visit [facility] [address] [place] [address] Susan Knapp MD [address] [facility], [address] [place] [address] [email or web address] documented as of this encounter Visit Diagnoses Not on filedocumented in this encounter Care Teams Inpatient Care Manager Rn Relationship Specialty Start Date End Date Pato Adkins PA [address] [place] [address] PCP - General Physician Plan Checker 10/08/23 Emerson Mcwilliams MD [address] [place] [address] [email or web address] Primary Oncologist Medical Oncology 12/17/23 Angy Spicer CNP [address] [place] [address] [email or web address] Nurse Practitioner Medical Oncology 03/15/24 documented as of this encounter Additional Source Comments The information contained in this document represents components of the legal health record. It is not the complete legal health record.[facility]
--- OUTSIDE RECORDS SUMMARY | 2025-04-18 14:20 | XMS_ITS | Clinical Summary ---
Author Organization [facility] Address [address] [employer] [facility] [address] [place] [address] Phone Care Team Providers Care High School History Teacher Name Role Phone Pato Adkins Primary Care Provider + Emerson Mcwilliams MD Unavailable [phone] Angy Spicer CNP Unavailable Allergies Active [...] by mouth daily. Active mv-mn/iron/FA/b iotin/herb 346 (UMVR-[id number] S,FA-HERB CMPLX, ORAL) Take 1 tablet by [...] OC 03/16/2024 Problem Noted Date Diagnosed Date snf (current) use of immunosuppressive bio logic 12/15/2024 [...] hyperkalemia Patient with hospital and continued on [facility] Nephrology consulted As potassium 5.4 today held [facility] and ordered repeat BMP for this afternoon. 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 Patient had a voiding trial postop but failed and Collins catheter replaced. Patient on way to [place] for voiding trial yesterday when she was called and told it was canceled. Due to decreased urine output and sensation that the Collins was falling as well as dark urine sent to the ED. Collins catheter repositioned with improvement Plan discontinue Collins catheter today for voiding trial. (Started on gabapentin at [facility] for postop pain: Patient says pain is [...] Encounters Date Type Department Care Team Description 04/18/2025 1:34 PM EDT Hospital Encounter [facility] [address] [place] [address] Emerson Mcwilliams MD Arrived 04/18/2025 Orders Only [facility] at [address] [address] Salima Goss CMA Renal cancer, right (Primary Dx) 04/05/2025 Orders Only [facility] at [address] [address] Mariella Child NP Renal cancer, right (Primary Dx); Abnormal chest x-ray with multiple lung nodules 03/30/2025 3:16 PM EDT - 03/30/2025 11:59 PM EDT Hospital Encounter [address] [address] Mariella Child NP Discharge Disposition: Home or Self Care 03/14/2025 Telephone [facility] at [address] [address] Steffany Dillard 03/14/2025 Telephone [facility] at [address] [address] Steffany Dillard 12/15/2024 Procedure Pass [address] [address] 12/15/2024 Procedure Pass [address] [address] from Last 3 Months Immunizations Immunization Administration [...] Description 04/19/2025 8:00 AM EDT Office Visit [facility] at [facility] 30 [place] [address] Emerson Mcwilliams MD 30 [place] [address] 08/03/2025 10:00 AM EST Office Visit [facility] [address] [place] [address] Susan Knapp MD 234 [facility] 7 [place] [address] [email or web address] Health Maintenance Due Date Last Done Comments [...] Additional history exists TSH LEVEL 01/04/2026 01/04/2025, 0511/2024, 11/22/2024, Additional history exists Adult Td,Tdap Booster [...] 03/30/2025 3:30 PM EDT 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 Mariella Patrica Danyell PAYMENT SPECIALIST IMG CT CHEST Final Re sult * CT ABDOMEN/PELVIS WITHOUT CONTRAST (03/30/2025 3:30 PM EDT) Anatomical Region Laterality Modality Abdomen, Pelvis Computed Tomogra phy 04/04/2025 7:09 PM EDT Impressions 04/05/2025 1:55 PM EDT 1. No significant new abnormality. Narrative 04/05/2025 1:[address] ABDOMEN/PELVIS WITHOUT CONTRAST Referring clinician's provided indication for this examination in [facility]: * Kidney cancer, follow up TECHNIQUE: Multidetector-row [...] clinician's provided indication for this examination in [facility]: *Kidney cancer, follow up TECHNIQUE: Multidetector-row CT [...] EDT) SODIUM 138 133 - 146 mmol/L [facility] POTASSIUM 5.3(H) 3.3 - 5.1 mmol/L [facility] CHLORIDE 104 96 - 108 mmol/L [facility] CO2 22 21 - 35 mmol/L [facility] BUN 39(H) 6 - 19 mg/dL [facility] CREATININE 1.80(H) 0.5 - 1.5 mg/dL [facility] GLUCOSE 143(H) 70 - 99 mg/dL [facility] ALBUMIN 4.2 3.9 - 4.8 g/dL [facility] TOTAL PROTEIN 7.6 6.5 - 8.0 g/dL [facility] CALCIUM 9.7 8.4 - 10.3 mg/dL [facility] ALKALINE PHOSPHATASE 115 39 - 117 U/L [facility] TOTAL BILIRUBIN <0.2 0.0 - 1.2 mg/dL [facility] AST 45(H) 0 - 37 U/L [facility] ALT 51(H) 0 - 40 U/L [facility] GLOBULIN 3.4 1 - 4.8 g/dL [facility] EGFR 30(L) >59 mL/min/1.7 3m2 [facility] Comment:Estimated glomerular filtration rate calculated using the CKD-EPI refit equation. ANION GAP 17 10 - 20 mmol/L [facility] Blood 01/04/2025 2:47 PM EDT 01/04/2025 2:56 PM EDT us Emerson Mcwilliams MD LAB BLOOD ORDERABLES Final Res ult Performing Organization Address [facility]/ZIP Co de Phone Number [address] [address] * TSH (01/04/2025 2:47 PM EDT) TSH 0.64 0.27 - 4.20 uIU/mL [facility] Blood 01/04/2025 2:47 PM EDT 01/04/2025 2:56 PM EDT us Emerson Mcwilliams MD LAB BLOOD ORDERABLES Final Res ult Performing Organization Address [facility] Co de Phone Number [address] [address] * (ABNORMAL) Lipid panel (09/08/2024 3:56 PM EST) HDL 69 mg/dL [facility] Comment: Interpretation <40 mg/dL: Low HDL cholesterol (major risk factor for CHD) Greater than or equal to 60 mg/dL: High HDL cholesterol ( negative risk factor for CHD) HDL - cholesterol is affected by a number of factors, e.g. smoking, excerise, hormones, sex and age. CHOLESTEROL 219 0 - 240 mg/dL [facility] TRIGLYCERIDES 75 30 - 160 mg/dL [facility] LDL 135(H) 50 - 129 mg/dL [facility] Comment: LDL levels in terms of risk for coronary heart disease: <100 mg/dL: Optimal 100-129 mg/dL: Near or above optimal 130-159 mg/dL: Borderline high 160-189 mg/dL: High >190 mg/dL: Very High CARDIAC RISK RATIO 3.2(L) 3.3 - 4.4 [facility] Blood 09/08/2024 3:56 PM EST 09/08/2024 3:58 PM EST us Pato CHRISTIANSON LAB BLOOD ORDERABLES Fin al Result Performing Organization Address City/[facility]/ZIP Co de Phone Number [address] [address] * Hemoglobin A1c (01/30/2024 11:49 AM EDT) HEMOGLOBIN A1C 5.8 4.3 - 5.8 % [facility] Blood 01/30/2024 11:4 9 AM EDT 01/30/2024 11:55 AM EDT us Jt Lam MD LAB BLOOD ORDERABLES Final Resul t Performing Organization Address [facility] Co de Phone Number [address] [address] from Last 3 Months or Most Recently Relevant to Health Maintenance Insurance MEDICARE PART A & B [facility] MEDICARE REPLACEMENT MEDICARE PART A & B MEDICARE REPLACEMENT MEDICARE PART A & B [facility] MEDICARE REPLACEMENT MEDICARE PART A & B [facility] MEDICARE REPLACEMENT MEDICARE PART A & B [facility] MEDICARE REPLACEMENT MEDICARE PART A & B MEDICARE REPLACEMENT Advance Directives For more information, please contact: [phone] (9AM - 5PM [facility], Friday-Friday) Documents on File Type Date Recorded Patient Trench Pipe Layer Expl anation Healthcare Proxy 11/24/2023 2:11 PM [...] Status Communicated To: Inpatient Attending Care Teams High School History Teacher Relationship Specialty Start Date End Date Pato Adkins PA [address] [place] [address] PCP - General Physician Mount Loader 10/08/23 Emerson Mcwilliams MD [address] [place] [address] Primary Oncologist Medical Oncology 12/17/23 Angy Sipcer CNP [address] [place] [address] Nurse Practitioner Medical Oncology 03/15/24 Additional Source Comments The information contained in this document represents components of the legal health record. It is not the complete legal health record.[facility]
--- OUTSIDE RECORDS SUMMARY | 2025-04-18 14:20 | XMS_ITS | Encounter Summary ---
Author Organization [facility], Address [address] [place] [address] Phone Care Team Providers Care Manager Relationship Name Role Phone Pato Adkins Primary Care Provider [phone] Encounter Details Date Type Department Care Team (Late st Contact Info) Description 12/15/2023 Documentation Only [facility] [address] [place] [address] Marj Fischer [address] [place] [address] Social History Tobacco Use Types [...] Visit [facility] Robyn BRANHAM [address] [place] [phone] Jt Lam MD [address] [place] [address] [place] [address] documented as of this encounter Visit Diagnoses Not on filedocumented in this encounter Care Teams Manager Relationship Relationship Specialty Start Date End Date Pato Adkins PA [address] [place] [address], [address] [place] [address] PCP - General Physician Pulp And Paper Tester 11/25/23 documented as of this encounter
--- OUTSIDE RECORDS SUMMARY | 2025-04-18 14:20 | XMS_ITS | Encounter Summary ---
Author Organization [facility], Address [address] [place] [address] Phone Care Team Providers Care Appeals Assistant Name Role Phone Pato Adkins Primary Care Provider [phone] Encounter Details Date Type Department Care Team (Late st Contact Info) Description 12/15/2023 Documentation Only [facility] [address] [place] [address] Marj Fischer [address] [place] [address] Social History Tobacco Use Types [...] Visit [facility] Robyn BRANHAM [address] [place] [phone] Jt Lam MD [address] [place] [address] [place] [address] documented as of this encounter Visit Diagnoses Not on filedocumented in this encounter Care Teams Appeals Assistant Relationship Specialty Start Date End Date Pato Adkins PA [address] [place] [address], [address] [place] [address] PCP - General Physician Senior Oracle Database Administrator 11/25/23 documented as of this encounter
--- OUTSIDE RECORDS SUMMARY | 2025-04-18 14:20 | XMS_ITS | Encounter Summary ---
Author Organization [facility], Address [address] [place] [address] Phone Care Team Providers Care Underwriting Internship Name Role Phone Pato Adkins Primary Care Provider [phone] Encounter Details Date Type Department Care Team (Late st Contact Info) Description 01/02/2024 Orders Only [facility] Robyn [address] [place] [address] Jt Lam MD [address] [facility] [place] [address] Chronic kidney disease, stage 4 [...] Visit [facility] Robyn [address] Simone [address] [place] [address] Jt Lam MD [address] [facility] [place] [address] documented as of this encounter Visit Diagnoses Diagnosis Chronic kidney disease, stage 4 (severe) (HCC) History of nephrectomy documented in this encounter Care Teams Underwriting Internship Relationship Specialty Start Date End Date Pato Adkins PA [address] [place] [address], [address] [place], [place] [phone] PCP - General Physician Roto Gravure Press Operator 11/25/23 documented as of this encounter
--- OUTSIDE RECORDS SUMMARY | 2025-04-18 14:20 | XMS_ITS | Encounter Summary ---
Author Organization [facility] [place], Address [address] [place] [address] Phone Care Team Providers Care Security Installation Sales Technician Name Role Phone Pato Adkins Primary Care Provider Encounter Details Date Type Department Care Team (Late st Contact Info) Description 01/16/2024 Orders Only [facility] Robyn [address] [place] [address] Jt Lam MD [address] [facility] [place] [address] Chronic kidney disease, stage 4 [...] Visit [facility] Robyn [address] Simone [address] [place] [address] Jt Lam MD [address] [facility] [place] [address] documented as of this encounter Visit Diagnoses Diagnosis Chronic kidney disease, stage 4 (severe) (HCC) History of nephrectomy documented in this encounter Care Teams Security Installation Sales Technician Relationship Specialty Start Date End Date Pato Adkins PA [address] [place] [address], [address] [place], [place] [phone] PCP - General Physician Candy Wrapping Machine Operator 11/25/23 documented as of this encounter
--- OUTSIDE RECORDS SUMMARY | 2025-04-18 14:20 | XMS_ITS | Encounter Summary ---
Author Organization [facility] Address [address] [place] [address] Phone Care Team Providers Care Chips Screen Tender Name Role Phone Pato Adkins Primary Care Provider + Emerson Mcwilliams MD Unavailable [phone] Angy Spicer CNP Unavailable Encounter Details Date Type Department Care Team (Late st Contact Info) Description 08/31/2024 Procedure Pass [facility], Ct Scan - [address] [address] Social History Tobacco Use Types Packs/Day Years [...] Description 04/19/2025 8:00 AM EDT Office Visit [facility] [address] [place] [address] Emerson Mcwilliams MD [address] [place] [address] 08/03/2025 10:00 AM EST Office Visit [facility] [address] [place] [address] Susan Knapp MD [address] [facility], [address] [place] [address] [email or web address] documented as of this encounter Visit Diagnoses Not on filedocumented in this encounter Care Teams Chips Screen Tender Relationship Specialty Start Date End Date Pato Adkins PA [address] [place] [address] PCP - General Physician Air Director 10/08/23 Emerson Mcwilliams MD [address] [place] [address] [email or web address] Primary Oncologist Medical Oncology 12/17/23 Angy Spicer CNP [address] [place] [address] [email or web address] Nurse Practitioner Medical Oncology 03/15/24 documented as of this encounter Additional Source Comments The information contained in this document represents components of the legal health record. It is not the complete legal health record.[facility]
--- OUTSIDE RECORDS SUMMARY | 2025-04-18 14:20 | XMS_ITS | Encounter Summary ---
Author Organization [facility] Address [address] [place] [address] Phone Care Team Providers Care Automat Watcher Name Role Phone Pato Adkins Primary Care Provider + Emerson Mcwilliams MD Unavailable [phone] Angy Spicer CNP Unavailable Encounter Details Date Type Department Care Team (Late st Contact Info) Description 03/14/2025 Telephone [facility] [address] [place] [address] Steffany Dillard [address] [place] [address] [email or web address] Social History Tobacco Use Types Packs/Day [...] Description 04/19/2025 8:00 AM EDT Office Visit [facility] at [facility] [address] [place] [address] Emerson Mcwilliams MD [address] [place] [address] 08/03/2025 10:00 AM EST Office Visit [facility] [address] [place] [address] Susan Knapp MD [address] [facility], [address] [place] [address] [email or web address] documented as of this encounter Visit Diagnoses Not on filedocumented in this encounter Care Teams Automat Watcher Relationship Specialty Start Date End Date Pato Adkins PA [address] [place] [address] PCP - General Physician Cloth Layer 10/08/23 Emerson Mcwilliams MD [address] [place] [address] [email or web address] Primary Oncologist Medical Oncology 12/17/23 Angy Spicer CNP [address] [place] [address] [email or web address] Nurse Practitioner Medical Oncology 03/15/24 documented as of this encounter Additional Source Comments The information contained in this document represents components of the legal health record. It is not the complete legal health record.[facility]
--- OUTSIDE RECORDS SUMMARY | 2025-04-18 14:20 | XMS_ITS | Encounter Summary ---
Author Organization [facility] [place], Address [address] [place] [address] Phone Care Team Providers Care Turf And Grounds Supervisor Name Role Phone Pato Adkins Primary Care Provider [phone] Encounter Details Date Type Department Care Team (Late st Contact Info) Description 11/27/2023 Documentation Only [facility] [place] Robyn [address] [place] [address] Bettye Del Castillo [address] [place] [address] Social History Tobacco Use Types [...] Visit [facility] [address] [place] [address] Jt Lam MD [address] [facility] [place] [phone] documented as of this encounter Visit Diagnoses Not on filedocumented in this encounter Care Teams Turf And Grounds Supervisor Relationship Specialty Start Date End Date Pato Adkins PA [address] [place] [address], [address] [place] [address] PCP - General Physician Latent Print Examiner 11/25/23 documented as of this encounter
--- OUTSIDE RECORDS SUMMARY | 2025-04-18 14:20 | XMS_ITS | Encounter Summary ---
Author Organization [facility] Address [address] [place] [address] Phone Care Team Providers Care Guest Room Attendant Name Role Phone Pato Adkins Primary Care Provider + Emerson Mcwilliams MD Unavailable [phone] Angy Spicer CNP Unavailable Encounter Details Date Type Department Care Team (Late st Contact Info) Description 11/14/2023 Procedure Pass [facility] [address] [place] [address] Social History Tobacco Use Types [...] 4:00 PM EDT Sandra Claudio, CALEB * [place] Suicide Severity Rating Scale (Screener/Recent Self-Report) Question [...] AM EDT Office Visit [facility] [address] [place] [address] Emerson Mcwilliams MD [address] [place] [address] [email or web address] 08/03/2025 10:00 AM EST Office Visit [facility] [address] [place] [address] Susan Knapp MD 234 [facility], [address] [place] [address] [email or web address] documented as of this encounter Visit Diagnoses Not on filedocumented in this encounter Care Teams Guest Room Attendant Relationship Specialty Start Date End Date Pato Adkins PA [facility] [place] [address] PCP - General Physician Bridge Engineer 10/08/23 Emerson Mcwilliams MD [address] [place] [address] [email or web address] Primary Oncologist Medical Oncology 12/17/23 Angy Spicer CNP [address] [place] [address] [email or web address] Nurse Practitioner Medical Oncology 03/15/24 documented as of this encounter Additional Source Comments The information contained in this document represents components of the legal health record. It is not the complete legal health record.[facility]
--- OUTSIDE RECORDS SUMMARY | 2025-04-18 14:20 | XMS_ITS | Encounter Summary ---
Author Organization [facility] Address [address] [place] [address] Phone Care Team Providers Care Patternmaker All Around Name Role Phone Pato Adkins Primary Care Provider + Emerson Mcwilliams MD Unavailable [phone] Angy Spicer CNP Unavailable Encounter Details Date Type Department Care Team (Late st Contact Info) Description 03/14/2025 Telephone [facility] [address] [place] [address] Steffany Dillard [address] [place] [address] [email or web address] Social History Tobacco Use Types Packs/Day Years [...] Office Visit [facility] 30 [place] [address] Emerson Mcwilliams MD [address] [place] [address] 08/03/2025 10:00 AM EST Office Visit [facility] [address] [place] [address] Susan Knapp MD 234 [facility], [address] [place] [address] [email or web address] documented as of this encounter Visit Diagnoses Not on filedocumented in this encounter Care Teams Patternmaker All Around Relationship Specialty Start Date End Date aPto Adkins PA [address] [place] [address] PCP - General Physician Brand Representative 10/08/23 Emerson Mcwilliams MD [address] [place] [address] Primary Oncologist Medical Oncology 12/17/23 Angy Spicer CNP [address] [place] [address] [email or web address] Nurse Practitioner Medical Oncology 03/15/24 documented as of this encounter Additional Source Comments The information contained in this document represents components of the legal health record. It is not the complete legal health record.[facility]
--- OUTSIDE RECORDS SUMMARY | 2025-04-18 14:20 | XMS_ITS | Encounter Summary ---
Author Organization [facility] [place], Address [address] [place] [address] Phone Care Team Providers Care Hat Sprayer Name Role Phone Pato Adkins Primary Care Provider [phone] Encounter Details Date Type Department Care Team (Late st Contact Info) Description 12/09/2023 Documentation Only [facility] [address] [place] [address] Bettye Del Castillo [address] [place] [address] Social History Tobacco Use Types Packs/Day [...] [facility] Robyn BRANHAM [address] [place] [phone] Jt Lam MD [address] [place] [address] [place] [address] documented as of this encounter Visit Diagnoses Not on filedocumented in this encounter Care Teams Hat Sprayer Relationship Specialty Start Date End Date Pato Adkins PA [address] [place] [address], [address] [place] [address] PCP - General Physician Charhouse Worker 11/25/23 documented as of this encounter
--- OUTSIDE RECORDS SUMMARY | 2025-04-18 14:22 | XMS_ITS | Encounter Summary ---
Author Organization [facility] Address [address] [place] [address] Phone Care Team Providers Care School Fundraising Director Name Role Phone Pato Adkins Primary Care Provider + Emerson Mcwilliams MD Unavailable [phone] Angy Spicer CNP Unavailable Encounter Details Date Type Department Care Team (Late st Contact Info) Description 04/18/2025 Orders Only [facility] [address] [place] [address] Salima Goss [facility] [address] [place] [address] Renal cancer, right (Primary Dx) Social History Tobacco Use Types [...] Description 04/19/2025 8:00 AM EDT Office Visit [facility] [address] [place] [address] Emerson Mcwilliams MD [address] [place] [address] 08/03/2025 10:00 AM EST Office Visit [facility] Medicine [address] [place] [address] Susan Knapp MD [address] [facility], [address] [place] [address] [email or web address] Pending Results Name Type Priority Associated Diagnoses Date /Time CBC and differential Lab Routine Renal cancer, right 04/18/2025 2:03 PM EDT Comprehensive metabolic panel Lab Routine Renal cancer, right 04/18/2025 2:03 PM EDT TSH Lab Routine Renal cancer, right 04/18/2025 2:03 PM EDT Scheduled Orders Name Type Priority Associated Diagnoses Orde r Schedule CBC and differential Lab Routine Renal cancer, right Expected: 04/18/2025, Expires: 04/18/2026 Comprehensive metabolic panel Lab Routine Renal cancer, right Expected: 04/18/2025, Expires: 04/18/2026 TSH Lab Routine Renal cancer, right Expected: 04/18/2025, Expires: 04/18/2026 documented as of this encounter Visit Diagnoses Diagnosis Renal cancer, right- Primary documented in this encounter Care Teams School Fundraising Director Relationship Specialty Start Date End Date Pato Adkins PA [address] [place] [address] PCP - General Physician Block Sorter 10/08/23 Emerson Mcwilliams MD [address] [place] [address] Primary Oncologist Medical Oncology 12/17/23 Angy Spicer CNP [address] [place] [address] Nurse Practitioner Medical Oncology 03/15/24 documented as of this encounter Additional Source Comments The information contained in this document represents components of the legal health record. It is not the complete legal health record.[facility]
== END 2025-04-18 11:20 | disposition home or self-care (01) ==
LOC: HO.HOS 10:50
PROVIDERS: Visit Provider Orthopaedic Surgery
DX: Z96.642 Presence of left artificial hip joint (principal); R26.89 Other abnormalities of gait and mobility
CPT/HCPCS: 99024

== ENCOUNTER → 2025-04-18 10:49 | Outpatient (BNVA) | payer MEDICARE, SELFPAY | PROVIDERS: Visit Provider Orthopaedic Surgery | DX: Z47.1 Aftercare following joint replacement surgery (principal); Z96.642 Presence of left artificial hip joint; R26.89 Other abnormalities of gait and mobility | CPT/HCPCS: 99212 ==

== ENCOUNTER 2025-07-13 14:41 | Outpatient (AMB) | payer MEDICARE, SELFPAY ==
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
--- OUTSIDE RECORDS SUMMARY | 2025-07-13 23:03 | XMS_ITS | Encounter Summary ---
Author Organization [facility], Address [address] [place] [address] Phone Care Team Providers Care Acute Care Physician Name Role Phone Pato Adkins Primary Care Provider [phone] Encounter Details Date Type Department Care Team (Late st Contact Info) Description 02/03/2024 Documentation Only [facility] [address] [place] [address] Bettye Del Castillo [address] [place] [phone] Social History Tobacco Use Types Packs/Day [...] Care Team (Late st Contact Info) Description 10/24/2025 1:45 PM EDT Office Visit [facility] Robyn BRANHAM [address] [place] [phone] Jt Lam MD [address] [place] [address] [place] [address] documented as of this encounter Visit Diagnoses Not on filedocumented in this encounter Care Teams Acute Care Physician Relationship Specialty Start Date End Date Pato Adkins PA [address] [place] [address], [address] [place] [address] PCP - General Physician Southeast Regional Sales Manager 11/25/23 documented as of this encounter
--- OUTSIDE RECORDS SUMMARY | 2025-07-13 23:03 | XMS_ITS | Encounter Summary ---
Author Organization [facility] Address [address] [place] [address] Phone Care Team Providers Care Mid Level Java Developer Name Role Phone Pato Adkins Primary Care Provider + Emerson Mcwilliams MD Unavailable [phone] Angy Spicer CNP Unavailable Encounter Details Date Type Department Care Team (Late st Contact Info) Description 11/14/2023 Procedure Pass [facility] [place] PERIOPERATIVE DEPT [address] [place] [address] Social History Tobacco Use Types [...] 4:00 PM EDT Sandra Claudio, CALEB * [place] Suicide Severity Rating Scale (Screener/Recent Self-Report) Question [...] Team (Late st Contact Info) Description 04/19/2025 Procedure Pass [address] [address] 08/09/2025 1:00 PM EST Appointment [address] [address] Emerson Mcwilliams MD [address] [place] [address] 08/16/2025 11:20 AM EST Office Visit [facility] at [address] [address] Emerson Mcwilliams MD [address] [place] [address] 09/23/2025 10:30 AM EST Office Visit [facility] [address] [address] Susan Knapp MD [address] [place] [address], [address] [place] [address] [email or web address] documented as of this encounter Visit Diagnoses Not on filedocumented in this encounter Care Teams Mid Level Java Developer Relationship Specialty Start Date End Date Pato Adkins PA [facility] [place] [address] PCP - General Physician Community Living Specialist 10/08/23 Emerson Mcwilliams MD [address] [place] [address] Primary Oncologist Medical Oncology 12/17/23 Angy Spicer CNP [address] [place] [address] Nurse Practitioner Medical Oncology 03/15/24 documented as of this encounter Additional Source Comments The information contained in this document represents components of the legal health record. It is not the complete legal health record.[facility]
--- OUTSIDE RECORDS SUMMARY | 2025-07-13 23:03 | XMS_ITS | Encounter Summary ---
Author Organization [facility] Address [address] [facility] [address] [place] [address] Phone Care Team Providers Care Cable Braider Name Role Phone Pato Adkins Primary Care Provider + Emerson Mcwilliams MD Unavailable [phone] Angy Spicer CNP Unavailable Encounter Details Date Type Department Care Team (Latest Contact Info) Description 01/30/2024 Transcribe Orders [facility] [address] [place] [address] Jt Lam MD [address] [facility] [address] [place] [address] Stage 3b chronic kidney disease (Primary Dx) [...] st Contact Info) Description 04/19/2025 Procedure Pass [address] [address] 08/09/2025 1:00 PM EST Appointment [address] [address] Emerson Mcwilliams MD [address] [place] [address] 08/16/2025 11:20 AM EST Office Visit [facility] at [address] [address] Emerson Mcwilliams MD [address] [place] [address] 09/23/2025 10:30 AM EST Office Visit [facility] Medical [address] [address] Susan Knapp MD [address] [place] [address], [address] [place] [address] [email or web address] documented as of this encounter Procedures Procedure [...] URIC ACID 6.0 2.4 - 7.0 mg/dL [facility] Blood 01/30/2024 11:4 9 AM EDT 01/30/2024 11:54 AM EDT us Jt Lam MD LAB BLOOD BKR ORDERABLES Final R esult [facility] [address] [place] [address] * (ABNORMAL) CBC (01/30/2024 11:49 AM EDT) WBC 5.15 4.00 - 11.00 K/uL [facility] RBC 4.02 3.72 - 5.30 M/uL [facility] HGB 11.5 11.4 - 15.9 g/dL [facility] HCT 36.3 34.2 - 46.8 % [facility] PLT 358 140 - 430 K/uL [facility] MCV 90.3 78.0 - 97.0 fL [facility] MCH 28.6 25.0 - 33.0 pg [facility] MCHC 31.7(L) 32.0 - 36.0 g/dL [facility] RDW 14.0 11.0 - 16.0 % [facility] MPV 9.5 8.4 - 12.8 fl [facility] Blood 01/30/2024 11:4 9 AM EDT 01/30/2024 11:54 AM EDT us Jt Lam MD LAB BLOOD BKR ORDERABLES Final R esult [address] [address] * Ferritin (01/30/2024 11:49 AM EDT) FERRITIN 39 13 - 150 ug/L [facility] Blood 01/30/2024 11:4 9 AM EDT 01/30/2024 11:54 AM EDT us Jt Lam MD LAB BLOOD BKR ORDERABLES Final R esult Performing Organization Address City/[facility]/ZIP Co de Phone Number [address] [address] * Iron and iron binding capacity (01/30/2024 11:49 AM EDT) IRON 92 30 - 160 ug/dL [facility] IRON BINDING CAPACITY 332 228 - 428 ug/dL [facility] TRANSFERRIN SATURAT. 28 15 - 50 % [facility] Blood 01/30/2024 11:4 9 AM EDT 01/30/2024 11:54 AM EDT us Jt Lam MD LAB BLOOD BKR ORDERABLES Final R esult Performing Organization Address [facility] Co de Phone Number [address] [address] * (ABNORMAL) Parathyroid hormone (PTH) (01/30/2024 11:49 AM EDT) PARATHYROID HORMONE 71(H) 15 - 65 pg/mL [facility] Blood 01/30/2024 11:4 9 AM EDT 01/30/2024 11:54 AM EDT us Jt Lam MD LAB BLOOD BKR ORDERABLES Final R esult Performing Organization Address [facility] Co de Phone Number [address] [address] * Hemoglobin A1c (01/30/2024 11:49 AM EDT) HEMOGLOBIN A1C 5.8 4.3 - 5.8 % [facility] Blood 01/30/2024 11:4 9 AM EDT 01/30/2024 11:55 AM EDT us Jt Lam MD LAB BLOOD BKR ORDERABLES Final R esult Performing Organization Address [facility] Co de Phone Number [address] [address] * Total protein creatinine ratio, random urine (01/30/2024 11:49 AM EDT) URINE TOTAL PROTEIN 25.0 mg/dL [facility] URINE CREATININE 138 mg/dL [facility] URINE TP CRE RATIO 0.18 0 - 0.19 [facility] Urine (Urine) 01/30/2024 11: 49 AM EDT 01/30/2024 11:55 AM EDT us Jt Lam MD LAB URINE ORDERABLES Final Resul t Performing Organization Address [facility]/ZIP Co de Phone Number [address] [address] * (ABNORMAL) Renal panel (01/30/2024 11:49 AM EDT) SODIUM 139 133 - 146 mmol/L [facility] POTASSIUM 5.2(H) 3.3 - 5.1 mmol/L [facility] CHLORIDE 106 96 - 108 mmol/L [facility] CO2 19(L) 21 - 35 mmol/L [facility] GLUCOSE 141(H) 70 - 99 mg/dL [facility] BUN 46(H) 6 - 19 mg/dL [facility] CREATININE 2.60(H) 0.5 - 1.5 mg/dL [facility] CALCIUM 9.8 8.4 - 10.3 mg/dL [facility] PHOSPHORUS 4.7(H) 2.7 - 4.5 mg/dL [facility] ALBUMIN 4.4 3.9 - 4.8 g/dL [facility] EGFR 19(L) >59 mL/min/1.7 3m2 [facility] Comment:Estimated glomerular filtration rate calculated using the CKD-EPI refit equation. ANION GAP 19 10 - 20 mmol/L [facility] Blood 01/30/2024 11:4 9 AM EDT 01/30/2024 11:54 AM EDT us Jt Lam MD LAB BLOOD BKR ORDERABLES Final R esult Performing Organization Address City/[facility]/ZIP Co de Phone Number [address] [address] documented in this encounter Visit Diagnoses Diagnosis Stage 3b chronic kidney disease- Primary documented in this encounter Care Teams Cable Braider Relationship Specialty Start Date End Date Pato Adkins PA [address] [place] [address] PCP - General Physician Carpenter Rough 10/08/23 Emerson Mcwilliams MD [address] [place] [address] [email or web address] Primary Oncologist Medical Oncology 12/17/23 Angy Spicer CNP [address] [place] [address] [email or web address] Nurse Practitioner Medical Oncology 03/15/24 documented as of this encounter Additional Source Comments The information contained in this document represents components of the legal health record. It is not the complete legal health record.[facility]
--- OUTSIDE RECORDS SUMMARY | 2025-07-13 23:03 | XMS_ITS | Encounter Summary ---
Author Organization [facility], Address [address] [place] [address] Phone Care Team Providers Care Pneumatic Tester Name Role Phone Pato Adkins Primary Care Provider [phone] Encounter Details Date Type Department Care Team (Late st Contact Info) Description 11/27/2023 Documentation Only [facility] Robyn [address] [place] [address] Bettye Del Castillo [address] [place] [address] Social History Tobacco Use Types [...] Visit [facility] [address] [place] [address] Jt Lam MD [address] [facility] [place] [phone] documented as of this encounter Visit Diagnoses Not on filedocumented in this encounter Care Teams Pneumatic Tester Relationship Specialty Start Date End Date Pato Adkins PA [address] [place] [address], [address] [place] [address] PCP - General Physician Silverer 11/25/23 documented as of this encounter
--- OUTSIDE RECORDS SUMMARY | 2025-07-13 23:03 | XMS_ITS | Encounter Summary ---
Author Organization [facility], Address [address] [place] [address] Phone Care Team Providers Care Telecommunication Engineer Name Role Phone Pato Adkins Primary Care Provider [phone] Encounter Details Date Type Department Care Team (Late st Contact Info) Description 01/30/2024 Orders Only [facility] Robyn [address] [place] [address] Jt Lam MD [address] [facility] [place] [address] Chronic kidney disease, stage 4 [...] Visit [facility] Robyn [address] [place] [address] Jt Lam MD [address] [facility] [place] [address] documented as of this encounter Visit Diagnoses Diagnosis Chronic kidney disease, stage 4 (severe) (HCC) History of nephrectomy documented in this encounter Care Teams Telecommunication Engineer Relationship Specialty Start Date End Date Pato Adkins PA [address] [place] [address], [address] [place], [place] [phone] PCP - General Physician Long Term Acute Care Registered Nurse 11/25/23 documented as of this encounter
--- OUTSIDE RECORDS SUMMARY | 2025-07-13 23:03 | XMS_ITS | Encounter Summary ---
Author Organization [facility] Address [address] [place] [address] Phone Care Team Providers Care Ship Runner Name Role Phone Pato Adkins Primary Care Provider + Emerson Mcwilliams MD Unavailable [phone] Angy Spicer CNP Unavailable Encounter Details Date Type Department Care Team (Late st Contact Info) Description 09/20/2024 Procedure Pass [address] [place] [address] Social History Tobacco Use Types Packs/Day Years [...] st Contact Info) Description 04/19/2025 Procedure Pass [facility], [address] [address] 08/09/2025 1:00 PM EST Appointment [facility], [address] [address] Emerson Mcwilliams MD [address] [place] [address] 08/16/2025 11:20 AM EST Office Visit [facility] at [address] [address] Emerson Mcwilliams MD [address] [place] [address] 09/23/2025 10:30 AM EST Office Visit [facility] [address] [place] [address] Susan Knapp MD [address] [facility], [address] [place], [place] [phone] [email or web address] documented as of this encounter Visit Diagnoses Not on filedocumented in this encounter Care Teams Ship Runner Relationship Specialty Start Date End Date Pato Adkins PA [address] [place] [address] PCP - General Physician Pipe Finishing Supervisor 10/08/23 Emerson Mcwilliams MD [address] [place] [address] [email or web address] Primary Oncologist Medical Oncology 12/17/23 Agny Spicer CNP [address] [place] [address] [email or web address] Nurse Practitioner Medical Oncology 03/15/24 documented as of this encounter Additional Source Comments The information contained in this document represents components of the legal health record. It is not the complete legal health record.[facility]
--- OUTSIDE RECORDS SUMMARY | 2025-07-13 23:03 | XMS_ITS | Encounter Summary ---
Author Organization [facility], Address [address] [place] [address] Phone Care Team Providers Care Critical Care Unit Nurse Name Role Phone Pato Adkins Primary Care Provider [phone] Encounter Details Date Type Department Care Team (Late st Contact Info) Description 02/03/2024 Documentation Only [facility] [address] [place] [address] Bettye Del Castillo [address] [place] [phone] Social History Tobacco Use Types Packs/Day [...] Visit [facility] Robny BRANHAM [address] [place] [phone] Jt Lam MD [address] [place] [address] [place] [address] documented as of this encounter Visit Diagnoses Not on filedocumented in this encounter Care Teams Critical Care Unit Nurse Relationship Specialty Start Date End Date Pato Adkins PA [address] [place] [address], [address] [place] [address] PCP - General Physician Gift Shop Assistant 11/25/23 documented as of this encounter
--- OUTSIDE RECORDS SUMMARY | 2025-07-13 23:03 | XMS_ITS | Encounter Summary ---
Author Organization [facility] Address [address] [facility] [address] [place] [address] Phone Care Team Providers Care Film Technician Name Role Phone Pato Adkins Primary Care Provider + Emerson Mcwilliams MD Unavailable [phone] Angy Spicer CNP Unavailable Encounter Details Date Type Department Care Team (Late st Contact Info) Description 11/20/2023 Transcribe Orders Virtual Department [address] [place] [address] Pato Adkins PA [address] [place], [place] [phone] Right shoulder pain, unspecified chronicity (Primary Dx) [...] 4:24 PM EDT Norma Tristan RN * [place] Suicide Severity Rating Scale (Screener/Recent Self-Report) Question Answer Date of Assessment Author 1. Wish to be (Past 1 Month) No 11/20/2023 4:24 PM Norma Mcdaniel RN 2. Non-Specific Active Suici ilene Thoughts (Past 1 Month) No 11/20/2023 4:24 PM HOLDENT Ari Tristan RN 6. Suicidal Behavior (Lifetime) No 4:24 PM Norma Mcdaniel RN documented as of this encounter Plan of Treatment Upcoming Encounters Date Type Department Care Team (Late st Contact Info) Description 04/19/2025 Procedure Pass [address] [address] 08/09/2025 1:00 PM EST Appointment [address] [address] Emerson Mcwilliams MD [address] [place] [address] [email or web address] 08/16/2025 11:20 AM EST Office Visit [facility] [address] [place] [address] Emerson Mcwilliams MD 30 [place] [address] [email or web address] 09/23/2025 10:30 AM EST Office Visit [facility] [address] [place] [address] Susan Knapp MD [address] [facility] 7 [place] [address] [email or web address] documented as of this encounter Results [...] chronicity documented in this encounter Care Teams Film Technician Relationship Specialty Start Date End Date Pato Adkins PA [address] [place] [address] PCP - General Physician Textile Broker 10/08/23 Emerson Mcwilliams MD [address] [place] [address] Primary Oncologist Medical Oncology 12/17/23 Angy Spicer CNP [address] [place] [address] Nurse Practitioner Medical Oncology 03/15/24 documented as of this encounter Additional Source Comments The information contained in this document represents components of the legal health record. It is not the complete legal health record.[facility]
--- OUTSIDE RECORDS SUMMARY | 2025-07-13 23:03 | XMS_ITS | Clinical Summary ---
Author Organization [facility], Address [address] [place] [address] Phone Care Team Providers Care Helmet Hat Puncher Name Role Phone Pato Adkins Primary Care Provider [phone] Allergies Active Allergy Reactions Criticality Noted Date [...] Patient with hospital and continued on [facility] Nephrology consulted As potassium 5.4 today held [facility] and ordered repeat BMP for this afternoon. Diet changed to low potassium, diuretic lisinopril discontinued Retention of urine 11/20/2023 Overview (06/17/2024): Last Assessment & Plan: Nephrectomy for RCC 11/13 and [facility]. Patient had a voiding trial postop but failed and Collins catheter replaced. Patient on way to [place] for voiding trial yesterday when she was called and told it was canceled. Due to decreased urine output and sensation that the Collins was falling as well as dark urine sent to the ED. Collins catheter repositioned with improvement Plan discontinue Collins catheter today for voiding trial. (Started on gabapentin at [facility] for postop pain: Patient says [...] Encounters Date Type Department Care Team Description 04/25/2025 1:45 PM EDT Office Visit [facility], Robyn [address] [place] [phone] Jt Lam MD Chronic kidney disease, stage 4 (severe) (HCC) (Primary Dx); History of nephrectomy; Essential (primary) hypertension 04/22/2025 Documentation Only [facility] Robyn BR[address]AM [address] [place] [address] Bettye Del Castillo from Last 3 Months Immunizations Immunization Administration [...] Visit [facility] [place], - Anjelica Liang [address] [address] Jt Lam MD [address] [place] [address] [place] [phone] Health Maintenance Due Date Last Done Comments [...] patient's age to complete this topic Insurance [facility] Medicare [facility] Medicare Care Teams Helmet Hat Puncher Relationship Specialty Start Date End Date Pato Adkins PA [address] [place] [address], [address] [place], [place] [phone] PCP - General Physician Charge Coordinator 11/25/23
--- OUTSIDE RECORDS SUMMARY | 2025-07-13 23:03 | XMS_ITS | Encounter Summary ---
Author Organization [facility], Address [address] [place] [address] Phone Care Team Providers Care Healthcare Architect Name Role Phone Pato Adkins Primary Care Provider [phone] Encounter Details Date Type Department Care Team (Late st Contact Info) Description 04/22/2025 Documentation Only [facility] Robyn [address]ANH[address] [place] [address] Bettye Del Castillo [address] [place] [address] Social History Tobacco Use Types [...] [facility] [address] [place] [address] Jt Lam MD [address] [place] [phone] documented as of this encounter Visit Diagnoses Not on filedocumented in this encounter Care Teams Healthcare Architect Relationship Specialty Start Date End Date Pato Adkins PA [address] [place] [address], [address] [place] [address] PCP - General Physician Supervisor Poultry Hatchery 11/25/23 documented as of this encounter
--- OUTSIDE RECORDS SUMMARY | 2025-07-13 23:03 | XMS_ITS ---
Author Organization [facility] Address [address] [facility] [address] [place] [address] Phone Care Team Providers Care Photograph Retoucher Name Role Phone Pato Adkins Primary Care Provider + Emerson Mcwilliams MD Unavailable [phone] Angy Spicer CNP Unavailable Active Problems Patient Care Coordination No te Formatting of this note migh t be different from the original. Height 168.2cm no shoes taken by OC 03/16/2024 Problem Noted Date Diagnosed Date assisted (current) use of immunosuppressive bio logic 12/15/2024 [...] hyperkalemia Patient with hospital and continued on [facility] Nephrology consulted As potassium 5.4 today held [facility] and ordered repeat BMP for this afternoon. Diet changed to low potassium, diuretic lisinopril discontinued Urinary retention 11/20/2023 Assessment & Plan (11/21/2023 2:42 PM EDT): Nephrectomy for RCC 11/13 and [facility]. Patient had a voiding trial postop but failed and Collins catheter replaced. Patient on way to [place] for voiding trial yesterday when she was called and told it was canceled. Due to decreased urine output and sensation that the Collins was falling as well as dark urine sent to the ED. Collins catheter repositioned with improvement Plan discontinue Collins catheter today for voiding trial. (Started on gabapentin at [facility] for postop pain: Patient says [...]
--- OUTSIDE RECORDS SUMMARY | 2025-07-13 23:03 | XMS_ITS | Encounter Summary ---
Author Organization [facility] Address [address] [facility] [address] [place] [address] Phone Care Team Providers Care Automotive Accessory Installer Name Role Phone Lacey Shafer MD Primary Care Provider Pato Adkins Primary Care Provider + Emerson Mcwilliams MD Unavailable [phone] Angy Spicer CNP Unavailable Encounter Details Date Type Department Care Team (Latest Contact Info) Description 08/11/2023 Transcribe Orders Virtual Department 30 [place] [address] System, Provider Not In, [facility] [employer] [address] [address] Stage 3b chronic kidney disease (CKD) (Primary [...] st Contact Info) Description 04/19/2025 Procedure Pass [facility], Ct Scan [address] [place] [address] [address] 08/09/2025 1:00 PM EST Appointment [place], Ct Scan [address] [address] Emerson Mcwilliams MD [address] [place] [address] [email or web address] 08/16/2025 11:20 AM EST Office Visit [facility] at [address] [address] Emerson Mcwilliams MD [address] [place] [address] 09/23/2025 10:30 AM EST Office Visit [facility] [address] [address] Susan Knapp MD [address] [place] [address], [address] [place] [address] [email or web address] documented as of this encounter Results * [...] clinician's provided indication for this examination in [facility]: Outside Radiology Order; STAGE 3B CKD TECHNIQUE: [...] clinician's provided indication for this examination in [facility]:Outside Radiology Order; STAGE 3B CKD TECHNIQUE: Kidney [...] right renal mass given by telephone to Jaene at 2:10PM 08/20/2023 authorized to take messages [...] metabolism documented in this encounter Care Teams Automotive Accessory Installer Relationship Specialty Start Date End Date Lacey Shafer MD [address] [place] [address] PCP - General 05/01/20 10/07/23 Pato Adkins PA [address] [place] [address] PCP - General Physician Box Toe Cutter 10/08/23 Emerson Mcwilliams MD [address] [place] [address] Primary Oncologist Medical Oncology 12/17/23 Angy Spicer CNP [address] [place] [address] Nurse Practitioner Medical Oncology 03/15/24 documented as of this encounter Additional Source Comments The information contained in this document represents components of the legal health record. It is not the complete legal health record.[facility]
--- OUTSIDE RECORDS SUMMARY | 2025-07-13 23:03 | XMS_ITS | Encounter Summary ---
Author Organization [facility], Address [address] [place] [address] Phone Care Team Providers Care Dental Hygiene Administrative Assistant Name Role Phone Pato Adkins Primary Care Provider [phone] Encounter Details Date Type Department Care Team (Late st Contact Info) Description 02/03/2024 Documentation Only [facility] [address] [place] [address] Bettye Del Castillo [address] [place] [phone] Social History Tobacco Use Types Packs/Day [...] Visit [facility] Robyn BRANHAM [address] [place] [phone] Jt Lam MD [address] [place] [address] [place] [address] documented as of this encounter Visit Diagnoses Not on filedocumented in this encounter Care Teams Dental Hygiene Administrative Assistant Relationship Specialty Start Date End Date Pato Adkins PA [address] [place] [address], [address] [place] [address] PCP - General Physician Sales Mgr 11/25/23 documented as of this encounter
--- OUTSIDE RECORDS SUMMARY | 2025-07-13 23:03 | XMS_ITS | Encounter Summary ---
Author Organization [facility] Address [address] [place] [address] Phone Care Team Providers Care Stain Applicator Name Role Phone Lacey Shafer MD Primary Care Provider Pato Adkins Primary Care Provider + Emerson Mcwilliams MD Unavailable [phone] Angy Spicer CNP Unavailable Encounter Details Date Type Department Care Team (Late st Contact Info) Description 09/01/2023 Procedure Pass [address] [place] [address] Social History Tobacco Use Types Packs/Day Years [...] st Contact Info) Description 04/19/2025 Procedure Pass [facility], Ct Scan - [address] [address] 08/09/2025 1:00 PM EST Appointment [facility], Ct Scan - [address] [address] Emerson Mcwilliams MD [address] [place] [address] 08/16/2025 11:20 AM EST Office Visit [facility] at [address] [address] Emerson Mcwilliams MD [address] [place] [address] 09/23/2025 10:30 AM EST Office Visit [facility] [address] [place] [address] Susan Knapp MD [address] [place] [address], [address] [place] [address] [email or web address] documented as of this encounter Visit Diagnoses Not on filedocumented in this encounter Care Teams Stain Applicator Relationship Specialty Start Date End Date Lacey Shafer MD [address] [place] [address] PCP - General 05/01/20 10/07/23 Pato Adkins PA [address] [place] [address] PCP - General Physician Hydrogen Braze Furnace Operator 10/08/23 Emerson Mcwilliams MD [address] [place] [address] [email or web address] Primary Oncologist Medical Oncology 12/17/23 Angy Spicer CNP [address] [place] [address] [email or web address] Nurse Practitioner Medical Oncology 03/15/24 documented as of this encounter Additional Source Comments The information contained in this document represents components of the legal health record. It is not the complete legal health record.[facility]
--- OUTSIDE RECORDS SUMMARY | 2025-07-13 23:03 | XMS_ITS | Encounter Summary ---
Author Organization [facility], Address [address] [place] [address] Phone Care Team Providers Care Squad Sergeant Name Role Phone Pato Adkins Primary Care Provider [phone] Encounter Details Date Type Department Care Team (Late st Contact Info) Description 01/02/2024 Orders Only [facility] Robyn [address] [place] [address] Jt Lam MD [address] [facility] [place] [address] Chronic kidney disease, stage 4 [...] Visit [facility] Robyn BRANH[address] [place] [address] Jt Lam MD [address] [facility] [place] [address] documented as of this encounter Visit Diagnoses Diagnosis Chronic kidney disease, stage 4 (severe) (HCC) History of nephrectomy documented in this encounter Care Teams Squad Sergeant Relationship Specialty Start Date End Date Pato Adkins PA [address] [place] [address], [address] [place], [place] [phone] PCP - General Physician Drawer In 11/25/23 documented as of this encounter
--- OUTSIDE RECORDS SUMMARY | 2025-07-13 23:03 | XMS_ITS | Encounter Summary ---
Author Organization [facility] Address [address] [place] [address] Phone Care Team Providers Care Leg Assembler Name Role Phone Lacey Shafer MD Primary Care Provider Pato Adkins Primary Care Provider + Emerson Mcwilliams MD Unavailable [phone] Angy Spicer CNP Unavailable Encounter Details Date Type Department Care Team (Late st Contact Info) Description 09/01/2023 Procedure Pass [address] [place] [address] Social History Tobacco Use Types Packs/Day Years [...] st Contact Info) Description 04/19/2025 Procedure Pass [facility], Ct Scan - [address] [address] 08/09/2025 1:00 PM EST Appointment [facility], Ct Scan - [address] [address] Emerson Mcwilliams MD [address] [place] [address] 08/16/2025 11:20 AM EST Office Visit [facility] at [address] [address] Emerson Mcwilliams MD [address] [place] [address] 09/23/2025 10:30 AM EST Office Visit [facility] [address] [place] [address] Susan Knpap MD [address] [place] [address], [address] [place] [address] [email or web address] documented as of this encounter Visit Diagnoses Not on filedocumented in this encounter Care Teams Leg Assembler Relationship Specialty Start Date End Date Lacey Shafer MD [address] [place] [address] PCP - General 05/01/20 10/07/23 Pato Adkins PA [address] [place] [address] PCP - General Physician Engine Lathe Set Up Operator 10/08/23 Emerson Mcwilliams MD [address] [place] [address] [email or web address] Primary Oncologist Medical Oncology 12/17/23 Angy Spicer CNP [address] [place] [address] [email or web address] Nurse Practitioner Medical Oncology 03/15/24 documented as of this encounter Additional Source Comments The information contained in this document represents components of the legal health record. It is not the complete legal health record.[facility]
--- OUTSIDE RECORDS SUMMARY | 2025-07-13 23:03 | XMS_ITS | Clinical Summary ---
Author Organization [facility] Address [address] [facility] [address] [place] [address] Phone Care Team Providers Care Production Operations Manager Name Role Phone Pato Adkins Primary Care Provider + Emerson Mcwilliams MD Unavailable [phone] Angy Spicer CNP Unavailable Allergies Active Allergy [...] by mouth daily. Active mv-mn/iron/FA/b iotin/herb 346 (JTRY-UJUS-XWQJ S,FA-HERB CMPLX, ORAL) Take 1 tablet by [...] with hospital and continued on [facility] Nephrology consulted As potassium 5.[address] [facility] and ordered repeat BMP for this afternoon. Diet changed to low potassium, diuretic lisinopril discontinued Urinary retention 11/20/2023 Assessment & Plan (11/21/2023 2:42 PM EDT): Nephrectomy for RCC 11/13 and [facility]. Patient had a voiding trial postop but failed and Collins catheter replaced. Patient on way to [place] for voiding trial yesterday when she was called and told it was canceled. Due to decreased urine output and sensation that the Collins was falling as well as dark urine sent to the ED. Collins catheter repositioned with improvement Plan discontinue Collins catheter today for voiding trial. (Started on gabapentin at [facility] for postop pain: Patient says pain is [...] Encounters Date Type Department Care Team Description 04/19/2025 8:00 AM EDT Office Visit [facility] [place] at [address] [address] Emerson Mcwilliams MD Renal cancer, right (Primary Dx) 04/18/2025 1:34 PM EDT - 04/18/2025 11:59 PM EDT Hospital Encounter [facility] [address] [address] Emerson Mcwilliams MD Discharge Disposition: Home or Self Care 04/18/2025 Orders Only [facility] at [address] [address] Salima Goss CMA Renal cancer, right (Primary Dx) from Last 3 Months Immunizations Immunization Administration [...] Sign Reading Time Taken Comments Blood Pressure 144/73 04/19/2025 8:07 AM EDT Pulse 63 04/19/2025 8:07 AM EDT Temperature 35.4 C (95.7 F) 04/19/2025 8:07 AM EDT Respiratory Rate 18 01/05/2025 9:39 AM EDT Oxygen Saturation 99% 04/19/2025 8:07 AM EDT Inhaled Oxygen Concentration - - Weight 72.7 kg (160 lb 3.2 oz) 04/19/2025 8:06 A M EDT Height 167.6 cm (5' 5.98 ) 04/19/2025 8:06 AM ED T Body Mass Index 25.87 04/19/2025 8:06 AM EDT Plan of Treatment Upcoming Encounters Date Type Department Care Team (Late st Contact Info) Description 04/19/2025 Procedure Pass [facility], [address] [address] 08/09/2025 1:00 PM EST Appointment [address] [address] Emerson Mcwilliams MD [address] [place] [address] 08/16/2025 11:20 AM EST Office Visit [facility] at [address] [address] Emerson Mcwilliams MD [address] [place] [address] 09/23/2025 10:30 AM EST Office Visit [facility] [address] [address] Susan Knapp MD [address] [place] [address], [address] [place] [address] [email or web address] Health Maintenance Due Date Last Done Comments [...] 2025 05/31/2024, 05/23/2023, 07/25/2022, Additional history exists LIPID PANEL 09/08/2025 09/08/2024 BLOOD PRESSURE 10/17/2025 04/19/2025 CREATININE LEVEL 04/18/2026 04/18/2025, 10/2024, 12/15/2024, Additional history exists TSH LEVEL 04/18/2026 04/18/2025, 06/0 10/2024, 12/15/2024, Additional history exists Adult Td,Tdap Booster 02/13/2033 02/13/2023 , 08/14/2015, 03/11/2005 RSV VACCINE Completed 08/18/2023 PNEUMOCOCCAL VACCINES (50+ years) Completed 02/23/2024, 06/25/2019 SMOKING STATUS SCREENING (Once After 26 Yrs) Completed 04/19/2025 HEPATITIS A VACCINES Aged Out No long [...] Procedure Name Priority Date/Time Associated Diagnosis Comments THYROID STIMULATING HORMONE (TSH) Routine 04/18/2025 2:03 PM EDT Renal cancer, right COMPREHENSIVE METABOLIC PANEL (CMP) Routine 04/18/2025 2:03 PM EDT Renal cancer, right CBC AND DIFFERENTIAL Routine 04/18/2025 2:03 PM EDT Renal cancer, right LIPID PANEL Routine 09/08/2024 3:56 PM EST Hyperlipidemia, unspecified hyperlipidemia type Chronic kidney disease, stage IV (severe) HEMOGLOBIN A1C Routine 01/30/2024 11:49 AM EDT Stage 3b chronic kidney disease from Last 3 Months or Most Recently Relevant to Health Maintenance Results * (ABNORMAL) Comprehensive metabolic panel (04/18/2025 2:03 PM EDT) SODIUM 134 133 - 146 mmol/L [facility] POTASSIUM 5.2(H) 3.3 - 5.1 mmol/L [facility] CHLORIDE 104 96 - 108 mmol/L [facility] CO2 19(L) 21 - 35 mmol/L [facility] BUN 39(H) 6 - 19 mg/dL [facility] CREATININE 1.80(H) 0.5 - 1.5 mg/dL [facility] GLUCOSE 100(H) 70 - 99 mg/dL [facility] ALBUMIN 4.1 3.9 - 4.8 g/dL [facility] TOTAL PROTEIN 7.4 6.5 - 8.0 g/dL [facility] CALCIUM 9.1 8.4 - 10.3 mg/dL [facility] ALKALINE PHOSPHATASE 139(H) 39 - 117 U/L [facility] TOTAL BILIRUBIN 0.3 0.0 - 1.2 mg/dL [facility] AST 35 0 - 37 U/L [facility] ALT 42(H) 0 - 40 U/L [facility] GLOBULIN 3.3 1 - 4.8 g/dL [facility] EGFR 30(L) >59 mL/min/1.7 3m2 [facility] Comment:Estimated glomerular filtration rate calculated using the CKD-EPI refit equation. ANION GAP 16 10 - 20 mmol/L [facility] Blood 04/18/2025 2:03 PM EDT 04/18/2025 2:11 PM EDT us Emerson Mcwilliams MD LAB BLOOD BKR ORDERABLES Final Result [facility] [address] [place] [address] * (ABNORMAL) CBC and differential (04/18/2025 2:03 PM EDT) WBC 6.56 4.00 - 11.00 K/uL [facility] RBC 3.59(L) 4.00 - 5.20 M/uL [facility] HGB 10.8(L) 12.0 - 16.0 g/dL [facility] HCT 33.2(L) 36.0 - 46.0 % [facility] PLT 239 150 - 450 K/uL [facility] MCV 92.5 80.0 - 100.0 fL [facility] MCH 30.1 27.0 - 31.0 pg [facility] MCHC 32.5 32.0 - 36.0 g/dL [facility] RDW 14.5 11.5 - 14.5 % [facility] MPV 8.6 8.4 - 12.0 fL [facility] NRBC 0.00 0.00 /100 WBCs [facility] ABSOLUTE NRBC 0.00 0.00 K/uL [facility] DIFF METHOD Auto [facility] NEUTS 49.6 48.0 - 76.0 % [facility] LYMPHS 31.6 18.0 - 41.0 % [facility] MONOS 6.7 4.0 - 11.0 % [facility] EOS 11.0(H) 0.0 - 5.0 % [facility] BASOS 0.6 0.0 - 1.5 % [facility] Granulocytes, immature (%) 0.5 0.0 - 0.9 % [facility] ABSOLUTE NEUTS 3.26 1.92 - 7.60 K/uL [facility] ABSOLUTE LYMPHS 2.07 0.72 - 4.10 K/uL [facility] ABSOLUTE MONOS 0.44 0.16 - 1.10 K/uL [facility] ABSOLUTE EOS 0.72(H) 0.00 - 0.50 K/uL [facility] ABSOLUTE BASOS 0.04 0.00 - 0.15 K/uL [facility] Granulocytes, immature 0.03 0.00 - 0.09 K/uL [facility] Blood 04/18/2025 2:03 PM EDT 04/18/2025 2:11 PM EDT us Emerson Mcwilliams MD LAB BLOOD BKR ORDERABLES Final Result [address] [address] * TSH (04/18/2025 2:03 PM EDT) TSH 3.21 0.27 - 4.20 uIU/mL [facility] Blood 04/18/2025 2:03 PM EDT 04/18/2025 2:11 PM EDT us Emerson Mcwilliams MD LAB BLOOD BKR ORDERABLES Final Result Performing Organization Address City/[facility] Co de Phone Number [address] [address] * (ABNORMAL) Lipid panel (09/08/2024 3:56 PM EST) HDL 69 mg/dL [facility] Comment: Interpretation <40 mg/dL: Low HDL cholesterol (major risk factor for CHD) Greater than or equal to 60 mg/dL: High HDL cholesterol ( negative risk factor for CHD) HDL - cholesterol is affected by a number of factors, e.g. smoking, excerise, hormones, sex and age. CHOLESTEROL 219 0 - 240 mg/dL [facility] TRIGLYCERIDES 75 30 - 160 mg/dL [facility] LDL 135(H) 50 - 129 mg/dL [facility] Comment: LDL levels in terms of risk for coronary heart disease: <100 mg/dL: Optimal 100-129 mg/dL: Near or above optimal 130-159 mg/dL: Borderline high 160-189 mg/dL: High >190 mg/dL: Very High CARDIAC RISK RATIO 3.2(L) 3.3 - 4.4 C [facility] Blood 09/08/2024 3:56 PM EST 09/08/2024 3:58 PM EST us Pato [facility] LAB BLOOD BKR ORDERABLES Final Result Performing Organization Address City/[facility]/ZIP Co de Phone Number [address] [address] * Hemoglobin A1c (01/30/2024 11:49 AM EDT) HEMOGLOBIN A1C 5.8 4.3 - 5.8 % [facility] Blood 01/30/2024 11:4 9 AM EDT 01/30/2024 11:55 AM EDT us Jt Lam MD LAB BLOOD BKR ORDERABLES Final R esult [facility] [address] [place] [address] from Last 3 Months or Most Recently Relevant to Health Maintenance Insurance MEDICARE PART A & B [facility] MEDICARE REPLACEMENT MEDICARE PART A & B MEDICARE REPLACEMENT MEDICARE PART A & B MEDICARE REPLACEMENT MEDICARE PART A & B [id number] [place] [address] MEDICARE REPLACEMENT MEDICARE PART A & B [facility] MEDICARE REPLACEMENT MEDICARE PART A & B [facility] MEDICARE REPLACEMENT Advance Directives For more information, please contact: [phone] (9AM - 5PM [place], Friday-Friday) Documents on File Type Date Recorded Patient Chassis Engineer Expl anation Healthcare Proxy 11/24/2023 2:11 PM [...] Status Communicated To: Inpatient Attending Care Teams Production Operations Manager Relationship Specialty Start Date End Date Pato Adkins PA [address] [place] [address] PCP - General Physician Cook House Supervisor 10/08/23 Emerson Mcwilliams MD [address] [place] [address] [email or web address] Primary Oncologist Medical Oncology 12/17/23 Angy Spicer CNP [address] [place] [address] [email or web address] Nurse Practitioner Medical Oncology 03/15/24 Additional Source Comments The information contained in this document represents components of the legal health record. It is not the complete legal health record.[facility]
--- OUTSIDE RECORDS SUMMARY | 2025-07-13 23:03 | XMS_ITS | Encounter Summary ---
Author Organization [facility], Address [address] [place] [address] Phone Care Team Providers Care Director Airport Name Role Phone Pato Adkins Primary Care Provider [phone] Encounter Details Date Type Department Care Team (Late st Contact Info) Description 12/09/2023 Documentation Only [facility] [address] [place] [address] Bettye Del Castillo [address] [place] [phone] Social History Tobacco Use Types Packs/Day [...] Visit [facility] Robyn BRANHAM [address] [place] [phone] Jt Lam MD [address] [place] [address] [place] [address] documented as of this encounter Visit Diagnoses Not on filedocumented in this encounter Care Teams Director Airport Relationship Specialty Start Date End Date Pato Adkins PA [address] [place] [address], [address] [place] [address] PCP - General Physician It Communications Specialist 11/25/23 documented as of this encounter
--- OUTSIDE RECORDS SUMMARY | 2025-07-13 23:03 | XMS_ITS | Encounter Summary ---
Author Organization [facility] Address [address] [place] [address] Phone Care Team Providers Care Analytical Research Chemist Name Role Phone Pato Adkins Primary Care Provider + Emerson Mcwilliams MD Unavailable [phone] Angy Spicer CNP Unavailable Encounter Details Date Type Department Care Team (Late st Contact Info) Description 12/15/2024 Procedure Pass [facility], Ct Scan - [address] [address] Social History Tobacco Use Types Packs/Day Years [...] st Contact Info) Description 04/19/2025 Procedure Pass [facility] Ct Scan [address] [address] 08/09/2025 1:00 PM EST Appointment [place], Ct Scan [address] [address] Emerson Mcwilliams MD [address] [place] [address] 08/16/2025 11:20 AM EST Office Visit [facility] at [address] [address] Emerson Mcwilliams MD [address] [place] [address] 09/23/2025 10:30 AM EST Office Visit [facility] [address] [address] Susan Knapp MD [address] [place] [address], [address] [place] [address] [email or web address] documented as of this encounter Visit Diagnoses Not on filedocumented in this encounter Care Teams Analytical Research Chemist Relationship Specialty Start Date End Date Pato Adkins PA [address] [place] [address] PCP - General Physician Temporary Staff Accountant 10/08/23 Emerson Mcwilliams MD [address] [place] [address] [email or web address] Primary Oncologist Medical Oncology 12/17/23 Angy Spicer CNP [address] [place] [address] [email or web address] Nurse Practitioner Medical Oncology 03/15/24 documented as of this encounter Additional Source Comments The information contained in this document represents components of the legal health record. It is not the complete legal health record.[facility]
--- OUTSIDE RECORDS SUMMARY | 2025-07-13 23:03 | XMS_ITS | Encounter Summary ---
Author Organization [facility], Address [address] [place] [address] Phone Care Team Providers Care Process Supervisor Name Role Phone Pato Adkins Primary Care Provider [phone] Encounter Details Date Type Department Care Team (Late st Contact Info) Description 06/17/2024 Documentation Only [facility] Robyn [address] [place] [address] Bettye Del Castillo [address] [place] [address] Social History Tobacco Use Types [...] [facility] [address] [place] [address] Jt Lam MD [address] [facility] [place] [phone] documented as of this encounter Visit Diagnoses Not on filedocumented in this encounter Care Teams Process Supervisor Relationship Specialty Start Date End Date Pato Adkins PA [address] [place] [address], [address] [place] [address] PCP - General Physician Meterman 11/25/23 documented as of this encounter
--- OUTSIDE RECORDS SUMMARY | 2025-07-13 23:03 | XMS_ITS | Encounter Summary ---
Author Organization [facility], Address [address] [place] [address] Phone Care Team Providers Care Fleet Operations Manager Name Role Phone Pato Adkins Primary Care Provider [phone] Encounter Details Date Type Department Care Team (Late st Contact Info) Description 02/03/2024 Documentation Only [facility] [address] [place] [address] Bettye Del Castillo [address] [place] [phone] Social History Tobacco Use Types Packs/Day [...] Visit [facility] Robyn BRANHAM [address] [place] [phone] Jt Lam MD [address] [place] [address] [place] [address] documented as of this encounter Visit Diagnoses Not on filedocumented in this encounter Care Teams Fleet Operations Manager Relationship Specialty Start Date End Date Pato Adkins PA [address] [place] [address], [address] [place] [address] PCP - General Physician Torch Shearer 11/25/23 documented as of this encounter
--- OUTSIDE RECORDS SUMMARY | 2025-07-13 23:03 | XMS_ITS | Encounter Summary ---
Author Organization [facility] Address [address] [place] [address] Phone Care Team Providers Care Clipper Operator Name Role Phone Pato Adkins Primary Care Provider + Emerson Mcwilliams MD Unavailable [phone] Angy Spicer CNP Unavailable Encounter Details Date Type Department Care Team (Late st Contact Info) Description 06/28/2024 Procedure Pass [facility], Ct Scan - [address] [address] Social History Tobacco Use Types Packs/Day Years [...] st Contact Info) Description 04/19/2025 Procedure Pass [facility] Ct Scan [address] [address] 08/09/2025 1:00 PM EST Appointment [place], Ct Scan [address] [address] Emerson Mcwilliams MD [address] [place] [address] 08/16/2025 11:20 AM EST Office Visit [facility] at [address] [address] Emerson Mcwilliams MD [address] [place] [address] 09/23/2025 10:30 AM EST Office Visit [facility] [address] [address] Susan Knapp MD [address] [place] [address], [address] [place] [address] [email or web address] documented as of this encounter Visit Diagnoses Not on filedocumented in this encounter Care Teams Clipper Operator Relationship Specialty Start Date End Date Pato Adkins PA [address] [place] [address] PCP - General Physician Helpdesk Technician 10/08/23 Emerson Mcwilliams MD [address] [place] [address] [email or web address] Primary Oncologist Medical Oncology 12/17/23 Angy Spicer CNP [address] [place] [address] [email or web address] Nurse Practitioner Medical Oncology 03/15/24 documented as of this encounter Additional Source Comments The information contained in this document represents components of the legal health record. It is not the complete legal health record.[facility]
--- OUTSIDE RECORDS SUMMARY | 2025-07-13 23:03 | XMS_ITS | Encounter Summary ---
Author Organization [facility], Address [address] [place] [address] Phone Care Team Providers Care Acidizer Name Role Phone Pato Adkins Primary Care Provider [phone] Encounter Details Date Type Department Care Team (Late st Contact Info) Description 12/15/2023 Documentation Only [facility] [address] [place] [address] Marj Fischer [address] [place] [address] Social History Tobacco Use Types [...] And [facility]plant [facility] Robyn BRANHAM [address] [place] [phone] Jt Lam MD [address] [place] [address] [place] [address] documented as of this encounter Visit Diagnoses Not on filedocumented in this encounter Care Teams Acidizer Relationship Specialty Start Date End Date Pato Adkins PA [address] [place] [address], [address] [place] [address] PCP - General Physician Jailer Chief 11/25/23 documented as of this encounter
--- OUTSIDE RECORDS SUMMARY | 2025-07-13 23:03 | XMS_ITS | Encounter Summary ---
Author Organization [facility], Address [address] [place] [address] Phone Care Team Providers Care Roofing Layer Name Role Phone Pato Adkins Primary Care Provider [phone] Encounter Details Date Type Department Care Team (Late st Contact Info) Description 12/19/2023 Orders Only [facility] [address] [place] [address] Jt Lam MD [address] [facility] [place] [address] Chronic kidney disease, stage 4 [...] Visit [facility] [address] [place] [address] Jt Lam MD [address] [facility] [place] [address] documented as of this encounter Visit Diagnoses Diagnosis Chronic kidney disease, stage 4 (severe) (HCC) History of nephrectomy documented in this encounter Care Teams Roofing Layer Relationship Specialty Start Date End Date Pato Adkins PA [address] [place] [address], [address] [place], [place] [phone] PCP - General Physician Associate Professor Of Psychology 11/25/23 documented as of this encounter
--- OUTSIDE RECORDS SUMMARY | 2025-07-13 23:03 | XMS_ITS | Encounter Summary ---
Author Organization [facility] [place], Address [address] [place] [address] Phone Care Team Providers Care Gear Nicker Name Role Phone Pato Adkins Primary Care Provider [phone] Encounter Details Date Type Department Care Team (Late st Contact Info) Description 08/31/2024 Documentation Only [facility] [address] [place] [address] Selina Velasquez [address] [place] [address] Social History Tobacco Use Types [...] Visit [facility] Robyn BRANHAM [address] [place] [phone] Jt Lam MD [address] [place] [address] [place] [address] documented as of this encounter Visit Diagnoses Not on filedocumented in this encounter Care Teams Gear Nicker Relationship Specialty Start Date End Date Pato Adkins PA [address] [place] [address], [address] [place] [address] PCP - General Physician Active Directory Administrator 11/25/23 documented as of this encounter
--- OUTSIDE RECORDS SUMMARY | 2025-07-13 23:03 | XMS_ITS | Encounter Summary ---
Author Organization [facility] [place], Address [address] [place] [address] Phone Care Team Providers Care Stenciler Name Role Phone Pato Adkins Primary Care Provider [phone] Encounter Details Date Type Department Care Team (Late st Contact Info) Description 02/13/2024 Orders Only [facility] [address] [place] [address] Jt Lam MD [address] [facility] [place] [address] Chronic kidney disease, stage 4 [...] Visit [facility] [address] [place] [address] Jt Lam MD [address] [facility] [place] [address] documented as of this encounter Visit Diagnoses Diagnosis Chronic kidney disease, stage 4 (severe) (HCC) History of nephrectomy documented in this encounter Care Teams Stenciler Relationship Specialty Start Date End Date Pato Adkins PA [address] [place] [address], [address] [place], [place] [phone] PCP - General Physician Stock Supervisor 11/25/23 documented as of this encounter
--- OUTSIDE RECORDS SUMMARY | 2025-07-13 23:03 | XMS_ITS | Encounter Summary ---
Author Organization [facility] Address [email or web address] [place] [address] Phone Care Team Providers Care Camp Maintenance Supervisor Name Role Phone Pato Adkins Primary Care Provider + Emerson Mcwilliams MD Unavailable [phone] Angy Spicer CNP Unavailable Encounter Details Date Type Department Care Team (Late st Contact Info) Description 08/31/2024 Procedure Pass [facility], Ct Scan - [address] [address] Social History Tobacco Use Types Packs/Day Years [...] st Contact Info) Description 04/19/2025 Procedure Pass [facility] Ct Scan [address] [address] 08/09/2025 1:00 PM EST Appointment [place], Ct Scan [address] [address] Emerson Mcwilliams MD [address] [place] [address] 08/16/2025 11:20 AM EST Office Visit [facility] at [address] [address] Emerson Mcwilliams MD [address] [place] [address] 09/23/2025 10:30 AM EST Office Visit [facility] [address] [address] Susan Knapp MD [address] [place] [address], [address] [place] [address] [email or web address] documented as of this encounter Visit Diagnoses Not on filedocumented in this encounter Care Teams Camp Maintenance Supervisor Relationship Specialty Start Date End Date Pato Adkins PA [address] [place] [address] PCP - General Physician Marine Water Tender 10/08/23 Emerson Mcwilliams MD [address] [place] [address] [email or web address] Primary Oncologist Medical Oncology 12/17/23 Angy Spicer CNP [address] [place] [address] [email or web address] Nurse Practitioner Medical Oncology 03/15/24 documented as of this encounter Additional Source Comments The information contained in this document represents components of the legal health record. It is not the complete legal health record.[facility]
--- OUTSIDE RECORDS SUMMARY | 2025-07-13 23:03 | XMS_ITS | Encounter Summary ---
Author Organization [facility] Address [address] [place] [address] Phone Care Team Providers Care Information Systems Security Officer Name Role Phone Pato Adkins Primary Care Provider + Emerson Mcwilliams MD Unavailable [phone] Angy Spicer CNP Unavailable Encounter Details Date Type Department Care Team (Late st Contact Info) Description 06/28/2024 Procedure Pass [facility], Ct Scan - [address] [address] Social History Tobacco Use Types Packs/Day Years [...] st Contact Info) Description 04/19/2025 Procedure Pass [facility] Ct Scan [address] [address] 08/09/2025 1:00 PM EST Appointment [place], Ct Scan [address] [address] Emerson Mcwilliams MD [address] [place] [address] 08/16/2025 11:20 AM EST Office Visit [facility] at [address] [address] Emerson Mcwilliams MD [address] [place] [address] 09/23/2025 10:30 AM EST Office Visit [facility] [address] [address] Susan Knapp MD [address] [place] [address], [address] [place] [address] [email or web address] documented as of this encounter Visit Diagnoses Not on filedocumented in this encounter Care Teams Information Systems Security Officer Relationship Specialty Start Date End Date Pato Adkins PA [address] [place] [address] PCP - General Physician Interior Design Coordinator 10/08/23 Emerson Mcwilliams MD [address] [place] [address] Primary Oncologist Medical Oncology 12/17/23 Angy Spicer CNP [address] [place] [address] Nurse Practitioner Medical Oncology 03/15/24 documented as of this encounter Additional Source Comments The information contained in this document represents components of the legal health record. It is not the complete legal health record.[facility]
--- OUTSIDE RECORDS SUMMARY | 2025-07-13 23:03 | XMS_ITS | Encounter Summary ---
Author Organization [facility] [place], Address [address] [place] [address] Phone Care Team Providers Care Food Preparer Name Role Phone Pato Adkins Primary Care Provider [phone] Encounter Details Date Type Department Care Team (Late st Contact Info) Description 09/09/2024 Documentation Only [facility] [address] [place] [address] Selina Velasquez [address] [place] [phone] Social History Tobacco Use Types Packs/Day [...] Visit [facility] Robyn BRANHAM [address] [place] [phone] Jt Lam MD [address] [place] [address] [place] [address] documented as of this encounter Visit Diagnoses Not on filedocumented in this encounter Care Teams Food Preparer Relationship Specialty Start Date End Date Pato Adkins PA [address] [place] [address], [address] [place] [address] PCP - General Physician Project Manager Process Development 11/25/23 documented as of this encounter
--- OUTSIDE RECORDS SUMMARY | 2025-07-13 23:03 | XMS_ITS | Encounter Summary ---
Author Organization [facility] [place], Address [address] [place] [address] Phone Care Team Providers Care Fur Ironer Name Role Phone Pato Adkins Primary Care Provider [phone] Encounter Details Date Type Department Care Team (Late st Contact Info) Description 02/03/2024 Documentation Only [facility] [address] [place] [address] Bettye Del Castillo [address] [place] [phone] Social History Tobacco Use Types Packs/Day [...] [facility] Robyn BRANHAM [address] [place] [phone] Jt Lam MD [address] [place] [address] [place] [address] documented as of this encounter Visit Diagnoses Not on filedocumented in this encounter Care Teams Fur Ironer Relationship Specialty Start Date End Date Pato Adkins PA [address] [place] [address], [address] [place] [address] PCP - General Physician Honeycomb Decapper 11/25/23 documented as of this encounter
--- OUTSIDE RECORDS SUMMARY | 2025-07-13 23:03 | XMS_ITS | Encounter Summary ---
Author Organization [facility] [place], Address [address] [place] [address] Phone Care Team Providers Care Kidney Trimmer Name Role Phone Pato Adkins Primary Care Provider [phone] Encounter Details Date Type Department Care Team (Late st Contact Info) Description 01/16/2024 Orders Only [facility] Robyn [address] [place] [address] Jt Lam MD [address] [place] [address] Chronic kidney disease, stage 4 [...] [facility] Robyn [address] [place] [address] Jt Lam MD [address] [place] [address] documented as of this encounter Visit Diagnoses Diagnosis Chronic kidney disease, stage 4 (severe) (HCC) History of nephrectomy documented in this encounter Care Teams Kidney Trimmer Relationship Specialty Start Date End Date Pato Adkins PA [address] [place] [address], [address] [place], [place] [phone] PCP - General Physician Coal Or Ore Controller 11/25/23 documented as of this encounter
--- OUTSIDE RECORDS SUMMARY | 2025-07-13 23:03 | XMS_ITS | Encounter Summary ---
Author Organization [facility] [place], Address [address] [place] [address] Phone Care Team Providers Care Education Program Specialist Name Role Phone Pato Adkins Primary Care Provider [phone] Encounter Details Date Type Department Care Team (Late st Contact Info) Description 09/17/2024 Documentation Only [facility] [address] [place] [address] Selina Velasquez [address] [place] [phone] Social History Tobacco Use Types Packs/Day [...] [facility] Robyn BRANHAM [address] [place] [phone] Jt Lam MD [address] [place] [address] [place] [address] documented as of this encounter Visit Diagnoses Not on filedocumented in this encounter Care Teams Education Program Specialist Relationship Specialty Start Date End Date Pato Adkins PA [address] [place] [address], [address] [place] [address] PCP - General Physician Reinforcing Steel Machine Operator 11/25/23 documented as of this encounter
--- OUTSIDE RECORDS SUMMARY | 2025-07-13 23:03 | XMS_ITS | Encounter Summary ---
Author Organization [facility] Address [address] [place] [address] Phone Care Team Providers Care Control Supervisor Name Role Phone Pato Adkins Primary Care Provider + Emerson Mcwilliams MD Unavailable [phone] Angy Spicer CNP Unavailable Encounter Details Date Type Department Care Team (Late st Contact Info) Description 12/15/2024 Procedure Pass [facility], Ct Scan - [address] [address] Social History Tobacco Use Types Packs/Day Years [...] st Contact Info) Description 04/19/2025 Procedure Pass [facility] Ct Scan [address] [address] 08/09/2025 1:00 PM EST Appointment [place], Ct Scan [address] [address] Emerson Mcwilliams MD [address] [place] [address] 08/16/2025 11:20 AM EST Office Visit [facility] at [address] [address] Emerson Mcwilliams MD [address] [place] [address] 09/23/2025 10:30 AM EST Office Visit [facility] [address] [address] Susan Knapp MD [address] [place] [address], [address] [place] [address] [email or web address] documented as of this encounter Visit Diagnoses Not on filedocumented in this encounter Care Teams Control Supervisor Relationship Specialty Start Date End Date Pato Adkins PA [address] [place] [address] PCP - General Physician Snowmobile Mechanic 10/08/23 Emerson Mcwilliams MD [address] [place] [address] [email or web address] Primary Oncologist Medical Oncology 12/17/23 Angy Spicer CNP [address] [place] [address] [email or web address] Nurse Practitioner Medical Oncology 03/15/24 documented as of this encounter Additional Source Comments The information contained in this document represents components of the legal health record. It is not the complete legal health record.[facility]
--- OUTSIDE RECORDS SUMMARY | 2025-07-13 23:03 | XMS_ITS | Encounter Summary ---
Author Organization [facility] Address [address] [place] [address] Phone Care Team Providers Care Stage Manager Name Role Phone Pato Adkins Primary Care Provider + Emerson Mcwilliams MD Unavailable [phone] Angy Spicer CNP Unavailable Encounter Details Date Type Department Care Team (Late st Contact Info) Description 03/14/2025 Telephone [facility] at [facility] [address] [place] [address] Steffany Dillard 30 [place] [address] Social History Tobacco Use Types Packs/Day Years [...] st Contact Info) Description 04/19/2025 Procedure Pass [address] [address] 08/09/2025 1:00 PM EST Appointment [address] [address] Emerson Mcwilliams MD [address] [place] [address] 08/16/2025 11:20 AM EST Office Visit [facility] at [address] [address] Emerson Mcwilliams MD [address] [place] [address] 09/23/2025 10:30 AM EST Office Visit [facility] [address] [place] [address] Susan Knapp MD [address] [facility], [address] [place] [address] [email or web address] documented as of this encounter Visit Diagnoses Not on filedocumented in this encounter Care Teams Stage Manager Relationship Specialty Start Date End Date Pato Adkins PA [facility] [place] [address] PCP - General Physician Machine Hostler 10/08/23 Emerson Mcwilliams MD [address] [place] [address] [email or web address] Primary Oncologist Medical Oncology 12/17/23 Angy Spicer CNP [address] [place] [address] [email or web address] Nurse Practitioner Medical Oncology 03/15/24 documented as of this encounter Additional Source Comments The information contained in this document represents components of the legal health record. It is not the complete legal health record.[facility]
--- OUTSIDE RECORDS SUMMARY | 2025-07-13 23:03 | XMS_ITS | Encounter Summary ---
Author Organization [facility] Address [address] [facility] [address] [place] [address] Phone Care Team Providers Care Tarring Machine Operator Name Role Phone Lacey Shafer MD Primary Care Provider Pato Adkins Primary Care Provider + Emerson Mcwilliams MD Unavailable [phone] Angy Spicer CNP Unavailable Reason for Referral * MRI/CAT Scan - Closed Specialty Diagnoses / Procedures Referred By Contac t Referred To Contact Radiology Diagnoses Renal mass Procedures MRI Abdomen Edmundo Sinha MD [address] [place] [address] Phone: tel: fax: Referral ID Status Reason Start Date Expiration Date Visits Re quested Visits Authorized [id number] Closed 09/01/2023 1 1 * MRI/CAT Scan - Closed Specialty Diagnoses / Procedures Referred By Contac t Referred To Contact Radiology Diagnoses Renal mass Procedures MRI Pelvis (GI/) Edmundo Sinha MD [address] [place] [address] Phone: tel: fax: Referral ID Status Reason Start Date Expiration Date Visits Re quested Visits Authorized [id number] Closed 09/01/2023 1 1 * MRI/CAT Scan - Closed Specialty Diagnoses / Procedures Referred By Jhonny neal Referred To Contact Radiology Diagnoses Renal mass Procedures CT Chest Edmundo Sinha MD [address] [place] [address] Phone: tel: fax: Referral ID Status Reason Start Date Expiration Date Visits Re quested Visits Authorized [id number] Closed 08/28/2023 1 1 Encounter Details Date Type Department Care Team (Latest Contact Info) Description 08/28/2023 Transcribe Orders Virtual Department [address] [place] [address] Edmundo Sinha MD [address] [place] [address] Renal mass (Primary Dx) Social History Tobacco [...] st Contact Info) Description 04/19/2025 Procedure Pass [facility], Ct Scan - [facility] [address] [place] [address] 08/09/2025 1:00 PM EST Appointment [facility], Ct Scan - [facility] [address] [place] [address] Emerson Mcwilliams MD [address] [place] [address] 08/16/2025 11:20 AM EST Office Visit [facility] at [facility] [address] [place] [address] Emerson Mcwilliams MD [address] [place] [address] 09/23/2025 10:30 AM EST Office Visit [facility] [address] [address] Susan Knapp MD [address] [place] [address], [address] [place] [address] [email or web address] documented as of this encounter Results * [...] metastasis. us Edmundo Sinha MD IMG MR PELVIS Final Res ult documented in this encounter Visit Diagnoses Diagnosis Renal mass- Primary Unspecified disorder of kidney and ureter Renal mass Unspecified disorder of kidney and ureter Renal mass Unspecified disorder of kidney and ureter documented in this encounter Care Teams Tarring Machine Operator Relationship Specialty Start Date End Date Lacey Shfaer MD [address] [place] [address] PCP - General 05/01/20 10/07/23 Pato Adkins PA [address] [place] [address] PCP - General Physician Acidizer Water Well 10/08/23 Emerson Mcwilliams MD [address] [place] [address] Primary Oncologist Medical Oncology 12/17/23 Angy Spicer CNP [address] [place] [address] Nurse Practitioner Medical Oncology 03/15/24 documented as of this encounter Additional Source Comments The information contained in this document represents components of the legal health record. It is not the complete legal health record.[facility]
--- OUTSIDE RECORDS SUMMARY | 2025-07-13 23:03 | XMS_ITS | Encounter Summary ---
Author Organization [facility] [place], Address [address] [place] [address] Phone Care Team Providers Care Biodiesel Processing Technician Name Role Phone Pato Adkins Primary Care Provider Encounter Details Date Type Department Care Team (Late st Contact Info) Description 12/15/2023 Documentation Only [facility] [address] [place] [address] Marj Fischer [address] [place] [address] Social History Tobacco Use Types [...] [facility] Robyn BRANHAM [address] [place] [phone] Jt Lam MD [address] [place] [address] [place] [address] documented as of this encounter Visit Diagnoses Not on filedocumented in this encounter Care Teams Biodiesel Processing Technician Relationship Specialty Start Date End Date Pato Adkins PA [address] [place] [address], [address] [place] [address] PCP - General Physician Transport Engineer 11/25/23 documented as of this encounter
--- OUTSIDE RECORDS SUMMARY | 2025-07-13 23:03 | XMS_ITS | Encounter Summary ---
Author Organization [facility] Address [address] [place] [address] Phone Care Team Providers Care Alum Operator Name Role Phone Lacey Shafer MD Primary Care Provider Pato Adkins Primary Care Provider + Emerson Mcwilliams MD Unavailable [phone] Angy Spicer CNP Unavailable Encounter Details Date Type Department Care Team (Late st Contact Info) Description 08/28/2023 Procedure Pass [facility], Ct Scan - [address] [phone] Social History Tobacco Use Types Packs/Day Years [...] st Contact Info) Description 04/19/2025 Procedure Pass [facility], Ct Scan - [address] [address] 08/09/2025 1:00 PM EST Appointment [facility], Ct Scan - [address] [address] Emerson Mcwilliams MD [address] [place] [address] 08/16/2025 11:20 AM EST Office Visit [facility] at [address] [address] Emerson Mcwilliams MD [address] [place] [address] 09/23/2025 10:30 AM EST Office Visit [facility] [address] [address] Susan Knapp MD [address] [place] [address], [address] [place] [address] [email or web address] [email or web address] documented as of this encounter Visit Diagnoses Not on filedocumented in this encounter Care Teams Alum Operator Relationship Specialty Start Date End Date Lacey Shafer MD [address] [place] [address] PCP - General 05/01/20 10/07/23 Pato Adkins PA [address] [place] [address] PCP - General Physician Tube Skiver 10/08/23 Emerson Mcwilliams MD [address] [place] [address] [email or web address] Primary Oncologist Medical Oncology 12/17/23 Angy Spicer CNP [address] [place] [address] [email or web address] Nurse Practitioner Medical Oncology 03/15/24 documented as of this encounter Additional Source Comments The information contained in this document represents components of the legal health record. It is not the complete legal health record.[facility]
--- OUTSIDE RECORDS SUMMARY | 2025-07-13 23:03 | XMS_ITS | Encounter Summary ---
Author Organization [facility] [place], Address [address] [place] [address] Phone Care Team Providers Care Coating Mixer Tender Name Role Phone Pato Adkins Primary Care Provider [phone] Encounter Details Date Type Department Care Team (Late st Contact Info) Description 02/03/2024 Documentation Only [facility] [address] [place] [address] Bettye Del Castillo [address] [place] [phone] Social History Tobacco Use Types Packs/Day [...] [facility] Robyn BRANHAM [address] [place] [phone] Jt Lam MD [address] [place] [address] [place] [address] documented as of this encounter Visit Diagnoses Not on filedocumented in this encounter Care Teams Coating Mixer Tender Relationship Specialty Start Date End Date Pato Adkins PA [address] [place] [address], [address] [place] [address] PCP - General Physician Agricultural Loan Officer 11/25/23 documented as of this encounter
== END 2025-07-13 15:17 | disposition home or self-care (01) ==
PROVIDERS: PCP Physician Assistant; Visit Provider Psychiatry & Neurology Neurology
DX: G62.9 Polyneuropathy, unspecified (principal); R26.89 Other abnormalities of gait and mobility; G31.84 Mild cognitive impairment of uncertain or unknown etiology
CPT/HCPCS: 99205

== ENCOUNTER → 2025-07-13 14:41 | Outpatient (BNVA) | payer MEDICARE, SELFPAY | PROVIDERS: PCP Physician Assistant; Visit Provider Psychiatry & Neurology Neurology | DX: G62.9 Polyneuropathy, unspecified (principal); R26.89 Other abnormalities of gait and mobility; G31.84 Mild cognitive impairment of uncertain or unknown etiology; D64.9 Anemia, unspecified; N28.9 Disorder of kidney and ureter, unspecified | CPT/HCPCS: 99202 ==

== ENCOUNTER 2025-07-25 09:28 | Outpatient (REF) | payer MEDICARE, SELFPAY ==
--- NOTE | ~2025-07-25 | XR_ITS ---
EXAMINATION: XR PELVIS 1-2 VIEWS HISTORY: M25.559 - Pain in unspecified hip COMPARISON: Comparison is made with the prior examination dated 02/27/2025. FINDINGS: Two AP views of the pelvis are submitted. The patient is status post left total hip arthroplasty. The orthopedic elements are in anatomic alignment on these AP views. There is no radiographic evidence of loosening. There is no fracture or dislocation. The right hip joint space is maintained. There is degenerative change of the sacroiliac joints. There are vascular calcifications. XR/XR pelvis 1-2V IMPRESSION: Status post left total hip arthroplasty. Electronically signed by: Ko Menchaca MD 07/25/2025 01:19 PM [facility]
--- OUTSIDE RECORDS SUMMARY | 2025-07-25 10:47 | XMS_ITS | Encounter Summary ---
Author Organization [facility] Address [address] [place] [address] Phone Care Team Providers Care Shoe Maker Name Role Phone Pato Adkins Primary Care Provider + Emerson Mcwilliams MD Unavailable [phone] Angy Spicer CNP Unavailable Encounter Details Date Type Department Care Team (Late st Contact Info) Description 12/15/2024 Procedure Pass [facility], Ct Scan - [address] [address] Social History Tobacco Use Types Packs/Day Years [...] st Contact Info) Description 04/19/2025 Procedure Pass [facility] Ct Scan [address] [address] 08/09/2025 1:00 PM EST Hospital Encounter [address] [address] Emerson Mcwilliams MD [address] [place] [address] 08/16/2025 11:20 AM EST Office Visit [facility] at [address] [address] Emerson Mcwilliams MD [address] [place] [address] 09/23/2025 10:30 AM EST Office Visit [facility] [address] [place] [address] Susan Knapp MD [address] [place] [address] [email or web address] [email or web address] documented as of this encounter Visit Diagnoses Not on filedocumented in this encounter Care Teams Shoe Maker Relationship Specialty Start Date End Date Pato Adkins PA [facility] [place] [address] PCP - General Physician Painter Sign Maintenance 10/08/23 Emerson Mcwilliams MD [address] [place] [address] [email or web address] Primary Oncologist Medical Oncology 12/17/23 Angy Spicer CNP [address] [place] [address] Nurse Practitioner Medical Oncology 03/15/24 documented as of this encounter Additional Source Comments The information contained in this document represents components of the legal health record. It is not the complete legal health record.[facility]
--- OUTSIDE RECORDS SUMMARY | 2025-07-25 10:47 | XMS_ITS | Clinical Summary ---
Author Organization [facility] Address [address] [facility] [address] [place] [address] Phone Care Team Providers Care Product Manager E Commerce Name Role Phone Pato Adkins Primary Care Provider + Emerson Mcwilliams MD Unavailable [phone] Angy Spicer CNP Unavailable Allergies Active [...] by mouth daily. Active mv-mn/iron/FA/b iotin/herb 346 (ULVD-YKWA-EZPF S,FA-HERB CMPLX, ORAL) Take 1 tablet by [...] hyperkalemia Patient with hospital and continued on [facility] Nephrology consulted As potassium 5.4 today held [facility] and ordered repeat BMP for this afternoon. 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 Patient had a voiding trial postop but failed and Collins catheter replaced. Patient on way to [place] for voiding trial yesterday when she was called and told it was canceled. Due to decreased urine output and sensation that the Collins was falling as well as dark urine sent to the ED. Collins catheter repositioned with improvement Plan discontinue Collins catheter today for voiding trial. (Started on gabapentin at [facility] for postop pain: Patient says pain is [...] 11/16/2023 10/12/2024 Right renal mass 11/14/2023 10/12/2024 Immunizations Immunization Administration Dates Next Due Influenza [...] st Contact Info) Description 04/19/2025 Procedure [address] [address] 08/09/2025 1:00 PM EST Hospital Encounter [address] [address] Emerson Mcwilliams MD [address] [place] [address] 08/16/2025 11:20 AM EST Office Visit [facility] [place] [facility] at [place] [facility] [address] [place] [address] Emerson Mcwilliams MD [address] [place] [address] 09/23/2025 10:30 AM EST Office Visit [facility] [address] [place] [address] Susan Knapp MD 234 [facility] 7 [place] [address] [email or web address] Health Maintenance Due Date Last Done [...] EDT) SODIUM 134 133 - 146 mmol/L [facility] POTASSIUM 5.2(H) 3.3 - 5.1 mmol/L [facility] CHLORIDE 104 96 - 108 mmol/L [facility] CO2 19(L) 21 - 35 mmol/L [facility] BUN 39(H) 6 - 19 mg/dL [facility] CREATININE 1.80(H) 0.5 - 1.5 mg/dL [facility] GLUCOSE 100(H) 70 - 99 mg/dL [facility] ALBUMIN 4.1 3.9 - 4.8 g/dL [facility] TOTAL PROTEIN 7.4 6.5 - 8.0 g/dL [facility] CALCIUM 9.1 8.4 - 10.3 mg/dL [facility] ALKALINE PHOSPHATASE 139(H) 39 - 117 U/L [facility] TOTAL BILIRUBIN 0.3 0.0 - 1.2 mg/dL [facility] AST 35 0 - 37 U/L [facility] ALT 42(H) 0 - 40 U/L [facility] GLOBULIN 3.3 1 - 4.8 g/dL [facility] EGFR 30(L) >59 mL/min/1.7 3m2 [facility] Comment:Estimated glomerular filtration rate calculated using the CKD-EPI refit equation. ANION GAP 16 10 - 20 mmol/L [facility] Blood 04/18/2025 2:03 PM EDT 04/18/2025 2:11 PM EDT us Emerson Mcwilliams MD LAB BLOOD BKR ORDERABLES Final Result Performing Organization Address [facility] Co de Phone Number [address] [address] * TSH (04/18/2025 2:03 PM EDT) TSH 3.21 0.27 - 4.20 uIU/mL [facility] Blood 04/18/2025 2:03 PM EDT 04/18/2025 2:11 PM EDT us Emerson Mcwilliams MD LAB BLOOD BKR ORDERABLES Final Result Performing Organization Address City/[facility]/ZIP Co de Phone Number [address] [address] * (ABNORMAL) Lipid panel (09/08/2024 3:56 PM EST) HDL 69 mg/dL [facility] Comment: Interpretation <40 mg/dL: Low HDL cholesterol (major risk factor for CHD) Greater than or equal to 60 mg/dL: High HDL cholesterol ( negative risk factor for CHD) HDL - cholesterol is affected by a number of factors, e.g. smoking, excerise, hormones, sex and age. CHOLESTEROL 219 0 - 240 mg/dL [facility] TRIGLYCERIDES 75 30 - 160 mg/dL [facility] LDL 135(H) 50 - 129 mg/dL [facility] Comment: LDL levels in terms of risk for coronary heart disease: <100 mg/dL: Optimal 100-129 mg/dL: Near or above optimal 130-159 mg/dL: Borderline high 160-189 mg/dL: High >190 mg/dL: Very High CARDIAC RISK RATIO 3.2(L) 3.3 - 4.4 [facility] Blood 09/08/2024 3:56 PM EST 09/08/2024 3:58 PM EST us Pato CHRISTIANSON LAB BLOOD BKR ORDERABLES Final Result Performing Organization Address City/[facility]/ZIP Co de Phone Number [address] [address] * Hemoglobin A1c (01/30/2024 11:49 AM EDT) HEMOGLOBIN A1C 5.8 4.3 - 5.8 % [facility] Blood 01/30/2024 11:4 9 AM EDT 01/30/2024 11:55 AM EDT us Jt Lam MD LAB BLOOD BKR ORDERABLES Final R esult Performing Organization Address City/[facility]/ZIP Co de Phone Number [address] [address] from Last 3 Months or Most Recently Relevant to Health Maintenance Insurance MEDICARE PART A & B [facility] MEDICARE REPLACEMENT [place] [id number] MEDICARE PART A & B MEDICARE REPLACEMENT [place] [id number] MEDICARE PART A & B MEDICARE REPLACEMENT MEDICARE PART A & B MEDICARE REPLACEMENT MEDICARE PART A & B MEDICARE REPLACEMENT MEDICARE PART A & B Member Subscriber Plan / Payer (Ef fective 2018-Present) Name:Kailey Dorado Member ID:[id number] Relation to Subscriber:Self Name:Kailey Dorado Subscriber ID:[id number] Payer ID:[id number] Group ID:Not on file Type:Medicare Address: [employer] [address] [place] [id number] [place] [address] MEDICARE REPLACEMENT Advance Directives For more information, please contact: [phone] (9AM - 5PM [facility], Friday-Friday) Documents on File Type Date Recorded Patient Train Gateman Expl anation Healthcare Proxy 11/24/2023 2:11 PM [...] Status Communicated To: Inpatient Attending Care Teams Product Manager E Commerce Relationship Specialty Start Date End Date Pato Adkins PA [address] [place] [address] PCP - General Physician Security Developer 10/08/23 Emerson Mcwilliams MD 30 [place] [address] [email or web address] Primary Oncologist Medical Oncology 12/17/23 Angy Spicer CNP [address] [place] [address] Nurse Practitioner Medical Oncology 03/15/24 Additional Source Comments The information contained in this document represents components of the legal health record. It is not the complete legal health record.[facility]
--- OUTSIDE RECORDS SUMMARY | 2025-07-25 10:47 | XMS_ITS ---
Author Organization [facility] Address [address] [facility] [address] [place] [address] Phone Care Team Providers Care Street Cleaning Equipment Operator Name Role Phone Pato Adkins Primary Care Provider + Emerson Mcwilliams MD Unavailable [phone] Angy Spicer CNP Unavailable Active Problems Patient Care Coordination No te Formatting of this note migh t be different from the original. Height 168.2cm no shoes taken by OC 03/16/2024 Problem Noted Date Diagnosed Date FPC (current) use of immunosuppressive bio logic 12/15/2024 [...] Patient with hospital and continued on [facility] Nephrology consulted As potassium 5.4 today held [facility] and ordered repeat BMP for this afternoon. 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 Patient had a voiding trial postop but failed and Collins catheter replaced. Patient on way to [place] for voiding trial yesterday when she was called and told it was canceled. Due to decreased urine output and sensation that the Collins was falling as well as dark urine sent to the ED. Collins catheter repositioned with improvement Plan discontinue Collins catheter today for voiding trial. (Started on gabapentin at [facility] for postop pain: Patient says [...]
--- OUTSIDE RECORDS SUMMARY | 2025-07-25 10:47 | XMS_ITS | Encounter Summary ---
Author Organization [facility] Address [address] [place] [address] Phone Care Team Providers Care Data Keyer Name Role Phone Pato Adkins Primary Care Provider + Emerson Mcwilliams MD Unavailable [phone] Angy Spicer CNP Unavailable Encounter Details Date Type Department Care Team (Late st Contact Info) Description 03/14/2025 Telephone [facility] [place] [facility] at [address] [address] Steffany Dillard [address] [place] [address] [email or web address] Social History Tobacco Use Types Packs/Day Years [...] st Contact Info) Description 04/19/2025 Procedure [address] [address] 08/09/2025 1:00 PM EST Hospital Encounter [address] [address] Emerson Mcwilliams MD [address] [place] [address] 08/16/2025 11:20 AM EST Office Visit [facility] [place] [facility] at [address] [address] Emerson Mcwilliams MD [address] [place] [address] 09/23/2025 10:30 AM EST Office Visit [facility] [address] [place] [address] Susan Knapp MD 234 [facility], [address] [place] [address] [email or web address] documented as of this encounter Visit Diagnoses Not on filedocumented in this encounter Care Teams Data Keyer Relationship Specialty Start Date End Date Pato Adkins PA [facility] [place] [address] PCP - General Physician Pig Furnace Operator 10/08/23 Emerson Mcwilliams MD [address] [place] [address] [email or web address] Primary Oncologist Medical Oncology 12/17/23 Angy Spicer CNP [address] [place] [address] [email or web address] Nurse Practitioner Medical Oncology 03/15/24 documented as of this encounter Additional Source Comments The information contained in this document represents components of the legal health record. It is not the complete legal health record.[facility]
--- OUTSIDE RECORDS SUMMARY | 2025-07-25 10:47 | XMS_ITS | Encounter Summary ---
Author Organization [facility] Address [address] [place] [address] Phone Care Team Providers Care Lacing Presser Name Role Phone Pato Adkins Primary Care Provider + Emerson Mcwilliams MD Unavailable [phone] Angy Spicer CNP Unavailable Encounter Details Date Type Department Care Team (Late st Contact Info) Description 12/15/2024 Procedure Pass [facility], Ct Scan - [address] [address] Social History Tobacco Use Types Packs/Day Years [...] st Contact Info) Description 04/19/2025 [facility] [address] [address] 08/09/2025 1:00 PM EST Hospital Encounter [address] [address] Emerson Mcwilliams MD [address] [place] [address] 08/16/2025 11:20 AM EST Office Visit [facility] On[facility] Clinic at [address] [address] Emerson Mcwilliams MD [address] [place] [address] 09/23/2025 10:30 AM EST Office Visit [facility] Primary Care Clinic [address] [place] [address] Susan Knapp MD [address] [place] [address] [email or web address] documented as of this encounter Visit Diagnoses Not on filedocumented in this encounter Care Teams Lacing Presser Relationship Specialty Start Date End Date Pato Adkins PA [facility] [place] [address] PCP - General Physician Manager Of It 10/08/23 Emerson Mcwilliams MD [address] [place] [address] [email or web address] Primary Oncologist Medical Oncology 12/17/23 Angy Spicer CNP [address] [place] [address] Nurse Practitioner Medical Oncology 03/15/24 documented as of this encounter Additional Source Comments The information contained in this document represents components of the legal health record. It is not the complete legal health record.[facility]
--- OUTSIDE RECORDS SUMMARY | 2025-07-25 10:48 | XMS_ITS | Encounter Summary ---
Author Organization [facility], Address [address] [place] [address] Phone Care Team Providers Care Consulting Nurse Name Role Phone Pato Adkins Primary Care Provider [phone] Encounter Details Date Type Department Care Team (Late st Contact Info) Description 12/15/2023 Documentation Only [facility] [address] [place] [address] Marj Fischer [address] [place] [address] Social History Tobacco Use Types [...] Visit [facility] Robyn BRANHAM [address] [place] [phone] Jt Lam MD [address] [place] [address] [place] [address] documented as of this encounter Visit Diagnoses Not on filedocumented in this encounter Care Teams Consulting Nurse Relationship Specialty Start Date End Date Pato Adkins PA [address] [place] [address], [address] [place] [address] PCP - General Physician [employer] Principal 11/25/23 documented as of this encounter
--- OUTSIDE RECORDS SUMMARY | 2025-07-25 10:48 | XMS_ITS | Encounter Summary ---
Author Organization [facility] [place], Address [address] [place] [address] Phone Care Team Providers Care Senior Clinical Data Manager Name Role Phone Pato Adkins Primary Care Provider [phone] Encounter Details Date Type Department Care Team (Late st Contact Info) Description 02/03/2024 Documentation Only [facility] [address] [place] [address] Bettye Del Castillo [address] [place] [phone] Social History Tobacco Use Types Packs/Day [...] Of [facility] Robyn BRANHAM [address] [place] [phone] Jt Lam MD [address] [place] [address] [place] [address] documented as of this encounter Visit Diagnoses Not on filedocumented in this encounter Care Teams Senior Clinical Data Manager Relationship Specialty Start Date End Date Pato Adkins PA [address] [place] [address], [address] [place] [address] PCP - General Physician Supervisor Adult Education 11/25/23 documented as of this encounter
--- OUTSIDE RECORDS SUMMARY | 2025-07-25 10:48 | XMS_ITS | Encounter Summary ---
Author Organization [facility] [place], Address [address] [place] [address] Phone Care Team Providers Care Veterans' Coordinator Name Role Phone Pato Adkins Primary Care Provider [phone] Encounter Details Date Type Department Care Team (Late st Contact Info) Description 09/09/2024 Documentation Only [facility] [address] [place] [address] Selina Velasquez [address] [place] [phone] Social History Tobacco Use Types Packs/Day [...] Visit [facility] Robyn BRANHAM [address] [place] [phone] Jt Lam MD [address] [place] [address] [place] [address] documented as of this encounter Visit Diagnoses Not on filedocumented in this encounter Care Teams Veterans' Coordinator Relationship Specialty Start Date End Date Pato Adkins PA [address] [place] [address], [address] [place] [address] PCP - General Physician Homeopathic Doctor 11/25/23 documented as of this encounter
--- OUTSIDE RECORDS SUMMARY | 2025-07-25 10:48 | XMS_ITS | Encounter Summary ---
Author Organization [facility] [place], Address [address] [place] [address] Phone Care Team Providers Care Environmental Scientists Name Role Phone Pato Adkins Primary Care Provider [phone] Encounter Details Date Type Department Care Team (Late st Contact Info) Description 01/02/2024 Orders Only [facility] Robyn BRANH[address] [place] [address] Jt Lam MD [address] [facility] [place] [address] Chronic kidney disease, stage 4 [...] Visit [facility] Robyn BRANHAM [address] [place] [address] Jt Lam MD [address] [facility] [place] [address] documented as of this encounter Visit Diagnoses Diagnosis Chronic kidney disease, stage 4 (severe) (HCC) History of nephrectomy documented in this encounter Care Teams Environmental Scientists Relationship Specialty Start Date End Date Pato Adkins PA [address] [place] [address], [address] [place], [place] [phone] PCP - General Physician Card Folder 11/25/23 documented as of this encounter
--- OUTSIDE RECORDS SUMMARY | 2025-07-25 10:48 | XMS_ITS | Encounter Summary ---
Author Organization [facility] [place], Address [address] [place] [address] Phone Care Team Providers Care Student Financial Aid Manager Name Role Phone Pato Adkins Primary Care Provider [phone] Encounter Details Date Type Department Care Team (Late st Contact Info) Description 12/19/2023 Orders Only [facility] Robyn BRANHAM [address] [place] [address] Jt Lam MD [address] [facility] [place] [address] Chronic kidney disease, stage 4 [...] Visit [facility] Robyn BRANHAM [address] [place] [address] Jt Lam MD [address] [facility] [place] [address] documented as of this encounter Visit Diagnoses Diagnosis Chronic kidney disease, stage 4 (severe) (HCC) History of nephrectomy documented in this encounter Care Teams Student Financial Aid Manager Relationship Specialty Start Date End Date Pato Adkins PA [address] [place] [address], [address] [place], [place] [phone] PCP - General Physician Student Life Vice President 11/25/23 documented as of this encounter
--- OUTSIDE RECORDS SUMMARY | 2025-07-25 10:48 | XMS_ITS | Encounter Summary ---
Author Organization [facility] [place], Address [address] [place] [address] Phone Care Team Providers Care Food Or Baggage Handling Rampman Name Role Phone Pato Adkins Primary Care Provider [phone] Encounter Details Date Type Department Care Team (Late st Contact Info) Description 02/03/2024 Documentation Only [facility] [address] [place] [address] Bettye Del Castillo [address] [place] [phone] Social History Tobacco Use Types Packs/Day [...] Visit [facility] Robyn BRANHAM [address] [place] [phone] Jt Lam MD [address] [place] [address] [place] [address] documented as of this encounter Visit Diagnoses Not on filedocumented in this encounter Care Teams Food Or Baggage Handling Rampman Relationship Specialty Start Date End Date Pato Adkins PA [address] [place] [address], [address] [place] [address] PCP - General Physician Supervisor Logging 11/25/23 documented as of this encounter
--- OUTSIDE RECORDS SUMMARY | 2025-07-25 10:48 | XMS_ITS | Encounter Summary ---
Author Organization [facility] [place], Address [address] [place] [address] Phone Care Team Providers Care Senior Technical Specialist Name Role Phone Pato Adkins Primary Care Provider [phone] Encounter Details Date Type Department Care Team (Late st Contact Info) Description 02/03/2024 Documentation Only [facility] [address] [place] [address] Bettye Del Castillo [address] [place] [phone] Social History Tobacco Use Types Packs/Day [...] Visit [facility] Robyn BRANHAM [address] [place] [phone] Jt Lam MD [address] [place] [address] [place] [address] documented as of this encounter Visit Diagnoses Not on filedocumented in this encounter Care Teams Senior Technical Specialist Relationship Specialty Start Date End Date Pato Adkins PA [address] [place] [address], [address] [place] [address] PCP - General Physician Forensic Examiner 11/25/23 documented as of this encounter
--- OUTSIDE RECORDS SUMMARY | 2025-07-25 10:48 | XMS_ITS | Encounter Summary ---
Author Organization [facility] [place], Address [address] [place] [address] Phone Care Team Providers Care Strike Operations Officer Name Role Phone Pato Adkins Primary Care Provider [phone] Encounter Details Date Type Department Care Team (Late st Contact Info) Description 02/03/2024 Documentation Only [facility] [address] [place] [address] Bettye Del Castillo [address] [place] [phone] Social History Tobacco Use Types Packs/Day [...] Visit [facility] Robyn BRANHAM [address] [place] [phone] Jt Lam MD [address] [place] [address] [place] [address] documented as of this encounter Visit Diagnoses Not on filedocumented in this encounter Care Teams Strike Operations Officer Relationship Specialty Start Date End Date Pato Adkins PA [address] [place] [address], [address] [place] [address] PCP - General Physician Plaster Whittler 11/25/23 documented as of this encounter
--- OUTSIDE RECORDS SUMMARY | 2025-07-25 10:48 | XMS_ITS | Encounter Summary ---
Author Organization [facility] [place], Address [address] [place] [address] Phone Care Team Providers Care Assistant Front Office Manager Name Role Phone Pato Adkins Primary Care Provider [phone] Encounter Details Date Type Department Care Team (Late st Contact Info) Description 06/17/2024 Documentation Only [facility] [place] Robyn BRAN[address] [place] [address] Bettye Del Castillo [address] [place] [address] Social History Tobacco Use Types [...] Visit [facility] [address] [place] [address] Jt Lam MD [address] [facility] [place] [phone] documented as of this encounter Visit Diagnoses Not on filedocumented in this encounter Care Teams Assistant Front Office Manager Relationship Specialty Start Date End Date Pato Adkins PA [address] [place] [address], [address] [place] [address] PCP - General Physician Engineering Supervisor 11/25/23 documented as of this encounter
--- OUTSIDE RECORDS SUMMARY | 2025-07-25 10:48 | XMS_ITS | Encounter Summary ---
Author Organization [facility] [place], Address [address] [place] [address] Phone Care Team Providers Care Process Worker Name Role Phone Pato Adkins Primary Care Provider [phone] Encounter Details Date Type Department Care Team (Late st Contact Info) Description 08/31/2024 Documentation Only [facility] [address] [place] [address] Selina Velasquez [address] [place] [address] Social History Tobacco Use Types [...] Visit [facility] Robyn BRANHAM [address] [place] [phone] Jt Lam MD [address] [place] [address] [place] [address] documented as of this encounter Visit Diagnoses Not on filedocumented in this encounter Care Teams Process Worker Relationship Specialty Start Date End Date Pato Adkins PA [address] [place] [address], [address] [place] [address] PCP - General Physician Marker Assembler 11/25/23 documented as of this encounter
--- OUTSIDE RECORDS SUMMARY | 2025-07-25 10:48 | XMS_ITS | Encounter Summary ---
Author Organization [facility] Address [address] [place] [address] Phone Care Team Providers Care Psychiatry Resident Name Role Phone Pato Adkins Primary Care Provider + Emerson Mcwilliams MD Unavailable [phone] Angy Spicer CNP Unavailable Encounter Details Date Type Department Care Team (Late st Contact Info) Description 06/28/2024 Procedure Pass [facility], Ct Scan - [address] [address] Social History Tobacco Use Types Packs/Day Years [...] st Contact Info) Description 04/19/2025 Procedure Pass [facility] Ct Scan [address] [address] 08/09/2025 1:00 PM EST Hospital Encounter [address] [address] Emerson Mcwilliams MD [address] [place] [address] 08/16/2025 11:20 AM EST Office Visit [facility] Hematology Oncology Clinic at [address] [address] Emerson Mcwilliams MD [address] [place] [address] 09/23/2025 10:30 AM EST Office Visit [facility] Primary Care Clinic [address] [place] [address] Susan Knapp MD [address] [place] [address] [email or web address] documented as of this encounter Visit Diagnoses Not on filedocumented in this encounter Care Teams Psychiatry Resident Relationship Specialty Start Date End Date Pato Adkins PA [facility] [place] [address] PCP - General Physician Compliance Technician 10/08/23 Emerson Mcwilliams MD [address] [place] [address] [email or web address] Primary Oncologist Medical Oncology 12/17/23 Angy Spicer CNP [address] [place] [address] Nurse Practitioner Medical Oncology 03/15/24 documented as of this encounter Additional Source Comments The information contained in this document represents components of the legal health record. It is not the complete legal health record.[facility]
--- OUTSIDE RECORDS SUMMARY | 2025-07-25 10:48 | XMS_ITS | Encounter Summary ---
Author Organization [facility] Address [address] [place] [address] Phone Care Team Providers Care Pediatric Orthodontist Name Role Phone Pato Adkins Primary Care Provider + Emerson Mcwilliams MD Unavailable [phone] Angy Spicer CNP Unavailable Encounter Details Date Type Department Care Team (Late st Contact Info) Description 09/20/2024 Procedure Pass [address] [place] [address] Social History Tobacco Use Types Packs/Day Years [...] st Contact Info) Description 04/19/2025 Procedure Pass [facility], Ct Scan [address] [address] 08/09/2025 1:00 PM EST Hospital Encounter [facility], Ct Scan - [address] [address] Emerson Mcwilliams MD [address] [place] [address] 08/16/2025 11:20 AM EST Office Visit [facility] [place] Hematology Oncology Clinic at [address] [address] Emerson Mcwilliams MD [address] [place] [address] 09/23/2025 10:30 AM EST Office Visit [facility] Primary Care Clinic [address] [place] [address] Susan Knapp MD 234 [facility], [address] [place] [address] [email or web address] documented as of this encounter Visit Diagnoses Not on filedocumented in this encounter Care Teams Pediatric Orthodontist Relationship Specialty [place] [address] [place] [address] PCP - General Physician Fiber Optic Technician 10/08/23 Emerson Mcwilliams MD [address] [place] [address] Primary Oncologist Medical Oncology 12/17/23 Angy Spicer CNP [address] [place] [address] [email or web address] Nurse Practitioner Medical Oncology 03/15/24 documented as of this encounter Additional Source Comments The information contained in this document represents components of the legal health record. It is not the complete legal health record.[facility]
--- OUTSIDE RECORDS SUMMARY | 2025-07-25 10:48 | XMS_ITS | Clinical Summary ---
Author Organization [facility], Address [address] [place] [address] Phone Care Team Providers Care Freezer Machine Operator Name Role Phone Pato Adkins Primary Care Provider [phone] Allergies Active Allergy Reactions Criticality Noted Date [...] with hospital and continued on [facility] Nephrology consulted As potassium 5.4 today held [facility] and ordered repeat BMP for this afternoon. Diet changed to low potassium, diuretic lisinopril discontinued Retention of urine 11/20/2023 Overview (06/17/2024): Last Assessment & Plan: Nephrectomy for RCC 11/13 and [facility]. Patient had a voiding trial postop but failed and Collins catheter replaced. Patient on way to [place] [facility] for voiding trial yesterday when she was called and told it was canceled. Due to decreased urine output and sensation that the Collins was falling as well as dark urine sent to the ED. Collins catheter repositioned with improvement Plan discontinue Collins catheter today for voiding trial. (Started on gabapentin at [facility] for postop pain: [...] Visit [facility] [place] [place] - Anjelica Liang [address] [place] [address] Jt Lam MD Chronic kidney disease, stage 4 (severe) (HCC) (Primary Dx); History of nephrectomy; Essential (primary) hypertension from Last 3 Months Immunizations Immunization Administration [...] [facility] Anjelica Liang [address] [phone] Jt Lam MD [address] [place] [address] [place] [phone] Health Maintenance Due Date Last Done Comments [...] patient's age to complete this topic Insurance [facility] Medicare [facility] Medicare Care Teams Freezer Machine Operator Relationship Specialty Start Date End Date Pato Adkins PA [address] [place] [address], [address] [place], [place] [address] PCP - General Physician Assistant Spa Director 11/25/23
--- OUTSIDE RECORDS SUMMARY | 2025-07-25 10:48 | XMS_ITS | Encounter Summary ---
Author Organization [facility] [place], Address [address] [place] [address] Phone Care Team Providers Care Sanding Machine Tender Name Role Phone Pato Adkins Primary Care Provider [phone] Encounter Details Date Type Department Care Team (Late st Contact Info) Description 02/03/2024 Documentation Only [facility] [address] [place] [address] Bettye Del Castillo [address] [place] [phone] Social History Tobacco Use Types Packs/Day [...] Services Of [facility] Robyn BRANHAM [address] [place] [phone] Jt Lam MD [address] [place] [address] [place] [address] documented as of this encounter Visit Diagnoses Not on filedocumented in this encounter Care Teams Sanding Machine Tender Relationship Specialty Start Date End Date Pato Adkins PA [address] [place] [address], [address] [place] [address] PCP - General Physician Relocation Director 11/25/23 documented as of this encounter
--- OUTSIDE RECORDS SUMMARY | 2025-07-25 10:48 | XMS_ITS | Encounter Summary ---
Author Organization [facility] [place], Address [address] [place] [address] Phone Care Team Providers Care Metal Sorter Name Role Phone Pato Adkins Primary Care Provider [phone] Encounter Details Date Type Department Care Team (Late st Contact Info) Description 11/27/2023 Documentation Only [facility] [place] Robyn [address] [place] [address] Bettye Del Castillo [address] [place], [...] Visit [facility] [address] [place] [address] Jt Lam MD [address] [facility] [place] [phone] documented as of this encounter Visit Diagnoses Not on filedocumented in this encounter Care Teams Metal Sorter Relationship Specialty Start Date End Date Pato Adkins PA [address] [place] [address], [address] [place] [address] PCP - General Physician Lithographic Printing Machinist 11/25/23 documented as of this encounter
--- OUTSIDE RECORDS SUMMARY | 2025-07-25 10:48 | XMS_ITS | Encounter Summary ---
Author Organization [facility] Address [address] [place] [address] Phone Care Team Providers Care Edger Machine Setter Name Role Phone Lacey Shafer MD Primary Care Provider Pato Adkins Primary Care Provider + Emerson Mcwilliams MD Unavailable [phone] Angy Spicer CNP Unavailable Encounter Details Date Type Department Care Team (Late st Contact Info) Description 09/01/2023 Procedure Pass [address] [place] [address] Social History Tobacco Use Types Packs/Day Years [...] st Contact Info) Description 04/19/2025 Procedure Pass [facility], Ct Scan - [address] [address] 08/09/2025 1:00 PM EST Hospital Encounter [facility], Ct Scan - [address] [address] Emerson Mcwilliams MD [address] [place] [address] 08/16/2025 11:20 AM EST Office Visit [facility] Hematology Oncology Clinic at [address] [address] Emerson Mcwilliams MD [address] [place] [address] 09/23/2025 10:30 AM EST Office Visit [facility] Primary Care Clinic [address] [place] [address] Susan Knapp MD 234 [facility] 7 [place] [address] [email or web address] documented as of this encounter Visit Diagnoses Not on filedocumented in this encounter Care Teams Edger Machine Setter Relationship Specialty Start Date End Date Lacey Shafer MD [address] [place] [address] PCP - General 05/01/20 10/07/23 Pato Adkins PA [address] [place] [address] PCP - General Physician Artificial Breast Fabricator 10/08/23 Emerson Mcwilliams MD [address] [place] [address] [email or web address] Primary Oncologist Medical Oncology 12/17/23 Angy Spicer CNP [address] [place] [address] [email or web address] Nurse Practitioner Medical Oncology 03/15/24 documented as of this encounter Additional Source Comments The information contained in this document represents components of the legal health record. It is not the complete legal health record.[facility]
--- OUTSIDE RECORDS SUMMARY | 2025-07-25 10:48 | XMS_ITS | Encounter Summary ---
Author Organization [facility] Address [address] [place] [address] Phone Care Team Providers Care Rubber Press Operator Name Role Phone Lacey Shafer MD Primary Care Provider Pato Adkins Primary Care Provider + Emerson Mcwilliams MD Unavailable [phone] Angy Spicer CNP Unavailable Encounter Details Date Type Department Care Team (Late st Contact Info) Description 08/28/2023 Procedure Pass [facility], Ct Scan - [address] [id number] Social History Tobacco Use Types Packs/Day Years [...] st Contact Info) Description 04/19/2025 Procedure Pass [facility], Ct Scan - [address] [address] 08/09/2025 1:00 PM EST Hospital Encounter [facility], Ct Scan - [address] [address] Emerson Mcwilliams MD [address] [place] [address] 08/16/2025 11:20 AM EST Office Visit [facility] Hematology Oncology Clinic at [address] [address] Emerson Mcwilliams MD [address] [place] [address] 09/23/2025 10:30 AM EST Office Visit [facility] Primary Care Clinic [address] [place] [address] Susan Knapp MD 234 [facility], [address] [place] [address] [email or web address] documented as of this encounter Visit Diagnoses Not on filedocumented in this encounter Care Teams Rubber Press Operator Relationship Specialty Start Date End Date Lacey Shafer MD [address] [place] [address] PCP - General 05/01/20 10/07/23 Pato Adkins PA [address] [place] [address] PCP - General Physician Turf Sales Person 10/08/23 Emerson Mcwilliams MD [address] [place] [address] [email or web address] Primary Oncologist Medical Oncology 12/17/23 Angy Spicer CNP [address] [place] [address] [email or web address] Nurse Practitioner Medical Oncology 03/15/24 documented as of this encounter Additional Source Comments The information contained in this document represents components of the legal health record. It is not the complete legal health record.[facility]
--- OUTSIDE RECORDS SUMMARY | 2025-07-25 10:48 | XMS_ITS | Encounter Summary ---
Author Organization [facility] Address [address] [place] [address] Phone Care Team Providers Care Manager Lsw Name Role Phone Pato Adkins Primary Care Provider + Emerson Mcwilliams MD Unavailable [phone] Angy Spicer CNP Unavailable Encounter Details Date Type Department Care Team (Late st Contact Info) Description 06/28/2024 Procedure Pass [facility], Ct Scan - [address] [address] Social History Tobacco Use Types Packs/Day Years [...] Info) Description 04/19/2025 Procedure Pass [facility] Ct Scan [address] [address] 08/09/2025 1:00 PM EST Hospital Encounter [address] [address] Emerson Mcwilliams MD [address] [place] [address] 08/16/2025 11:20 AM EST Office Visit [facility] Hematology Oncology Clinic at [address] [address] Emerson Mcwilliams MD [address] [place] [address] 09/23/2025 10:30 AM EST Office Visit [facility] Primary Care Clinic [address] [place] [address] Susan Knapp MD [address] [place] [address] [email or web address] documented as of this encounter Visit Diagnoses Not on filedocumented in this encounter Care Teams Manager Lsw Relationship Specialty Start Date End Date Pato Adkins PA [facility]1 [place] [address] PCP - General Physician Steel Rule Inspector 10/08/23 Emerson Mcwilliams MD [address] [place] [address] [email or web address] Primary Oncologist Medical Oncology 12/17/23 Angy Spicer CNP [address] [place] [address] Nurse Practitioner Medical Oncology 03/15/24 documented as of this encounter Additional Source Comments The information contained in this document represents components of the legal health record. It is not the complete legal health record.[facility]
--- OUTSIDE RECORDS SUMMARY | 2025-07-25 10:48 | XMS_ITS | Encounter Summary ---
Author Organization [facility] [place], Address [address] [place] [address] Phone Care Team Providers Care Night Guard Name Role Phone Pato Adkins Primary Care Provider [phone] Encounter Details Date Type Department Care Team (Late st Contact Info) Description 02/03/2024 Documentation Only [facility] [address] [place] [address] Bettye Del Castillo [address] [place] [phone] Social History Tobacco Use Types Packs/Day [...] [facility] Robyn BRANHAM [address] [place] [phone] Jt Lam MD [address] [place] [address] [place] [address] documented as of this encounter Visit Diagnoses Not on filedocumented in this encounter Care Teams Night Guard Relationship Specialty Start Date End Date Pato Adkins PA [address] [place] [address], [address] [place] [address] PCP - General Physician Program Engagement Director 11/25/23 documented as of this encounter
--- OUTSIDE RECORDS SUMMARY | 2025-07-25 10:48 | XMS_ITS | Encounter Summary ---
Author Organization [facility] [place], Address [address] [place] [address] Phone Care Team Providers Care School Superintendent Name Role Phone Pato Adkins Primary Care Provider [phone] Encounter Details Date Type Department Care Team (Late st Contact Info) Description 09/17/2024 Documentation Only [facility] [address] [place] [address] Selina Velasquez [address] [place] [phone] Social History Tobacco Use Types Packs/Day [...] Services Of [facility] Robyn BRANHAM [address] [place] [phone] Jt Lam MD [address] [place] [address] [place] [address] documented as of this encounter Visit Diagnoses Not on filedocumented in this encounter Care Teams School Superintendent Relationship Specialty Start Date End Date Pato Adkins PA [address] [place] [address], [address] [place] [address] PCP - General Physician Supervisor [employer] Fabricating 11/25/23 documented as of this encounter
--- OUTSIDE RECORDS SUMMARY | 2025-07-25 10:48 | XMS_ITS | Encounter Summary ---
Author Organization [facility] [place], Address [address] [place] [address] Phone Care Team Providers Care Customer Relationship Specialist Name Role Phone Pato Adkins Primary Care Provider [phone] Encounter Details Date Type Department Care Team (Late st Contact Info) Description 04/22/2025 Documentation Only [facility] [place] Robyn [address] [place] [address] Bettye Del Castillo [address] [place] [address] Social History Tobacco Use Types [...] Visit [facility] [address] [place] [address] Jt Lam MD [address] [facility] [place] [phone] documented as of this encounter Visit Diagnoses Not on filedocumented in this encounter Care Teams Customer Relationship Specialist Relationship Specialty Start Date End Date Pato Adkins PA [address] [place] [address], [address] [place] [address] PCP - General Physician Head Waiter 11/25/23 documented as of this encounter
--- OUTSIDE RECORDS SUMMARY | 2025-07-25 10:48 | XMS_ITS | Encounter Summary ---
Author Organization [facility] Address [address] [facility] [address] [place] [address] Phone Care Team Providers Care Registered Dietetic Technician Name Role Phone Pato Adkins Primary Care Provider + Emerson Mcwilliams MD Unavailable [phone] Angy Spicer CNP Unavailable Encounter Details Date Type Department Care Team (Latest Contact Info) Description 01/30/2024 Transcribe Orders [facility] [address] [place] [address] Jt Lam MD [address] [facility] [address] [place] [address] Stage 3b chronic kidney disease (Primary Dx) [...] st Contact Info) Description 04/19/2025 Procedure Pass [address] [address] 08/09/2025 1:00 PM EST Hospital Encounter [address] [address] Emerson Mcwilliams MD [address] [place] [address] 08/16/2025 11:20 AM EST Office Visit [facility] [place] [facility] at [address] [address] Emerson Mcwilliams MD [address] [place] [address] 09/23/2025 10:30 AM EST Office Visit [facility] [address] [place] [address] Susan Knapp MD [address] [facility], [address] [place] [address] [email or web address] documented as of this encounter Procedures [...] URIC ACID 6.0 2.4 - 7.0 mg/dL [facility] Blood 01/30/2024 11:4 9 AM EDT 01/30/2024 11:54 AM EDT us Jt Lam MD LAB BLOOD BKR ORDERABLES Final R esult [facility] [address] [place] [address] * (ABNORMAL) CBC (01/30/2024 11:49 AM EDT) WBC 5.15 4.00 - 11.00 K/uL [facility] RBC 4.02 3.72 - 5.30 M/uL [facility] HGB 11.5 11.4 - 15.9 g/dL [facility] HCT 36.3 34.2 - 46.8 % [facility] PLT 358 140 - 430 K/uL [facility] MCV 90.3 78.0 - 97.0 fL [facility] MCH 28.6 25.0 - 33.0 pg [facility] MCHC 31.7(L) 32.0 - 36.0 g/dL [facility] RDW 14.0 11.0 - 16.0 % [facility] MPV 9.5 8.4 - 12.8 fl [facility] Blood 01/30/2024 11:4 9 AM EDT 01/30/2024 11:54 AM EDT Jt Lam MD LAB BLOOD BKR ORDERABLES Final R esult [address] [address] * Ferritin (01/30/2024 11:49 AM EDT) FERRITIN 39 13 - 150 ug/L [facility] Blood 01/30/2024 11:4 9 AM EDT 01/30/2024 11:54 AM EDT Jt Lam MD LAB BLOOD BKR ORDERABLES Final R esult [address] [address] * Iron and iron binding capacity (01/30/2024 11:49 AM EDT) IRON 92 30 - 160 ug/dL [facility] IRON BINDING CAPACITY 332 228 - 428 ug/dL [facility] TRANSFERRIN SATURAT. 28 15 - 50 % [facility] Blood 01/30/2024 11:4 9 AM EDT 01/30/2024 11:54 AM EDT us Jt Lam MD LAB BLOOD BKR ORDERABLES Final R esult Performing Organization Address City/[facility]/ZIP Co de Phone Number [address] [address] * (ABNORMAL) Parathyroid hormone (PTH) (01/30/2024 11:49 AM EDT) PARATHYROID HORMONE 71(H) 15 - 65 pg/mL [facility] Blood 01/30/2024 11:4 9 AM EDT 01/30/2024 11:54 AM EDT us Jt Lam MD LAB BLOOD BKR ORDERABLES Final R esult Performing Organization Address City/[facility]/ZIP Co de Phone Number [address] [address] * Hemoglobin A1c (01/30/2024 11:49 AM EDT) HEMOGLOBIN A1C 5.8 4.3 - 5.8 % [facility] Blood 01/30/2024 11:4 9 AM EDT 01/30/2024 11:55 AM EDT us Jt Lam MD LAB BLOOD BKR ORDERABLES Final R esult Performing Organization Address City/[facility]/ZIP Co de Phone Number [address] [address] * Total protein creatinine ratio, random urine (01/30/2024 11:49 AM EDT) URINE TOTAL PROTEIN 25.0 mg/dL [facility] URINE CREATININE 138 mg/dL [facility] URINE TP CRE RATIO 0.18 0 - 0.19 [facility] Urine (Urine) 01/30/2024 11: 49 AM EDT 01/30/2024 11:55 AM EDT us Jt Lam MD LAB URINE ORDERABLES Final Resul t Performing Organization Address [facility] Co de Phone Number [address] [address] * (ABNORMAL) Renal panel (01/30/2024 11:49 AM EDT) SODIUM 139 133 - 146 mmol/L [facility] POTASSIUM 5.2(H) 3.3 - 5.1 mmol/L [facility] CHLORIDE 106 96 - 108 mmol/L [facility] CO2 19(L) 21 - 35 mmol/L [facility] GLUCOSE 141(H) 70 - 99 mg/dL [facility] BUN 46(H) 6 - 19 mg/dL [facility] CREATININE 2.60(H) 0.5 - 1.5 mg/dL [facility] CALCIUM 9.8 8.4 - 10.3 mg/dL [facility] PHOSPHORUS 4.7(H) 2.7 - 4.5 mg/dL [facility] ALBUMIN 4.4 3.9 - 4.8 g/dL [facility] EGFR 19(L) >59 mL/min/1.7 3m2 [facility] Comment:Estimated glomerular filtration rate calculated using the CKD-EPI refit equation. ANION GAP 19 10 - 20 mmol/L [facility] Blood 01/30/2024 11:4 9 AM EDT 01/30/2024 11:54 AM EDT us Jt Lam MD LAB BLOOD BKR ORDERABLES Final R esult Performing Organization Address City/[facility]/ZIP Co de Phone Number [address] [address] documented in this encounter Visit Diagnoses Diagnosis Stage 3b chronic kidney disease- Primary documented in this encounter Care Teams Registered Dietetic Technician Relationship Specialty Start Date End Date Pato Adkins PA [address] [place] [address] PCP - General Physician Chemical Treatment Operator 10/08/23 Emerson Mcwilliams MD [address] [place] [address] [email or web address] Primary Oncologist Medical Oncology 12/17/23 Angy Spicer CNP [address] [place] [address] [email or web address] Nurse Practitioner Medical Oncology 03/15/24 documented as of this encounter Additional Source Comments The information contained in this document represents components of the legal health record. It is not the complete legal health record.[facility]
--- OUTSIDE RECORDS SUMMARY | 2025-07-25 10:48 | XMS_ITS | Encounter Summary ---
Author Organization [facility], Address [address] [place] [address] Phone Care Team Providers Care Supervisor Core Drilling Name Role Phone Pato Adkins Primary Care Provider [phone] Encounter Details Date Type Department Care Team (Late st Contact Info) Description 12/15/2023 Documentation Only [facility] [address] [place] [address] Marj Fischer [address] [place] [address] Social History Tobacco Use Types [...] [facility] Robyn BRANHAM [address] [place] [phone] Jt Lam MD [address] [place] [address] [place] [address] documented as of this encounter Visit Diagnoses Not on filedocumented in this encounter Care Teams Supervisor Core Drilling Relationship Specialty Start Date End Date Pato Adkins PA [address] [place] [address], [address] [place] [address] PCP - General Physician Machine Tool Mechanic 11/25/23 documented as of this encounter
--- OUTSIDE RECORDS SUMMARY | 2025-07-25 10:48 | XMS_ITS | Encounter Summary ---
Author Organization [facility] [place], Address [address] [place] [address] Phone Care Team Providers Care Cabin Service Agent Name Role Phone Pato Adkins Primary Care Provider [phone] Encounter Details Date Type Department Care Team (Late st Contact Info) Description 01/16/2024 Orders Only [facility] Robyn [address] [place] [address] Jt Lam MD [address] [place] [place] [address] Chronic kidney disease, stage 4 [...] Visit [facility] [address] [place] [address] Jt Lam MD [address] [place] [address] documented as of this encounter Visit Diagnoses Diagnosis Chronic kidney disease, stage 4 (severe) (HCC) History of nephrectomy documented in this encounter Care Teams Cabin Service Agent Relationship Specialty Start Date End Date Pato Adkins PA [address] [place] [address], [address] [place], [place] [phone] PCP - General Physician Cabin Outfitter 11/25/23 documented as of this encounter
--- OUTSIDE RECORDS SUMMARY | 2025-07-25 10:48 | XMS_ITS | Encounter Summary ---
Author Organization [facility] Address [address] [place] [address] Phone Care Team Providers Care Contact Finger Assembler Name Role Phone Pato Adkins Primary Care Provider + Emerson Mcwilliams MD Unavailable [phone] Angy Spicer CNP Unavailable Encounter Details Date Type Department Care Team (Late st Contact Info) Description 08/31/2024 Procedure Pass [facility], Ct Scan - [address] [address] Social History Tobacco Use Types Packs/Day Years [...] Info) Description 04/19/2025 Procedure Pass [facility] Ct Scan [address] [address] 08/09/2025 1:00 PM EST Hospital Encounter [address] [address] Emerson Mcwilliams MD [address] [place] [address] 08/16/2025 11:20 AM EST Office Visit [facility] On[facility] at [address] [address] Emerson Mcwilliams MD [address] [place] [address] 09/23/2025 10:30 AM EST Office Visit [facility] [address] [place] [address] Susan Knapp MD [address] [place] [address] [email or web address] documented as of this encounter Visit Diagnoses Not on filedocumented in this encounter Care Teams Contact Finger Assembler Relationship Specialty Start Date End Date Pato Adkins PA [facility] [place] [address] PCP - General Physician Senior Telecommunications Consultant 10/08/23 Emerson Mcwilliams MD [address] [place] [address] [email or web address] Primary Oncologist Medical Oncology 12/17/23 Angy Spicer CNP [address] [place] [address] Nurse Practitioner Medical Oncology 03/15/24 documented as of this encounter Additional Source Comments The information contained in this document represents components of the legal health record. It is not the complete legal health record.[facility]
--- OUTSIDE RECORDS SUMMARY | 2025-07-25 10:48 | XMS_ITS | Encounter Summary ---
Author Organization [facility], Address [address] [place] [address] Phone Care Team Providers Care Ems Director Name Role Phone Pato Adkins Primary Care Provider [phone] Encounter Details Date Type Department Care Team (Late st Contact Info) Description 02/13/2024 Orders Only [facility] Robyn [address] [place] [address] Jt Lam MD [address] [facility] [place] [address] Chronic kidney disease, stage 4 [...] Visit [facility] Robyn [address] [place] [address] Jt Lam MD [address] [facility] [place] [address] documented as of this encounter Visit Diagnoses Diagnosis Chronic kidney disease, stage 4 (severe) (HCC) History of nephrectomy documented in this encounter Care Teams Ems Director Relationship Specialty Start Date End Date Pato Adkins PA [address] [place] [address], [address] [place], [place] [phone] PCP - General Physician Middle School Reading Teacher 11/25/23 documented as of this encounter
--- OUTSIDE RECORDS SUMMARY | 2025-07-25 10:48 | XMS_ITS | Encounter Summary ---
Author Organization [facility] Address [address] [place] [address] Phone Care Team Providers Care Hat Steamer Name Role Phone Lacey Shafer MD Primary Care Provider Pato Adkins Primary Care Provider + Emerson Mcwilliams MD Unavailable [phone] Angy Spicer CNP Unavailable Encounter Details Date Type Department Care Team (Late st Contact Info) Description 09/01/2023 Procedure Pass [address] [place] [address] Social History Tobacco Use Types Packs/Day Years [...] st Contact Info) Description 04/19/2025 Procedure Pass [facility], Ct Scan - [address] [address] 08/09/2025 1:00 PM EST Hospital Encounter [facility], Ct Scan - [address] [address] Emerson Mcwilliams MD [address] [place] [address] 08/16/2025 11:20 AM EST Office Visit [facility] [place] [facility] at [address] [address] Emerson Mcwilliams MD [address] [place] [address] 09/23/2025 10:30 AM EST Office Visit [facility] Primary Care Clinic [address] [place] [address] Susan Knapp MD 234 [facility] 7 [place] [address] [email or web address] documented as of this encounter Visit Diagnoses Not on filedocumented in this encounter Care Teams Hat Steamer Relationship Specialty Start Date End Date Lacey Shafer MD [address] [place] [address] PCP - General 05/01/20 10/07/23 Pato Adkins PA [address] [place] [address] PCP - General Physician Electron Beam Machine Welder Setter 10/08/23 Emerson Mcwilliams MD [address] [place] [address] [email or web address] Primary Oncologist Medical Oncology 12/17/23 Angy Spicer CNP [address] [place] [address] [email or web address] Nurse Practitioner Medical Oncology 03/15/24 documented as of this encounter Additional Source Comments The information contained in this document represents components of the legal health record. It is not the complete legal health record.[facility]
--- OUTSIDE RECORDS SUMMARY | 2025-07-25 10:48 | XMS_ITS | Encounter Summary ---
Author Organization [facility] [place], Address [address] [place] [address] Phone Care Team Providers Care Litigation Attorney Name Role Phone Pato Adkins Primary Care Provider [phone] Encounter Details Date Type Department Care Team (Late st Contact Info) Description 01/30/2024 Orders Only [facility] Robyn BRANH[address] [place] [address] Jt Lam MD [address] [facility] [place] [address] Chronic kidney disease, stage 4 [...] [facility] Robyn [address] [place] [address] Jt Lam MD [address] [facility] [place] [address] documented as of this encounter Visit Diagnoses Diagnosis Chronic kidney disease, stage 4 (severe) (HCC) History of nephrectomy documented in this encounter Care Teams Litigation Attorney Relationship Specialty Start Date End Date Pato Adkins PA [address] [place] [address], [address] [place], [place] [phone] PCP - General Physician Snow Shoveler 11/25/23 documented as of this encounter
--- OUTSIDE RECORDS SUMMARY | 2025-07-25 10:48 | XMS_ITS | Encounter Summary ---
Author Organization [facility] [place], Address [address] [place] [address] Phone Care Team Providers Care Electrical Test Engineer Name Role Phone Pato Adkins Primary Care Provider [phone] Encounter Details Date Type Department Care Team (Late st Contact Info) Description 12/09/2023 Documentation Only [facility] [address] [place] [address] Bettye Del Castillo [address] [place] [address] Social History Tobacco Use Types Packs/Day [...] Visit [facility] Robyn BRANHAM [address] [place] [phone] Jt Lam MD [address] [place] [address] [place] [address] documented as of this encounter Visit Diagnoses Not on filedocumented in this encounter Care Teams Electrical Test Engineer Relationship Specialty Start Date End Date Pato Adkins PA [address] [place] [address], [address] [place] [address] PCP - General Physician Donor Support Technician 11/25/23 documented as of this encounter
--- OUTSIDE RECORDS SUMMARY | 2025-07-25 10:49 | XMS_ITS | Encounter Summary ---
Author Organization [facility] Address [address] [facility] [address] [place] [address] Phone Care Team Providers Care Steamer Tender Name Role Phone Pato Adkins Primary Care Provider + Emerson Mcwilliams MD Unavailable [phone] Angy Spicer CNP Unavailable Encounter Details Date Type Department Care Team (Late st Contact Info) Description 11/20/2023 Transcribe Orders Virtual Department [address] [place] [address] Pato Adkins PA [address] [place], [place] [phone] Right shoulder pain, unspecified chronicity (Primary Dx) [...] st Contact Info) Description 04/19/2025 Procedure Pass [address] [address] 08/09/2025 1:00 PM EST Hospital Encounter [address] [address] Emerson Mcwilliams MD [address] [place] [address] 08/16/2025 11:20 AM EST Office Visit [facility] On[facility] at [address] [address] Emerson Mcwilliams MD [address] [place] [address] 09/23/2025 10:30 AM EST Office Visit [facility] [address] [place] [address] Susan Knapp MD [address] [place] [address], [address] [place] [address] [email or web address] documented as of this encounter Results * [...] chronicity documented in this encounter Care Teams Steamer Tender Relationship Specialty Start Date End Date Pato Adkins PA [address] [place] [address] PCP - General Physician Machine Heel Builder 10/08/23 Emerson Mcwilliams MD [address] [place] [address] [email or web address] Primary Oncologist Medical Oncology 12/17/23 Angy Spicer CNP [address] [place] [address] [email or web address] Nurse Practitioner Medical Oncology 03/15/24 documented as of this encounter Additional Source Comments The information contained in this document represents components of the legal health record. It is not the complete legal health record.[facility]
--- OUTSIDE RECORDS SUMMARY | 2025-07-25 10:49 | XMS_ITS | Encounter Summary ---
Author Organization [facility] Address [address] [place] [address] Phone Care Team Providers Care Roller Print Tender Name Role Phone Pato Adkins Primary Care Provider + Emerson Mcwilliams MD Unavailable [phone] Angy Spicer CNP Unavailable Encounter Details Date Type Department Care Team (Late st Contact Info) Description 11/14/2023 Procedure Pass [facility] PERIOPERATIVE DEPT [address] [place] [address] Social History Tobacco Use Types [...] st Contact Info) Description 04/19/2025 Procedure Pass [facility], Ct Scan - [address] [address] 08/09/2025 1:00 PM EST Hospital Encounter [facility], Ct Scan - [address] [address] Emerson Mcwilliams MD [address] [place] [address] [email or web address] 08/16/2025 11:20 AM EST Office Visit [facility] [place] [facility] Oncology Clinic at [address] [address] Emerson Mcwilliams MD [address] [place] [address] 09/23/2025 10:30 AM EST Office Visit [facility] Primary Care Clinic [address] [place] [address] Susan Knapp MD [address] [place] [address], [facility] 7 [place] [address] [email or web address] documented as of this encounter Visit Diagnoses Not on filedocumented in this encounter Care Teams Roller Print Tender Relationship Specialty Start Date End Date Pato Adkins PA [address] [place] [address] PCP - General Physician Academic Assistant 10/08/23 Emerson Mcwilliams MD [address] [place] [address] [email or web address] Primary Oncologist Medical Oncology 12/17/23 Angy Spicer CNP [address] [place] [address] [email or web address] Nurse Practitioner Medical Oncology 03/15/24 documented as of this encounter Additional Source Comments The information contained in this document represents components of the legal health record. It is not the complete legal health record.[facility]
--- OUTSIDE RECORDS SUMMARY | 2025-07-25 10:49 | XMS_ITS | Encounter Summary ---
Author Organization [facility] Address [address] [facility] [address] [place] [address] Phone Care Team Providers Care Hay Rake Operator Name Role Phone Lacey Shafer MD Primary Care Provider Pato Adkins Primary Care Provider + Emerson Mcwilliams MD Unavailable [phone] Angy Spicer CNP Unavailable Encounter Details Date Type Department Care Team (Latest Contact Info) Description 08/11/2023 Transcribe Orders Virtual Department 30 [place] [address] System, Provider Not In, [facility] [address] [address] Stage 3b chronic kidney disease (CKD) (Primary [...] Procedure Pass [facility], Ct Scan [address] [address] 08/09/2025 1:00 PM EST Hospital Encounter [facility], [address] [address] Emerson Mcwilliams MD [address] [place] [address] [email or web address] 08/16/2025 11:20 AM EST Office Visit [facility] Hematology Oncology Clinic at [address] [address] Emerson Mcwilliams MD [address] [place] [address] [email or web address] 09/23/2025 10:30 AM EST Office Visit [facility] Primary Care Clinic [address] [place] [address] Susan Knapp MD [address] [place] [address] 7 [place] [address] [email or web address] documented as of this encounter Results * [...] clinician's provided indication for this examination in [facility]: Outside Radiology Order; STAGE 3B CKD [...] clinician's provided indication for this examination in [facility]:Outside Radiology Order; STAGE 3B CKD TECHNIQUE: [...] metabolism documented in this encounter Care Teams Hay Rake Operator Relationship Specialty Start Date End Date Lacey Shafer MD [address] [place] [address] PCP - General 05/01/20 10/07/23 Pato Adkins PA [address] [place] [address] PCP - General Physician Boom Cat Operator 10/08/23 Emerson Mcwilliams MD [address] [place] [address] Primary Oncologist Medical Oncology 12/17/23 Angy Spicer CNP [address] [place] [address] Nurse Practitioner Medical Oncology 03/15/24 documented as of this encounter Additional Source Comments The information contained in this document represents components of the legal health record. It is not the complete legal health record.[facility]
--- OUTSIDE RECORDS SUMMARY | 2025-07-25 10:49 | XMS_ITS | Encounter Summary ---
Author Organization [facility] Address [address] [facility] [address] [place] [address] Phone Care Team Providers Care Personnel Assistant Name Role Phone Lacey Shafer MD Primary Care Provider Pato Adkins Primary Care Provider + Emerson Mcwilliams MD Unavailable [phone] Angy Spicer CNP Unavailable Reason for Referral * MRI/CAT Scan - Closed Specialty Diagnoses / Procedures Referred By Contac t Referred To Contact Radiology Diagnoses Renal mass Procedures MRI Abdomen Edmundo Sinha MD [address] [place] [address] Phone: tel: fax: Referral ID Status Reason Start Date Expiration Date Visits Re quested Visits Authorized [id number] Closed 09/01/2023 1 1 * MRI/CAT Scan - Closed Specialty Diagnoses / Procedures Referred By Contac t Referred To Contact Radiology Diagnoses Renal mass Procedures MRI Pelvis (GI/) Edmundo Sinha MD [address] [place] [address] Phone: tel: fax: Referral ID Status Reason Start Date Expiration Date Visits Re quested Visits Authorized [id number] Closed 09/01/2023 1 1 * MRI/CAT Scan - Closed Specialty Diagnoses / Procedures Referred By Jhonny neal Referred To Contact Radiology Diagnoses Renal mass Procedures CT Chest Edmundo Sinha MD [address] [place] [address] Phone: tel: fax: Referral ID Status Reason Start Date Expiration Date Visits Re quested Visits Authorized [id number] Closed 08/28/2023 1 1 Encounter Details Date Type Department Care Team (Latest Contact Info) Description 08/28/2023 Transcribe Orders Virtual Department [address] [place] [id number] Edmundo Sinha MD [address] [place] [address] Renal mass (Primary Dx) Social History Tobacco [...] st Contact Info) Description 04/19/2025 Procedure Pass [facility], [facility] [address] [place] [address] 08/09/2025 1:00 PM EST Hospital Encounter [facility], [facility] [address] [place] [address] Emerson Mcwilliams MD [address] [place] [address] [email or web address] 08/16/2025 11:20 AM EST Office Visit [facility] at [facility] [address] [place] [address] Emerson Mcwilliams MD [address] [place] [address] [email or web address] 09/23/2025 10:30 AM EST Office Visit [facility] [address] [place] [id number] Susan Knapp MD [address] [place] [address] [address] [place] [address] [email or web address] documented as of this encounter Results * [...] ureter documented in this encounter Care Teams Personnel Assistant Relationship Specialty Start Date End Date Lacey Shafer MD [address] [place] [phone] PCP - General 05/01/20 10/07/23 Pato Adkins PA [address] [place] [id number] PCP - General Physician Machine Stemmer 10/08/23 Emerson Mcwilliams MD [address] [place] [address] Primary Oncologist Medical Oncology 12/17/23 Angy Spicer CNP [address] [place] [id number] Nurse Practitioner Medical Oncology 03/15/24 documented as of this encounter Additional Source Comments The information contained in this document represents components of the legal health record. It is not the complete legal health record.[facility]
== END 2025-07-25 09:29 | disposition home or self-care (01) ==
LOC: HO.HOSX 09:28
PROVIDERS: Visit Provider Orthopaedic Surgery
DX: M25.552 Pain in left hip (principal); Z96.642 Presence of left artificial hip joint
CPT/HCPCS: 72170

== ENCOUNTER 2025-07-25 11:08 | Outpatient (AMB) | payer MEDICARE, SELFPAY ==
--- NOTE | 2025-07-25 11:24 | A.OFFVIS_ITS ---
Vital Signs 07/25/25 11:26 Height 5 ft 7 in Weight 150 lb BMI 23.5 Intake Visit Reasons: OV- LT hip alex Intake Note: Kailey is a 70 year old female who presents today for a follow up appointment of her Left Hip about 5 months s/p left hip alex 02/27/25. At her last visit she was doing well but was advised to continue use of her cane due to gait imbalance. She was referred to and met with [facility] in regards to balance as well. Patient reports that she is improving, she has some dicomfort that comes and goes but at times she has a tomas time identifying if this omes from her back or her hip. s Allergies amoxicillin Allergy (Intermediate, Verified 03/16/25 10:33) Vomiting HPI HPI OV- LT hip alex: Details: Kailey is a 70 year old female who presents today for a follow up appointment of her Left Hip about 5 months s/p left hip alex 02/27/25. At her last visit she was doing well but was advised to continue use of her cane due to gait imbalance. She was referred to and met with [facility] in regards to balance as well. Patient reports that she is improving, she has some dicomfort that comes and goes but at times she has a tomas time identifying if this omes from her back or her hip. s HPI Comments Details: Interval History The patient is a 70-year-old female presenting with follow-up for left hip hemiarthroplasty recovery. She reports that her balance has improved since the surgery, although she attributes some ongoing balance issues to severe spinal stenosis affecting her back. She states that she can walk well with the use of a cane and has noticed significant improvement with physical therapy, although she missed a few sessions recently and observed a difference in her condition. The patient describes a recent fall in the bathroom due to her dog getting underfoot, resulting in rib pain after landing on the side of the tub. She reports persistent soreness in the ribs for a couple of weeks since the fall, but understands that rib fractures typically heal on their own without specific intervention. Results - X-rays of the left hip show good alignment and healing post-hemiarthroplasty. [facility] Medical History (Updated 07/13/25 @ 15:08 by Rashad Ruiz MD) Right renal mass Osteopenia Post-menopausal Encounter to establish care Surgical History History of nephrectomy History of colonoscopy History of placement of ear tubes History of gastric bypass History of cholecystectomy Family History Father Melanoma Brother Skin cancer Other Mental health disorder Substance use disorder Social History Household Members: Spouse Housing: House Do you presently have visiting nurse or other home services: No Alcohol intake: current Alcohol intake frequency: holidays/special occasions only Comment: counts correct Patient Tobacco Use Status: Former Tobacco user e-Cigarette/Vaping Use: Never Used Second Hand Smoke Exposure: No service: No Current occupational status: retired Cognitive needs: No Hearing needs: No Vision needs: Yes (glasses) Physical Exam Exam Exam: Physical Exam - General Appearance: The patient appears well-developed and well-nourished, in no acute distress. - Musculoskeletal: Observed ambulation with a cane, balance improved but still affected by spinal stenosis. Vital Signs: BMI result Body Mass Index 23.5 Assessment & Plan Assessment & Plan (1) Status post hemiarthroplasty of left hip: Code(s): Z96.642 - Presence of left artificial hip joint Category: Surgical Plan: Doing well 5 months status post left hip hemiarthroplasty. Continue gait training and follow up PRN. Orders: Orders XR pelvis 1-2V Today M25.559 - Pain in unspecified hip Coding Level of Care Code Est Pt Level 3 (52230) Diagnoses Status post hemiarthroplasty of left hip Z96.642
[2025-07-25 11:26] VITALS: BMI 23.5
== END 2025-07-25 11:41 | disposition home or self-care (01) ==
LOC: HO.HOS 11:08
PROVIDERS: Visit Provider Orthopaedic Surgery
DX: Z47.89 Encounter for other orthopedic aftercare (principal); Z96.642 Presence of left artificial hip joint
CPT/HCPCS: 99212

== ENCOUNTER → 2025-07-25 11:13 | Outpatient (BNV) | payer MEDICARE, SELFPAY | PROVIDERS: Visit Provider Radiology Diagnostic Radiology | DX: M25.552 Pain in left hip (principal); Z96.642 Presence of left artificial hip joint | CPT/HCPCS: 72170 ==